=== PATIENT | male | born 1990 | race Caucasian/White ===

== ENCOUNTER 2022-05-20 16:45 | Emergency (ER) | payer MEDICAID, SELFPAY ==
[2022-05-20] VITALS (25 sets, daily range): BP systolic 130–166; BP diastolic 99–106; PULSE 104–129; RESP 13–27; TEMP 36.9; O2SAT 98
[2022-05-20] MEDS: Normal Saline 1,000 ML 1000 ML IV (17:20)
[2022-05-20] MEDS: Ondansetron 4 MG/2 ML VIAL IVP (18:01)
[2022-05-20] MEDS: LORazepam 2 MG/ML VIAL IVP (18:01)
[2022-05-20] MEDS: Lactated Ringers 1,000 ML 1000 ML IV ×2 (18:06→19:05)
[2022-05-20 18:07] LABS: Abs Immature Grans 0.03 10^3/uL (0.0-0.06); Absolute Basophil Count 0.01 10^3/uL (0.0-0.2); Absolute Lymphocyte Count 0.75 10^3/uL (1.2-3.4); Absolute Monocyte Count 0.51 10^3/uL (0.1-0.8); Absolute Neutrophil Count 7.13 10^3/uL (1.2-6.7); Basophils % 0.1; HCT 44.6 % (40.0-50.0); HGB 16.2 g/dL (13.5-17.5); Immature Grans % 0.4; Lymphocytes % 8.9; MCH 31.8 pg (27.0-33.0); MCHC 36.3 % (32.0-36.0); MCV 88 fL (80-95); MPV 9.8 fL (8.0-11.0); Neutrophils % 84.6; RDW 11.8 % (11.8-14.1); RDW-SD 38.1 fL; WBC 8.43 10^3/uL (4.4-10.8)
[2022-05-20 18:29] LABS: Magnesium 1.5 mg/dL (1.8-2.4)
[2022-05-20 18:30] LABS: Diff Comment PLT Morph Reviewed; Platelet Count 89 10^3/uL (130-400); RBC Morphology Normal
[2022-05-20 18:33] LABS: ALT 66 U/L (16-63); AST 56 U/L (15-37); Albumin 4.6 g/dL (3.4-5.0); Alkaline Phosphatase 69 U/L (46-116); Anion Gap 11.4 mmol/L (3-11); BUN 16 mg/dL (7-18); CO2 30.6 mmol/L (21.0-32.0); CREATININE 0.8 mg/dL (0.70-1.30); Calcium 10.2 mg/dL (8.5-10.1); Chloride 94 mmol/L (98-107); Glucose 131 mg/dL (74-106); Lipase 117 U/L (73-393); Potassium 3.3 mmol/L (3.5-5.1); Sodium 136 mmol/L (136-145); Total Protein 8.1 g/dL (6.4-8.2)
[2022-05-20 18:40] LABS: ETHANOL BLOOD < 3.0 mg/dL (<10)
[2022-05-20] MEDS: MAGNESIUM SULFATE 1 GM/100 ML BAG IVPB (19:00)
[2022-05-20] MEDS: Potassium Chloride 20 MEQ TABCR 40 MEQ PO (19:05)
[2022-05-20] MEDS: chlordiazePOXIDE 25 MG CAP 50 MG PO (19:05)
[2022-05-20] MEDS: LORazepam 2 MG/ML VIAL 1 MG IVP (19:15)
--- NOTE | 2022-05-20 19:23 | ED.GENADUL_ITS ---
Discharge Plan Disposition Patient Disposition: HOME Condition: Improving Discharge Details Clinical Impression: Alcohol withdrawal Primary Care Provider: Tara Humphreys ED Provider: Delroy Al Home Meds and New Rx's Prescriptions: New chlordiazepoxide HCl 25 mg capsule 25 mg PO Q6H PRNQty: 10 0RF ondansetron 4 mg tablet,disintegrating 4 mg PO Q8H PRN3 Days Qty: 9 0RF Continued irbesartan 75 mg tablet 75 mg PO DAILY Qty: 90 0RF Hold Instructions: Home Medication placed on hold at Doctor's office Rx Instructions: Blood pressure, goal <130/80 venlafaxine 37.5 mg tablet 37.5 mg PO DAILY trazodone 50 mg tablet See Rx Instructions PO QHS PRN (Reason: sleep) Qty: 60 0RF Rx Instructions: 50mg bedtime for sleep difficulty, may repeat 50mg x1 if first dose ine ffective for max nightly dose 100mg PO every day at bedtime PRN; lorazepam 0.5 mg tablet 0.5 mg PO QHS PRN Hold Instructions: Home Medication placed on hold at Doctor's office Rx Instructions: for sleep Discharge Instructions Instructions: Alcohol Withdrawal (ED) Additional Instructions: Zofran and Librium as directed. Plenty of fluids to avoid dehydration. Please follow the instructions given to you by the head strength and conditioning coach. Please watch for new or worsening symptoms and return to the ER for any concerns. Lastly, please contact your primary care provider tomorrow to discuss your ER visit, ongoing symptoms, and need for reevaluation. Discharge Data Discharge Date/Time-TO BE ENTERED AT DEPARTURE: 05/20/22 21:07 Medical Decision Making This is a 31-year-old gentleman with a past medical history of alcohol abuse, anxiety, depression, elevated blood pressure, smoker, presents to the ER having been sober for approximately 70 days, drinking heavily now for the past 6 or 7, experiencing alcohol withdrawal symptoms, last drink last night. Patient denies ever requiring formal detox as an inpatient or at a detox facility. Denies history of alcohol withdrawal seizures or delirium tremens. Clinically he appears anxious, dry, tachycardic, etc. Plan is to obtain IV access, give IV fluid, treat with IV Ativan, Zofran, obtain routine screening laboratory values and reassess. Patient received 2 mg IV Ativan and 4 mg IV Zofran. A total of 3 L of fluid, 2 LR, 1 NS Upon reevaluation patient subjectively reports feeling improvement, heart rate now down to 115. Laboratory values reveal no evidence of leukocytosis or anemia. Platelet count is 89, no evidence of petechiae like rash or evidence of bleeding. Sodium 136 potassium 3.3 anion gap 11.4 creatinine 0.8 with a GFR greater than 60. Glucose 131 calcium 10.2 magnesium 1.5 total bili 2.0 AST 56 ALT 66. Abdomen is soft, nontender, no right upper quadrant pain whatsoever. Plan is to provide IV magnesium as well as replenish his potassium. Patient reports symptoms are returning slightly. Patient received 1 mg IV Ativan, 50 p.o. Librium. Patient received IV magnesium and p.o. 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 Lipase 117. Urinalysis reveals trace ketones. Alcohol level less than 3. Upon reevaluation patient reports moderate improvement of his symptoms. Heart rate now 108. Reports nausea has resolved, no vomiting while under my care. No longer anxious. He has received a total of 3 L IV fluid. It does not appear as though he will meet inpatient criteria. I will provide a prescription for short-term Librium as well as Zofran. We discussed the importance of follow the instructions given to him by the head strength and conditioning coach. We will discussed the importance of outpatient follow-up through his PCP and returning immediately for new or evolving symptoms. Standard discharge and return precautions were provided. Patient understands, is agreeable to this plan, and has no additional questions or concerns upon discharge. This documentation was generated using [employer] system, please disregard any oddities of phrase or misspellings. Medical Records Medical records reviewed: Yes I reviewed the patient's medical records. Lab Data Lab results reviewed: Yes I reviewed the patient's lab results. Labs: Laboratory Tests Range/Units 05/20/22 05/20/22 05/20/22 17:46 17:46 17:46 WBC (4.4-10.8) 10^3/uL 8.43 RBC (4.36-5.78) 10^6/uL 5.10 Hgb (13.5-17.5) g/dL 16.2 Hct (40.0-50.0) % 44.6 MCV (80-95) fL 88 MCH (27.0-33.0) pg 31.8 MCHC (32.0-36.0) % 36.3 H RDW (11.8-14.1) % 11.8 Plt Count (130-400) 10^3/uL 89 L MPV (8.0-11.0) fL 9.8 Immature Gran % 0.4 Neutrophils % 84.6 Lymphocytes % 8.9 Monocytes % 6.0 Eosinophils % 0.0 Basophils % 0.1 Nucleated RBC % (0.0-0.3) % 0.0 Absolute Neutrophils (1.2-6.7) 10^3/uL 7.13 H Absolute Lymphocytes (1.2-3.4) 10^3/uL 0.75 L Absolute Monocytes (0.1-0.8) 10^3/uL 0.51 Absolute Eosinophils (0.0-0.7) 10^3/uL 0.00 Absolute Basophils (0.0-0.2) 10^3/uL 0.01 RBC Morphology Normal Sodium (136-145) mmol/L 136 Potassium (3.5-5.1) mmol/L 3.3 L Chloride (98-107) mmol/L 94 L Carbon Dioxide (21.0-32.0) mmol/L 30.6 Anion Gap (3-11) mmol/L 11.4 H BUN (7-18) mg/dL 16 Creatinine (0.70-1.30) mg/dL 0.8 Est GFR (CKD-EPI 2020) (mL/min/1.73m2) 122.10 Glucose (74-106) mg/dL 131 H Calcium (8.5-10.1) mg/dL 10.2 H Magnesium (1.8-2.4) mg/dL Total Bilirubin (0.2-1.0) mg/dL 2.0 H AST (15-37) U/L 56 H ALT (16-63) U/L 66 H Alkaline Phosphatase (46-116) U/L 69 Total Protein (6.4-8.2) g/dL 8.1 Albumin (3.4-5.0) g/dL 4.6 Lipase (73-393) U/L 117 Urine Color (Yellow) Urine Clarity (Clear) Urine pH (5-8) Ur Specific Mason (1.005-1.025) Urine Protein (Negative) mg/dL Urine Ketones (Negative) mg/dL Urine Blood (Negative) Urine Nitrite (Negative) Urine Bilirubin (Negative) Urine Urobilinogen (Up TO 0.2) EU/dL Ur Leukocyte Esterase (Negative) Urine Glucose (Negative) mg/dL Ethyl Alcohol (<10) mg/dL < 3.0 Range/Units 05/20/22 05/20/22 17:46 20:28 WBC (4.4-10.8) 10^3/uL RBC (4.36-5.78) 10^6/uL Hgb (13.5-17.5) g/dL Hct (40.0-50.0) % MCV (80-95) fL MCH (27.0-33.0) pg MCHC (32.0-36.0) % RDW (11.8-14.1) % Plt Count (130-400) 10^3/uL MPV (8.0-11.0) fL Immature Gran % Neutrophils % Lymphocytes % Monocytes % Eosinophils % Basophils % Nucleated RBC % (0.0-0.3) % Absolute Neutrophils (1.2-6.7) 10^3/uL Absolute Lymphocytes (1.2-3.4) 10^3/uL Absolute Monocytes (0.1-0.8) 10^3/uL Absolute Eosinophils (0.0-0.7) 10^3/uL Absolute Basophils (0.0-0.2) 10^3/uL RBC Morphology Sodium (136-145) mmol/L Potassium (3.5-5.1) mmol/L Chloride (98-107) mmol/L Carbon Dioxide (21.0-32.0) mmol/L Anion Gap (3-11) mmol/L BUN (7-18) mg/dL Creatinine (0.70-1.30) mg/dL Est GFR (CKD-EPI 2020) (mL/min/1.73m2) Glucose (74-106) mg/dL Calcium (8.5-10.1) mg/dL Magnesium (1.8-2.4) mg/dL 1.5 L Total Bilirubin (0.2-1.0) mg/dL AST (15-37) U/L ALT (16-63) U/L Alkaline Phosphatase (46-116) U/L Total Protein (6.4-8.2) g/dL Albumin (3.4-5.0) g/dL Lipase (73-393) U/L Urine Color (Yellow) Yellow Urine Clarity (Clear) Clear Urine pH (5-8) 8.5 H Ur Specific Mason (1.005-1.025) 1.015 Urine Protein (Negative) mg/dL Negative Urine Ketones (Negative) mg/dL Trace H Urine Blood (Negative) Negative Urine Nitrite (Negative) Negative Urine Bilirubin (Negative) Small H Urine Urobilinogen (Up TO 0.2) EU/dL >=8.0 Ur Leukocyte Esterase (Negative) Negative Urine Glucose (Negative) mg/dL Negative Ethyl Alcohol (<10) mg/dL HPI General Mode of arrival: ambulatory . Date/Time Provider Initiated Documentation: 05/20/22 16:49 . Limitations to Documentation: no limitations . Information obtained by: patient and family . HPI Narrative: This is a 31-year-old male with a past medical history of anxiety, depression, alcohol abuse, presenting stating that he has been sober for approximately 70 days up until the past 6 or 7 days when he began drinking again, last drink last night, now not feeling well going through withdrawal. Patient states that he has been drinking what ever is in the house which ranges from hard liquor, wine, beer, etc. Patient states today he feels jittery, anxious, has been tearful, reports occasional abdominal cramping, nausea and vomiting. Patient denies history of severe alcohol withdrawals, DTs, ever requiring an inpatient facility for withdrawals. Patient denies recent illness or trauma. Related Data Home Medications Medication Instructions Recorded Confirmed lorazepam 0.5 mg tablet 0.5 mg PO QHS PRN 04/03/21 07/17/21 irbesartan 75 mg tablet 75 mg PO DAILY #90 tabs 05/15/21 07/17/21 trazodone 50 mg tablet See Rx Instructions PO QHS PRN 07/17/21 07/17/21 sleep #60 tabs venlafaxine 37.5 mg tablet 37.5 mg PO DAILY 07/17/21 07/17/21 chlordiazepoxide HCl 25 mg capsule 25 mg PO Q6H PRN #10 caps 05/20/22 ondansetron 4 mg disintegrating 4 mg PO Q8H PRN 3 days #9 tabs 05/20/22 tablet Previous Rx's Medication Instructions Recorded irbesartan 75 mg tablet 75 mg PO DAILY #90 tabs 05/15/21 trazodone 50 mg tablet See Rx Instructions PO QHS PRN 07/17/21 sleep #60 tabs chlordiazepoxide HCl 25 mg capsule 25 mg PO Q6H PRN #10 caps 05/20/22 ondansetron 4 mg disintegrating 4 mg PO Q8H PRN 3 days #9 tabs 05/20/22 tablet Allergies Allergy/AdvReac Type Severity Reaction Status Date / Time clonidine AdvReac Unknown sedation Verified 07/17/21 15:56 General Stated Complaint: ETOHWithdr MOISES: 3 Review of Systems Constitutional Constitutional: Denies fever(s) and Denies weakness ENT Ears, Nose, Mouth, and Throat: Denies neck pain Cardiovascular Cardiovascular: Denies chest pain and Denies dyspnea Respiratory Respiratory: Denies cough and Denies dyspnea Gastrointestinal Gastrointestinal: Reports abdominal pain, Reports nausea and Reports vomiting Musculoskeletal Musculoskeletal: Denies neck pain, Denies numbness and Denies tingling Integumentary/Breasts Skin/Breast: Denies rash Neurologic Neurologic: Denies numbness, Denies tingling and Denies weakness Psychiatric Psychiatric: Reports anxiety PFSH All Active Problems (Updated 05/20/22 @ 20:53 by RODRIGO [place]) Alcohol withdrawal (Acute) Sleeping difficulty (Acute) RX Trazodone Stressful life event affecting family (Acute) Sister's illness/diagnosis Excessive drinking alcohol (Acute) Reviewed norms Nicotine use disorder (Chronic) 16yo started 0.5-1PPD Elevated BP without diagnosis of hypertension (Acute) Depression (Chronic) Venlafaxine; Dr Begum Anxiety (Chronic) did not respond to low dose sertraline 01/11/11, failed Mirtazepine; Dr. Begum Family History Mother Breast cancer Pre-menopausal; has occurred x2 Asthma Heart disease ID Father , COV, Winter 2019 Cancer lung Diabetes Sister Scleroderma Breast cancer Dx'ed mid 30s Paternal Uncle Scleroderma Social History Smoking/Tobacco Use Status: Current every day Tobacco Type: cigarettes Tobacco: How many years used: 8 Quit status: considering quitting Smoking risk assessment performed?: Yes Alcohol Intake: current Alcohol Intake frequency: 3 or more drinks per day Alcohol type: wine and hard liquor Drug use: Occasionally Substance use type: marijuana Adopted: No Caregiver/Support person: No Foster care: No Household members: family Housing: house Number of Children: 0 number of grandchildren: 0 Communication Needs: None Education Level: high school Do you need help understanding health information?: Rarely 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: [employer]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 Pets and animals: No Sexually active: Yes Do you think of yourself as: straight/heterosexual Current gender identity: male What is your relationship status?: refused to answer How often do you talk on the phone with friends or family?: three or more times per week How often do you get together with friends or relatives?: three or more times per week Do you belong to any clubs or organized social groups?: no Panel score (0-1 are the most socially isolated patients): 1 What type of physical activity do you participate in: walking Duration: > 90 minutes/day Frequency: 5-6 times per week Laina/Buddhism: None Special laina needs: No Seatbelt use: always Helmet use: Yes Helmet use: always Drive intox or ride w/intox 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 Do you feel safe at home: Yes Do you feel safe in your relationship?: Yes Exam Const General: cooperative, no acute distress and anxious (Tearful) Orientation: alert, awake and oriented x3 [facility] Head: normal to inspection, normocephalic and atraumatic Mouth: moist mucous membranes abnormal (Dry) Throat: posterior oropharynx normal Eyes General: appearance normal, both eyes and all related structures Conjunctivae: conjunctivae normal Neck Neck: normal visual inspection, full ROM, no meningeal signs, trachea midline and supple Resp Effort & Inspection: normal respiratory effort and able to speak in complete sentences Auscultation: clear to auscultation bilaterally Cardio Rate: tachycardic (130s) Rhythm: regular rhythm GI Inspection: normal to inspection Palpation: soft, not firm, no guarding, no pulsatile masses and nontender Auscultation: normal bowel sounds Back/Spine/Pelvis Back: No back tenderness Skin General skin exam: no rashes or lesions noted Neuro General: patient alert, patient awake, patient oriented x3, moves all extremities and no focal motor deficits Cognition: normal cognition Speech: speech normal Gait: normal gait Motor: muscle tone normal throughout Sensory Exam: no sensory deficits noted Extrem General: normal to inspection, full ROM and capillary refill normal Psych Appearance: grossly normal Mental Status: mental status grossly normal Course Vital Signs Vital signs: Vital Signs Temperature 36.9 C 05/20/22 16:59 Pulse 129 H 05/20/22 16:59 Respiratory Rate 22 05/20/22 16:59 Blood Pressure 130/99 H 05/20/22 16:59 Pulse Oximetry 98 05/20/22 16:59 Temperature 36.9 C 05/20/22 16:59 Temperature Source Oral 05/20/22 16:59 Pulse 129 H 05/20/22 16:59 Respiratory Rate 22 05/20/22 16:59 Respiratory Effort Short of Breath 05/20/22 17:31 Respiratory Pattern Normal 05/20/22 17:35 Blood Pressure 130/99 H 05/20/22 16:59 Blood Pressure Position Supine 05/20/22 16:59 Pulse Oximetry 98 05/20/22 16:59 Oxygen Delivery Method Room Air 05/20/22 16:59 Oxygen Flow Rate 0 05/20/22 16:59 Pain Level 6 05/20/22 16:59 Comment 05/20/22 16:59 Lab/Test Results Lab/Test Results: Laboratory Tests Range/Units 05/20/22 05/20/22 05/20/22 17:46 17:46 17:46 WBC (4.4-10.8) 10^3/uL 8.43 RBC (4.36-5.78) 10^6/uL 5.10 Hgb (13.5-17.5) g/dL 16.2 Hct (40.0-50.0) % 44.6 MCV (80-95) fL 88 MCH (27.0-33.0) pg 31.8 MCHC (32.0-36.0) % 36.3 H RDW (11.8-14.1) % 11.8 Plt Count (130-400) 10^3/uL 89 L MPV (8.0-11.0) fL 9.8 Immature Gran % 0.4 Neutrophils % 84.6 Lymphocytes % 8.9 Monocytes % 6.0 Eosinophils % 0.0 Basophils % 0.1 Nucleated RBC % (0.0-0.3) % 0.0 Absolute Neutrophils (1.2-6.7) 10^3/uL 7.13 H Absolute Lymphocytes (1.2-3.4) 10^3/uL 0.75 L Absolute Monocytes (0.1-0.8) 10^3/uL 0.51 Absolute Eosinophils (0.0-0.7) 10^3/uL 0.00 Absolute Basophils (0.0-0.2) 10^3/uL 0.01 RBC Morphology Normal Sodium (136-145) mmol/L 136 Potassium (3.5-5.1) mmol/L 3.3 L Chloride (98-107) mmol/L 94 L Carbon Dioxide (21.0-32.0) mmol/L 30.6 Anion Gap (3-11) mmol/L 11.4 H BUN (7-18) mg/dL 16 Creatinine (0.70-1.30) mg/dL 0.8 Est GFR (CKD-EPI 2020) (mL/min/1.73m2) 122.10 Glucose (74-106) mg/dL 131 H Calcium (8.5-10.1) mg/dL 10.2 H Magnesium (1.8-2.4) mg/dL Total Bilirubin (0.2-1.0) mg/dL 2.0 H AST (15-37) U/L 56 H ALT (16-63) U/L 66 H Alkaline Phosphatase (46-116) U/L 69 Total Protein (6.4-8.2) g/dL 8.1 Albumin (3.4-5.0) g/dL 4.6 Lipase (73-393) U/L 117 Ethyl Alcohol (<10) mg/dL < 3.0 Range/Units 05/20/22 17:46 WBC (4.4-10.8) 10^3/uL RBC (4.36-5.78) 10^6/uL Hgb (13.5-17.5) g/dL Hct (40.0-50.0) % MCV (80-95) fL MCH (27.0-33.0) pg MCHC (32.0-36.0) % RDW (11.8-14.1) % Plt Count (130-400) 10^3/uL MPV (8.0-11.0) fL Immature Gran % Neutrophils % Lymphocytes % Monocytes % Eosinophils % Basophils % Nucleated RBC % (0.0-0.3) % Absolute Neutrophils (1.2-6.7) 10^3/uL Absolute Lymphocytes (1.2-3.4) 10^3/uL Absolute Monocytes (0.1-0.8) 10^3/uL Absolute Eosinophils (0.0-0.7) 10^3/uL Absolute Basophils (0.0-0.2) 10^3/uL RBC Morphology Sodium (136-145) mmol/L Potassium (3.5-5.1) mmol/L Chloride (98-107) mmol/L Carbon Dioxide (21.0-32.0) mmol/L Anion Gap (3-11) mmol/L BUN (7-18) mg/dL Creatinine (0.70-1.30) mg/dL Est GFR (CKD-EPI 2020) (mL/min/1.73m2) Glucose (74-106) mg/dL Calcium (8.5-10.1) mg/dL Magnesium (1.8-2.4) mg/dL 1.5 L Total Bilirubin (0.2-1.0) mg/dL AST (15-37) U/L ALT (16-63) U/L Alkaline Phosphatase (46-116) U/L Total Protein (6.4-8.2) g/dL Albumin (3.4-5.0) g/dL Lipase (73-393) U/L Ethyl Alcohol (<10) mg/dL PAWSS Have you Been Recently Intoxicated or Drunk Within the Last 30 days?: Yes Have you Ever Experienced Previous Episodes of Alcohol Withdrawal?: Yes Have you ever Experienced Withdrawal Seizures?: No Have you ever Experienced Delirium Tremens(DT)s?: Yes Have you ever undergone Alcohol Rehabilitation Treatment (i.e, inpt ot outpatient treatment programs)?: No Have you ever Experienced Blackouts?: Yes Have you ever Combined Alcohol with other Downers within the last 90 days?: No Have you ever Combined Alcohol with any other Substance of Abuse during the last 90 days?: No Evidence of Increased Autonomic Activity (i.e. HR>120, tremor, sweating, agitation, nausea)?: Yes Result: 5
[2022-05-20 20:34] LABS: Bilirubin Small (Negative); Blood Negative (Negative); Clarity Clear (Clear); Glucose Negative (Negative); Ketones Trace mg/dL (Negative); Leukocyte Esterase Negative (Negative); Nitrite Negative (Negative); Specific Gravity 1.015 (1.005-1.025); Urobilinogen >=8.0 EU/dL (Up TO 0.2); pH 8.5 (5-8)
[2022-05-20] MEDS: Ondansetron O.D.T. 4 MG TABEF, 3 TABS/BTL 12 MG (21:00)
== END 2022-05-20 21:07 | disposition home or self-care (01) ==
PROVIDERS: Emergency Provider Physician Assistant; PCP Nurse Practitioner Adult Health
DX: F10.239 Alcohol dependence with withdrawal, unspecified (principal); F32.9 Major depressive disorder, single episode, unspecified; F41.9 Anxiety disorder, unspecified; F17.210 Nicotine dependence, cigarettes, uncomplicated; Y90.0 Blood alcohol level of less than 20 mg/100 ml
CPT/HCPCS: 36415; 80053; 83690; 96361; 96374; 96375; 96376; 99284; 80320; 81003; 83735; 85025; J2060; J2405; J3475

== ENCOUNTER 2023-12-31 17:08 | Emergency (ER) | payer MEDICAID, SELFPAY ==
[2023-12-31 17:10] VITALS: BP 184/129; PULSE 109; RESP 18; TEMP 37.4; O2SAT 98
--- NOTE | 2023-12-31 17:21 | ED.GENADUL_ITS ---
Discharge Plan Disposition Condition: Stable Discharge Details Chief Complaint: Anxiety Clinical Impression: Alcohol use disorder, Severe depression, Acute alcoholic hepatitis Primary Care Provider: Tara Humphreys ED Provider: Rob Valdez Home Meds and New Rx's Prescriptions: No Action No Known Home Meds HPI General Date/Time Provider Initiated Documentation: 12/31/23 17:18 . HPI Narrative: 33 year-old male presents to ED today by POV/ambulating with a chief complaint of depression, hopelessness, increasing his daily ETOH habit with onset over the past year. States he hates his job, dissatisfied with direction of his life, denies SI/HI- has been drinking increased amounts and frequency. Ongoing depression for 5 years. Last drink was at 0230 last night- had 2-3 large cans of hard selzter. Quality described as anxiety over hospital settings, called a hotline and they referred here, no radiation to nausea/vomiting, tremors, headache, fever, chest pain, shortness of breath. Severity is described as moderate. Palliating factors include nothing specific. Provoking factors include nothing specific. Patient not anticoagulated. Related Data Home Medications Medication Instructions Recorded Confirmed Unknown [No Known Home Meds] 12/31/23 12/31/23 Allergies Allergy/AdvReac Type Severity Reaction Status Date / Time clonidine AdvReac Unknown sedation Verified 12/31/23 17:19 General Stated Complaint: Anxiety MOISES: 3 Review of Systems All systems reviewed & are unremarkable except as noted in HPI and below Exam Narrative Exam Narrative: GENERAL APPEARANCE: Cachexic, non-toxic, awake and alert, atraumatic, no acute distress. SKIN: Warm, pink, dry, intact, without rashes/lesions/ulcerations. HEAD: Normocephalic, atraumatic, normal hair distribution for gender/age. EYES: Pupils PERRLA, EOMs intact without nystagmus, normal conjunctiva, no exudates on lids/lashes. ENT: Nares patent, no circumoral cyanosis, no facial swelling NECK: Supple, trachea midline, painless cervical ROM. LUNGS/CHEST: Lungs CTA bilaterally- no rhonchi/rales/wheezes diffusely, non- labored respirations, normal A/P diameter, symmetrical expansion, no chest wall deformity HEART (CV/PV): Regular rate and rhythm without murmur, no peripheral edema, no JVD. ABDOMEN: Soft, non-distended, no guarding, no tendernesse, +hepatomegaly. MSK: Normal ROM, no swelling/deformity to bilateral UEs or LEs, moving all extremities without weakness, no cyanosis, spine midline without tenderness, normal curvature. NEURO: Mental Status AAOx4 - alert to person, place, time, events No facial droop, no forehead involvement. Motor: No focal weakness - strength 5/5 in bilateral UEs and LEs, proximal and distal, symmetric, no asterixis. Sensory: sensation intact to light touch globally. Gait normal: patient ambulated without ataxia into ED room. PSYCH: euthymic, cooperative, pleasant, appropriate speech Course Vital Signs Vital signs: Vital Signs Temperature 37.4 C 12/31/23 17:10 Pulse 109 H 12/31/23 17:10 Respiratory Rate 18 12/31/23 17:10 Blood Pressure 184/129 H 12/31/23 17:10 Pulse Oximetry 98 12/31/23 17:10 Temperature 37.4 C 12/31/23 17:10 Temperature Source Temporal Artery Scan 12/31/23 17:10 Pulse 109 H 12/31/23 17:10 Respiratory Rate 18 12/31/23 17:10 Respiratory Effort Normal 12/31/23 17:17 Blood Pressure 184/129 H 12/31/23 17:10 Blood Pressure Position Sitting 12/31/23 17:10 Pulse Oximetry 98 12/31/23 17:10 Oxygen Delivery Method Room Air 12/31/23 17:10 Oxygen Flow Rate 0 12/31/23 17:10 Pain Level 0 12/31/23 17:10 Medical Decision Making This dictation utilizes [id number] dictation software and may contain unedited grammatical errors. 33 y/o M presents to ED today with a chief complaint of increasing his alcohol intake, dissatisfied with his work and life, denies SI/HI. Looking for help. Patient has been noncompliant with his trazodone and antidepressant for a year as he did not want to mix ETOH and his medications. Patients' medical history: binge drinking, alcohol withdrawal without seizure, family stress. Family and social history: Daily ETOH intake 2-3 cans of hard seltzer, denies illicit substance use. Pertinent exam findings / vital signs include cachexia, hepatomegaly, benign cardiopulmonary status, mild tachycardia in the setting of high anxiety over hospital setting. Differential / pathologies of concern include alcohol dependence, severe depression, not suicidal ideation, hepatitis, risk of alcohol withdrawal. Diagnostic studies of: -CBC, BMP, lipase, liver panel, magnesium, TSH, ammonia, alcohol level, urinalysis, creatine kinase, UDS. -CMP shows mild hyponatremia, elevated anion gap, low calcium 7.9 -magnesium 1.5 Low -LFT shows bilirubin 2.7, conjugated 1.5 > will order US RUQ for tomorrow am -AST 741 > ALT 448, likely acute alcoholic hepatitis -TSH elevated at 3.95, free t4 WNL -UA benign -UDS negative -ETOH level 132, will order CIWA q4hr -CBC sample has turbidity, unable to report HgB - will try re-draw tomorrow. Interventions of: -CIWA protocol q4hr, PO magesnium repletion, multi-vitamin, thiamine, calcium supplements, Ativan 1mg q2hr PRN for withdrawal symptoms ordered, ordered US RUQ for tomorrow. -trazodone & melatonin for sleep ordered. ED Course/Assessment/Plan: 33-year-old male presents with severe depression and alcohol use disorder, last drink at 30 this morning, states he drinks 2-3 large cans of alcoholic seltzer per day, has significant labs for acute alcoholic hepatitis that needs to be rechecked, I have ordered him significant repletion of various electrolytes and magnesium and thiamine, calcium. CIWA protocol ordered every 2 hours, Ativan 1mg QID PRN ordered, ordered ultrasound right upper quadrant for tomorrow. Patient states he has never had an alcoholic withdrawal seizure. He was seen by [facility] human services with reasonable inpatient qualification when she is voluntary for. They will follow-up tomorrow for placement. CIWA around 2099 was 13- moderate, did order 2mg NOW Ativan at that time. Low risk for seizure, as patient has never had ETOH related seizure, has had frequent drug holidays from ETOH with only feeling bad the first 24 hrs. -Ordered repeat CBC & Liver Panel for 729 tomorrow morning. US RUQ left ordered as stat for qAM study with stat read. Both Dr. Mota and I agreed he was stable in Zone B, tolerating PO- wanted his IV removed- approached Dr. Celis for admission for acute alcohol hepatitis, will admit qAM if LFTs are rising. Advise aggressive oral hydration. Patient signed out to Dr. Rao at shift-change, pending repeats and imaging in the morning. Findings not consistent with suicidal ideation, severe ETOH withdrawal. Disposition of Alcohol Use Disorder, Acute Alcoholic Hepatitis, Severe Depression. Patient verbalized understanding of the plan and return to ED criteria and engaged in shared decision making. Medical Records Medical records reviewed: Yes I reviewed the patient's medical records. Lab Data Lab results reviewed: Yes I reviewed the patient's lab results. Labs: Laboratory Tests Range/Units 12/31/23 12/31/23 18:30 19:39 WBC (4.4-10.8) 10^3/uL 6.10 RBC (4.36-5.78) 10^6/uL 4.54 Hgb (13.5-17.5) g/dL Hct (40.0-50.0) % 44.5 MCV (80-95) fL 98 H MCH (27.0-33.0) pg MCHC (32.0-36.0) % RDW (11.8-14.1) % 13.2 Plt Count (130-400) 10^3/uL 148 MPV (8.0-11.0) fL 9.8 Immature Gran % % 0.3 Neutrophils % % 56.5 Lymphocytes % % 37.5 Monocytes % % 5.2 Eosinophils % % 0.2 Basophils % % 0.3 Nucleated RBC % (0.0-0.3) % 0.0 Absolute Neutrophils (1.2-6.7) 10^3/uL 3.44 Absolute Lymphocytes (1.2-3.4) 10^3/uL 2.29 Absolute Monocytes (0.1-0.8) 10^3/uL 0.32 Absolute Eosinophils (0.0-0.7) 10^3/uL 0.01 Absolute Basophils (0.0-0.2) 10^3/uL 0.02 Sodium (136-145) mmol/L 132 L Potassium (3.5-5.1) mmol/L 3.9 Chloride (98-107) mmol/L 94 L Carbon Dioxide (21.0-32.0) mmol/L 16.4 L Anion Gap (3-11) mmol/L 21.6 H BUN (7-18) mg/dL 7 Creatinine (0.70-1.30) mg/dL 0.9 Est GFR (CKD-EPI 2020) (mL/min/1.73m2) 116.37 Glucose (74-106) mg/dL 141 H Calcium (8.5-10.1) mg/dL 7.9 L Magnesium (1.8-2.4) mg/dL 1.5 L Total Bilirubin (0.2-1.0) mg/dL 2.7 H Conjugated Bilirubin (0.0-0.2) mg/dL 1.4 H AST (15-37) U/L 741 H ALT (16-63) U/L 448 H Alkaline Phosphatase (46-116) U/L 207 H Ammonia (11-32) umol/L 29 Creatine Kinase (39-308) U/L 50 Total Protein (6.4-8.2) g/dL 6.0 L Albumin (3.4-5.0) g/dL 3.0 L Lipase (16-77) U/L 20 TSH (0.36-3.74) uIU/mL 3.95 H Free T4 (0.76-1.46) ng/dL 1.06 Urine Color (Yellow) Yellow Urine Clarity (Clear) Clear Urine pH (5-8) 7.5 Ur Specific [place] (1.005-1.025) 1.015 Urine Protein (Neg-Trace) mg/dL Negative Urine Ketones (Negative) mg/dL Negative Urine Blood (Negative) Negative Urine Nitrite (Negative) Negative Urine Bilirubin (Negative) Negative Urine Urobilinogen (Up to 0.2) mg/dL 1.0 H Ur Leukocyte Esterase (Negative) Negative Urine Glucose (Negative) mg/dL Negative Urine Opiates Screen (Negative) Negative Urine Methadone Screen (Negative) Negative Ur Barbiturates Screen (Negative) Negative Ur Tricyclics Screen (Negative) Negative Ur Amphetamines Screen (Negative) Negative U Benzodiazepines Scrn (Negative) Negative Urine Cocaine Screen (Negative) Negative Ur THC Screen (Negative) Negative Ethyl Alcohol (<10) mg/dL 132.1 H Quality:SDOH Health Related Social Needs: No Data to Display PFSH All Active Problems (Updated 12/31/23 @ 20:30 by RODRIGO Santiago) Acute alcoholic hepatitis (Acute) Severe depression (Acute) Alcohol use disorder (Acute) Ocular hypertension (Acute) Bilateral ocular hypertension (Acute) Sleeping difficulty (Acute) RX Trazodone Nicotine use disorder (Chronic) 16yo started 0.5-1PPD Elevated BP without diagnosis of hypertension (Acute) Depression (Chronic) Venlafaxine; Sanna Sanchez Anxiety (Chronic) did not respond to low dose sertraline 01/11/11, failed Mirtazepine Medical History Alcohol withdrawal Excessive drinking alcohol Reviewed norms Stressful life event affecting family Sister's illness/diagnosis Family History Mother Breast cancer Pre-menopausal; has occurred x2 Asthma Heart disease [place] Father , winter Cancer lung Diabetes Sister Scleroderma Breast cancer Dx'ed mid 30s Paternal Uncle Scleroderma Social History Smoking/Tobacco Use Status: Current every day Tobacco Type: cigarettes Tobacco: How many years used: 8 Quit status: considering quitting Smoking risk assessment performed?: Yes Alcohol Intake: current Alcohol Intake frequency: 3 or more drinks per day Alcohol type: wine and hard liquor Drug use: Never Substance use type: marijuana Adopted: No Caregiver/Support person: No Foster care: No Household members: family Housing: house Number of Children: 0 number of grandchildren: 0 Communication Needs: None Education Level: high school Do you need help understanding health information?: Rarely 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 Pets and animals: No Sexually active: Yes Do you think of yourself as: straight/heterosexual Current gender identity: male What is your relationship status?: refused to answer How often do you talk on the phone with friends or family?: three or more times per week How often do you get together with friends or relatives?: three or more times per week Do you belong to any clubs or organized social groups?: no Panel score (0-1 are the most socially isolated patients): 1 What type of physical activity do you participate in: walking Duration: > 90 minutes/day Frequency: 5-6 times per week Laina/Hinduism: None Special laina needs: No Seatbelt use: always Helmet use: Yes Helmet use: always Drive intox or ride w/intox m48/m60 tank driver: No Do you feel safe at home: Yes Do you feel safe in your relationship?: Yes Sign Out Sign Out Data: Sign Out Comment: 33/M - ETOH use disorder - severe depression - seeking in- patient care. [facility] agrees, will send referrals qAM. Last drink 0230- ETOH 132 at ~1700hrs - likely more severe intake than admitting. Scored 13 on CIWA @ 2100 - given 2mg Ativan PO Patient denies history of ETOH withdrawal seizure- states he usually takes 2-4 day breaks from drinking and only feels bad for the first 24 hours or so. Denies SI/HI. Has significant ETOH related hepatitis, CBC had turbidity, needs redraw qAM, US RUQ qAM ordered. Replacing Mg++, Thiamine, Calcium PO + multivitamin. Last updated by Rob Valdez PA at 12/31/23 21:37 PAWSS Have you Been Recently Intoxicated or Drunk Within the Last 30 days?: Yes Have you Ever Experienced Previous Episodes of Alcohol Withdrawal?: No Have you ever Experienced Withdrawal Seizures?: No Have you ever Experienced Delirium Tremens(DT)s?: No Have you ever undergone Alcohol Rehabilitation Treatment (i.e, inpt ot outpatient treatment programs)?: No Have you ever Experienced Blackouts?: No Have you ever Combined Alcohol with other Downers within the last 90 days?: No Have you ever Combined Alcohol with any other Substance of Abuse during the last 90 days?: No Result: 1
[2023-12-31 17:45] VITALS: RESP 18
[2023-12-31] MEDS: LORazepam 1 MG TAB PO (17:59)
[2023-12-31] MEDS: Lactated Ringers 1,000 ML 1000 ML IV (18:32)
[2023-12-31 18:40] LABS: Abs Immature Grans 0.02 10^3/uL (0.0-0.06); Absolute Basophil Count 0.02 10^3/uL (0.0-0.2); Absolute Eosinophil Count 0.01 10^3/uL (0.0-0.7); Absolute Lymphocyte Count 2.29 10^3/uL (1.2-3.4); Absolute Monocyte Count 0.32 10^3/uL (0.1-0.8); Absolute Neutrophil Count 3.44 10^3/uL (1.2-6.7); Basophils % 0.3 %; Eosinophils % 0.2 %; HCT 44.5 % (40.0-50.0); Immature Grans % 0.3 %; Lymphocytes % 37.5 %; MCV 98 fL (80-95); MPV 9.8 fL (8.0-11.0); Monocytes % 5.2 %; Neutrophils % 56.5 %; Platelet Count 148 10^3/uL (130-400); RBC 4.54 10^6/uL (4.36-5.78); RDW 13.2 % (11.8-14.1); RDW-SD 47.2 fL
[2023-12-31 18:52] LABS: Ammonia 29 umol/L (11-32)
--- NOTE | 2023-12-31 18:53 | PROC.BLANK_ITS ---
Date of service: 12/31/23 Time of Service: 18:53 Medical Decision Making Family requesting to speak with attending physician. I discussed the plan of care with the treating provider and then spoke with patient and family at bedside. [facility] subsequently at bedside to evaluate patient and plan made for voluntary inpatient treatment. I again spoke with patient and family and they are in full agreement with the plan, as am I. Medical Records Medical records reviewed: Yes I reviewed the patient's medical records. Quality:SDOH Health Related Social Needs: No Data to Display
[2023-12-31 19:04] LABS: Alkaline Phosphatase 207 U/L (46-116); Anion Gap 21.6 mmol/L (3-11); BUN 7 mg/dL (7-18); Bilirubin, Direct 1.4 mg/dL (0.0-0.2); Bilirubin, Total 2.7 mg/dL (0.2-1.0); CO2 16.4 mmol/L (21.0-32.0); CREATININE 0.9 mg/dL (0.70-1.30); Calcium 7.9 mg/dL (8.5-10.1); Chloride 94 mmol/L (98-107); Creatine Kinase 50 U/L (39-308); ETHANOL BLOOD 132.1 mg/dL (<10); Estimated GFR 116.37 (mL/min/1.73m2); Glucose 141 mg/dL (74-106); Lipase 20 U/L (16-77); Magnesium 1.5 mg/dL (1.8-2.4); Potassium 3.9 mmol/L (3.5-5.1); Sodium 132 mmol/L (136-145); TSH (W/Ref FT4) 3.95 uIU/mL (0.36-3.74)
[2023-12-31 19:27] LABS: FREE T4 1.06 ng/dL (0.76-1.46)
--- NOTE | 2023-12-31 19:38 | MHPN_ITS ---
Date of service: 12/31/23 Time of Service: 18:48 PHQ-9 Over the last 2 weeks, how often have you been bothered by any of the following problems? 1. Little interest or pleasure in doing things: nearly every day 2. Feeling down, depressed, or hopeless: nearly every day 3. Trouble falling or staying asleep, or sleeping too much: nearly every day 4. Feeling tired or having little energy: nearly every day 5. Poor appetite or overeating: nearly every day 6. Feeling bad about yourself - or that you are a failure or have let yourself and your family down: nearly every day 7. Trouble concentrating on things, such as reading the newspaper or watching television: more than half the days 8. Moving or speaking so slowly that other people could have noticed? - Or the opposite - being so fidgety or restless that you have been moving around a lot more than usual: nearly every day 9. Thoughts that you would be better off or of hurting yourself in some way: not at all Total score: 23 If you checked off any problems, how difficult have these problems made it for you to do your work, take care of things at home, or get along with other people?: extremely difficult Source: Developed by Drs. Neo Mckinnon, Delilah Don, Hernandez Hammer and colleagues, with an educational kathy from [employer]. Suicide Severity Rate CSSRS Have you wished you were or wished you could go to sleep and not wake up?: No Have you actually had any thoughts of killing yourself?: No CSSRS2 Have you been thinking about how you might do this?: No Have you had these thoughts and had some intention of acting on them?: No Have you started to work out or worked out the details of how to kill yourself? Do you intend to carry out this plan?: No CSSRS3 Have you ever done anything, started to do anything or prepared to do anything to end your life?: No CSSRS4 Was this within the past three months?: No Screening Score Total Score: 0 Screening: Negative Mental Health Emergency Note Release [facility] release signed:: Yes Reason for Visit In the last 2 weeks has the pt presented for ES prior to today?: No Non Suicidal Self Injury Current: No History: No Safety Risk/Harm to Self or Others Current Ideation to Harm Self or Others: No Risk: Does risk to harm exist?: No Duty to warn indicated: No Asssessment/Mental Status Appearance: Disheveled Attitude: Cooperative and Friendly Behavior: Unremarkable Speech: Normal and Soft Affect: Cogruent with mood Mood: Depressed and Anxious Thought process: Unremarkable Hallucinations: No evidence Delusions: No evidence Attention: Unremarkable Perception: Not impaired Orientation: Fully orientated Memory: Intact Insight: Good Judgement: Good Neurovegetative Symptoms Sleep: Decrease Appetitie: Decrease Energy: Decrease Libido: Decrease Substance Use: ETOH dependence Have you used substances in the last 7 days?: yes, Alcohol and cigarettes Impression Client presented to [facility] with severe depression and anxiety. 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 Client reported access to means to guns and medication but reported no current SI or HI. Client reported no history of SI or HI. Client reported no current or history of NSSI. Client has a history of therapist but has not found the right fit for him. Client was taking medications for his anxiety and depression, but stopped them when he started drinking. Client reported that he has been drinking but does not drink and drive, and only drinks in the morning if her will not be leaving the house. Client reported a max of 4 alcoholic seltzers in a sitting. Client reported no withdrawal symptoms. Client reported a decrease in his appetite, sleep, energy, and interests. Client was able to provide this singer songwriter with a long list of strengths. Client reported a support system of his mother, sister, step father, and his boss at work. Client is interested in a therapist and restarting medication. Client appeared to this singer songwriter as extremely depressed and rarely made eye contact during the assessment. Client appeared to be underweight and reported losing 30 pounds in the last year. 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 Client reported some additional schooling in the form of culinary school, but left when he got a job at [employer] and they provided training on sight.? Plan/Disposition Recommended Disposition: Hospitalization No. Plan: Client will be waiting voluntary at [facility] for inpatient placement for his severe depression and anxiety. Client will need daily assessments till placed.? Reports/communication Outcome discussed with: ED/Personnel
[2023-12-31 19:44] LABS: ALT 448 U/L (16-63); AST 741 U/L (15-37)
[2023-12-31 19:59] LABS: Bilirubin Negative (Negative); Blood Negative (Negative); Clarity Clear (Clear); Glucose Negative (Negative); Ketones Negative (Negative); Leukocyte Esterase Negative (Negative); Nitrite Negative (Negative); Specific Gravity 1.015 (1.005-1.025); pH 7.5 (5-8)
[2023-12-31 20:03] LABS: *AMPHETAMINES SCREEN URINE Negative (Negative); *BARBITURATES SCREEN URINE Negative (Negative); *BENZODIAZEPINES SCREEN URINE Negative (Negative); Cannabinoids THC Negative (Negative); Cocaine Screen,Urine Negative (Negative); METHADONE URINE SCREEN Negative (Negative); OPIATES URINE SCREEN Negative (Negative)
[2023-12-31 20:04] LABS: Tricyclic Antidepressants Negative (Negative)
[2023-12-31 20:46] VITALS: BP 156/122; PULSE 130; RESP 18; TEMP 37.2; O2SAT 99
[2023-12-31] MEDS: LORazepam 1 MG TAB 2 MG PO (21:18)
[2023-12-31] MEDS: Magnesium Oxide 400 MG TAB 800 MG PO (21:57)
[2023-12-31] MEDS: Thiamine 100 MG TAB PO (21:57)
[2023-12-31 22:56] VITALS: BP 155/136; PULSE 146; RESP 18; TEMP 37.2; O2SAT 98
[2023-12-31] MEDS: chlordiazePOXIDE 25 MG CAP 50 MG PO (23:22)
[2024-01-01 00:30] VITALS: BP 147/122; PULSE 133; RESP 22; TEMP 36.4; O2SAT 97
[2024-01-01] MEDS: LORazepam 1 MG TAB 2 MG PO (00:49)
[2024-01-01] MEDS: Ondansetron O.D.T. 4 MG TABEF PO (00:54)
[2024-01-01 01:39] LABS: INR 1.3 (0.9-1.1); PTT Activated 26.9 sec (23.6-32.8); Prothrombin Time 13.1 sec (9.1-11.1)
--- NOTE | 2024-01-01 05:19 | ED.PROG_ITS ---
Date of service: 01/01/24 Time of Service: 05:19 Medical Decision Making Patient was signed out to me by Rob Valdez. Please refer to his HPI, physical exam, assessment and plan. At time of signout patient was suffered from anxiety and depression. He was requesting transfer to a detox center. Unfortunately alcohol levels were slightly elevated and he was unable to be evaluated by mental health until sober and medically cleared. Patient's workup did reveal transaminitis, which was suspected to be secondary to alcohol intake. Patient denies history of DTs, but did feel quite anxious. He was given a few doses of benzodiazepines to help with his symptoms. Prior to signout the case was discussed with the hospitalist Dr. Celis for admission for trending of the transaminases, and to monitor for DTs. It was recommended to Karthik Valdez that the patient be kept in the ER for the time being for continued monitoring and lab recheck. I received the patient in signout. I went and evaluated the patient independently. He does appear a bit anxious, he does seem mildly depressed. CIWA score is only around 9 though. However internally he feels quite anxious and feels that he is beginning to undergo the symptoms of withdrawal. Additionally with the patient's transaminitis he denies any IV drug use, but he does admit to excessive seafood intake. He eats sushi all the time, crab legs, and frequently eats oysters. We will get a hepatitis panel to evaluate other potential infectious etiologies to cause his hepatitis. I did offer chlordiazepoxide, and the patient accepted. 50 of Librium will be administered, additionally 2 mg of oral Ativan will be given on top of this. Patient's IV had been removed. I did offer repeat IV for continued hydration versus oral hydration. Patient has elected for oral hydration. Patient will be signed out to my colleague for follow-up on repeat labs in the morning, psychiatric assessment, and potential admission if transaminases increase. Quality:[facility] Health Related Social Needs: No Data to Display Sign Out Sign Out Data: Sign Out Comment: 33/M - ETOH use disorder - severe depression - seeking in- patient care. [facility] agrees, will send referrals qAM. Last drink 0230- ETOH 132 at ~1700hrs - likely more severe intake than admitting. Scored 13 on CIWA @ 2100 - given 2mg Ativan PO Patient denies history of ETOH withdrawal seizure- states he usually takes 2-4 day breaks from drinking and only feels bad for the first 24 hours or so. Denies SI/HI. Has significant ETOH related hepatitis, CBC had turbidity, needs redraw qAM, US RUQ qAM ordered. Replacing Mg++, Thiamine, Calcium PO + multivitamin. Last updated by Rob Valdez PA at 12/31/23 21:37 Discharge Plan Disposition Condition: Stable Discharge Details Chief Complaint: Anxiety Clinical Impression: Alcohol use disorder, Severe depression, Acute alcoholic hepatitis Primary Care Provider: Tara Humphreys ED Provider: Rob Rao Home Meds and New Rx's Prescriptions: No Action No Known Home Meds
[2024-01-01 06:05] VITALS: BP 151/118; PULSE 143; RESP 18; O2SAT 100
[2024-01-01 06:10] VITALS: BP 154/108; PULSE 138; RESP 18; O2SAT 98
[2024-01-01 06:35] VITALS: BP 150/115
[2024-01-01 07:31] VITALS: BP 144/118; PULSE 110; TEMP 37.2; O2SAT 100
[2024-01-01] MEDS: diazePAM 5 MG TAB 10 MG PO (07:32)
--- NOTE | 2024-01-01 07:42 | NUR.NOTE ---
PT asks this nurse about getting another nicotine patch. This nurse explained that the patches are good for 24 hours and he is due for a new one around 7 pm this evening. Nursing Note:
[2024-01-01 08:54] LABS: Abs Immature Grans 0.02 10^3/uL (0.0-0.06); Absolute Basophil Count 0.02 10^3/uL (0.0-0.2); Absolute Eosinophil Count 0.06 10^3/uL (0.0-0.7); Absolute Lymphocyte Count 2.28 10^3/uL (1.2-3.4); Absolute Monocyte Count 0.24 10^3/uL (0.1-0.8); Absolute Neutrophil Count 2.92 10^3/uL (1.2-6.7); Basophils % 0.4 %; Eosinophils % 1.1 %; HCT 45.1 % (40.0-50.0); HGB 16.8 g/dL (13.5-17.5); Immature Grans % 0.4 %; Lymphocytes % 41.2 %; MCH 37.7 pg (27.0-33.0); MCHC 37.3 % (32.0-36.0); MCV 101 fL (80-95); MPV 9.8 fL (8.0-11.0); Monocytes % 4.3 %; Neutrophils % 52.6 %; Platelet Count 128 10^3/uL (130-400); RBC 4.46 10^6/uL (4.36-5.78); RDW 13.2 % (11.8-14.1); WBC 5.54 10^3/uL (4.4-10.8)
[2024-01-01] MEDS: chlordiazePOXIDE 25 MG CAP 50 MG PO ×3 (09:07→15:44)
[2024-01-01] MEDS: Calcium 600mg/Vit D 200U TAB 1 TAB PO (09:07)
[2024-01-01] MEDS: Magnesium Oxide 400 MG TAB PO (09:07)
--- NOTE | 2024-01-01 09:07 | ED.PROG_ITS ---
Date of service: 01/01/24 Time of Service: 09:07 Medical Decision Making Patient resting comfortably, endorses feeling subjectively much better. No evidence of tremors or tongue fasciculation. No nausea vomiting or abdominal pain. Evidence of hepatic steatosis hepatomegaly on ultrasound consistent with patient's alcohol abuse. Will continue to monitor for medical and psychiatric standpoint. 16: 34 patient remained hemodynamically stable all day interactive calm no fasciculations no tremors no active signs of withdrawal. Patient was accepted at [place]. Quality:[facility] Health Related Social Needs: No Data to Display Sign Out Sign Out Data: Sign Out Comment: 33/M - ETOH use disorder - severe depression - seeking in- patient care. [facility] agrees, will send referrals qAM. Last drink 0230- ETOH 132 at ~1700hrs - likely more severe intake than admitting. Scored 13 on CIWA @ 2100 - given 2mg Ativan PO Patient denies history of ETOH withdrawal seizure- states he usually takes 2-4 day breaks from drinking and only feels bad for the first 24 hours or so. Denies SI/HI. Has significant ETOH related hepatitis, CBC had turbidity, needs redraw qAM, US RUQ qAM ordered. Replacing Mg++, Thiamine, Calcium PO + multivitamin. Last updated by Rob Valdez PA at 12/31/23 21:37 Sign Out Comment: Patient stable and seeking detox center. Patient did have notable transaminitis, but also eats excessive seafood. Hepatitis panel sent. Patient given Librium at 11 PM, tolerated this well with 2 mg of oral Ativan. Rested well throughout the remainder of the night. Ultrasound in the a.m. ordered for right upper quadrant. Last updated by Rob Rao DO at 01/01/24 05:29 Discharge Plan Disposition Patient Disposition: Psychiatric Hospital/Unit Specific Psychiatric Facility: [facility] Condition: Stable Discharge Details Chief Complaint: Anxiety Clinical Impression: Alcohol use disorder, Severe depression, Acute alcoholic hepatitis Primary Care Provider: Tara Humphreys ED Provider: Dung Crowley Home Meds and New Rx's Prescriptions: No Action No Known Home Meds Discharge Data Discharge Date/Time-TO BE ENTERED AT DEPARTURE: 01/01/24 16:00
[2024-01-01] MEDS: Multivitamin TAB 1 TAB PO (09:08)
[2024-01-01 09:47] LABS: ALT 470 U/L (16-63); Albumin 3.3 g/dL (3.4-5.0); Alkaline Phosphatase 219 U/L (46-116); Bilirubin, Total 4.2 mg/dL (0.2-1.0); Total Protein 6.5 g/dL (6.4-8.2)
[2024-01-01 09:49] LABS: AST 922 U/L (15-37)
--- NOTE | 2024-01-01 09:55 | CMSP_ITS ---
Care Management Safety Plan Status Status: Voluntary Reason for Wait Reason for Wait: Inpatient Admission Safety Plan Safety Plan: VOLUNTARY FOR INPATIENT PSYCHIATRIC STABILIZATION.? Patient is appropriate in all interactions since arriving at [facility]; Pt has demonstrated appropriate coping and communication skills, has articulated his or her needs and concerns and is fully engaged during staff interactions. Safety plan has been established with patient, and care team, to adhere to patient goals, identify restrictions based on behavioral status, address nutrition, and determine allowed personal belongings, tools for hygiene and personal care. Determine level of activity including ambulation, level of supervision, visitors, and determine privileges based on behaviors and level of engagement by pt. VOLUNTARY SAFETY PLAN: 1. Will remain on suicide precautions, in paper clothes 2. Will remain in Zone B under direct supervision of one-on-one staff at all times provided by [employer]; BOB, DIRECTOR OF ENTERPRISE APPLICATIONS straightedge worker. 3. May have paper cups, plates, finger foods as well as a cardboard spoon with which to eat meals. 4. Follow [facility] Management of the Admitted Behavioral Health Patient policy. 5. Shower available in Zone B without restriction. 6. Personal belongings-soft items permitted at RN discretion. 7. Visitors-none at this time. 8. Activities: soft cart items approved per RN discretion. 9.? Bathroom available in Zone B without restriction. 10. Phone: limited to [facility] cordless phone at RN discretion. Due to VOLUNTARY status, if patient wishes to leave [facility], staff will contact [facility] Crisis Screener ([phone]) and Salesperson Fashion Accessories ([phone]) as soon as possible. In the event of elopement, notify [facility] Police ([phone]). Patient is currently voluntarily at [facility] and seeking inpatient admission when a bed becomes available. [facility] Frontline Boring Machine Feeder will continue seeking placement. Please contact the Salesperson [employer] ([phone]) and [facility] Boring Machine Feeder ([phone]) for any needed changes in the Safety Plan. Safety plan has been provided to interdepartmental care team.
--- NOTE | 2024-01-01 09:55 | PDOC.CMSAFE ---
Care Management Safety Plan Status Status: Voluntary Reason for Wait Reason for Wait: Inpatient Admission Safety Plan Safety Plan: VOLUNTARY FOR INPATIENT PSYCHIATRIC STABILIZATION.? Patient is appropriate in all interactions since arriving at [facility]; Pt has demonstrated appropriate coping and communication skills, has articulated his or her needs and concerns and is fully engaged during staff interactions. Safety plan has been established with patient, and care team, to adhere to patient goals, identify restrictions based on behavioral status, address nutrition, and determine allowed personal belongings, tools for hygiene and personal care. Determine level of activity including ambulation, level of supervision, visitors, and determine privileges based on behaviors and level of engagement by pt. VOLUNTARY SAFETY PLAN: 1. Will remain on suicide precautions, in paper clothes 2. Will remain in Zone B under direct supervision of one-on-one staff at all times provided by [employer]; BOB, SPINDLE SETTER impregnator operator. 3. May have paper cups, plates, finger foods as well as a cardboard spoon with which to eat meals. 4. Follow [facility] Management of the Admitted Behavioral Health Patient policy. 5. Shower available in Zone B without restriction. 6. Personal belongings-soft items permitted at RN discretion. 7. Visitors-none at this time. 8. Activities: soft cart items approved per RN discretion. 9.? Bathroom available in Zone B without restriction. 10. Phone: limited to [facility] cordless phone at RN discretion. Due to VOLUNTARY status, if patient wishes to leave [facility], staff will contact [facility] Crisis Screener ([phone]) and Addiction Specialist ([phone]) as soon as possible. In the event of elopement, notify [facility] Police ([phone]). Patient is currently voluntarily at [facility] and seeking inpatient admission when a bed becomes available. [facility] Frontline Pump And Blower Operator will continue seeking placement. Please contact the Addiction Specialist ([phone]) and [facility] Pump And Blower Operator ([phone]) for any needed changes in the Safety Plan. Safety plan has been provided to interdepartmental care team.
[2024-01-01 15:55] VITALS: BP 144/118; PULSE 110; TEMP 37.2; O2SAT 100
--- NOTE | 2024-01-01 20:24 | DI.US_ITS ---
Exam(s) US ABDOMEN LIMITED EXAM: US ABDOMEN LIMITED CLINICAL HISTORY: US RUQ, acute ETOH hepatitis TECHNIQUE: Ultrasound abdomen performed using standard protocol. COMPARISON: No exams were available for comparison FINDINGS: PANCREAS: Normal where visualized. LIVER: There is diffuse increased echogenicity of the liver suggesting fatty infiltration. Hepatopet al flow in the Portal Vein. The liver measures in 19.6 cm length. No evidence of a hepatic mass. GALLBLADDER: No evidence of cholelithiasis. No evidence of wall thickening. No pericholecystic fluid identified. BILIARY SYSTEM: Common bile duct measures < 7 mm. No intrahepatic biliary ductal dilation. PAGAN'S SIGN: Negative. RIGHT KIDNEY: Kidney is normal in size. No evidence of renal calculi. No evidence of hydronephrosis. No renal mass or cyst identified. ASCITES: None seen. IMPRESSION: 1. Hepatic steatosis and hepatomegaly. 2. No evidence of cholelithiasis or biliary ductal dilatation. DATA REPOSITORY:
[2024-01-02 11:46] LABS: Hepatitis A Antibody IgM Negative (Negative); Hepatitis B Core Antibody Negative (Negative); Hepatitis B surface Ag Negative (Negative); Hepatitis C Ab w Rflx HCV PCR Negative (Negative)
== END 2024-01-01 16:00 ==
PROVIDERS: Physician Assistant; Student in an Organized Health Care Education/Training Program; Emergency Provider Emergency Medicine; PCP Nurse Practitioner Adult Health
DX: K70.10 Alcoholic hepatitis without ascites (principal); F32.2 Major depressive disorder, single episode, severe without psychotic features; F10.90 Alcohol use, unspecified, uncomplicated
CPT/HCPCS: 00123; 36415; 80048; 80076; 80307; 82550; 83690; 86704; 86709; 86803; 87340; 96127; 99285; 76705; 80320; 81003; 82140; 83735; 84439; 84443; 85025; 85610; 85730

== ENCOUNTER 2024-03-02 03:54 | Outpatient (CLI) | payer MEDICAID, SELFPAY ==
--- OUTSIDE RECORDS SUMMARY | 2024-03-02 03:56 | XMS_ITS | Clinical Summary ---
Author Organization [facility] Address [address] [place] [address] Care Team Providers Care Trout Farmer Name Role Phone Unavailable Primary Care Provider Unavailabl e Encounters Date Type Department Care Team Description 01/01/20[address] [facility] Pathology & Laboratory Medicine - [facility] [address] [place] [address] Outr Resulting Lab, Provider from Last 3 Months Social History Tobacco Use Types Packs/Day Years Used Date Smoking Tobacco: Never Assessed Sex and Gender Information Value Date Recorded Sex Assigned at Not on file Gender Identity Not on file Sexual Orientation Not on file Plan of Treatment Health Maintenance Due Date Last Done Comments Hepatitis C Screen 1991 Hepatitis B Vaccine (1 of 3 - 19+ 3-dose series) 08/04 COVID-19 Vaccine ( season) 2023 Procedures Procedure Name Priority Date/Time Associated Diagnosis Comments ACUTE HEPATITIS PROFILE Routine 12/31/2023 18:50 EDT from Last 3 Months Results * ACUTE HEPATITIS PROFILE (12/31/2023 18:50 EDT) Hep B Surface Ag Negative Negative 01/02/2024 11:41 EDT [facility] Hep C Antibody Negative Negative 01/02/2024 11:41 EDT [facility] Hepatitis A Antibody, IgM Negative Negative 01/02/2024 11:41 EDT [facility] Comment:The results of this assay can be falsely lowered due to the consumption of Biotin. Hepatitis B Core Ab, Total Negative Negative 01/02/2024 11:41 EDT [facility] Blood VENOUS BLOOD / Unknown 12/31/2023 18:50 EDT 01/01/2024 17:45 EDT Provider Outr Resulting Lab CHEMISTRY & BLOOD GAS ORDERABLES [facility] [address] [place] [address] from Last 3 Months
--- OUTSIDE RECORDS SUMMARY | 2024-03-02 03:56 | XMS_ITS | Encounter Summary ---
Author Organization [facility] Address [address] [place] [address] Care Team Providers Care Scissors Sharpener Name Role Phone Unavailable Primary Care Provider Unavailabl e Encounter Details Date Type Department Care Team (Late st Contact Info) Description 01/01/2024 Lab Requisition [facility] Pathology & Laboratory Medicine - [facility] [address] [place] [address] Outr Resulting Lab, Provider Social History Tobacco Use Types Packs/Day Years Used Date Smoking Tobacco: Never Assessed Sex and Gender Information Value Date Recorded Sex Assigned at Not on file Gender Identity Not on file Sexual Orientation Not on file documented as of this encounter Plan of Treatment Not on file documented as of this encounter Procedures Procedure Name Priority Date/Time Associated Diagnosis Comments ACUTE HEPATITIS PROFILE Routine 12/31/2023 18:50 EDT documented in this encounter Results * ACUTE HEPATITIS PROFILE (12/31/2023 18:50 EDT) Hep B Surface Ag Negative Negative 01/02/2024 11:41 EDT [facility] Hep C Antibody Negative Negative 01/02/2024 11:41 EDT [facility] Hepatitis A Antibody, IgM Negative Negative 01/02/2024 11:41 EDT [facility] Comment:The results of this assay can be falsely lowered due to the consumption of Biotin. Hepatitis B Core Ab, Total Negative Negative 01/02/2024 11:41 EDT [facility] Blood VENOUS BLOOD / Unknown 12/31/2023 18:50 EDT 01/01/2024 17:45 EDT Provider Outr Resulting Lab CHEMISTRY & BLOOD GAS ORDERABLES [facility] [address] [place] [address] documented in this encounter Visit Diagnoses Not on filedocumented in this encounter
--- OUTSIDE RECORDS SUMMARY | 2024-03-02 03:56 | XMS_ITS | Encounter Summary ---
Author Organization [facility] Address [address] [place] [address] Care Team Providers Care Photolith Operator Name Role Phone Unavailable Primary Care Provider Unavailabl e Encounter Details Date Type Department Care Team (Late st Contact Info) Description 08/22/2022 Lab Requisition [facility] Pathology & Laboratory Medicine - [facility] [address] [place] [address] Outr Resulting Lab, Provider Social History Tobacco [...] Procedure Name Priority Date/Time Associated Diagnosis Comments MEASLES IGG AB Routine 08/22/2022 10:00 EST RUBELLA IGG ANTIBODY Routine 08/22/2022 10:00 EST HEPATITIS B SURFACE ANTIBODY Routine 08/22/2022 10:00 EST VARICELLA IGG ANTIBODY Routine 08/22/2022 10:00 EST MUMPS ANTIBODY IGG Routine 08/22/2022 10 :00 EST documented in this encounter Results * HEPATITIS B SURFACE ANTIBODY (08/22/2022 10:00 EST) Hep B Surface Ab, Quantitative 12.9 See Note mIU/mL 08/23/2022 11:[address] [facility] Comment: Reference Range for Hep B Surface Ab, Quant: Positive: >= 10.0 mIU/mL Negative: ??< 10.0 mIU/mL Patient is presumed to be immune to infection with Hepatitis B Virus. Hep B Surface Ab, Qualitative Positive See Note 08/23/2022 11:[address] [facility] Comment: Reference Range for Hep B Surface Ab, Qual: Unvaccinated: ??Negative Vaccinated: ??Positive Blood VENOUS BLOOD / Unknown 08/22/2022 10:00 EST 08/22/2022 16:26 EST Provider Outr Resulting Lab CHEMISTRY & BLOOD GAS ORDERABLES Performing Organization Address City/[facility]/ZIP Co de Phone Number [facility] [address] [place] [address] * MEASLES IGG AB (08/22/2022 10:00 EST) Measles IgG Ab Positive See Note 08/23/2022 11:[address] [facility] Comment:Presence of detectab le measles virus IgG antibodies. Blood VENOUS BLOOD / Unknown 08/22/2022 10:00 EST 08/22/2022 16:26 EST Provider Outr Resulting Lab IMMUNOLOGY A ND SEROLOGY ORDERABLES Performing Organization Address [facility] Co de Phone Number [facility] [address] [place] [address] * VARICELLA IGG ANTIBODY (08/22/2022 10:00 EST) Varicella IgG Ab Negative See Note 08/23/2022 11:[address] [facility] Comment:Absence of detectabl e Varicella Zoster virus IgG antibodies. A negative result generally indicates no detectable antibody, but does not rule out acute infection. If VZV exposure is suspected, a second sample should be collected and tested no less than one or two weeks later. Blood VENOUS BLOOD / Unknown 08/22/2022 10:00 EST 08/22/2022 16:26 EST Provider Outr Resulting Lab IMMUNOLOGY A ND SEROLOGY ORDERABLES Performing Organization Address [facility] Co de Phone Number [facility] [address] [place] [address] * MUMPS ANTIBODY IGG (08/22/2022 10:00 EST) Mumps Antibody IgG Negative See Note 08/23/2022 11:[address] [facility] Comment:Absence of detectabl e mumps virus IgG antibodies. A negative result generally indicates that the patient is susceptible to mumps. Blood VENOUS BLOOD / Unknown 08/22/2022 10:00 EST 08/22/2022 16:26 EST Provider Outr Resulting Lab IMMUNOLOGY A ND SEROLOGY ORDERABLES Performing Organization Address City/[facility]/ZIP Co de Phone Number [facility] [address] [place] [address] * RUBELLA IGG ANTIBODY (08/22/2022 10:00 EST) Rubella IgG Ab Positive See Note 08/23/2022 11:[address] [facility] Comment:Positive for IgG ant ibodies to Rubella virus. Blood VENOUS BLOOD / Unknown 08/22/2022 10:00 EST 08/22/2022 16:26 EST Provider Outr Resulting Lab CHEMISTRY & BLOOD GAS ORDERABLES Performing Organization Address City/[facility]/ZIP Co de Phone Number [facility] [address] [place] [address] documented in this encounter Visit Diagnoses Not on filedocumented in this encounter
--- OUTSIDE RECORDS SUMMARY | 2024-03-02 03:56 | XMS_ITS | Referral Summary ---
Author Organization [facility] Address [address] [place] [address] Care Team Providers Care Raker Buffing Wheel Name Role Phone Unavailable Primary Care Provider Unavailabl e Encounters Date Type Department Care Team Description 01/01/2024 Lab Requisition [facility] Pathology & Laboratory Medicine - [facility] [address] [place] [address] Outr Resulting Lab, Provider from Last 3 Months Social History Tobacco Use Types Packs/Day Years Used Date Smoking Tobacco: Never Assessed Sex and Gender Information Value Date Recorded Sex Assigned at Not on file Gender Identity Not on file Sexual Orientation Not on file Plan of Treatment Not on file Procedures Procedure Name Priority Date/Time Associated Diagnosis Comments ACUTE HEPATITIS PROFILE Routine 12/31/2023 18:50 EDT from Last 3 Months Results * ACUTE HEPATITIS PROFILE (12/31/2023 18:50 EDT) Hep B Surface Ag Negative Negative 01/02/2024 11:41 EDT [facility] Hep C Antibody Negative Negative 01/02/2024 11:41 EDT [facility] Hepatitis A Antibody, IgM Negative Negative 01/02/2024 11:41 EDT [facility] Comment:The results of this assay can be falsely lowered due to the consumption of Biotin. Hepatitis B Core Ab, Total Negative Negative 01/02/2024 11:41 EDT [facility] Blood VENOUS BLOOD / Unknown 12/31/2023 18:50 EDT 01/01/2024 17:45 EDT Provider Outr Resulting Lab CHEMISTRY & BLOOD GAS ORDERABLES [facility] [address] [place] [address] from Last 3 Months
--- OUTSIDE RECORDS SUMMARY | 2024-03-02 03:56 | XMS_ITS | Encounter Summary ---
Author Organization [facility] Address [address] [place] [address] Care Team Providers Care Pewter Finisher Name Role Phone Unavailable Primary Care Provider Unavailabl e Encounter Details Date Type Department Care Team (Late st Contact Info) Description 08/23/2022 Lab Requisition [facility] Pathology & Laboratory Medicine - [facility] [address] [place] [address] Outr Resulting Lab, Provider Social History Tobacco [...] Procedure Name Priority Date/Time Associated Diagnosis Comments QUANTIFERON MITOGEN (PERFORMABLE) Today 08/22/2022 10:00 EST QUANTIFERON TB2 (PERFORMABLE) Today 08/22/2022 10:00 EST QUANTIFERON TB1 (PERFORMABLE) Today 08/22/2022 10:00 EST QUANTIFERON NIL (PERFORMABLE) Today 08/22/2022 10:00 EST QUANTIFERON INTERPRETATION (PERFORMABLE) Today 08/22/2022 10:00 EST QUANTIFERON TB GOLD PLUS Routine 08/22/2022 10:00 EST documented in this encounter Results * QUANTIFERON INTERPRETATION (PERFORMABLE) (08/22/2022 10:00 EST) Quantiferon Interpretation Negative Negative 08/24/2022 10:18 EST [facility] Comment:No interferon-gamma response to M. tuberculosis antigens was detected. ??Infection with M. tuberculosis is unlikely. A single negative result does not exclude infection with M. tuberculosis. ??In patients at high risk for M. tuberculosis infection, a second test should be considered. TB1 Ag minus Nil 0.00 IU/ml 08/24/19 10:18 EST [facility] TB2 Ag minus Nil 0.01 IU/mL 08/24/19 10:18 EST [facility] Blood VENOUS BLOOD / Unknown 08/22/2022 10:00 EST 08/24/2022 9:52 EST Narrative [facility] - 08/24/2022 10:18 EST Results were obtained with the [employer] QuantiFERON-TB Gold Plus CLIA. New platform in use 04/26/2021 Provider Outr Resulting Lab IMMUNOLOGY A ND SEROLOGY ORDERABLES Performing Organization Address City/[facility] Co de Phone Number [facility] [address] [place] [address] * QUANTIFERON MITOGEN (PERFORMABLE) (08/22/2022 10:00 EST) Blood VENOUS BLOOD / Unknown 08/22/2022 10:00 EST 08/23/2022 18:07 EST Provider Outr Resulting Lab IMMUNOLOGY A ND SEROLOGY ORDERABLES Performing Organization Address City/[facility] Co de Phone Number [facility] [address] [place] [address] * QUANTIFERON TB2 (PERFORMABLE) (08/22/2022 10:00 EST) Blood VENOUS BLOOD / Unknown 08/22/2022 10:00 EST 08/23/2022 18:07 EST Provider Outr Resulting Lab IMMUNOLOGY A ND SEROLOGY ORDERABLES Performing Organization Address City/[facility]/ZIP Co de Phone Number [facility] [address] [place] [address] * QUANTIFERON TB1 (PERFORMABLE) (08/22/2022 10:00 EST) Blood VENOUS BLOOD / Unknown 08/22/2022 10:00 EST 08/23/2022 18:07 EST Provider Outr Resulting Lab IMMUNOLOGY A ND SEROLOGY ORDERABLES Performing Organization Address City/[facility]/ZIP Co de Phone Number [facility] [address] [place] [address] * QUANTIFERON NIL (PERFORMABLE) (08/22/2022 10:00 EST) Blood VENOUS BLOOD / Unknown 08/22/2022 10:00 EST 08/23/2022 18:07 EST Provider Outr Resulting Lab IMMUNOLOGY A ND SEROLOGY ORDERABLES [facility] [address] [place] [address] documented in this encounter Visit Diagnoses Not on filedocumented in this encounter
[2024-03-02 10:11] LABS: HCT 44.1 % (40.0-50.0); HGB 15.7 g/dL (13.5-17.5); MCHC 35.6 % (32.0-36.0); MCV 93 fL (80-95); Platelet Count 301 10^3/uL (130-400); RBC 4.76 10^6/uL (4.36-5.78); RDW 12.1 % (11.8-14.1); WBC 9.22 10^3/uL (4.4-10.8)
[2024-03-02 10:30] LABS: ALT 16 U/L (16-63); AST 12 U/L (15-37); Albumin 3.9 g/dL (3.4-5.0); Alkaline Phosphatase 60 U/L (46-116); Anion Gap 10.8 mmol/L (3-11); BUN 17 mg/dL (7-18); Bilirubin, Total 0.32 mg/dL (0.2-1.0); CO2 23.2 mmol/L (21.0-32.0); CREATININE 0.9 mg/dL (0.70-1.30); Calcium 9.2 mg/dL (8.5-10.1); Chloride 101 mmol/L (98-107); Estimated GFR 116.37 (mL/min/1.73m2); Glucose 127 mg/dL (74-106); Potassium 3.9 mmol/L (3.5-5.1); Sodium 135 mmol/L (136-145); Total Protein 7.3 g/dL (6.4-8.2)
== END 2024-03-02 03:55 | disposition home or self-care (01) ==
LOC: LBO 03:54
PROVIDERS: PCP Nurse Practitioner Adult Health; Referring Provider Nurse Practitioner Adult Health; Visit Provider Nurse Practitioner Adult Health
DX: F10.90 Alcohol use, unspecified, uncomplicated (principal)
CPT/HCPCS: 36415; 80053; 85027

== ENCOUNTER 2024-04-15 16:54 | Emergency (ER) | payer MEDICAID, SELFPAY ==
[2024-04-15] VITALS (26 sets, daily range): BP systolic 153–177; BP diastolic 108–131; PULSE 89–124; RESP 9–23; TEMP 36.9; O2SAT 96–98
--- OUTSIDE RECORDS SUMMARY | 2024-04-15 17:28 | XMS_ITS | Referral Summary ---
Author Organization [facility] Address [address] [place] [address] Care Team Providers Care Rod Piler Name Role Phone Unavailable Primary Care Provider Unavailabl e Social History Tobacco Use Types Packs/Day Years Used Date Smoking Tobacco: Never Assessed Sex and Gender Information Value Date Recorded Sex Assigned at Not on file Gender Identity Not on file Sexual Orientation Not on file Plan of Treatment Not on file
--- OUTSIDE RECORDS SUMMARY | 2024-04-15 17:28 | XMS_ITS | Clinical Summary ---
Author Organization [facility] Address [address] [place] [address] Care Team Providers Care Song And Dance Performer Name Role Phone Unavailable Primary Care Provider [...] - 19+ 3-dose series) 08/04 COVID-19 Vaccine (2022- season) 2023
--- OUTSIDE RECORDS SUMMARY | 2024-04-15 17:29 | XMS_ITS | Encounter Summary ---
Author Organization [facility] Address [address] [place] [address] Care Team Providers Care Nursing Tech Name Role Phone Unavailable Primary Care Provider Unavailabl e Encounter Details Date Type Department Care Team (Late st Contact Info) Description 08/23/2022 Lab Requisition [facility] Pathology & Laboratory Medicine - [facility] [address] [place] [address] Outr Resulting Lab, Provider Social History Tobacco [...] Quantiferon Interpretation Negative Negative 08/24/2022 10:18 EST [facility] Comment:No interferon-gamma response to M. tuberculosis antigens was detected. ??Infection with M. tuberculosis is unlikely. A single negative result does not exclude infection with M. tuberculosis. ??In patients at high risk for M. tuberculosis infection, a second test should be considered. TB1 Ag minus Nil 0.00 IU/ml 08/24/19 10:18 EST [facility] TB2 Ag minus Nil 0.01 IU/mL 08/24/19 10:18 EST [facility] Blood VENOUS BLOOD / Unknown 08/22/2022 10:00 EST 08/24/2022 9:52 EST Narrative [facility] - 08/24/2022 10:18 EST Results were obtained with the [employer] QuantiFERON-TB Gold Plus CLIA. New platform in use 04/26/2021 Provider Outr Resulting Lab IMMUNOLOGY A ND SEROLOGY ORDERABLES Performing Organization Address City/[facility] Co de Phone Number [facility] [address] [place] [address] * QUANTIFERON MITOGEN (PERFORMABLE) (08/22/2022 10:00 EST) Blood VENOUS BLOOD / Unknown 08/22/2022 10:00 EST 08/23/2022 18:07 EST Provider Outr Resulting Lab IMMUNOLOGY A ND SEROLOGY ORDERABLES Performing Organization Address City/[facility] Co de Phone Number [facility] [address] [place] [address] * QUANTIFERON TB2 (PERFORMABLE) (08/22/2022 10:00 EST) Blood VENOUS BLOOD / Unknown 08/22/2022 10:00 EST 08/23/2022 18:07 EST Provider Outr Resulting Lab IMMUNOLOGY A ND SEROLOGY ORDERABLES Performing Organization Address City/[facility]/ZIP Co de Phone Number [facility] [address] [place] [address] * QUANTIFERON TB1 (PERFORMABLE) (08/22/2022 10:00 EST) Blood VENOUS BLOOD / Unknown 08/22/2022 10:00 EST 08/23/2022 18:07 EST Provider Outr Resulting Lab IMMUNOLOGY A ND SEROLOGY ORDERABLES Performing Organization Address City/[facility]/ZIP Co de Phone Number [facility] [address] [place] [address] * QUANTIFERON NIL (PERFORMABLE) (08/22/2022 10:00 EST) Blood VENOUS BLOOD / Unknown 08/22/2022 10:00 EST 08/23/2022 18:07 EST Provider Outr Resulting Lab IMMUNOLOGY A ND SEROLOGY ORDERABLES [facility] [address] [place] [address] documented in this encounter Visit Diagnoses Not on filedocumented in this encounter
--- OUTSIDE RECORDS SUMMARY | 2024-04-15 17:29 | XMS_ITS | Encounter Summary ---
Author Organization [facility] Address [address] [place] [address] Care Team Providers Care Revenue Collector Name Role Phone Unavailable Primary Care Provider Unavailabl e Encounter Details Date Type Department Care Team (Late st Contact Info) Description 01/01/2024 Lab Requisition [facility] Pathology & Laboratory Medicine - [facility] [address] [place] [address] Outr Resulting Lab, Provider Social History Tobacco [...] Surface Ag Negative Negative 01/02/2024 11:41 EDT [facility] Hep C Antibody Negative Negative 01/02/2024 11:41 EDT [facility] Hepatitis A Antibody, IgM Negative Negative 01/02/2024 11:41 EDT [facility] Comment:The results of this assay can be falsely lowered due to the consumption of Biotin. Hepatitis B Core Ab, Total Negative Negative 01/02/2024 11:41 EDT [facility] Blood VENOUS BLOOD / Unknown 12/31/2023 18:50 EDT 01/01/2024 17:45 EDT Provider Outr Resulting Lab CHEMISTRY & BLOOD GAS ORDERABLES [facility] [address] [place] [address] documented in this encounter Visit Diagnoses Not on filedocumented in this encounter
--- OUTSIDE RECORDS SUMMARY | 2024-04-15 17:29 | XMS_ITS | Encounter Summary ---
Author Organization [facility] Address [address] [place] [address] Care Team Providers Care Brass Wind Instruments Tube Bender Name Role Phone Unavailable Primary Care Provider Unavailabl e Encounter Details Date Type Department Care Team (Late st Contact Info) Description 08/22/2022 Lab Requisition [facility] Pathology & Laboratory Medicine - [facility] [address] [place] [address] Outr Resulting Lab, Provider Social History Tobacco [...] 12.9 See Note mIU/mL 08/23/2022 11:16 EST [facility] Comment: Reference Range for Hep B Surface Ab, Quant: Positive: >= 10.0 mIU/mL Negative: ??< 10.0 mIU/mL Patient is presumed to be immune to infection with Hepatitis B Virus. Hep B Surface Ab, Qualitative Positive See Note 08/23/2022 11:16 EST [facility] Comment: Reference Range for Hep B Surface Ab, Qual: Unvaccinated: ??Negative Vaccinated: ??Positive Blood VENOUS BLOOD / Unknown 08/22/2022 10:00 EST 08/22/2022 16:26 EST Provider Outr Resulting Lab CHEMISTRY & BLOOD GAS ORDERABLES Performing Organization Address City/[facility]/ZIP Co de Phone Number [facility] [address] [place] [address] * MEASLES IGG AB (08/22/2022 10:00 EST) Measles IgG Ab Positive See Note 08/23/2022 11:07 EST [facility] Comment:Presence of detectab le measles virus IgG antibodies. Blood VENOUS BLOOD / Unknown 08/22/2022 10:00 EST 08/22/2022 16:26 EST Provider Outr Resulting Lab IMMUNOLOGY A ND SEROLOGY ORDERABLES Performing Organization Address [facility] Co de Phone Number [facility] [address] [place] [address] * VARICELLA IGG ANTIBODY (08/22/2022 10:00 EST) Varicella IgG Ab Negative See Note 08/23/2022 11:03 EST [facility] Comment:Absence of detectabl e Varicella [...] A ND SEROLOGY ORDERABLES Performing Organization Address [facility] Co de Phone Number [facility] [address] [place] [address] * MUMPS ANTIBODY IGG (08/22/2022 10:00 EST) Mumps Antibody IgG Negative See Note 08/23/2022 11:08 EST [facility] Comment:Absence of detectabl e mumps virus IgG antibodies. A negative result generally indicates that the patient is susceptible to mumps. Blood VENOUS BLOOD / Unknown 08/22/2022 10:00 EST 08/22/2022 16:26 EST Provider Outr Resulting Lab IMMUNOLOGY A ND SEROLOGY ORDERABLES Performing Organization Address City/[facility]/ZIP Co de Phone Number [facility] [address] [place] [address] * RUBELLA IGG ANTIBODY (08/22/2022 10:00 EST) Rubella IgG Ab Positive See Note 08/23/2022 11:09 EST [facility] Comment:Positive for IgG ant ibodies to Rubella virus. Blood VENOUS BLOOD / Unknown 08/22/2022 10:00 EST 08/22/2022 16:26 EST Provider Outr Resulting Lab CHEMISTRY & BLOOD GAS ORDERABLES Performing Organization Address City/[facility]/ZIP Co de Phone Number [facility] [address] [place] [address] documented in this encounter Visit Diagnoses Not on filedocumented in this encounter
--- NOTE | 2024-04-15 17:31 | ED.GENADUL_ITS ---
Discharge Plan Disposition Patient Disposition: Home Condition: Good Discharge Details Clinical Impression: Alcohol abuse with withdrawal, Dehydration Primary Care Provider: Tara Humphreys ED Provider: Rob Rao Home Meds and New Rx's Prescriptions: New chlordiazepoxide HCl 25 mg capsule 25 mg PO BID PRNQty: 22 0RF Rx Instructions: As needed for symptoms -> Day 1: Take 1-2 tabs every 4-6 hours. Day 2: Take 1-2 tabs every 6-8 hours. Day 3: Take 1-2 tabs every 8-12 hours. Day 4: Take 1 tab. Day 5: Take 1 tab if needed. No Action naltrexone 50 mg tablet 50 mg PO DAILY Qty: 90 3RF venlafaxine 75 mg capsule,extended release 24hr 75 mg PO QHS Qty: 90 3RF trazodone 50 mg tablet See Rx Instructions PO QHS PRN (Reason: sleep) Qty: 40 1RF Rx Instructions: 25-50mg bedtime for sleep difficulty, may repeat 50mg x1 if first dose ineffective for max nightly dose 100mg PO every day at bedtime PRN; clonazepam 0.5 mg tablet 0.5 mg PO BID PRN (Reason: acute anxiety) Qty: 20 0RF Rx Instructions: For acute anxiety, do not mix with alcohol Discharge Instructions Instructions: Alcohol withdrawal, Chlordiazepoxide Additional Instructions: Please take the chlordiazepoxide as prescribed. You have been given 1 more pill to use tonight as well as a single Ativan dose to use tonight if needed for anxiety. Please follow-up closely with your counselors and recovery coaches. If you notice any worsening of your symptoms, or any new symptoms such as vomiting, diarrhea, fever, chills, shortness of breath, chest pain, numbness, weakness, or fainting , please return immediately to the emergency department for reevaluation. Please follow up with your primary care provider as soon as possible for reassessment and reevaluation. As always, it was a pleasure participating in your medical care today. Referrals: Tara Humphreys AWS DEVELOPER [Primary Care Provider] - Discharge Data Discharge Date/Time-TO BE ENTERED AT DEPARTURE: 04/15/24 21:37 HPI General Date/Time Provider Initiated Documentation: 04/15/24 17:15 . HPI Narrative: 33-year-old male with a past medical history of depression, anxiety, alcohol use in the past with withdrawals but no history of seizure, presents today for evaluation for detox. Patient had been sober essentially for the last 60+ days, unfortunately about 6 days ago he states that he went on a significant gould. He states that he drinks 6 tall boys each day which are 8% alcohol. Last drink was 20 hours ago. He states that since then he has been quite nauseous and is felt notably anxious. He feels slightly tremulous. He denies any seizures, he admits to nausea but no vomiting. He denies any chest pain or shortness of breath. He denies any auditory or visual hallucinations. He has not been taking his regular medications while drinking alcohol. He presents today with his sister for help and support. Related Data Home Medications ?Medication ?Instructions ?Recorded ?Confirmed clonazepam 0.5 mg tablet 0.5 mg PO BID PRN acute anxiety 01/15/24 04/15/24 #20 tabs naltrexone 50 mg tablet 50 mg PO DAILY #90 tabs 03/02/24 03/02/24 trazodone 50 mg tablet See Rx Instructions PO QHS PRN 03/02/24 04/15/24 sleep #40 tabs venlafaxine 75 mg capsule,extended 75 mg PO QHS #90 caps 03/02/24 04/15/24 release 24 hr chlordiazepoxide HCl 25 mg capsule 25 mg PO BID PRN #22 caps 04/15/24 Previous Rx's ?Medication ?Instructions ?Recorded clonazepam 0.5 mg tablet 0.5 mg PO BID PRN acute anxiety 01/15/24 #20 tabs naltrexone 50 mg tablet 50 mg PO DAILY #90 tabs 03/02/24 trazodone 50 mg tablet See Rx Instructions PO QHS PRN 03/02/24 sleep #40 tabs venlafaxine 75 mg capsule,extended 75 mg PO QHS #90 caps 03/02/24 release 24 hr chlordiazepoxide HCl 25 mg capsule 25 mg PO BID PRN #22 caps 04/15/24 Allergies Allergy/AdvReac Type Severity Reaction Status Date / Time clonidine AdvReac Unknown sedation Verified 03/02/24 14:22 General Stated Complaint: ETOHWithdr MOISES: 2 Review of Systems All systems reviewed & are unremarkable except as noted in HPI and below Exam Narrative Exam Narrative: 1.Const: Well-nourished, Well-developed, appearing stated age 2.Eyes: PERRL, no conjunctival injection, and symmetrical lids. 3.ENT: Atraumatic external nose and ears. Moist MM. Neck: Symmetric, trachea midline, No thyromegaly. 4.CVS: +S1/S2, No murmurs or gallops. Peripheral pulses 2+ and equal in all extremities. Brisk capillary refill in all extremities. 5.RESP: Unlabored respiratory effort. Clear to auscultation bilaterally. No wheezes rales or rhonchi 6.GI: Soft, Nontender/Nondistended, No hepatosplenomegaly. No guarding or rebound. 7.MSK: Normocephalic/Atraumatic, Extremities w/o deformity or ttp No cyanosis or clubbing, Normal movement of all extremities. No asterixis. No tremulousness or hand shaking. 8.Skin: Warm, Dry. No rashes or lesions. 9.Neuro: drilling engineering manager II-XII grossly intact. Sensation grossly intact, no focal neurologic deficits. 10.Psych: (AAO) x3. Appropriate mood and affect, subjectively slightly anxious. Course Vital Signs Vital signs: Vital Signs Temperature 36.9 C 04/15/24 16:55 Pulse 110 H 04/15/24 16:55 Respiratory Rate 16 04/15/24 16:55 Blood Pressure 177/110 H 04/15/24 16:55 Pulse Oximetry 98 04/15/24 16:55 Temperature 36.9 C 04/15/24 16:55 Temperature Source Temporal Artery Scan 04/15/24 16:55 Pulse 110 H 04/15/24 16:55 Respiratory Rate 16 04/15/24 16:55 Respiratory Effort Normal 04/15/24 17:02 Blood Pressure 177/110 H 04/15/24 16:55 Blood Pressure Position Sitting 04/15/24 16:55 Pulse Oximetry 98 04/15/24 16:55 Oxygen Delivery Method Room Air 04/15/24 16:55 Oxygen Flow Rate 0 04/15/24 16:55 Pain Level 0 04/15/24 16:55 Medical Decision Making 33-year-old male with a past medical history of depression, anxiety, alcohol use in the past with withdrawals but no history of seizure, presents today for evaluation for detox. Patient had been sober essentially for the last 60+ days, unfortunately about 6 days ago he states that he went on a significant gould. He states that he drinks 6 tall boys each day which are 8% alcohol. Last drink was 20 hours ago. He states that since then he has been quite nauseous and is felt notably anxious. He feels slightly tremulous. He denies any seizures, he admits to nausea but no vomiting. He denies any chest pain or shortness of breath. He denies any auditory or visual hallucinations. He has not been taking his regular medications while drinking alcohol. He presents today with his sister for help and support. Exam demonstrates a well-appearing but slightly anxious male, mildly hypertensive with mild tachycardia. No asterixis, no hepatomegaly, no severe jaundice. Concern for mild withdrawal, and symptoms appear inconsistent with fulminant delirium tremens or seizure. He does have notably dry mucous membranes. I do feel he would benefit from rehydration, electrolyte assessment, and cognitive support from the recovery coaches. We will give 50 mg of chlordiazepoxide, rehydrate with a liter of LR and a banana bag, monitor closely and reassess. 10:30 PM Laboratory workup has returned, no white count bandemia or left shift. Hemoglobin is elevated suggesting dehydration. Renal function stable. Alcohol level initially 249. Patient was observed here for quite some time. He was rehydrated with 2 L of lactated ringer, heart rate resolved/improved. Blood pressure remains slightly hypertensive. Anecdotally the patient felt much better after he was given his medication. He had 50 of chlordiazepoxide initi ally, and had mild symptom improvement. An hour or so later he was given an additional 50 mg of chlordiazepoxide and a single dose of 1 mg Ativan. He felt very well after this. He was calm cool and collected. He showed no shaking or tremulousness. No visual or auditory hallucinations or feelings of itchiness or restlessness. He was seen and assessed by the manager of disaster recovery, was given he and his family resources to help establish continued outpatient support and potential placement at a recovery home. Patient and family feel very comfortable with this plan, patient is requesting discharge, family who is at bedside agrees with the plan, and will help the patient with the continued help and assistance at home. I do feel that the patient would benefit from a tapering dose of chlordiazepoxide at home out of concern for potential withdrawal. We we will give a prescription for continued use over the next 4 to 5 days with a tapering component. Will give him a single dose of 25 mg chlor diazepoxide to use tonight and a single dose of 1 mg Ativan to use tonight only as needed for breakthrough withdrawal symptoms. No indication for admission at this time based on current clinical assessment. Patient stable for discharge. Discussed red flags for which to return. I have extensively reviewed the treatment plan and discharge instructions with the patient and their family. I have addressed all patient concerns at this time. The patient and family was made aware of what symptoms to monitor for that would warrant a return to the emergency department. Discussed the plan with the patient and family, they demonstrate verbal understanding and agreement with our assessment and plan at this time. The documentation in this chart was dictated using [employer] dictation software. Please excuse any dictation errors. Quality:SDOH Health Related Social Needs: No Data to Display PFSH All Active Problems (Updated 04/16/24 @ 12:35 by Rob Rao DO) Dehydration (Acute) Alcohol abuse with withdrawal (Acute) Ocular hypertension (Acute) Bilateral ocular hypertension (Acute) Sleeping difficulty (Acute) RX Trazodone Nicotine use disorder (Chronic) 16yo started 0.5-1PPD Elevated BP without diagnosis of hypertension (Acute) Depression (Chronic) Venlafaxine; Sanna Sanchez Anxiety (Chronic) did not respond to low dose sertraline 01/11/11, failed Mirtazepine Medical History Alcohol withdrawal Stressful life event affecting family Sister's illness/diagnosis Excessive drinking alcohol Reviewed norms Family History Mother Breast cancer Pre-menopausal; has occurred x2 Asthma Heart disease PA Father , , Winter 2019 Cancer lung Diabetes Sister Scleroderma Breast cancer Dx'ed mid 30s Paternal Uncle Scleroderma Social History Smoking/Tobacco Use Status: Current every day Tobacco Type: cigarettes Tobacco: How many years used: 8 Quit status: considering quitting Smoking risk assessment performed?: Yes Alcohol Intake: current Alcohol Intake frequency: 3 or more drinks per day Alcohol type: wine and hard liquor Drug use: Never Substance use type: marijuana Adopted: No Caregiver/Support person: No Foster care: No Household members: family Housing: house Number of Children: 0 number of grandchildren: 0 Communication Needs: None Education Level: high school Do you need help understanding health information?: Rarely 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 Pets and animals: No Sexually active: Yes Do you think of yourself as: straight/heterosexual Current gender identity: male What is your relationship status?: refused to answer How often do you talk on the phone with friends or family?: three or more times per week How often do you get together with friends or relatives?: three or more times per week Do you belong to any clubs or organized social groups?: no Panel score (0-1 are the most socially isolated patients): 1 What type of physical activity do you participate in: walking Duration: > 90 minutes/day Frequency: 5-6 times per week Laina/Yazidi: None Special laina needs: No Seatbelt use: always Helmet use: Yes Helmet use: always Drive intox or ride w/intox electric screw driver operator: No Do you feel safe at home: Yes Do you feel safe in your relationship?: Yes PAWSS Have you Been Recently Intoxicated or Drunk Within the Last 30 days?: Yes Have you Ever Experienced Previous Episodes of Alcohol Withdrawal?: Yes Have you ever Experienced Withdrawal Seizures?: No Have you ever Experienced Delirium Tremens(DT)s?: No Have you ever undergone Alcohol Rehabilitation Treatment (i.e, inpt ot outpatient treatment programs)?: Yes Have you ever Experienced Blackouts?: Yes Have you ever Combined Alcohol with other Downers within the last 90 days?: No Have you ever Combined Alcohol with any other Substance of Abuse during the last 90 days?: No Positive Blood Alcohol level on Presentation? [PCS.BAL]: No Evidence of Increased Autonomic Activity (i.e. HR>120, tremor, sweating, agitation, nausea)?: Yes Result: 5
[2024-04-15] MEDS: chlordiazePOXIDE 25 MG CAP 50 MG PO ×2 (17:44→20:33)
[2024-04-15 17:48] LABS: Abs Immature Grans 0.02 10^3/uL (0.0-0.06); Absolute Basophil Count 0.04 10^3/uL (0.0-0.2); Absolute Eosinophil Count 0.14 10^3/uL (0.0-0.7); Absolute Lymphocyte Count 2.88 10^3/uL (1.2-3.4); Absolute Monocyte Count 0.36 10^3/uL (0.1-0.8); Absolute Neutrophil Count 4.32 10^3/uL (1.2-6.7); Basophils % 0.5 %; Eosinophils % 1.8 %; HCT 49.3 % (40.0-50.0); HGB 17.6 g/dL (13.5-17.5); Immature Grans % 0.3 %; Lymphocytes % 37.1 %; MCH 30.7 pg (27.0-33.0); MCHC 35.7 % (32.0-36.0); MCV 86 fL (80-95); MPV 8.4 fL (8.0-11.0); Monocytes % 4.6 %; Neutrophils % 55.7 %; Platelet Count 266 10^3/uL (130-400); RBC 5.73 10^6/uL (4.36-5.78); RDW 12.1 % (11.8-14.1); RDW-SD 37.8 fL; WBC 7.76 10^3/uL (4.4-10.8)
[2024-04-15 18:00] LABS: ALT 20 U/L (16-63); AST 21 U/L (15-37); Albumin 3.7 g/dL (3.4-5.0); Alkaline Phosphatase 63 U/L (46-116); Anion Gap 9.7 mmol/L (3-11); BUN 9 mg/dL (7-18); Bilirubin, Total 0.57 mg/dL (0.2-1.0); CO2 28.3 mmol/L (21.0-32.0); CREATININE 0.9 mg/dL (0.70-1.30); Calcium 8.8 mg/dL (8.5-10.1); Chloride 105 mmol/L (98-107); ETHANOL BLOOD 249.1 mg/dL (<10); Estimated GFR 116.37 (mL/min/1.73m2); Glucose 100 mg/dL (74-106); Lipase 29 U/L (16-77); Magnesium 1.9 mg/dL (1.8-2.4); Potassium 3.8 mmol/L (3.5-5.1); Sodium 143 mmol/L (136-145); Total Protein 7.3 g/dL (6.4-8.2)
[2024-04-15] MEDS: Lactated Ringers 1,000 ML 1000 ML IV ×2 (18:11→20:17)
[2024-04-15] MEDS: MAGNESIUM SULFATE 8.12 MEQ, MULTIVITAMIN 10 ML, THIAMINE 100 MG, FOLIC ACID 1 MG in Nor... 168.867 MG IV (18:12)
--- NOTE | 2024-04-15 19:09 | NUR.NOTE ---
Nursing Note: Assumed care of pt. assistant track and field coach with pt. Will assess when they are done
--- NOTE | 2024-04-15 20:01 | NUR.NOTE ---
Nursing Note: pt asking for some nicotine gum and something more for his anxiety. Reported to
[2024-04-15] MEDS: LORazepam 2 MG/ML VIAL 1 MG IVP (20:33)
[2024-04-15] MEDS: Nicotine 4 MG GUM CH (20:33)
[2024-04-15] MEDS: chlordiazePOXIDE 25 MG CAP PO (21:37)
[2024-04-15] MEDS: LORazepam 1 MG TAB PO (21:37)
== END 2024-04-15 21:37 | disposition home or self-care (01) ==
PROVIDERS: Emergency Provider Student in an Organized Health Care Education/Training Program; PCP Nurse Practitioner Adult Health
DX: F10.139 Alcohol abuse with withdrawal, unspecified (principal); E86.0 Dehydration
CPT/HCPCS: 80053; 83690; 96361; 96374; 99284; 80320; 83735; 85025; 99283; J2060; J3411; J3475

== ENCOUNTER 2024-05-09 20:46 | Emergency (ER) | payer MEDICAID, SELFPAY ==
[2024-05-09] VITALS (26 sets, daily range): BP systolic 157–184; BP diastolic 107–131; PULSE 90–138; RESP 13–19; TEMP 36.8; O2SAT 94–99
--- OUTSIDE RECORDS SUMMARY | 2024-05-09 20:54 | XMS_ITS | Encounter Summary ---
Author Organization [facility] Address [address] [place] [address] Care Team Providers Care Child Welfare Social Worker Name Role Phone Unavailable Primary Care Provider Unavailabl e Encounter Details Date Type Department Care Team (Late st Contact Info) Description 08/23/2022 Lab Requisition [facility] Pathology & Laboratory Medicine - [facility] [address] [place] [address] Outr Resulting Lab, Provider Social History Tobacco [...] Quantiferon Interpretation Negative Negative 08/24/2022 10:18 EST [facility] Comment:No interferon-gamma response to M. tuberculosis antigens was detected. ??Infection with M. tuberculosis is unlikely. A single negative result does not exclude infection with M. tuberculosis. ??In patients at high risk for M. tuberculosis infection, a second test should be considered. TB1 Ag minus Nil 0.00 IU/ml 08/24/19 10:18 EST [facility] TB2 Ag minus Nil 0.01 IU/mL 08/24/19 10:18 EST [facility] Blood VENOUS BLOOD / Unknown 08/22/2022 10:00 EST 08/24/2022 9:52 EST Narrative [facility] - 08/24/2022 10:18 EST Results were obtained with the Qiagen QuantiFERON-TB Gold Plus CLIA. New platform in use 04/26/2021 Provider Outr Resulting Lab IMMUNOLOGY A ND SEROLOGY ORDERABLES Performing Organization Address City/[facility] Co de Phone Number [facility] [address] [place] [address] * QUANTIFERON MITOGEN (PERFORMABLE) (08/22/2022 10:00 EST) Blood VENOUS BLOOD / Unknown 08/22/2022 10:00 EST 08/23/2022 18:07 EST Provider Outr Resulting Lab IMMUNOLOGY A ND SEROLOGY ORDERABLES Performing Organization Address City/[facility] Co de Phone Number [facility] [address] [place] [address] * QUANTIFERON TB2 (PERFORMABLE) (08/22/2022 10:00 EST) Blood VENOUS BLOOD / Unknown 08/22/2022 10:00 EST 08/23/2022 18:07 EST Provider Outr Resulting Lab IMMUNOLOGY A ND SEROLOGY ORDERABLES Performing Organization Address City/[facility]/ZIP Co de Phone Number [facility] [address] [place] [address] * QUANTIFERON TB1 (PERFORMABLE) (08/22/2022 10:00 EST) Blood VENOUS BLOOD / Unknown 08/22/2022 10:00 EST 08/23/2022 18:07 EST Provider Outr Resulting Lab IMMUNOLOGY A ND SEROLOGY ORDERABLES Performing Organization Address City/[facility]/ZIP Co de Phone Number [facility] [address] [place] [address] * QUANTIFERON NIL (PERFORMABLE) (08/22/2022 10:00 EST) Blood VENOUS BLOOD / Unknown 08/22/2022 10:00 EST 08/23/2022 18:07 EST Provider Outr Resulting Lab IMMUNOLOGY A ND SEROLOGY ORDERABLES [facility] [address] [place] [address] documented in this encounter Visit Diagnoses Not on filedocumented in this encounter
--- OUTSIDE RECORDS SUMMARY | 2024-05-09 20:54 | XMS_ITS | Encounter Summary ---
Author Organization [facility] Address [address] [place] [address] Care Team Providers Care Production Technician Name Role Phone Unavailable Primary Care Provider Unavailabl e Encounter Details Date Type Department Care Team (Late st Contact Info) Description 01/01/2024 Lab Requisition [facility] Pathology & Laboratory Medicine - [facility] [address] [place] [address] Outr Resulting Lab, Provider Social History Tobacco [...] Surface Ag Negative Negative 01/02/2024 11:41 EDT [facility] Hep C Antibody Negative Negative 01/02/2024 11:41 EDT [facility] Hepatitis A Antibody, IgM Negative Negative 01/02/2024 11:41 EDT [facility] Comment:The results of this assay can be falsely lowered due to the consumption of Biotin. Hepatitis B Core Ab, Total Negative Negative 01/02/2024 11:41 EDT [facility] Blood VENOUS BLOOD / Unknown 12/31/2023 18:50 EDT 01/01/2024 17:45 EDT Provider Outr Resulting Lab CHEMISTRY & BLOOD GAS ORDERABLES [facility] [address] [place] [address] documented in this encounter Visit Diagnoses Not on filedocumented in this encounter
--- OUTSIDE RECORDS SUMMARY | 2024-05-09 20:54 | XMS_ITS | Continuity of Care Document ---
Author Organization Psych Address Unknown Care Team Providers Care Technology Applications Consultant Name Role Phone No Local PCP, No Local PCP Primary Care Physicia n Unavailable Encounter Date(s): 01/01/24 - 01/02/24 [address], [place] [address] - Encounter Diagnosis Alcohol use disorder(Discharge Diagnosis) - 01/02/24 Depression(Discharge Diagnosis) - 01/02/24 Nicotine use disorder(Discharge Diagnosis) - 01/02/24 Hypertension(Discharge Diagnosis) - 01/02/24 Discharge Disposition: Home or Self Care Attending Physician: Brian Jimenez DO Admitting Physician: Brian Jimenez DO Assessment and Plan Extracted from: Title:History & Physical - Psychiatric Author:Kojo Childress MD Date:01/02/24 Reason for Admission severe anxiety and depression and increase in alcohol intake Substance Abuse History 4 cans of alcoholic seltzer??has been increased over the last year.?? This??according to patient is in response to feeling depressed??but difficult??to??collect information related to his depression Mental Status Exam General Appearance: Personal clothes,?? fairly groomed, good eye contact, polite, collaborative Muscle Strength and Tone: No abnormal movements, no tremors Gait: Normal Mood and Affect: Mood dysphoric, affect somewhat constricted Speech: Average rate,soft ??volume and prosody Thought Process: Linear, concrete, paucity focused on leaving Associations: fair Thought Content: Denied SI/HI, no apparent delusion, paranoia, no AVH Orientation: x4 Attention Span and Concentration: Fair Recent and Remote Memory: Fair Language: Normal Fund of Knowledge: Average Judgment and Insight: Fair to poor ? Assessment/Plan The patient was admitted on a voluntary basis and placed on 15 minute checks for safety and stabilization. He will be evaluated by nursing, social work and occupational therapy. He will be enrolled in individual, group and milieu therapies. We will contact collaterals and outpatient providers for continuity of care and will work with patient on discharge planning. Patient is thinking of leaving and feeling that this admission is not a good match. Diagnosis Alcohol use disorder Depression Hypertension Nicotine use disorder Orders: hydrOXYzine, 50 mg = 1 cap(s), Cap, Oral, TID PRN anxiety, Start date 01/02/24 10:24:00 EDT, Routine Functional Status 01/02/24 ADLs Independent Mental Status 01/02/24 Level of Consciousness Alert Orientation Assessment Oriented x 4 Results Laboratory List Name Date Glucose Level 01/02/24 Lipid Panel (Fasting Lipid Profile) 01/01 Ammonia Level 01/01/24 CBC Auto Diff reflex Manual Diff 01/01/24 Comprehensive Metabolic Panel 01/01/24 Magnesium Level 01/01/24 Phosphorus Level 01/01/24 Thyroid Stimulating Hormone 01/01/24 .Estimated Glomerular Filtration Rate Auto Differential 01/01/24 Most recent to oldest [Reference Range]: 1 2 AGAP 12 *NA* (01/01/24 7:58 PM) LDL 124 mg/dL 1 *NA* (01/02/24 6:28 AM) Ldl/Hdl 6.5 mg/dL *NA* (01/02/24 6:28 AM) Chol/Trig 0.70 mg/dL *NA* (01/02/24 6:28 AM) VLDL 63 mg/dL *NA* (01/02/24 6:28 AM) A/G Ratio 0.9 *NA* (01/01/24 7:58 PM) BUN/Creat Ratio 5 *NA* (01/01/24 7:58 PM) RBC [4.50-5.90 x10(6)/mcL] 4.25 x10(6)/m cL *LOW* (01/01/24 7:58 PM) RDW [11.5-14.5 %] 13.8 % (01/01/24 7:58 PM) Sodium Level [136-145 mmol/L] 134 mmol/L *LOW* (01/01/24 7:58 PM) Total Protein [6.4-8.2 gm/dL] 6.2 gm/dL *LOW* (01/01/24 7:58 PM) Trig 315 mg/dL 2 *NA* (01/02/24 6:28 AM) TSH [0.360-3.740 mcIU/mL] 4.290 mcIU/mL *HI* (01/01/24 7:58 PM) Ammonia [11-32 mcmol/L] 52 mcmol/L 3 *HI* (01/01/24 7:58 PM) AST [15-37 IU/L] 746 IU/L 4 *HI* (01/01/24 7:58 PM) Bili Total [0.20-1.00 mg/dL] 3.07 mg/dL *HI* (01/01/24 7:58 PM) Chol 206 mg/dL *NA* (01/02/24 6:28 AM) CO2 [21-32 mmol/L] 28 mmol/L (01/01/24 7:58 PM) Albumin Level [3.4-5.0 gm/dL] 2.9 gm/dL *LOW* (01/01/24 7:58 PM) Alk Phos [45-117 unit/L] 224 unit/L *HI* (01/01/24 7:58 PM) ALT [13-61 IU/L] 409 IU/L 5 *HI* (01/01/24 7:58 PM) Hct [41.0-53.0 %] 44.5 % (01/01/24 7:58 PM) HDL 19 mg/dL 6 *NA* (01/02/24 6:28 AM) Hgb [13.9-16.3 gm/dL] 16.2 gm/dL (01/01/24 7:58 PM) Magnesium [1.6-2.3 mg/dL] 2.3 mg/dL (01/01/24 7:58 PM) MCH [26.0-34.0 pg] 38.1 pg *HI* (01/01/24 7:58 PM) MCHC [31.0-37.0 gm/dL] 36.4 gm/dL (01/01/24 7:58 PM) MCV [80-100 fL] 105 fL *HI* (01/01/24 7:58 PM) MPV [9.2-12.7 fL] 10.3 fL (01/01/24 7:58 PM) Glucose Level [74-106 mg/dL] 102 mg/dL 7 (01/02/24 6:28 AM) 170 mg/dL 8 *HI* (01/01/24 7:58 PM) Phosphorus [2.5-4.9 mg/dL] 2.8 mg/dL (01/01/24 7:58 PM) Platelet [150-350 x10(3)/mcL] 109 x10(3) /mcL *LOW* (01/01/24 7:58 PM) Potassium Level [3.5-5.1 mmol/L] 3.4 mmo l/L *LOW* (01/01/24 7:58 PM) WBC [4.5-11.0 x10(3)/mcL] 4.7 x10(3)/mcL (01/01/24 7:58 PM) BUN [7-18 mg/dL] 8 mg/dL (01/01/24 7:58 PM) Calcium Level [8.5-10.1 mg/dL] 9.6 mg/dL (01/01/24 7:58 PM) Chloride [98-107 mmol/L] 97 mmol/L *LOW* (01/01/24 7:58 PM) eGFR AA >60 mL/min/1.73 m2 9 *NA* (01/01/24 7:58 PM) eGFR NATALIE 54 mL/min/1.73 m2 10 *NA* (01/01/24 7:58 PM) Neutrophil Absolute [1.50-7.80 x10(3)/mc L] 2.60 x10(3)/mcL (01/01/24 7:58 PM) Lymphocyte Absolute [1.10-4.80 x10(3)/mc L] 1.81 x10(3)/mcL (01/01/24 7:58 PM) Monocyte Absolute [0.00-0.80 x10(3)/mcL] 0.20 x10(3)/mcL (01/01/24 7:58 PM) Eosinophil Absolute [0.00-0.30 x10(3)/mc L] 0.06 x10(3)/mcL (01/01/24 7:58 PM) Basophil Absolute [0.00-0.10 x10(3)/mcL] 0.03 x10(3)/mcL (01/01/24 7:58 PM) Imm Gran Absolute 0.01 /mcL *NA* (01/01/24 7:58 PM) NRBC % [0.0-0.2 %] 0.0 % (01/01/24 7:58 PM) Osmol Calculated 271 mOsm/kg *NA* (01/01/24 7:58 PM) Eosinophil Auto [1.0-4.0 %] 1.3 % (01/01/24 7:58 PM) Immature Granulocyte Auto 0 % *NA* (01/01/24 7:58 PM) Lymphocyte Auto [24.0-44.0 %] 38.4 % (01/01/24 7:58 PM) Monocyte Auto [2.0-11.0 %] 4.2 % (01/01/24 7:58 PM) Neutrophil Auto [31.0-76.0 %] 55.3 % (01/01/24 7:58 PM) Basophil Auto [0.0-2.0 %] 0.6 % (01/01/24 7:58 PM) Creatinine [0.6-1.3 mg/dL] 1.5 mg/dL *HI* (01/01/24 7:58 PM) 1Interpretive Data: The National Cholesterol Education Program Adult Treatment Panel III (NCEP-ATP III) provides the following classifications of LDL-D concentrations: Optimal <100 mg/dL Near Optimal 100 - 129 mg/dL Borderline High 130 - 159 mg/dL High 160 - 189 mg/dL Very High >/= 190 mg/dL 2Interpretive Data: The National Cholesterol Education Program Adult Treatment Panel III (NCEP-ATPIII) provides the following classifications of triglycerides concentrations: Normal <150 mg/dL Borderline High 150 - 199 mg/dL High 200 - 499 mg/dL Very High >/= 500 mg/dL If Triglycerides > 400, Calculated LDL cholesterol and LDL/HDL Ratio results are invalid. A measured LDL will be performed; results to follow. 3Interpretive Data: Falsely increased results of up to 66% may be seen in patients taking sulfasalazine and falsely decreased results of up to 19% may be seen in patients taking sulfapyridine. 4Interpretive Data: Falsely decreased results of up to 19% may be seen in patients taking sulfasalazine or sulfapyridine. 5Interpretive Data: Falsely decreased results of up to 72% may be seen in patients taking sulfasalazine and falsely decreased results of up to 19% may be seen in patients taking sulfapyridine. 6Interpretive Data: The National Cholesterol Education Program Adult Treat Panel III (NCEP-ATP III) provides the following classifications on HDL-C concentrations: HDL Cholesterol < 40 mg/dL Low HDL Cholesterol HDL Cholesterol >/= 60 mg/dL High HDL Cholesterol 7Interpretive Data: Falsely decreased results of up to 21% may be seen in patients taking sulfasalazine. 8Interpretive Data: Falsely decreased results of up to 21% may be seen in patients taking sulfasalazine. 9Interpretive Data: Estimated GFR values are reported for both (AA) and Non AfricanAmerican (NATALIE) populations. The eGFR has been validated only in healthy adults 18 - 70 years of age. The calculation has not been validated for women, patients of extreme body mass, or for patients with unusual dietary intake. 10Interpretive Data: Estimated GFR values are reported for both (AA) and Non AfricanAmerican (NATALIE) populations. The eGFR has been validated only in healthy adults 18 - 70 years of age. The calculation has not been validated for women, patients of extreme body mass, or for patients with unusual dietary intake. Vital Signs Most recent to oldest [Reference Range]: 1 2 3 Temperature Tympanic [36.6-38.1 DegC] 36.2 DegC *LOW* (01/02/24 7:05 AM) 36.3 DegC *LOW* (01/02/24 4:27 AM) 36.2 DegC *LOW* (01/02/24 2:30 AM) Temperature Temporal Artery [36.3-37.8 DegC] 36.4 DegC (01/02/24 9:01 AM) 36.5 DegC (01/02/24 7:28 AM) Peripheral Pulse Rate [60-100 bpm] 103 bpm *HI* (01/02/24 9:01 AM) 101 bpm *HI* (01/02/24 7:28 AM) 108 bpm *HI* (01/02/24 7:05 AM) Respiratory Rate [14-20 br/min] 18 br/min (01/02/24 9:01 AM) 16 br/min (01/02/24 7:05 AM) 16 br/min (01/02/24 2:30 AM) Blood Pressure [90-140/60-90 mmHg] 128/99mmHg (01/02/24 9:01 AM) 139/101mmHg (01/02/24 7:28 AM) 131/97mmHg (01/02/24 7:05 AM) Social History Social History Type Response Sex Male History and physical note * Denice Childress MD: MODIFY, MODIFY, PERFORM, MODIFY Event Display: History and Physical Authored Date: [id number] History & Physical Chief Complaint Anxiety and depression Reason for Admission severe anxiety and depression and increase in alcohol intake History of Present Illness Information gathered from patient as well as documents??from [facility].?? 33-year-old male presented to[facility]ED??with chief complaint of depression, hopelessness,??increasing his daily??alcohol habit with an onset over the past year.?? He stated that he hated his job, dissatisfied with the direction of his life??denied SI HI??and has beendrinking increasing amounts and frequency.?? Going depression for 5 years??and his last drink was??December.?? His??ongoing depression has been happening for the past 5 years.?? Says that he does not like??beer or hard liquor??and has been drinking 2-3 large cans of hard seltzer.?? He had??no nausea or vomiting tremors headache fever chest pain shortness of breath.?? There were no provoking factors elicited.ALLERGY CLONIDINE reaction??sedation. On interview with the patient he states that he is not sure why he??came here,??said it feels like prison.?? He slept 1.25 hours and had been??placed on??a??chlordiazepoxide??CIWA??withdrawal??protocol??scored 13, 1??overnight 3, 7, 2??with slight increase in heart rate??and blood pressure.?? He states that he is never felt suicidal.?? He states that he has guns at home??but are not loaded and usesthem for hunting.?? He is alert and oriented.?? There is no evidence of paranoia.?? Denies??seizureactivity.?? States this is the first time he has been in the hospital.?? However it appears that hewas??detoxed at [facility]??prior to this admission he asks whether he is on??involuntary??status and is informed that he is a voluntary patient.?? He speaks softly.?? He states that he has??lost about 15 pounds and currently weighs 115??and states that he normally is about 130 pounds.?? He states that he is lost this weight over the last??year and a half.?? He is guarded and sharing information.?? States that he has been prescribed meds in the past but does not take it.?? Complains of decreased appetite,??fatigue,??loss of interest in things. Past Psychiatric History ?? Psychiatrist: [_] Therapist: [_] manager fitness: [_] PCP: [_]??Dr. Tara Humphreys??states that he has had high blood pressure but has not taken??medication although offered. Substance Abuse History 4 cans of alcoholic seltzer??has been increased over the last year.?? This??according to patient mary response to feeling depressed??but difficult??to??collect information related to his depression Social History Lives with his mother the past year and a half.?? 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 Review of Systems see HPI Physical Exam Vitals & Measurements T:??36.4?C??(Temporal Artery)?? TMIN:??36?C??(Tympanic)?? TMAX:??37.0?C??(Tympanic)?? HR:??103??(Peripheral)?? RR:??18?? BP:??128/99?? SpO2:??99%?? HT:??177??cm?? WT:??53.6??kg?? WT:??53.6??kg??(Dosing)?? BMI:??17.11?? Go exam??at [facility]??was described as??findings including cachexia,??hepatomegaly,??but benign cardiopulmonary status, mild tachycardia in the setting of high anxiety over hospital setting.?? EtOH level reported as 132 and a CIWA every 4 hours was??ordered??there. Mental Status Exam General Appearance: Personal clothes,?? fairly groomed, good eye contact, polite, collaborative Muscle Strength and Tone: No abnormal movements, no tremors Gait: Normal Mood and Affect: Mood dysphoric, affect somewhat constricted Speech: Average rate,soft ??volume and prosody Thought Process: Linear, concrete, paucity focused on leaving Associations: fair Thought Content: Denied SI/HI, no apparent delusion, paranoia, no AVH Orientation: x4 Attention Span and Concentration: Fair Recent and Remote Memory: Fair Language: Normal Fund of Knowledge: Average Judgment and Insight: Fair to poor Assessment/Plan The patient was admitted on a voluntary basis and placed on 15 minute checks for safety and stabilization. He will be evaluated by nursing, social work and occupational therapy. He will be enrolled in individual, group and milieu therapies. We will contact collaterals and outpatient providers for continuity of care and will work with patient on discharge planning. Patient is thinking of leaving and feeling that this admission is not a good match. Diagnosis Alcohol use disorder Depression Hypertension Nicotine use disorder Orders: hydrOXYzine, 50 mg = 1 cap(s), Cap, Oral, TID PRN anxiety, Start date 01/02/24 10:24:00 EDT, Routine Time Spent with Patient 20 minutes Coordination of Care 15 minutes Problem List/Past Medical History Ongoing At risk of pressure sore Historical No qualifying data Medications Inpatient chlordiazePOXIDE, 25 mg= 1 cap(s), Oral, q2hr, PRN chlordiazePOXIDE, 50 mg= 2 cap(s), Oral, q2hr, PRN chlordiazePOXIDE, 75 mg= 3 cap(s), Oral, q2hr, PRN chlordiazePOXIDE, 100 mg= 4 cap(s), Oral, q2hr, PRN chlordiazePOXIDE, 200 mg= 8 cap(s), Oral, q2hr, PRN chlordiazePOXIDE, 25 mg= 1 cap(s), Oral, q4hr, PRN chlordiazePOXIDE, 50 mg= 2 cap(s), Oral, q4hr, PRN chlordiazePOXIDE, 75 mg= 3 cap(s), Oral, q4hr, PRN chlordiazePOXIDE, 100 mg= 4 cap(s), Oral, q4hr, PRN chlordiazePOXIDE, 200 mg= 8 cap(s), Oral, q4hr, PRN Commit lozenge, 2 mg= 1 lozenge(s), Buccal, q1hr, PRN folic acid, 1 mg= 1 tab(s), Oral, Daily hydrOXYzine, 50 mg= 1 cap(s), Oral, TID, PRN ibuprofen, 400 mg= 1 tab(s), Oral, q6hr, PRN Milk of Magnesia, 30 mL, Oral, Daily, PRN multivitamin, 1 tab(s), Oral, Daily Mylanta, 30 mL, Oral, QID, PRN nicotine 21 mg/24 hr transdermal film, 1 patch(es), Transdermal, Daily thiamine, 100 mg= 1 tab(s), Oral, Daily Home No active home medications Allergies No active allergies Lab Results Lipid Panel Chol: 206 mg/dL (01/02/24 06:28:00) HDL: 19 mg/dL (01/02/24 06:28:00) LDL: 124 mg/dL (01/02/24 06:28:00) Tri mg/dL (01/02/24 06:28:00) Chemistry BUN: 8 mg/dL (01/01/24 19:58:30) Calcium Level: 9.6 mg/dL (01/01/24 19:58:30) Chloride:??97 mmol/L??Low (01/01/24 19:58:30) Creatinine:??1.5 mg/dL??High (01/01/24 19:58:30) Glucose Level: 102 mg/dL (01/02/24 06:28:00) Magnesium: 2.3 mg/dL (01/01/24 19:58:30) Phosphorus: 2.8 mg/dL (01/01/24 19:58:30) Potassium Level:??3.4 mmol/L??Low (01/01/24 19:58:30) Sodium Level:??134 mmol/L??Low (01/01/24 19:58:30) TSH:??4.29 mcIU/mL??High (01/01/24 19:58:30) LFT Albumin Level:??2.9 gm/dL??Low (01/01/24 19:58:30) Alk Phos:??224 unit/L??High (01/01/24 19:58:30) ALT:??409 IU/L??High (01/01/24 19:58:30) AST:??746 IU/L??High (01/01/24 19:58:30) Bili Total:??3.07 mg/dL??High (01/01/24 19:58:30) Total Protein:??6.2 gm/dL??Low (01/01/24 19:58:30) Hematology Hct: 44.5 % (01/01/24 19:58:30) Hgb: 16.2 gm/dL (01/01/24 19:58:30) Platelet:??109 x10(3)/mcL??Low (01/01/24 19:58:30) RBC:??4.25 x10(6)/mcL??Low (01/01/24 19:58:30) WBC: 4.7 x10(3)/mcL (01/01/24 19:58:30) Electronically Signed By: Denice Childress MD Date and Time Signed: 01/02/24 10:32 EDT Discharge summary * Denice Childress MD: PERFORM, MODIFY, MODIFY, MODIFY, MODIFY, MODIFY, MODIFY, MODIFY, MODIFY, MODIFY Event Display: Discharge Summary Authored Date: Discharge Summary Reason for Hospitalization ?? severe anxiety and depression and increase in alcohol intake History of Present Illness Information gathered from patient as well as documents??from [facility].?? 33-year-old male presented to[facility]ED??with chief complaint of depression, hopelessness,??increasing his daily??alcohol habit with an onset over the past year.?? He stated that he hated his job, dissatisfied with the direction of his life??denied SI HI??and has beendrinking increasing amounts and frequency.?? Going depression for 5 years??and his last drink was??December.?? His??ongoing depression has been happening for the past 5 years.?? Says that he does not like??beer or hard liquor??and has been drinking 2-3 large cans of hard seltzer.?? He had??no nausea or vomiting tremors headache fever chest pain shortness of breath.?? There were no provoking factors elicited.ALLERGY CLONIDINE reaction??sedation. On interview with the patient he states that he is not sure why he??came here,??said it feels like prison.?? He slept 1.25 hours and had been??placed on??a??chlordiazepoxide??CIWA??withdrawal??protocol??scored 13, 1??overnight 3, 7, 2??with slight increase in heart rate??and blood pressure.?? He states that he is never felt suicidal.?? He states that he has guns at home??but are not loaded and usesthem for hunting.?? He is alert and oriented.?? There is no evidence of paranoia.?? Denies??seizureactivity.?? States this is the first time he has been in the hospital.?? However it appears that hewas??detoxed at [facility]??prior to this admission he asks whether he is on??involuntary??status and is informed that he is a voluntary patient.?? He speaks softly.?? He states that he has??lost about 15 pounds and currently weighs 115??and states that he normally is about 130 pounds.?? He states that he is lost this weight over the last??year and a half.?? He is guarded and sharing information.?? States that he has been prescribed meds in the past but does not take it.?? Complains of decreased appetite,??fatigue,??loss of interest in things. Discharge Diagnoses F10.9 0 alcohol use disorder 32.AA??depression F17.2 Nicotine use disorder Discharge Medication List No qualifying data available Condition at Discharge Somewhat improved Prognosis Guarded Physician Discharge Instructions Discharge Patient Diet: Regular Depart Patient Activity Level Restrict: As Tolerated Follow Up [facility] [phone]??to see hospital PCP 01.08.24 at??[address] [facility] human services [facility]??[phone] as needed [facility] [place] [phone] private pay Discharge Disposition Home with his parents Hospital Course Patient arrives last evening and was placed on a chlordiazepoxide??CIWA??protocol. ??He??has not taking any other medication.?? He complains that the Librium??medication made him groggy however he??is noted to have slept 1.5 hours last night.?? He feels that this is not??the place for treatment forhim.?? His mother states that she thought he was going to [facility].?? The patient was not willing to engage in groups??or take medication??and basically said that he wanted to leave.?? Hismother concurs.?? Labs??seem to indicate an acute alcoholic hepatitis.?? He is interested and follow-[facility] at [facility]??and also??another referal??that he could do??for 2 or 3 hours after work.?See follow-up above.?The first follow-up is to see PCP to follow his??hepatitis??due to alcohol.? He denies??suicidal or homicidal ideation.?? He takes initiative??in asking questions focused on leaving.?? He is alert??and there is no evidence of a psychotic process??at interview.?? No pain identified.?? He states he has guns at home??that he uses for hunting they are not loaded.?? Will go home??with his mother??no medications were prescribed. Time Spent with Patient 20 minutes Electronically Signed By: Denice Childress MD Date and Time Signed: 01/02/24 11:37 EDT Patient Care team information Care Team Personnel Name: No Local PCP No Local PCP, Member Role: Primary Care Physician Care Team Related Persons Name: JOEY OVIEDO Address: Home [address] [place], [place] [id number]
--- OUTSIDE RECORDS SUMMARY | 2024-05-09 20:54 | XMS_ITS | Clinical Summary ---
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
--- OUTSIDE RECORDS SUMMARY | 2024-05-09 20:54 | XMS_ITS | Referral Summary ---
Author Organization [facility] Address [address] [place] [address] Care Team Providers Care Pawn Broker Name Role Phone Unavailable Primary Care Provider Unavailabl e Social History Tobacco Use Types Packs/Day Years Used Date Smoking Tobacco: Never Assessed Sex and Gender Information Value Date Recorded Sex Assigned at Not on file Gender Identity Not on file Sexual Orientation Not on file Plan of Treatment Not on file
--- OUTSIDE RECORDS SUMMARY | 2024-05-09 20:54 | XMS_ITS | Encounter Summary ---
Author Organization [facility] Address [address] [place] [address] Care Team Providers Care Section [employer] W[employer] Name Role Phone Unavailable Primary Care Provider Unavailabl e Encounter Details Date Type Department Care Team (Late st Contact Info) Description 08/22/2022 Lab Requisition [facility] Pathology & Laboratory Medicine - [facility] [address] [place] [address] Outr Resulting Lab, Provider Social History Tobacco [...] 12.9 See Note mIU/mL 08/23/2022 11:16 EST [facility] Comment: Reference Range for Hep B Surface Ab, Quant: Positive: >= 10.0 mIU/mL Negative: ??< 10.0 mIU/mL Patient is presumed to be immune to infection with Hepatitis B Virus. Hep B Surface Ab, Qualitative Positive See Note 08/23/2022 11:16 EST [facility] Comment: Reference Range for Hep B Surface Ab, Qual: Unvaccinated: ??Negative Vaccinated: ??Positive Blood VENOUS BLOOD / Unknown 08/22/2022 10:00 EST 08/22/2022 16:26 EST Provider Outr Resulting Lab CHEMISTRY & BLOOD GAS ORDERABLES Performing Organization Address City/[facility]/ZIP Co de Phone Number [facility] [address] [place] [address] * MEASLES IGG AB (08/22/2022 10:00 EST) Measles IgG Ab Positive See Note 08/23/2022 11:07 EST [facility] Comment:Presence of detectab le measles virus IgG antibodies. Blood VENOUS BLOOD / Unknown 08/22/2022 10:00 EST 08/22/2022 16:26 EST Provider Outr Resulting Lab IMMUNOLOGY A ND SEROLOGY ORDERABLES Performing Organization Address [facility] Co de Phone Number [facility] [address] [place] [address] * VARICELLA IGG ANTIBODY (08/22/2022 10:00 EST) Varicella IgG Ab Negative See Note 08/23/2022 11:03 EST [facility] Comment:Absence of detectabl e [...] A ND SEROLOGY ORDERABLES Performing Organization Address [facility] Co de Phone Number [facility] [address] [place] [address] * MUMPS ANTIBODY IGG (08/22/2022 10:00 EST) Mumps Antibody IgG Negative See Note 08/23/2022 11:08 EST [facility] Comment:Absence of detectabl e mumps virus IgG antibodies. A negative result generally indicates that the patient is susceptible to mumps. Blood VENOUS BLOOD / Unknown 08/22/2022 10:00 EST 08/22/2022 16:26 EST Provider Outr Resulting Lab IMMUNOLOGY A ND SEROLOGY ORDERABLES Performing Organization Address City/[facility]/ZIP Co de Phone Number [facility] [address] [place] [address] * RUBELLA IGG ANTIBODY (08/22/2022 10:00 EST) Rubella IgG Ab Positive See Note 08/23/2022 11:09 EST [facility] Comment:Positive for IgG ant ibodies to Rubella virus. Blood VENOUS BLOOD / Unknown 08/22/2022 10:00 EST 08/22/2022 16:26 EST Provider Outr Resulting Lab CHEMISTRY & BLOOD GAS ORDERABLES Performing Organization Address City/[facility]/ZIP Co de Phone Number [facility] [address] [place] [address] documented in this encounter Visit Diagnoses Not on filedocumented in this encounter
--- NOTE | 2024-05-09 21:30 | ED.GENADUL_ITS ---
Discharge Plan Discharge Details Chief Complaint: ETOHWithdr Primary Care Provider: Tara Humphreys ED Provider: Tracy Arango Home Meds and New Rx's Prescriptions: No Action naltrexone 50 mg tablet 50 mg PO DAILY Qty: 90 3RF venlafaxine 75 mg capsule,extended release 24hr 75 mg PO QHS Qty: 90 3RF trazodone 50 mg tablet See Rx Instructions PO QHS PRN (Reason: sleep) Qty: 40 1RF Rx Instructions: 25-50mg bedtime for sleep difficulty, may repeat 50mg x1 if first dose ineffective for max nightly dose 100mg PO every day at bedtime PRN; chlordiazepoxide HCl 25 mg capsule 25 mg PO BID PRNQty: 22 0RF Rx Instructions: As needed for symptoms -> Day 1: Take 1-2 tabs every 4-6 hours. Day 2: Take 1-2 tabs every 6-8 hours. Day 3: Take 1-2 tabs every 8-12 hours. Day 4: Take 1 tab. Day 5: Take 1 tab if needed. HPI General Date/Time Provider Initiated Documentation: 05/09/24 20:56 . HPI Narrative: Sanjiv is a 33-year-old male with history of EtOH abuse who presents to the emergency department today for evaluation of alcohol withdrawal. He reports that he was discharged from [facility] on Friday 05/04 and felt anxious when he got home. He started drinking that evening, has been drinking consistently 2-3 tall boy mikes daily, starting in the morning. He last had an alcoholic drink at 11 AM. He reports he is feeling anxious, has had abdominal pain for the last 2 to 3 days in the epigastrium, accompanied by vomiting multiple times daily, has vomited 3 times today already. He has been unable to eat for the last few days due to his nausea and vomiting. He reports he has had diarrhea to many times to count. Denies fever/chills, congestion, sore throat, cough, chest pain, episodes of passing out, head injury, blood in stool or emesis. No history of DTs. Denies hallucinations, SI, HI, or other self-harm behaviors. Last month he was seen in the emergency department and treated with Librium, which she says was helpful with his withdrawal symptoms. Physical exam remarkable for significantly anxious patient, fidgeting during exam. Tacky mucous membranes. Easy work of breathing, lung sounds clear bilaterally. Normal heart sounds, tachycardia noted. Abdomen is soft, nondistended, nontender to palpation. DDx includes was not limited to: Alcohol withdrawal, dehydration, electrolyte imbalance, pancreatitis, gastritis I independently interpreted the following tests: CBC, CMP, lipase, and mag all reassuring. While in the emergency department Sanjiv received IV fluids, Zofran for nausea/vomiting, thiamine and folate, and Librium 25 mg x 2. A dose of Valium 5 mg IV also given. Patient did report that he felt less anxious after seeing his medications. Handoff report given to Dr. Rao, overnight attending. Related Data Home Medications ?Medication ?Instructions ?Recorded ?Confirmed naltrexone 50 mg tablet 50 mg PO DAILY #90 tabs 03/02/24 05/09/24 trazodone 50 mg tablet See Rx Instructions PO QHS PRN 03/02/24 05/09/24 sleep #40 tabs venlafaxine 75 mg capsule,extended 75 mg PO QHS #90 caps 03/02/24 05/09/24 release 24 hr chlordiazepoxide HCl 25 mg capsule 25 mg PO BID PRN #22 caps 04/15/24 05/09/24 Previous Rx's ?Medication ?Instructions ?Recorded naltrexone 50 mg tablet 50 mg PO DAILY #90 tabs 03/02/24 trazodone 50 mg tablet See Rx Instructions PO QHS PRN 03/02/24 sleep #40 tabs venlafaxine 75 mg capsule,extended 75 mg PO QHS #90 caps 03/02/24 release 24 hr chlordiazepoxide HCl 25 mg capsule 25 mg PO BID PRN #22 caps 04/15/24 Allergies Allergy/AdvReac Type Severity Reaction Status Date / Time clonidine AdvReac Unknown sedation Verified 05/09/24 20:54 General Stated Complaint: ETOHWithdr MOISES: 3 Review of Systems Narrative: see HPI Exam Const General: cooperative, healthy appearing and anxious Nutritional Appearance: average body habitus HENMT Head: normal to inspection Face and sinus: dry mucous membranes Mouth: lip normal, tongue normal and no muffled voice Resp Effort & Inspection: normal respiratory effort and able to speak in complete sentences Auscultation: clear to auscultation bilaterally Cardio Rate: tachycardic Rhythm: regular rhythm GI Inspection: normal to inspection and non-distended Palpation: soft, not firm and nontender Psych Appearance: grossly normal Mood: anxious mood Affect: normal affect Attitude: cooperative Thought Process: normal Thought Content: normal Insight: insight good Course Vital Signs Vital signs: Vital Signs Temperature 36.8 C 05/09/24 20:51 Pulse 106 H 05/09/24 20:51 Respiratory Rate 18 05/09/24 20:51 Blood Pressure 157/126 H 05/09/24 20:51 Pulse Oximetry 99 05/09/24 20:51 Temperature 36.8 C 05/09/24 20:51 Pulse 106 H 05/09/24 20:51 Respiratory Rate 18 05/09/24 20:51 Respiratory Pattern Normal 05/09/24 20:55 Blood Pressure 157/126 H 05/09/24 20:51 Pulse Oximetry 99 05/09/24 20:51 Oxygen Delivery Method Room Air 05/09/24 20:51 Oxygen Flow Rate 0 05/09/24 20:51 Pain Level 0 05/09/24 20:51 Medical Decision Making Quality:SDOH Health Related Social Needs: No Data to Display PFSH All Active Problems (Updated 04/16/24 @ 12:35 by Rob Rao DO) Dehydration (Acute) Alcohol abuse with withdrawal (Acute) Ocular hypertension (Acute) Bilateral ocular hypertension (Acute) Sleeping difficulty (Acute) RX Trazodone Nicotine use disorder (Chronic) 16yo started 0.5-1PPD Elevated BP without diagnosis of hypertension (Acute) Depression (Chronic) Venlafaxine; Sanna Rebollarball Anxiety (Chronic) did not respond to low dose sertraline 01/11/11, failed Mirtazepine Medical History Alcohol withdrawal Stressful life event affecting family Sister's illness/diagnosis Excessive drinking alcohol Reviewed norms Family History Mother Breast cancer Pre-menopausal; has occurred x2 Asthma Heart disease [place] Father , winter Cancer lung Diabetes Sister Scleroderma Breast cancer Dx'ed mid 30s Paternal Uncle Scleroderma Social History Smoking/Tobacco Use Status: Current every day Tobacco Type: cigarettes Tobacco: How many years used: 8 Quit status: considering quitting Smoking risk assessment performed?: Yes Alcohol Intake: current Alcohol Intake frequency: 3 or more drinks per day Alcohol type: wine and hard liquor Drug use: Occasionally Substance use type: marijuana Adopted: No Caregiver/Support person: No Foster care: No Household members: family Housing: house Number of Children: 0 number of grandchildren: 0 Communication Needs: None Education Level: high school Do you need help understanding health information?: Rarely 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 Pets and animals: No Sexually active: Yes Do you think of yourself as: straight/heterosexual Current gender identity: male What is your relationship status?: refused to answer How often do you talk on the phone with friends or family?: three or more times per week How often do you get together with friends or relatives?: three or more times per week Do you belong to any clubs or organized social groups?: no Panel score (0-1 are the most socially isolated patients): 1 What type of physical activity do you participate in: walking Duration: > 90 minutes/day Frequency: 5-6 times per week Laina/Caodaism: None Special laina needs: No Seatbelt use: always Helmet use: Yes Helmet use: always Drive intox or ride w/intox retail delivery driver: No Do you feel safe at home: Yes Do you feel safe in your relationship?: Yes
[2024-05-09 21:39] LABS: HGB 17.7 g/dL (13.5-17.5); MCH 29.6 pg (27.0-33.0); MCHC 36.1 % (32.0-36.0); MCV 82 fL (80-95); MPV 8.7 fL (8.0-11.0); Platelet Count 328 10^3/uL (130-400); RBC 5.97 10^6/uL (4.36-5.78); RDW 12.6 % (11.8-14.1); RDW-SD 37.2 fL; WBC 7.81 10^3/uL (4.4-10.8)
[2024-05-09] MEDS: Famotidine 20 MG/2 ML VIAL IVP (21:47)
[2024-05-09] MEDS: Ondansetron 4 MG/2 ML VIAL IVP (21:47)
[2024-05-09] MEDS: Lactated Ringers 1,000 ML 1000 ML IV (21:47)
[2024-05-09] MEDS: Folic Acid 1 MG TAB PO (21:47)
[2024-05-09] MEDS: chlordiazePOXIDE 25 MG CAP PO ×2 (21:47→22:53)
[2024-05-09 21:50] LABS: Lipase 26 U/L (16-77)
[2024-05-09 22:03] LABS: ALT 27 U/L (16-63); AST 26 U/L (15-37); Albumin 3.8 g/dL (3.4-5.0); Alkaline Phosphatase 65 U/L (46-116); Anion Gap 11.5 mmol/L (3-11); BUN 11 mg/dL (7-18); Bilirubin, Total 1.55 mg/dL (0.2-1.0); CO2 28.5 mmol/L (21.0-32.0); Calcium 9.3 mg/dL (8.5-10.1); Chloride 99 mmol/L (98-107); ETHANOL BLOOD 151.8 mg/dL (<10); Estimated GFR 102.55 (mL/min/1.73m2); Glucose 153 mg/dL (74-106); Magnesium 1.8 mg/dL (1.8-2.4); Potassium 3.6 mmol/L (3.5-5.1); Sodium 139 mmol/L (136-145)
[2024-05-09] MEDS: Thiamine 100 MG TAB PO ×2 (22:44→22:45)
[2024-05-09] MEDS: diazePAM 10 MG/2 ML SYR IVP (23:15)
[2024-05-10] VITALS (83 sets, daily range): BP systolic 156–207; BP diastolic 101–139; PULSE 72–119; TEMP 36.6; O2SAT 93–99
--- NOTE | 2024-05-10 02:20 | W.EDPROG ---
Date of service: 05/10/24 Time of Service: 02:24 Medical Decision Making Patient was signed out to me pending evaluation by recovery coaches. On reassessment patient is feeling improved. He still does have some nausea and had an episode of vomiting but was able to tolerate p.o. Patient prefers to go home. He does have multiple support at home. We will give a prescription for chlordiazepoxide to help with anxiety and withdrawal symptoms. I do suspect he has a component of alcoholic gastritis, and we will give Carafate famotidine and Protonix for home use. Patient will follow-up with recovery coaches. I have extensively reviewed the treatment plan and discharge instructions with the patient. I have addressed all patient concerns at this time. The patient was made aware of what symptoms to monitor for that would warrant a return to the emergency department. Discussed the plan with the patient, they demonstrate verbal understanding and agreement with our assessment and plan at this time. The documentation in this chart was dictated using [employer] dictation software. Please excuse any dictation errors. Quality:SDOH Health Related Social Needs: No Data to Display Sign Out Sign Out Data: Sign Out Comment: 33-year-old male with history of EtOH abuse disorder presents to emergency department today for an acute alcohol withdrawal. He did have epigastric pain, nausea/vomiting, diarrhea, and significant anxiety. Labs reassuring. Treated with Librium 25 mg x 2 and diazepam 5 mg IV. Sister at bedside. Last updated by Tracy Arango at 05/10/24 00:17 Discharge Plan Disposition Patient Disposition: Home Condition: Good Discharge Details Clinical Impression: Alcohol abuse with withdrawal Primary Care Provider: Tara Humphreys ED Provider: Rob Rao Home Meds and New Rx's Prescriptions: New chlordiazepoxide HCl 25 mg capsule 25 mg PO TID PRNQty: 20 0RF Rx Instructions: As needed for symptoms -> Day 1: Take 1-2 tabs every 4-6 hours. Day 2: Take 1-2 tabs every 6-8 hours. Day 3: Take 1-2 tabs every 8-12 hours. Day 4: Take 1 tab. Day 5: Take 1 tab if needed. ondansetron 4 mg tablet,disintegrating 4 mg PO Q8H Qty: 20 0RF famotidine 20 mg tablet 20 mg PO DAILY Qty: 10 0RF pantoprazole [Protonix] 40 mg tablet,delayed release (DR/EC) 40 mg PO DAILY Qty: 20 0RF sucralfate [Carafate] 1 gram tablet 1 g PO BID Qty: 60 0RF Discontinued chlordiazepoxide HCl 25 mg capsule 25 mg PO BID PRNQty: 22 0RF Rx Instructions: As needed for symptoms -> Day 1: Take 1-2 tabs every 4-6 hours. Day 2: Take 1-2 tabs every 6-8 hours. Day 3: Take 1-2 tabs every 8-12 hours. Day 4: Take 1 tab. Day 5: Take 1 tab if needed. No Action naltrexone 50 mg tablet 50 mg PO DAILY Qty: 90 3RF venlafaxine 75 mg capsule,extended release 24hr 75 mg PO QHS Qty: 90 3RF trazodone 50 mg tablet See Rx Instructions PO QHS PRN (Reason: sleep) Qty: 40 1RF Rx Instructions: 25-50mg bedtime for sleep difficulty, may repeat 50mg x1 if first dose ineffective for max nightly dose 100mg PO every day at bedtime PRN; Discharge Instructions Instructions: Alcohol Use Disorder ED Additional Instructions: Please continue to work closely with your recovery coaches. I am concerned that the alcohol has caused alcoholic gastritis which is irritation in your stomach. This is likely precipitating the vomiting and diarrhea and is further complicated by the anxiety of the situation. For the withdrawal symptoms and anxiety please take the chlordiazepoxide only as needed and prescribed. For the nausea and vomiting, please take the Zofran as prescribed. It has been sent to your pharmacy on file. For the stomach irritation and nausea please take the Protonix, famotidine and Carafate. These are antiacid medications which will help settle your stomach and help it heal from suspected alcoholic gastritis. If you notice any worsening of your symptoms, or any new symptoms such as vomiting, diarrhea, fever, chills, shortness of breath, chest pain, numbness, weakness, or fainting , please return immediately to the emergency department for reevaluation. Please follow up with your primary care provider as soon as possible for reassessment and reevaluation. As always, it was a pleasure participating in your medical care today. Referrals: Tara Humphreys NP [Primary Care Provider] -
== END 2024-05-10 09:25 | disposition home or self-care (01) ==
PROVIDERS: Nurse Practitioner Family; Emergency Provider Student in an Organized Health Care Education/Training Program; PCP Nurse Practitioner Adult Health
DX: F10.139 Alcohol abuse with withdrawal, unspecified (principal)
CPT/HCPCS: 00123; 80053; 83690; 85027; 96361; 96374; 96375; 99284; 80320; 83735; J2405; J3360

== ENCOUNTER 2024-07-02 22:18 | Emergency (ER) | payer MEDICAID, SELFPAY ==
[2024-07-02 22:23] VITALS: BP 176/120; PULSE 117; RESP 18; O2SAT 98
[2024-07-02 23:40] LABS: Abs Immature Grans 0.02 10^3/uL (0.0-0.06); Absolute Basophil Count 0.05 10^3/uL (0.0-0.2); Absolute Lymphocyte Count 3.65 10^3/uL (1.2-3.4); Absolute Monocyte Count 0.49 10^3/uL (0.1-0.8); Absolute Neutrophil Count 4.33 10^3/uL (1.2-6.7); Basophils % 0.6 %; Eosinophils % 1.2 %; HCT 50.4 % (40.0-50.0); HGB 17.9 g/dL (13.5-17.5); Immature Grans % 0.2 %; Lymphocytes % 42.2 %; MCH 31.2 pg (27.0-33.0); MCHC 35.5 % (32.0-36.0); MCV 88 fL (80-95); MPV 8.2 fL (8.0-11.0); Monocytes % 5.7 %; Neutrophils % 50.1 %; Platelet Count 232 10^3/uL (130-400); RBC 5.74 10^6/uL (4.36-5.78); RDW 13.5 % (11.8-14.1); RDW-SD 43.5 fL; WBC 8.64 10^3/uL (4.4-10.8)
[2024-07-02 23:54] VITALS: PULSE 110; RESP 16; O2SAT 98
[2024-07-02] MEDS: LORazepam 2 MG/ML VIAL IVP (23:54)
[2024-07-02] MEDS: Ondansetron 4 MG/2 ML VIAL IVP (23:54)
[2024-07-02] MEDS: DEXTROSE 5%-0.9% SALINE 1,000 ML 125 ML IV (23:54)
[2024-07-02] MEDS: Normal Saline 1,000 ML 1000 ML IV (23:54)
[2024-07-02 23:55] VITALS: BP 150/103; PULSE 110; PULSE 114; RESP 14; O2SAT 98
[2024-07-02 23:56] VITALS: PULSE 113; RESP 11; O2SAT 96
--- NOTE | 2024-07-02 23:56 | ED.GENADUL_ITS ---
Discharge Plan Disposition Patient Disposition: Home Condition: Improving Discharge Details Clinical Impression: Anxiety, Alcohol use disorder, moderate, dependence, Tachycardia, Dehydration, mild Primary Care Provider: Tara Humphreys ED Provider: Michael Leggett Home Meds and New Rx's Prescriptions: New chlordiazepoxide HCl 25 mg capsule See Rx Instructions .ROUTE .COMPLEX MDD 150 mg Qty: 38 0RF Rx Instructions: 50 mg TID x 3 day, then 25mg TID x 3 days, then 25mg BID x 3 days, then 25 mg Nightly x 5 days propranolol 60 mg capsule,extended release 24 hr 60 mg PO DAILY Qty: 20 0RF No Action naltrexone 50 mg tablet 50 mg PO DAILY Qty: 90 3RF venlafaxine 75 mg capsule,extended release 24hr 75 mg PO QHS Qty: 90 3RF trazodone 50 mg tablet See Rx Instructions PO QHS PRN (Reason: sleep) Qty: 40 1RF Rx Instructions: 25-50mg bedtime for sleep difficulty, may repeat 50mg x1 if first dose ineffective for max nightly dose 100mg PO every day at bedtime PRN; disulfiram 500 mg tablet 500 mg PO DAILY Qty: 90 0RF Discharge Instructions Instructions: Alcohol Use Disorder ED, Anxiety, Adult ED Additional Instructions: Take the Librium taper as directed by the prescription. This is a decreasing number of pills over multiple days. This medication is designed to help you with alcohol withdrawal symptoms should you choose to quit drinking. Take 1 propranolol tablet daily. This medication will help control your heart rate better and may improve your anxiety symptoms. Is often used for treatment of social anxiety as a first-line agent. Continue your other medications as previously directed. Content of thought with a regular primary care doctor and consider referral to psychiatry for medication review and follow-up to see if a more aggressive medication plan will be more successful in helping to treat your anxiety. You can always return to the ER for any new concerns or sudden changes in your health which you feel require emergency medical attention. Discharge Data Discharge Physician: Michael Leggett [facility] General Date/Time Provider Initiated Documentation: 07/02/24 22:20 . HPI Narrative: The patient is a 33-year-old male, with a past medical history significant for severe anxiety and alcohol misuse disorder, who presents the emergency department this evening stating that he feels like he is going to begin having alcohol withdrawal. The patient was recently admitted to a detox program for approximately 2 weeks and was discharged approximately 2 weeks ago. He began drinking again almost immediately. The patient had recently been prescribed Antabuse, naloxone, and venlafaxine by his primary care physician to help improve the patient's symptoms. His mother tells me that he is often not honest with her about how much she is drinking and she thinks that he likely does not have enough money to continue drinking as heavily as he had been in the past, which is why he has been experiencing some withdrawal symptoms. The patient tells me that his last alcoholic drink was approximately 2 and half hours prior to arrival in the emergency room. He tells me that he drinks 3-4 hard seltzers a day. Both the patient and his mother report that he has been self-medicating with alcohol since the age of 14 to help treat his crippling anxiety. The patient is currently seeing a therapist but has not seen a psychiatrist for medication review and evaluation. Related Data Home Medications ?Medication ?Instructions ?Recorded ?Confirmed naltrexone 50 mg tablet 50 mg PO DAILY #90 tabs 03/02/24 07/02/24 trazodone 50 mg tablet See Rx Instructions PO QHS PRN 03/02/24 07/02/24 sleep #40 tabs venlafaxine 75 mg capsule,extended 75 mg PO QHS #90 caps 03/02/24 07/02/24 release 24 hr disulfiram 500 mg tablet 500 mg PO DAILY #90 tabs 05/28/24 07/02/24 chlordiazepoxide HCl 25 mg capsule See Rx Instructions .Route 07/03/24 .COMPLEX Alcohol Withdrawa #38 caps propranolol 60 mg capsule,24 60 mg PO DAILY #20 caps 07/03/24 hr,extended release Previous Rx's ?Medication ?Instructions ?Recorded naltrexone 50 mg tablet 50 mg PO DAILY #90 tabs 03/02/24 trazodone 50 mg tablet See Rx Instructions PO QHS PRN 03/02/24 sleep #40 tabs venlafaxine 75 mg capsule,extended 75 mg PO QHS #90 caps 03/02/24 release 24 hr disulfiram 500 mg tablet 500 mg PO DAILY #90 tabs 05/28/24 chlordiazepoxide HCl 25 mg capsule See Rx Instructions .Route 07/03/24 .COMPLEX Alcohol Withdrawa #38 caps propranolol 60 mg capsule,24 60 mg PO DAILY #20 caps 07/03/24 hr,extended release Allergies Allergy/AdvReac Type Severity Reaction Status Date / Time No Known Allergies Allergy Verified 07/02/24 22:27 General Stated Complaint: ETOHWithdr MOISES: 3 Exam Const General: cooperative, no acute distress, disheveled and does not appear intoxicated Neck Neck: normal visual inspection, full ROM and no JVD Resp Effort & Inspection: normal respiratory effort and able to speak in complete sen tences Auscultation: clear to auscultation bilaterally Cardio Rate: tachycardic Rhythm: regular rhythm GI Inspection: normal to inspection Palpation: soft and nontender Skin General skin exam: no rashes or lesions noted, turgor normal and dry skin Neuro General: patient alert, patient awake, patient oriented x3 and CN's II-XI intact bilaterally Cranial Nerves: CN's II-XI intact bilaterally Cognition: normal cognition Speech: speech normal Gait: normal gait Motor: muscle tone normal throughout and strength 5/5 throughout Sensory Exam: no sensory deficits noted Psych Mental Status: mental status grossly normal Speech and Movement: speech and movement normal Mood: anxious mood Affect: anxious affect Course Vital Signs Vital signs: Vital Signs Pulse 117 H 07/02/24 22:23 Respiratory Rate 18 07/02/24 22:23 Blood Pressure 176/120 H 07/02/24 22:23 Pulse Oximetry 98 07/02/24 22:23 Pulse 110 H 07/02/24 23:55 Pulse 114 H 07/02/24 23:55 Respiratory Rate 14 07/02/24 23:55 Respiratory Effort Normal 07/02/24 22:26 Respiratory Pattern Normal 07/02/24 22:28 Blood Pressure 150/103 H 07/02/24 23:55 Blood Pressure Mean 119 07/02/24 23:55 Blood Pressure Position Sitting 07/02/24 22:23 Pulse Oximetry 98 07/02/24 23:55 Oxygen Delivery Method Room Air 07/02/24 22:23 Oxygen Flow Rate 0 07/02/24 22:23 Lab/Test Results Lab/Test Results: Laboratory Tests Range/Units 07/02/24 23:36 WBC (4.4-10.8) 10^3/uL 8.64 RBC (4.36-5.78) 10^6/uL 5.74 Hgb (13.5-17.5) g/dL 17.9 H Hct (40.0-50.0) % 50.4 H MCV (80-95) fL 88 MCH (27.0-33.0) pg 31.2 MCHC (32.0-36.0) % 35.5 RDW (11.8-14.1) % 13.5 Plt Count (130-400) 10^3/uL 232 MPV (8.0-11.0) fL 8.2 Immature Gran % % 0.2 Neutrophils % % 50.1 Lymphocytes % % 42.2 Monocytes % % 5.7 Eosinophils % % 1.2 Basophils % % 0.6 Nucleated RBC % (0.0-0.3) % 0.0 Absolute Neutrophils (1.2-6.7) 10^3/uL 4.33 Absolute Lymphocytes (1.2-3.4) 10^3/uL 3.65 H Absolute Monocytes (0.1-0.8) 10^3/uL 0.49 Absolute Eosinophils (0.0-0.7) 10^3/uL 0.10 Absolute Basophils (0.0-0.2) 10^3/uL 0.05 Medical Decision Making The patient was seen and examined. I initially question whether or not this was alcohol withdrawal based on the history that the patient provided of having a drink less than 2 hours ago. The patient and his mother seem to dispute this but it would seem unlikely that the patient would be in acute alcohol withdrawal if they were actively using alcohol within this timeframe. In fact, the patient's alcohol level came back at greater than 300. For like the patient's tachycardia is most likely digital sales representative of his anxiety, in combination with some modest dehydration. The patient does appear to be hemoconcentrated with elevated H&H and sodium levels. The patient was given 1.5 L of fluid here in the emergency room between normal saline and dextrose containing saline. The patient's laboratory workup was otherwise relatively normal. There does not appear to be any alcoholic ketoacidosis. I offered the patient multiple options for treatment including admission for intoxication and tachycardia, referral to an acute behavioral health crisis provider, detox placement, medical management for his symptoms, etc. Ultimately, the patient does not want to be admitted to the hospital and refuses to go back to a detox program at this time. He tells me that he recently completed a program and did not feel like it helped him. He states that being in a program with his many is 90 other adult males is anxiety provoking for him and tends to make his symptoms somewhat worse. The patient was given Ativan, phenobarbital, and so metoprolol here in the emergency room to help control his symptoms. The patient will ultimately be discharged on a combination of an oral Librium taper and some oral propranolol to help improve his symptoms. I have suggested to the patient and his mother that they follow back up with the primary care doctor and consider referral to psychiatry for medication reevaluation and potential adjustment. Quality:SDOH Health Related Social Needs: No Data to Display PFSH All Active Problems (Updated 07/03/24 @ 05:30 by Michael Leggett MD) Dehydration, mild (Acute) Tachycardia (Acute) Alcohol use disorder, moderate, dependence (Acute) Alcohol use disorder, moderate, in early remission (Acute) Hepatic steatosis (Acute ~12/2023) [place] Ocular hypertension (Acute) Bilateral ocular hypertension (Acute) Sleeping difficulty (Acute) RX Trazodone Nicotine use disorder (Chronic) 16yo started 0.5-1PPD Elevated BP without diagnosis of hypertension (Acute) Depression (Chronic) Venlafaxine; Sanna Sanchez Anxiety (Chronic) did not respond to low dose sertraline 01/11/11, failed Mirtazepine Medical History Alcohol withdrawal Stressful life event affecting family Sister's illness/diagnosis Excessive drinking alcohol Reviewed norms Family History Mother Breast cancer Pre-menopausal; has occurred x2 Asthma Heart disease [place] Father , COV, Winter 2019 Cancer lung Diabetes Sister Scleroderma Breast cancer Dx'ed mid 30s Paternal Uncle Scleroderma Social History Smoking/Tobacco Use Status: Current every day Tobacco Type: cigarettes Tobacco: How many years used: 8 Quit status: considering quitting Smoking risk assessment performed?: Yes Alcohol Intake: current Alcohol Intake frequency: 3 or more drinks per day Alcohol type: wine and hard liquor Drug use: Never Substance use type: does not use and marijuana Adopted: No Caregiver/Support person: No Foster care: No Household members: family Housing: house Number of Children: 0 number of grandchildren: 0 Communication Needs: None Education Level: high school Do you need help understanding health information?: Rarely 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[employer] Pets and animals: No Sexually active: Yes Do you think of yourself as: straight/heterosexual Current gender identity: male What is your relationship status?: refused to answer How often do you talk on the phone with friends or family?: three or more times per week How often do you get together with friends or relatives?: three or more times per week Do you belong to any clubs or organized social groups?: no Panel score (0-1 are the most socially isolated patients): 1 What type of physical activity do you participate in: walking Duration: > 90 minutes/day Frequency: 5-6 times per week Laina/Hinduism: None Special laina needs: No Seatbelt use: always Helmet use: Yes Helmet use: always Drive intox or ride w/intox tanker driver: No Do you feel safe at home: Yes Do you feel safe in your relationship?: Yes PAWSS Have you Been Recently Intoxicated or Drunk Within the Last 30 days?: Yes Have you Ever Experienced Previous Episodes of Alcohol Withdrawal?: Yes Have you ever Experienced Withdrawal Seizures?: No Have you ever Experienced Delirium Tremens(DT)s?: Yes Have you ever undergone Alcohol Rehabilitation Treatment (i.e, inpt ot outpatient treatment programs)?: Yes Have you ever Experienced Blackouts?: Yes Have you ever Combined Alcohol with other Downers within the last 90 days?: No Have you ever Combined Alcohol with any other Substance of Abuse during the last 90 days?: No Positive Blood Alcohol level on Presentation? [PCS.BAL]: Yes Evidence of Increased Autonomic Activity (i.e. HR>120, tremor, sweating, agitation, nausea)?: Yes Result: 7
[2024-07-03] VITALS (146 sets, daily range): BP systolic 131–169; BP diastolic 71–137; PULSE 107–150; RESP 10–32; O2SAT 91–98
[2024-07-03 00:19] LABS: ALT 20 U/L (16-63); AST 23 U/L (15-37); Alkaline Phosphatase 73 U/L (46-116); Anion Gap 14.1 mmol/L (3-11); BUN 9 mg/dL (7-18); Bilirubin, Total 0.56 mg/dL (0.2-1.0); CO2 27.9 mmol/L (21.0-32.0); CREATININE 0.9 mg/dL (0.70-1.30); Calcium 9.2 mg/dL (8.5-10.1); Chloride 104 mmol/L (98-107); Estimated GFR 116.37 (mL/min/1.73m2); Glucose 98 mg/dL (74-106); Lipase 47 U/L (16-77); Magnesium 1.9 mg/dL (1.8-2.4); Potassium 3.8 mmol/L (3.5-5.1); Sodium 146 mmol/L (136-145); Total Protein 7.9 g/dL (6.4-8.2)
[2024-07-03 00:21] LABS: ETHANOL BLOOD 357.4 mg/dL (<10)
[2024-07-03] MEDS: Nicotine 21 MG/24 HR PATCH TD (01:40)
[2024-07-03] MEDS: Metoprolol 5 MG/5 ML VIAL IVP (02:57)
== END 2024-07-03 06:49 | disposition home or self-care (01) ==
PROVIDERS: Emergency Provider Emergency Medicine Emergency Medical Services; PCP Nurse Practitioner Adult Health
DX: F41.9 Anxiety disorder, unspecified (principal); F10.220 Alcohol dependence with intoxication, uncomplicated; F17.210 Nicotine dependence, cigarettes, uncomplicated; Y90.8 Blood alcohol level of 240 mg/100 ml or more
CPT/HCPCS: 80053; 83690; 96361; 96365; 96375; 99284; 80320; 83735; 85025; J2060; J2405; J7042

== ENCOUNTER 2024-07-05 20:16 | Emergency (ER) | payer MEDICAID, SELFPAY ==
[2024-07-05 20:21] VITALS: BP 164/108; PULSE 134; RESP 20; TEMP 36.4; O2SAT 99
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
[2024-07-05] MEDS: chlordiazePOXIDE 25 MG CAP 50 MG PO (21:06)
[2024-07-05] MEDS: LORazepam 2 MG/ML VIAL IVP (21:06)
[2024-07-05 21:08] LABS: Abs Immature Grans 0.02 10^3/uL (0.0-0.06); Absolute Basophil Count 0.04 10^3/uL (0.0-0.2); Absolute Eosinophil Count 0.24 10^3/uL (0.0-0.7); Absolute Monocyte Count 0.46 10^3/uL (0.1-0.8); Absolute Neutrophil Count 2.38 10^3/uL (1.2-6.7); Basophils % 0.7 %; Eosinophils % 4.1 %; HCT 44.6 % (40.0-50.0); Immature Grans % 0.3 %; Lymphocytes % 46.2 %; MCH 31.3 pg (27.0-33.0); MCHC 35.2 % (32.0-36.0); MCV 89 fL (80-95); MPV 8.6 fL (8.0-11.0); Monocytes % 7.9 %; Neutrophils % 40.8 %; Platelet Count 197 10^3/uL (130-400); RBC 5.01 10^6/uL (4.36-5.78); RDW 13.6 % (11.8-14.1); RDW-SD 44.7 fL; WBC 5.84 10^3/uL (4.4-10.8)
[2024-07-05 21:12] LABS: HGB 15.7 g/dL (13.5-17.5)
[2024-07-05 21:29] LABS: Salicylate 4.7 mg/dL (<2.8)
[2024-07-05 21:32] LABS: Acetaminophen < 2 ug/mL (10-30)
[2024-07-05 21:50] LABS: ALT 20 U/L (16-63); AST 23 U/L (15-37); Albumin 3.5 g/dL (3.4-5.0); Alkaline Phosphatase 61 U/L (46-116); Anion Gap 10.6 mmol/L (3-11); BUN 17 mg/dL (7-18); Bilirubin, Total 0.62 mg/dL (0.2-1.0); CO2 27.4 mmol/L (21.0-32.0); CREATININE 0.9 mg/dL (0.70-1.30); Calcium 8.4 mg/dL (8.5-10.1); Chloride 108 mmol/L (98-107); ETHANOL BLOOD 183.3 mg/dL (<10); Estimated GFR 116.37 (mL/min/1.73m2); Glucose 87 mg/dL (74-106); Potassium 3.8 mmol/L (3.5-5.1); Sodium 146 mmol/L (136-145); TSH (W/Ref FT4) 0.97 uIU/mL (0.36-3.74); Total Protein 6.8 g/dL (6.4-8.2)
[2024-07-05 21:59] LABS: *AMPHETAMINES SCREEN URINE Negative (Negative); *BARBITURATES SCREEN URINE Positive (Negative); *BENZODIAZEPINES SCREEN URINE Positive (Negative); Cannabinoids THC Negative (Negative); Cocaine Screen,Urine Negative (Negative); METHADONE URINE SCREEN Negative (Negative); OPIATES URINE SCREEN Negative (Negative)
[2024-07-05 22:01] LABS: Tricyclic Antidepressants Negative (Negative)
[2024-07-05] MEDS: diphenhydrAMINE 50 MG/ML VIAL 25 MG IVP (22:30)
[2024-07-05] MEDS: diazePAM 10 MG/2 ML SYR 5 MG IVP (22:31)
[2024-07-05 22:48] VITALS: BP 133/108; PULSE 106; RESP 16; O2SAT 99
[2024-07-06 02:58] VITALS: BP 160/90; PULSE 104; RESP 16; O2SAT 97
--- NOTE | 2024-07-06 06:14 | ED.PROG_ITS ---
Date of service: 07/05/24 Time of Service: 22:15 Medical Decision Making This patient was signed out to me. Please see previous notes for H&P and initial eval. In brief, 33yo M with hx depression, anxiety and ETOH use disorder presenting with anxiety and passive SI. Received librium and ativan. Signed out pending sobriety for medical clearance, NK in the morning. Placed on CIWA, scoring low. Overnight no acute events. Will be signed out to oncoming physician, plan remains as above. Quality:[facility] Health Related Social Needs: No Data to Display Sign Out Sign Out Data: Sign Out Comment: Chronic alcoholism, notably depressed, seeking help. Has PTSD for zone B, as well as [place]. Once he attained sobriety recommend evaluation by mental health with inpatient psychiatric care at a dual treatment facility. Last updated by Rob Rao DO at 07/05/24 22:03 Discharge Plan Discharge Details Chief Complaint: PsychEval Clinical Impression: Anxiety, Alcohol use disorder, moderate, dependence Primary Care Provider: Tara Humphreys ED Provider: Lakeisha Mota Home Meds and New Rx's Prescriptions: No Action naltrexone 50 mg tablet 50 mg PO DAILY Qty: 90 3RF venlafaxine 75 mg capsule,extended release 24hr 75 mg PO QHS Qty: 90 3RF trazodone 50 mg tablet See Rx Instructions PO QHS PRN (Reason: sleep) Qty: 40 1RF Rx Instructions: 25-50mg bedtime for sleep difficulty, may repeat 50mg x1 if first dose ineffective for max nightly dose 100mg PO every day at bedtime PRN; disulfiram 500 mg tablet 500 mg PO DAILY Qty: 90 0RF propranolol 60 mg capsule,extended release 24 hr 60 mg PO DAILY Qty: 20 0RF chlordiazepoxide HCl 25 mg capsule See Rx Instructions .ROUTE .COMPLEX Qty: 38 0RF Rx Instructions: Take 50 mg (2 capsules) of Librium every 8 hours, for the next three days, then take 25 mg (1 capsule) of Librium every 8 hours for the next three days, then take 25 mg (1 capsule) of Librium every 12 for the next three days, then take 25 mg (1 capsule) of Librium nightly for 5 nights, then stop.
--- NOTE | 2024-07-06 07:41 | ED.PROG_ITS ---
Date of service: 07/06/24 Time of Service: 07:41 Medical Decision Making I received signout on this 33-year-old patient in the emergency department the setting of passive suicidal ideation. Patient has a history of withdrawal from alcohol but no history of seizures. Patient is pending evaluation with [facility]. 12:17 PM I spoke with [place] [facility] [facility] reported that the patient would be voluntary for inpatient placement. 4:20 PM I spoke with Violetta Guardado from care management. She requested patient be given a NicoDerm patch. He has not been scoring on his CIWA protocol. [facility] [place] [facility] Patient did have a detec table salicylate level so we will order repeat salicylate level now. Quality:[facility] Health Related Social Needs: No Data to Display Sign Out Sign Out Data: Sign Out Comment: Chronic alcoholism, notably depressed, seeking help. Has PTSD for zone B, as well as [place]. Once he attained sobriety recommend evaluation by mental health with inpatient psychiatric care at a dual treatment facility. Last updated by Rob Rao DO at 07/05/24 22:03 Sign Out Comment: 33M, ETOH abuse & depression. Bad experiences in [place] and [place], hoping to avoid these. Has had librium and diazapam here. Needs NKHS when sober (likely when wakes this morning). Last updated by Lakeisha Mota MD at 07/06/24 07:16 Discharge Plan Discharge Details Chief Complaint: PsychEval Clinical Impression: Anxiety, Alcohol use disorder, moderate, dependence Primary Care Provider: Tara Humphreys ED Provider: Samir Duff Home Meds and New Rx's Prescriptions: No Action naltrexone 50 mg tablet 50 mg PO DAILY Qty: 90 3RF venlafaxine 75 mg capsule,extended release 24hr 75 mg PO QHS Qty: 90 3RF trazodone 50 mg tablet See Rx Instructions PO QHS PRN (Reason: sleep) Qty: 40 1RF Rx Instructions: 25-50mg bedtime for sleep difficulty, may repeat 50mg x1 if first dose ineffective for max nightly dose 100mg PO every day at bedtime PRN; disulfiram 500 mg tablet 500 mg PO DAILY Qty: 90 0RF propranolol 60 mg capsule,extended release 24 hr 60 mg PO DAILY Qty: 20 0RF chlordiazepoxide HCl 25 mg capsule See Rx Instructions .ROUTE .COMPLEX Qty: 38 0RF Rx Instructions: Take 50 mg (2 capsules) of Librium every 8 hours, for the next three days, then take 25 mg (1 capsule) of Librium every 8 hours for the next three days, then take 25 mg (1 capsule) of Librium every 12 for the next three days, then take 25 mg (1 capsule) of Librium nightly for 5 nights, then stop.
[2024-07-06 09:11] VITALS: BP 146/105; PULSE 116; RESP 16; TEMP 36.7; O2SAT 97
[2024-07-06] MEDS: Nicotine 21 MG/24 HR PATCH TD (17:08)
[2024-07-06 17:12] VITALS: BP 160/119; PULSE 89; RESP 18; O2SAT 99
--- NOTE | 2024-07-06 17:23 | PDOC.CMSAFE ---
Date of service: 07/06/24 Time of Service: 17:24 Care Management Safety Plan Status Status: Voluntary Reason for Wait Reason for Wait: Inpatient Admission Safety Plan Safety Plan: VOLUNTARY FOR INPATIENT PSYCHIATRIC STABILIZATION.? Patient is appropriate in all interactions since arriving at [facility]; Pt has demonstrated appropriate coping and communication skills, has articulated his or her needs and concerns and is fully engaged during staff interactions. Safety plan has been established with patient, and care team, to adhere to patient goals, identify restrictions based on behavioral status, address nutrition, and determine allowed personal belongings, tools for hygiene and personal care. Determine level of activity including ambulation, level of supervision, visitors, and determine privileges based on behaviors and level of engagement by pt. SAFETY PLAN: 1. Will remain on suicide precautions, in paper clothes 2. Will remain in room under direct supervision of one-on-one staff at all times provided by [employer]; BOB, DRAMATIC TEACHER director of business applications. 3. May have paper cups, plates, finger foods as well as a cardboard spoon with which to eat meals. 4. Follow [facility] Management of the Admitted Behavioral Health Patient policy. 5. Comfort bath system, shower permitted with escort at RN discretion. 6. Personal belongings-soft items permitted at RN discretion. 7. Visitors- Mother and step father, at RN discretion. 8. Activities: soft cart items approved per RN discretion. 9.? Bathroom privileges with escort in the ED. 10. Phone: limited to cordless phone at RN discretion. Due to VOLUNTARY status, if patient wishes to leave [facility], staff will contact [facility] Crisis Screener ([phone]) and On-Call Tobacco Packer ([phone]) as soon as possible. In the event of elopement, notify [facility] Police ([phone]). Patient is currently voluntarily at [facility] and seeking inpatient admission when a bed becomes available. [facility] Frontline Instant Potato Processing Supervisor will continue seeking placement. Please contact the Liquid Yeast Supervisor Tobacco Packer ([phone]) and [facility] Instant Potato Processing Supervisor ([phone]) for any needed changes in the Safety Plan. Safety plan has been provided to interdepartmental care team.
--- NOTE | 2024-07-06 17:25 | CMPROGNOTE_ITS ---
Date of service: 07/06/24 Time of Service: 17:25 Care Management Progress Note Progress Note Text Progress Note Text: Andrey was sitting up in bed when CM met with him. He appeared anxious and tearful, and stated that he does not want to remain at the hospital, but that his mother (whom he lives with) informed him that if he returns home he will not be able to continue to live with her, until he gets help. Andrey discussed his previous experiences at psychiatric hospitals, such as [facility], which was traumatic; per [facility] a referral was not sent to for this reason. Andrey stated that he feels that he will do better if he does not drink alcohol, and that he has had long periods of sobriety in the past. CM informed him of his rights as a mental health patient, and stated that he is not being held against his will. CM provided him with information regarding support in the community, in case he decides not to go to treatment. CM supported him with either decision, allowing for autonomy and self-determination. Andrey stated that he is ok with staying ove rnight, and will consider his options tomorrow. He reported that he may benefit from nicotine replacement (gum); CM asked the provider if this could be ordered. CM will continue to follow. SDOH(Care Management) Screening Will the Patient Participate in the Screening?: Unable to obtain Do you worry about having a steady place to live?: choose not to answer
[2024-07-06 17:41] LABS: Salicylate 3.7 mg/dL (<2.8)
[2024-07-06] MEDS: QUEtiapine 100 MG TAB PO (19:53)
--- NOTE | 2024-07-06 22:06 | W.EDPROG ---
Date of service: 07/06/24 Time of Service: 22:06 Medical Decision Making Care accepted from outgoing provider. Patient is a 33-year-old gentleman with chronic alcohol abuse history. No signs or symptoms concerning for alcohol withdrawal at this time. Is pending voluntary inpatient psychiatric. No issues during my shift. Quality:[facility] Health Related Social Needs: No Data to Display Sign Out Sign Out Data: Sign Out Comment: Chronic alcoholism, notably depressed, seeking help. Has PTSD for zone B, as well as [place]. Once he attained sobriety recommend evaluation by mental health with inpatient psychiatric care at a dual treatment facility. Last updated by Rob Rao DO at 07/05/24 22:03 Sign Out Comment: 33M, ETOH abuse & depression. Bad experiences in [place] and [place], hoping to avoid these. Has had librium and diazapam here. Needs NKHS when sober (likely when wakes this morning). Last updated by Lakeisha Mota MD at 07/06/24 07:16 Sign Out Comment: 33-year-old male history of alcohol abuse depression hoping to avoid [place] and [place]. No active behavioral issues. Patient has not been scoring on a CIWA protocol. Last updated by Samir Duff MD at 07/06/24 16:50 Discharge Plan Discharge Details Chief Complaint: PsychEval Clinical Impression: Anxiety, Alcohol use disorder, moderate, dependence Primary Care Provider: Tara Humphreys ED Provider: Willie Damian Home Meds and New Rx's Prescriptions: No Action naltrexone 50 mg tablet 50 mg PO DAILY Qty: 90 3RF venlafaxine 75 mg capsule,extended release 24hr 75 mg PO QHS Qty: 90 3RF trazodone 50 mg tablet See Rx Instructions PO QHS PRN (Reason: sleep) Qty: 40 1RF Rx Instructions: 25-50mg bedtime for sleep difficulty, may repeat 50mg x1 if first dose ineffective for max nightly dose 100mg PO every day at bedtime PRN; disulfiram 500 mg tablet 500 mg PO DAILY Qty: 90 0RF propranolol 60 mg capsule,extended release 24 hr 60 mg PO DAILY Qty: 20 0RF chlordiazepoxide HCl 25 mg capsule See Rx Instructions .ROUTE .COMPLEX Qty: 38 0RF Rx Instructions: Take 50 mg (2 capsules) of Librium every 8 hours, for the next three days, then take 25 mg (1 capsule) of Librium every 8 hours for the next three days, then take 25 mg (1 capsule) of Librium every 12 for the next three days, then take 25 mg (1 capsule) of Librium nightly for 5 nights, then stop.
--- NOTE | 2024-07-07 05:40 | NUR.NOTE ---
[facility] said [facility] don't have any beds available.
--- NOTE | 2024-07-07 06:30 | W.EDPROG ---
Date of service: 07/06/24 Time of Service: 23:00 Medical Decision Making This patient was signed out to me. Please see previous notes for H&P and initial eval. In brief, 33yo M with hx depression, anxiety and ETOH use disorder presenting with anxiety and passive SI. Medically cleared, pending voluntary inpatient placement. Overnight no acute events. Will be signed out to oncoming physician, plan remains as above. Quality:[facility] Health Related Social Needs: No Data to Display Sign Out Sign Out Data: Sign Out Comment: Chronic alcoholism, notably depressed, seeking help. Has PTSD for zone B, as well as [place]. Once he attained sobriety recommend evaluation by mental health with inpatient psychiatric care at a dual treatment facility. Last updated by Rob Rao DO at 07/05/24 22:03 Sign Out Comment: 33M, ETOH abuse & depression. Bad experiences in [place] and [place], hoping to avoid these. Has had librium and diazapam here. Needs NKHS when sober (likely when wakes this morning). Last updated by Lakeisha Mota MD at 07/06/24 07:16 Sign Out Comment: 33-year-old male history of alcohol abuse depression hoping to avoid [place] and [place]. No active behavioral issues. Patient has not been scoring on a CIWA protocol. Last updated by Samir Duff MD at 07/06/24 16:50 Sign Out Comment: Pending vol inpatient placement history of alcohol abuse depression hoping to avoid [place] and [place] due to PTSD No active behavioral issues. no s/s of withdrawal Last updated by Willie Damian MD at 07/06/24 22:08 Discharge Plan Discharge Details Chief Complaint: PsychEval Clinical Impression: Anxiety, Alcohol use disorder, moderate, dependence Primary Care Provider: Tara Humphreys ED Provider: Lakeisha Mota Home Meds and New Rx's Prescriptions: No Action naltrexone 50 mg tablet 50 mg PO DAILY Qty: 90 3RF venlafaxine 75 mg capsule,extended release 24hr 75 mg PO QHS Qty: 90 3RF trazodone 50 mg tablet See Rx Instructions PO QHS PRN (Reason: sleep) Qty: 40 1RF Rx Instructions: 25-50mg bedtime for sleep difficulty, may repeat 50mg x1 if first dose ineffective for max nightly dose 100mg PO every day at bedtime PRN; disulfiram 500 mg tablet 500 mg PO DAILY Qty: 90 0RF propranolol 60 mg capsule,extended release 24 hr 60 mg PO DAILY Qty: 20 0RF chlordiazepoxide HCl 25 mg capsule See Rx Instructions .ROUTE .COMPLEX Qty: 38 0RF Rx Instructions: Take 50 mg (2 capsules) of Librium every 8 hours, for the next three days, then take 25 mg (1 capsule) of Librium every 8 hours for the next three days, then take 25 mg (1 capsule) of Librium every 12 for the next three days, then take 25 mg (1 capsule) of Librium nightly for 5 nights, then stop.
--- NOTE | 2024-07-07 07:37 | W.EDPROG ---
Date of service: 07/07/24 Time of Service: 07:37 Medical Decision Making I received signout on this 33-year-old patient in the emergency department voluntarily in setting of increased anxiety. No active behavioral issues last shift. Patient has not been scoring on his CIWA. Will update documentation as clinically warranted and [facility] [place] [facility] 9:24 AM I met with this patient after he had had a family meeting. He requested to be discharged. He was not feeling suicidal or homicidal. He reported that he was not feeling tremulous nor as if he was going through withdrawal. He had low CIWA scores. His vital signs were significant for elevated blood pressure but he was not tremulous and had no tongue fasciculations. He had had some hydroxyzine in the past. He also has a prescription at home for disulfiram which he plans on taking when he returns home. He denies any auditory or visual hallucinations. He seemed forward thinking as he was going to try to find a new job as the had ended. I advised him that if this plan did not feel safe to him that he should return to the emergency department. He understood his return indications and was discharged with an empiric trial of expectant outpatient management. Quality:[facility] Health Related Social Needs: No Data to Display Sign Out Sign Out Data: Sign Out Comment: Chronic alcoholism, notably depressed, seeking help. Has PTSD for zone B, as well as [place]. Once he attained sobriety recommend evaluation by mental health with inpatient psychiatric care at a dual treatment facility. Last updated by Rob Rao DO at 07/05/24 22:03 Sign Out Comment: 33M, ETOH abuse & depression. Bad experiences in [place] and [place], hoping to avoid these. Has had librium and diazapam here. Needs NKHS when sober (likely when wakes this morning). Last updated by Lakeisha Mota MD at 07/06/24 07:16 Sign Out Comment: 33-year-old male history of alcohol abuse depression hoping to avoid [place] and [place]. No active behavioral issues. Patient has not been scoring on a CIWA protocol. Last updated by Samir Duff MD at 07/06/24 16:50 Sign Out Comment: Pending vol inpatient placement history of alcohol abuse depression hoping to avoid [place] and [place] due to PTSD No active behavioral issues. no s/s of withdrawal Last updated by Willie Damian MD at 07/06/24 22:08 Sign Out Comment: 33M, ETOH abuse & depression. Bad experiences in and [place], hoping to avoid these. Pending voluntary placement. Last updated by Lakeisha Mota MD at 07/07/24 07:28 Discharge Plan Disposition Patient Disposition: Home Discharge Details Clinical Impression: Anxiety, Alcohol use disorder, moderate, dependence Primary Care Provider: Tara Humphreys ED Provider: Samir Duff [place] Meds and New Rx's Prescriptions: New hydroxyzine HCl 25 mg tablet 25 mg PO BID PRNQty: 20 0RF Continued naltrexone 50 mg tablet 50 mg PO DAILY Qty: 90 3RF venlafaxine 75 mg capsule,extended release 24hr 75 mg PO QHS Qty: 90 3RF trazodone 50 mg tablet See Rx Instructions PO QHS PRN (Reason: sleep) Qty: 40 1RF Rx Instructions: 25-50mg bedtime for sleep difficulty, may repeat 50mg x1 if first dose ineffective for max nightly dose 100mg PO every day at bedtime PRN; disulfiram 500 mg tablet 500 mg PO DAILY Qty: 90 0RF propranolol 60 mg capsule,extended release 24 hr 60 mg PO DAILY Qty: 20 0RF chlordiazepoxide HCl 25 mg capsule See Rx Instructions .ROUTE .COMPLEX Qty: 38 0RF Rx Instructions: Take 50 mg (2 capsules) of Librium every 8 hours, for the next three days, then take 25 mg (1 capsule) of Librium every 8 hours for the next three days, then take 25 mg (1 capsule) of Librium every 12 for the next three days, then take 25 mg (1 capsule) of Librium nightly for 5 nights, then stop. Discharge Instructions Additional Instructions: You are seen in the emergency department for your anxiety. Please take this prescription for hydroxyzine but do not drink alcohol or drive after taking hydroxyzine. Please return to the emergency department if you do not feel safe at home. Please follow-up with your primary care provider as needed.
[2024-07-07 08:12] VITALS: BP 167/122; PULSE 98; RESP 18; TEMP 36.4; O2SAT 100
[2024-07-07] MEDS: hydrOXYzine HCL 25 MG TAB PO (09:30)
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
== END 2024-07-07 10:32 | disposition home or self-care (01) ==
PROVIDERS: Student in an Organized Health Care Education/Training Program; Emergency Provider Emergency Medicine; PCP Nurse Practitioner Adult Health
DX: F10.220 Alcohol dependence with intoxication, uncomplicated (principal); F41.9 Anxiety disorder, unspecified; F32.A Depression, unspecified; Y90.6 Blood alcohol level of 120-199 mg/100 ml
CPT/HCPCS: 00123; 36415; 80053; 80307; 96127; 96374; 96375; 99285; 80320; 80329; 84443; 85025; J1200; J2060; J3360

== ENCOUNTER 2024-07-08 02:00 | Outpatient (CLI) | payer MEDICAID, SELFPAY ==
--- NOTE | 2024-07-08 06:15 | DI.US_ITS ---
Exam(s) US ABDOMEN LIMITED EXAM: US ABDOMEN LIMITED CLINICAL HISTORY: reassess liver,steatosis of liver, fatty liver,K76.0 TECHNIQUE: Ultrasound abdomen performed using standard protocol. COMPARISON: US US ABDOMEN LIMITED from 01/01/2024 FINDINGS: There is no ascites evident. LIVER: On today's study the liver exhibits normal echogenicity with less evidence of steatosis than o n the previous study of December 2023. In addition, the size of the liver has slightly decreased, present ly measuring 16.3 cm. There are no discrete focal hepatic lesions nor cysts. GALLBLADDER/BILIARY: There are no gallstones. No gallbladder wall edema nor pericholecystic fluid. The common hepatic duct isnot dilated, measuring 3-4mm at the level of mika hepatis. PANCREAS: There is no evidence of pancreatic mass nor dilatation of the pancreatic duct. RIGHT KIDNEY:No evidence of solid mass, calculus, nor hydronephrosis. No cortical cysts evident. IMPRESSION: 1. No evidence of cholelithiasis nor dilatation of the biliary tree. 2. No evidence of a paddle megaly nor hepatic steatosis on today's images. 3. There is no ascites. DATA REPOSITORY:
== END 2024-07-08 02:20 ==
LOC: DI 02:00
PROVIDERS: PCP Nurse Practitioner Adult Health; Visit Provider Nurse Practitioner Adult Health
DX: K76.0 Fatty (change of) liver, not elsewhere classified (principal)
CPT/HCPCS: 76705

== ENCOUNTER 2024-09-28 21:03 | Emergency (ER) | payer MEDICAID, SELFPAY ==
[2024-09-28] VITALS (11 sets, daily range): BP systolic 174–204; BP diastolic 130–142; PULSE 115–138; RESP 15–29; TEMP 36.9; O2SAT 97–99
--- NOTE | 2024-09-28 21:45 | RT.EKG_ITS ---
APPROVED REPORT Exam: Resting ECG Reason for Exam: tachycardia Patient Location: E HR:126 bpm ECG Measurements Heart Rate 126 AXIS [place] 144 P 53 QRSd 72 QRS 55 QT 298 T 39 QTc 432 Conclusion Sinus tachycardia...rate> [address] segment or T wave abnormalities to suggest occlusive [place]
[2024-09-28] MEDS: LORazepam 2 MG/ML VIAL 3 MG IVP (22:04)
[2024-09-28 22:07] LABS: Abs Immature Grans 0.02 10^3/uL (0.0-0.06); Absolute Basophil Count 0.05 10^3/uL (0.0-0.2); Absolute Eosinophil Count 0.07 10^3/uL (0.0-0.7); Absolute Lymphocyte Count 2.43 10^3/uL (1.2-3.4); Absolute Monocyte Count 0.54 10^3/uL (0.1-0.8); Absolute Neutrophil Count 3.76 10^3/uL (1.2-6.7); Basophils % 0.7 %; HCT 47.3 % (40.0-50.0); HGB 17.1 g/dL (13.5-17.5); Immature Grans % 0.3 %; Lymphocytes % 35.4 %; MCH 32.4 pg (27.0-33.0); MCHC 36.2 % (32.0-36.0); MCV 90 fL (80-95); MPV 8.3 fL (8.0-11.0); Monocytes % 7.9 %; Neutrophils % 54.7 %; Platelet Count 174 10^3/uL (130-400); RBC 5.28 10^6/uL (4.36-5.78); RDW 14.2 % (11.8-14.1); RDW-SD 46.5 fL; WBC 6.87 10^3/uL (4.4-10.8)
[2024-09-28 22:31] LABS: ALT 53 U/L (16-63); AST 40 U/L (15-37); Albumin 3.9 g/dL (3.4-5.0); Alkaline Phosphatase 79 U/L (46-116); Anion Gap 9.2 mmol/L (3-11); BUN 9 mg/dL (7-18); Bilirubin, Total 0.46 mg/dL (0.2-1.0); CO2 27.8 mmol/L (21.0-32.0); CREATININE 0.9 mg/dL (0.70-1.30); Chloride 102 mmol/L (98-107); ETHANOL BLOOD 172.2 mg/dL (<10); Estimated GFR 115.65 (mL/min/1.73m2); Glucose 86 mg/dL (74-106); Magnesium 1.7 mg/dL (1.8-2.4); Potassium 3.5 mmol/L (3.5-5.1); Sodium 139 mmol/L (136-145); Total Protein 7.3 g/dL (6.4-8.2)
--- NOTE | 2024-09-28 22:51 | W.ED.GENAD ---
Discharge Plan Disposition Patient Disposition: Against Medical Advice Condition: Fair Discharge Details Clinical Impression: Anxiety, Hypertension, Tachycardia, Alcohol abuse Primary Care Provider: Tara Humphreys ED Provider: Lakeisha Mota Home Meds and New Rx's Prescriptions: Continued trazodone 50 mg tablet See Rx Instructions PO QHS PRN (Reason: sleep) Qty: 40 0RF Rx Instructions: 25-50mg bedtime for sleep difficulty, may repeat 50mg x1 if first dose ineffective for max nightly dose 100mg PO every day at bedtime PRN; venlafaxine 150 mg capsule,extended release 24hr 150 mg PO DAILY Qty: 90 0RF Rx Instructions: In place of tablets. Discharge Instructions Instructions: Alcohol withdrawal, Alcohol Use Disorder ED Additional Instructions: You are leaving against medical advice. Please return to the emergency department if you change your mind. Call your primary care doctor in the morning to schedule an appointment within the next 24-48 hours to followup on your visit today. Make sure someone stays with you tonight and tomorrow. You can take ativan up to every 6 hours if needed for anxiety; a small amount has been sent home with you. Return to the emergency department immediately if your symptoms worsen. Referrals: Tara Humphreys, ELECTRIC SHOVEL OPERATOR [Primary Care Provider] - [facility] General Mode of arrival: ambulatory. Date/Time Provider Initiated Documentation: 09/28/24 21:11. Limitations to Documentation: no limitations. Information obtained by: patient. HPI Narrative: 34yo M with hx of alcohol dependence, prior ETOH withdrawal with no hx seizures, presenting with anxiety. Reports minimal alcohol consumption for the past several months, 1-2 beers once or twice a week with friends. This weekend went on a 'binge' and was intoxicated from Saturday until early this morning. Today anxious, feels like he is having a panic attack. Took temazepam (given to him by his mother) without much improvement. Otherwise in his usual state of health with no fevers, chills, rash, vomiting, abdominal pain, headache, or other concerns. Related Data Home Medications ?Medication ?Instructions ?Recorded ?Confirmed trazodone 50 mg tablet See Rx Instructions PO QHS PRN 09/10/24 09/28/24 sleep #40 tabs venlafaxine 150 mg 150 mg PO DAILY #90 caps 09/11/24 09/28/24 capsule,extended release 24 hr Previous Rx's ?Medication ?Instructions ?Recorded trazodone 50 mg tablet See Rx Instructions PO QHS PRN 09/10/24 sleep #40 tabs venlafaxine 150 mg 150 mg PO DAILY #90 caps 09/11/24 capsule,extended release 24 hr Allergies Allergy/AdvReac Type Severity Reaction Status Date / Time No Known Allergies Allergy Verified 09/28/24 22:07 General Stated Complaint: ETOHWithdr MOISES: 2 Review of Systems Narrative: see HPI Exam Narrative Exam Narrative: General: Alert, anxious Head: Normocephalic, atraumatic Neck: Trachea midline, ?Neck supple. ENT: ?MMM.? Cardiac: ?Tachycardiac, regular, no murmurs appreciated Resp: No respiratory distress. CTAB. Abd: ?Soft, non-distended, nontender Extremities: ?No deformities.? No peripheral edema. Psych: Anxious, cooperative.? Well groomed.? Mood anxious, affect congruent.? Speech with normal volume, rate, rythym and tone. Linear and goal directed.? Denies SI/HI/AH/VH. ? Does not appear to be responding to internal stimuli. Neuro: ? GCS 15.? PERRL.? EOMI.? Fluent speech, no dysarthria. Motor- 5/5 strength symmetric bilateral upper and lower extremities i Sensation- ?Intact to light touch and symmetric multiple dermatomes including upper and lower extremities Coordination- No dysmetria on finger to nose Gait/station: ?Normal stance.? No truncal ataxia. Steady gait with equal normal steps CRANIAL NERVES: II: Pupils equal and reactive, III, IV, : EOM intact, no gaze preference or deviation, no nystagmus. V: normal sensation in V1, V2, and V3 segments bilaterally VII: no asymmetry, no nasolabial fold flattening VIII: normal hearing to speech IX, X: normal palatal elevation, no uvular deviation XI: 5/5 head turn and 5/5 shoulder shrug bilaterally XII: midline tongue protrusion Course Vital Signs Vital signs: Vital Signs Temperature 36.9 C 09/28/24 21:04 Pulse 138 H 09/28/24 21:04 Respiratory Rate 21 09/28/24 21:04 Blood Pressure 174/142 H 09/28/24 21:04 Pulse Oximetry 98 09/28/24 21:04 Temperature 36.9 C 09/28/24 21:04 Temperature Source Oral 09/28/24 21:04 Pulse 123 H 09/28/24 22:02 Pulse 121 H 09/28/24 22:00 Respiratory Rate 22 09/28/24 22:02 Respiratory Pattern Normal 09/28/24 21:58 Blood Pressure 174/131 H 09/28/24 22:02 Blood Pressure Mean 151 09/28/24 21:45 Blood Pressure Position Sitting 09/28/24 21:04 Pulse Oximetry 98 09/28/24 22:02 Oxygen Delivery Method Room Air 09/28/24 21:04 Oxygen Flow Rate 0 09/28/24 21:04 Lab/Test Results Lab/Test Results: Laboratory Tests Range/Units 09/28/24 21:12 WBC (4.4-10.8) 10^3/uL 6.87 RBC (4.36-5.78) 10^6/uL 5.28 Hgb (13.5-17.5) g/dL 17.1 Hct (40.0-50.0) % 47.3 MCV (80-95) fL 90 MCH (27.0-33.0) pg 32.4 MCHC (32.0-36.0) % 36.2 H RDW (11.8-14.1) % 14.2 H Plt Count (130-400) 10^3/uL 174 MPV (8.0-11.0) fL 8.3 Immature Gran % % 0.3 Neutrophils % % 54.7 Lymphocytes % % 35.4 Monocytes % % 7.9 Eosinophils % % 1.0 Basophils % % 0.7 Nucleated RBC % (0.0-0.3) % 0.0 Absolute Neutrophils (1.2-6.7) 10^3/uL 3.76 Absolute Lymphocytes (1.2-3.4) 10^3/uL 2.43 Absolute Monocytes (0.1-0.8) 10^3/uL 0.54 Absolute Eosinophils (0.0-0.7) 10^3/uL 0.07 Absolute Basophils (0.0-0.2) 10^3/uL 0.05 Sodium (136-145) mmol/L 139 Potassium (3.5-5.1) mmol/L 3.5 Chloride (98-107) mmol/L 102 Carbon Dioxide (21.0-32.0) mmol/L 27.8 Anion Gap (3-11) mmol/L 9.2 BUN (7-18) mg/dL 9 Creatinine (0.70-1.30) mg/dL 0.9 Est GFR (CKD-EPI 2020) (mL/min/1.73m2) 115.65 Glucose (74-106) mg/dL 86 Calcium (8.5-10.1) mg/dL 9.0 Magnesium (1.8-2.4) mg/dL 1.7 L Total Bilirubin (0.2-1.0) mg/dL 0.46 AST (15-37) U/L 40 H ALT (16-63) U/L 53 Alkaline Phosphatase (46-116) U/L 79 Total Protein (6.4-8.2) g/dL 7.3 Albumin (3.4-5.0) g/dL 3.9 Ethyl Alcohol (<10) mg/dL 172.2 H Medical Decision Making 34yo M with hx of alcohol dependence, prior ETOH withdrawal with no hx seizures, presenting with anxiety. Reports minimal alcohol consumption for the past several months, 1-2 beers once or twice a week with friends. This weekend went on a 'binge' and was intoxicated from Saturday until early this morning. Today anxious, feels like he is having a panic attack. Took temazepam (given to him by his mother) without much improvement. Hypertensive and tachycardiac on arrival, very anxious on exam. CIWA on arrival 20; given 3mg IV ativan. -EKG ST, no ST segment or T wave abnormalities to suggest occlusive [place]. -Labs reviewed as below, CBC reassuring with no leukocytosis or anemia, CMP with no actionable abnormalities, Mg slightly low at 1.7 (oral replacement ordered), etoh 172. Repeat CIWA 0. On reassessment patient remains persistently tachycardiac and hypertensive; he attributes this to anxiety and shame. He would like to go home; reports that he has good support, family able to stay with him tonight, sister is RN, and he plans to reach out to the [facility]. If ETOH use history is correct, significant withdrawal is unlikely and patient is quite firm that aside from this weekend he has not recently had daily alcohol consumption, however his pertinent vital sign abnormalities are very concerning and suggestive of potential severe withdrawal (though encouragingly repeat CIWA is 0). I reviewed with Mr. Lipscomb that I was concerned about his vital signs and that these can be a sign of severe alcohol withdrawal which can cause seizures and . He verbalized understanding of my concerns and reiterates that he wants to leave and needs to go to work. Is not willing to stay overnight. He has decision making capacity and I have no indication to hold him against his will. I discussed prescription withdrawal medication such as librium which he declined, is willing to take ativan. Will discharge with 4 doses of ativan, instructed patient to followup closely with PCP, and encouraged to return if he changes his mind or if his symptoms worsen. Left AMA; discharge instructions and return precautions were reveiwed with patient who verbalized understanding. All questions were answered. Lab Data Lab results reviewed: Yes I reviewed the patient's lab results. Labs: Laboratory Tests Range/Units 09/28/24 21:12 WBC (4.4-10.8) 10^3/uL 6.87 RBC (4.36-5.78) 10^6/uL 5.28 Hgb (13.5-17.5) g/dL 17.1 Hct (40.0-50.0) % 47.3 MCV (80-95) fL 90 MCH (27.0-33.0) pg 32.4 MCHC (32.0-36.0) % 36.2 H RDW (11.8-14.1) % 14.2 H Plt Count (130-400) 10^3/uL 174 MPV (8.0-11.0) fL 8.3 Immature Gran % % 0.3 Neutrophils % % 54.7 Lymphocytes % % 35.4 Monocytes % % 7.9 Eosinophils % % 1.0 Basophils % % 0.7 Nucleated RBC % (0.0-0.3) % 0.0 Absolute Neutrophils (1.2-6.7) 10^3/uL 3.76 Absolute Lymphocytes (1.2-3.4) 10^3/uL 2.43 Absolute Monocytes (0.1-0.8) 10^3/uL 0.54 Absolute Eosinophils (0.0-0.7) 10^3/uL 0.07 Absolute Basophils (0.0-0.2) 10^3/uL 0.05 Sodium (136-145) mmol/L 139 Potassium (3.5-5.1) mmol/L 3.5 Chloride (98-107) mmol/L 102 Carbon Dioxide (21.0-32.0) mmol/L 27.8 Anion Gap (3-11) mmol/L 9.2 BUN (7-18) mg/dL 9 Creatinine (0.70-1.30) mg/dL 0.9 Est GFR (CKD-EPI 2020) (mL/min/1.73m2) 115.65 Glucose (74-106) mg/dL 86 Calcium (8.5-10.1) mg/dL 9.0 Magnesium (1.8-2.4) mg/dL 1.7 L Total Bilirubin (0.2-1.0) mg/dL 0.46 AST (15-37) U/L 40 H ALT (16-63) U/L 53 Alkaline Phosphatase (46-116) U/L 79 Total Protein (6.4-8.2) g/dL 7.3 Albumin (3.4-5.0) g/dL 3.9 Ethyl Alcohol (<10) mg/dL 172.2 H Quality:SDOH Health Related Social Needs: No Data to Display PFSH All Active Problems (Updated 09/28/24 @ 23:25 by Lakeisha Mota MD) Alcohol abuse (Chronic) Tachycardia (Acute) Hypertension (Chronic) Anxiety (Chronic) Alcohol use disorder (Chronic) Hepatic steatosis (Acute ~12/2023) US Bilateral ocular hypertension (Chronic) Sleeping difficulty (Acute) RX Trazodone Nicotine use disorder (Chronic) 16yo started 0.5-1PPD Elevated BP without diagnosis of hypertension (Acute) Depression (Chronic) Venlafaxine; counselor Anxiety (Chronic) did not respond to low dose sertraline 01/11/11, failed Mirtazepine Medical History Alcohol use disorder, moderate, in early remission Alcohol withdrawal Stressful life event affecting family Sister's illness/diagnosis Excessive drinking alcohol Reviewed norms Family History Mother Breast cancer Pre-menopausal; has occurred x2 Asthma Heart disease [place] Father , COV, Winter 2019 Cancer lung Diabetes Sister Scleroderma Breast cancer Dx'ed mid 30s Paternal Uncle Scleroderma Social History (Reviewed 09/28/24 @ 16:31 by JOHN Erickson Smoking/Tobacco Use Status: Current every day Tobacco Type: cigarettes Tobacco: How many years used: 8 Quit status: considering quitting Smoking risk assessment performed?: Yes Alcohol Intake: current Alcohol Intake frequency: 3 or more drinks per day Alcohol type: wine and hard liquor Drug use: Never Substance use type: marijuana Adopted: No Caregiver/Support person: No Foster care: No Household members: family Housing: house Number of Children: 0 number of grandchildren: 0 Communication Needs: None Education Level: high school Do you need help understanding health information?: Rarely 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 Pets and animals: No Sexually active: Yes Do you think of yourself as: straight/heterosexual Current gender identity: male What is your relationship status?: refused to answer How often do you talk on the phone with friends or family?: three or more times per week How often do you get together with friends or relatives?: three or more times per week Do you belong to any clubs or organized social groups?: no Panel score (0-1 are the most socially isolated patients): 1 What type of physical activity do you participate in: walking Duration: > 90 minutes/day Frequency: 5-6 times per week Laina/Shinto: None Special laina needs: No Seatbelt use: always Helmet use: Yes Helmet use: always Drive intox or ride w/intox pharmacy delivery driver: No Do you feel safe at home: Yes Do you feel safe in your relationship?: Yes PAWSS Have you Been Recently Intoxicated or Drunk Within the Last 30 days?: Yes Have you Ever Experienced Previous Episodes of Alcohol Withdrawal?: Yes Have you ever Experienced Withdrawal Seizures?: No Have you ever Experienced Delirium Tremens(DT)s?: No Have you ever undergone Alcohol Rehabilitation Treatment (i.e, inpt ot outpatient treatment programs)?: Yes Have you ever Experienced Blackouts?: Yes Have you ever Combined Alcohol with other Downers within the last 90 days?: No Have you ever Combined Alcohol with any other Substance of Abuse during the last 90 days?: Yes Positive Blood Alcohol level on Presentation? [PCS.BAL]: Yes Evidence of Increased Autonomic Activity (i.e. HR>120, tremor, sweating, agitation, nausea)?: Yes Result: 8
[2024-09-28] MEDS: Magnesium Gluconate 500 MG TAB 1000 MG PO (23:34)
[2024-09-28] MEDS: LORazepam 1 MG TAB 8 MG PO (23:37)
== END 2024-09-28 23:25 | disposition left against medical advice (07) ==
PROVIDERS: Emergency Provider Student in an Organized Health Care Education/Training Program; PCP Nurse Practitioner Adult Health
DX: F41.9 Anxiety disorder, unspecified (principal); I10 Essential (primary) hypertension; R00.0 Tachycardia, unspecified; F10.10 Alcohol abuse, uncomplicated
CPT/HCPCS: 80053; 93005; 96374; 99284; 80320; 83735; 85025; 93010; J2060

== ENCOUNTER 2024-10-13 18:59 | Inpatient (IN) | payer MEDICAID, SELFPAY ==
[2024-10-13] VITALS (84 sets, daily range): BP systolic 161–179; BP diastolic 111–135; PULSE 103–142; RESP 13–23; TEMP 36.6; O2SAT 92–99
--- NOTE | 2024-10-13 19:17 | ED.GENADUL_ITS ---
Discharge Plan Disposition Patient Disposition: Admit to [facility] Condition: Fair Discharge Details Clinical Impression: Alcohol withdrawal, Depression, Hypertension, Alcohol use disorder, Anxiety Admit Date/Time: 10/13/24 22:26 Admit Provider: Valentín Melton Attending Provider: Valentín Melton Primary Care Provider: Tara Humphreys ED Provider: Kirit Dent Discharge Data Discharge Date/Time-TO BE ENTERED AT DEPARTURE: 10/14/24 00:20 HPI General Date/Time Provider Initiated Documentation: 10/13/24 19:07 . HPI Narrative: Patient presents emergency department stating that he drinks alcohol lately for the last 2 months every day he drinks hard seltzers and he stopped 3 hours ago and feels like is going to withdrawal tremulous anxious. Denies history of se izures but states that he has had withdrawal before Related Data Home Medications ?Medication ?Instructions ?Recorded ?Confirmed trazodone 50 mg tablet See Rx Instructions PO QHS PRN 09/10/24 10/13/24 sleep #40 tabs venlafaxine 150 mg 150 mg PO DAILY #90 caps 09/11/24 10/13/24 capsule,extended release 24 hr Previous Rx's ?Medication ?Instructions ?Recorded trazodone 50 mg tablet See Rx Instructions PO QHS PRN 09/10/24 sleep #40 tabs venlafaxine 150 mg 150 mg PO DAILY #90 caps 09/11/24 capsule,extended release 24 hr Allergies Allergy/AdvReac Type Severity Reaction Status Date / Time No Known Allergies Allergy Verified 09/28/24 22:07 General Stated Complaint: ETOHWithdr MOISES: 3 Review of Systems Narrative: Review of Systems: Constitutional: No fevers, chills, sweats Eye: No recent visual problems ENT: No ear pain, nasal congestion, sore throat Respiratory: No shortness of breath, cough Cardiovascular: No Chest pain, palpitations, syncope Gastrointestinal: No nausea, vomiting, diarrhea Genitourinary: No hematuria Shaq/Lymph: Negative for bruising tendency, swollen lymph glands Endocrine: Negative for excessive thirst, excessive hunger Musculoskeletal: No back pain, neck pain, joint pain, muscle pain, decreased range of motion Integumentary: No rash, pruritus, abrasions Neurologic: Alert & oriented X 4 Exam Narrative Exam Narrative: Exam; vitals signs as reported above normal Constitutional; In moderate distress tremulous anxious General: cooperative, healthy appearing, comfortable and no acute distress HEENT: Head: normal to inspection, no palpable skull fracture and normocephalic atraumatic Eyes: : appearance normal, both eyes and all related structures EOM intact bilaterally Pupils: PERRL : conjunctiva normal Direct ophthalmoscopy: normal light reflex, normal conjunctiva, normal visual acuity Ears: Normal TM, normal external canal Nose: normal no rhinorreha Neck no JVD, supple non tender Neck: normal visual inspection, full ROM and no lymphadenopathy Chest: normal inspection of the chest Respiratory : normal respiratory effort and able to speak in complete sentences no wheezing no rales Cardio Rate: regular rate, rhythm: regular rhythm normal heart sounds S1 and S2 no murmurs, gallops, or rubs GI : normal to inspection, normal bowel sounds, soft, non tender, non distended, no organomegaly Back/Spine/ no CVA tenderness Thoracic/Lumbar Spine: no tenderness or deformities Skin no rashes or lesions Neuro: patient alert oriented x 4 and no meningeal signs, Cranial Nerves: CN's II-XI intact bilaterally, Cognition: normal cognition, Speech: speech normal, Gait: normal gait, Depp tendon reflexes normal 2+ muscle strength 5/5 bilaterally Extremities, no edema, full range of motion, normal strength : normal Rectal: Course Vital Signs Vital signs: Vital Signs Temperature 36.6 C 10/13/24 19:13 Pulse 126 H 10/13/24 19:13 Respiratory Rate 18 10/13/24 19:13 Blood Pressure 179/128 H 10/13/24 19:13 Pulse Oximetry 98 10/13/24 19:13 Temperature 36.6 C 10/13/24 19:13 Temperature Source Oral 10/13/24 19:13 Pulse 126 H 10/13/24 19:13 Respiratory Rate 18 10/13/24 19:13 Blood Pressure 179/128 H 10/13/24 19:13 Blood Pressure Position Sitting 10/13/24 19:13 Pulse Oximetry 98 10/13/24 19:13 Oxygen Delivery Method Room Air 10/13/24 19:13 Oxygen Flow Rate 0 10/13/24 19:13 Medical Decision Making MDM: Summary: Patient presents to the emergency department stating that he is in withdrawal he drinks heavily every day and he was tremorous with an elevated blood pressure and tachycardic at but alcohol level of 375. We started CIWA protocol and is for score was 8 he was additionally given Ativan and then I was switched to phenobarbital due to the fact the patient is high risk for he has an alcohol level as well as signs of withdrawal. Patient will be admitted to the hospital to the ICU Data Review Analysis All the data on this patient was reviewed by me including laboratory and imaging studies as well as bedside studies performed by me Independent review of Studies Imaging Lab: Labs show a high alcohol level at the level where he is already withdrawing Risk Stratification: High risk patient with alcohol withdrawal will need ICU admission Differential Diagnosis: 1. Alcohol withdrawal syndrome 2. Delirium tremens 3. Alcohol intoxication 4. 5. Consultants: Spoke with the hospitalist who will admit the patient Shared disposition: Patient is since and he agrees that he is admission Impression: Medical Records Medical records reviewed: Yes I reviewed the patient's medical records. Lab Data Lab results reviewed: Yes I reviewed the patient's lab results. Quality:SDOH Health Related Social Needs: No Data to Display Critical Care Time Critical Care Time Critical Care Time: Yes (35 minutes excluding procedure time pending deterioration of the cardiovasc) Total Critical Care Time: 35 Attestation: 35 minutes of critical care time spent at the patient's bedside [facility] All Active Problems (Updated 10/13/24 @ 23:16 by Valentín Melton) Alcohol withdrawal (Acute) Alcohol abuse (Chronic) Tachycardia (Acute) Hypertension (Chronic) Anxiety (Chronic) Alcohol use disorder (Chronic) Hepatic steatosis (Acute ~12/2023) [place] Bilateral ocular hypertension (Chronic) Sleeping difficulty (Acute) RX Trazodone Nicotine use disorder (Chronic) 16yo started 0.5-1PPD Elevated BP without diagnosis of hypertension (Acute) Depression (Chronic) Venlafaxine; counselor Anxiety (Chronic) did not respond to low dose sertraline 01/11/11, failed Mirtazepine Medical History Alcohol use disorder, moderate, in early remission Alcohol withdrawal Stressful life event affecting family Sister's illness/diagnosis Excessive drinking alcohol Reviewed norms Family History Mother Breast cancer Pre-menopausal; has occurred x2 Asthma Heart disease [place] Father , COV, Winter 2019 Cancer lung Diabetes Sister Scleroderma Breast cancer Dx'ed mid 30s Paternal Uncle Scleroderma Social History Smoking/Tobacco Use Status: Current every day Tobacco Type: cigarettes Tobacco: How many years used: 8 Quit status: considering quitting Smoking risk assessment performed?: Yes Alcohol Intake: current Alcohol Intake frequency: 3 or more drinks per day Alcohol type: wine and hard liquor Drug use: Occasionally Substance use type: marijuana Adopted: No Caregiver/Support person: No Foster care: No Household members: family Housing: house Number of Children: 0 number of grandchildren: 0 Communication Needs: None Education Level: high school Do you need help understanding health information?: Rarely 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: [employer] Pets and animals: No Sexually active: Yes Do you think of yourself as: straight/heterosexual Current gender identity: male What is your relationship status?: refused to answer How often do you talk on the phone with friends or family?: three or more times per week How often do you get together with friends or relatives?: three or more times per week Do you belong to any clubs or organized social groups?: no Panel score (0-1 are the most socially isolated patients): 1 What type of physical activity do you participate in: walking Duration: > 90 minutes/day Frequency: 5-6 times per week Laina/Religious: None Special laina needs: No Seatbelt use: always Helmet use: Yes Helmet use: always Drive intox or ride w/intox dumpcart driver: No Do you feel safe at home: Yes Do you feel safe in your relationship?: Yes
[2024-10-13 19:44] LABS: Abs Immature Grans 0.04 10^3/uL (0.0-0.06); Absolute Basophil Count 0.07 10^3/uL (0.0-0.2); Absolute Eosinophil Count 0.08 10^3/uL (0.0-0.7); Absolute Lymphocyte Count 2.44 10^3/uL (1.2-3.4); Absolute Monocyte Count 0.66 10^3/uL (0.1-0.8); Basophils % 0.7 %; Eosinophils % 0.8 %; HGB 17.9 g/dL (13.5-17.5); Immature Grans % 0.4 %; Lymphocytes % 24.7 %; MCH 32.5 pg (27.0-33.0); MCHC 35.8 % (32.0-36.0); MCV 91 fL (80-95); MPV 7.8 fL (8.0-11.0); Monocytes % 6.7 %; Neutrophils % 66.7 %; Platelet Count 248 10^3/uL (130-400); RDW 14.7 % (11.8-14.1); RDW-SD 49.6 fL; WBC 9.89 10^3/uL (4.4-10.8)
[2024-10-13] MEDS: Normal Saline 1,000 ML 1000 ML IV (19:49)
[2024-10-13] MEDS: LORazepam 2 MG/ML VIAL 1 MG IVP ×2 (19:49→22:04)
[2024-10-13 20:01] LABS: ALT 47 U/L (16-63); AST 35 U/L (15-37); Alkaline Phosphatase 76 U/L (46-116); Anion Gap 10.2 mmol/L (3-11); BUN 7 mg/dL (7-18); Bilirubin, Total 0.31 mg/dL (0.2-1.0); CO2 27.8 mmol/L (21.0-32.0); CREATININE 0.9 mg/dL (0.70-1.30); Calcium 9.4 mg/dL (8.5-10.1); Chloride 105 mmol/L (98-107); Estimated GFR 115.65 (mL/min/1.73m2); Glucose 111 mg/dL (74-106); Lipase 42 U/L (<78); Sodium 143 mmol/L (136-145); Total Protein 7.7 g/dL (6.4-8.2)
[2024-10-13 20:07] LABS: ETHANOL BLOOD 336.4 mg/dL (<10)
[2024-10-13] MEDS: MULTIVITAMIN 10 ML, THIAMINE 100 MG, FOLIC ACID 1 MG in DEXTROSE 5%-0.45% SALINE 1,000 ML 42 ML IV (21:18)
[2024-10-13] MEDS: PHENobarbital 180 MG in Normal Saline 50 ML 100 MG IVPB (22:39)
--- NOTE | 2024-10-13 23:10 | W.PM.HP.N ---
Date of service: 10/13/24 Time of Service: 23:11 Assessment and Plan Assessment and plan (1) Alcohol withdrawal: Start date: 10/13/24 Status: Acute Assessment and plan: This is a 34-year-old gentleman who presents with early alcohol withdrawal not been able to drink for 3 to 4 hours because of nausea. Denies any significant abdominal pain. He has never had delirium with his alcohol withdrawal and no seizures with his alcohol withdrawal but has been hospitalized several times for treatment of alcohol withdrawal. He was initiated on phenobarbital protocol and will continue this treatment in the ED until ICU bed is available. Long-term he should do more intensive outpatient treatment of his alcoholism. He denies any other drug use but drug screen will be performed. He does occasionally smoke marijuana and also smokes tobacco. VPMS was checked and the patient was prescribed either Ativan or Librium at 4 separate occasions from December to April 2024. He denies illicit use of drugs. He is a full code. (2) Alcohol use disorder: Status: Chronic Assessment and plan: Patient should seek more intensive outpatient therapy for this problem. He appears to be embarrassed which may answer some of his treatment options. Also he may be being enabled by his mother and stepfather. This needs to be evaluated by the patient. He tends to drink alone and to help him sleep or feel less anxious. He is at risk for self treatment. (3) Anxiety: Status: Chronic Assessment and plan: Treated with trazodone and Effexor with continued treatment as an inpatient. He should be evaluated by psychiatry for more effective treatment of his anxiety to help him with alcohol cessation. (4) Depression: Status: Chronic Assessment and plan: Continue outpatient medical therapy. History of Present Illness History of Present Illness Chief Complaint: Increased alcohol use with alcohol withdrawal secondary to nausea Narrative: This is a 34-year-old male patient who has had recurrent hospitalization for alcohol withdrawal, multiple AA meetings which were not helpful with a friend who is not a formal sponsor but is helpful when he needs to talk to someone about stopping drinking. He is going to counseling which is helping as well. He has chronic depression and poor coping skills tending to overdo his work as well as physical activity but recently has been depressed and drinking more. He presents with racing heart and nausea and tremors with increased anxiety having stopped drinking only 3 hours prior to presentation. He states that he never has had hallucinations or become delusional but does have tremors and feels very uncomfortable with alcohol withdrawal. 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 He is functional but continues to drink. He had drunk more over the last 2 months. He states that he drinks hard seltzers but may be drinking other hard liquor. He tends to minimize his drinking. He feels embarrassed about his drinking and he lives locally in [place] but is hesitant to go to [facility] this is the area that he works. He lives with his mother and step father. They are the ones to encourage him to seek help. In the ED he began to have tremors and hypertension with phenobarbital protocol initiated. He also was tachycardic. He was not having any visual disturbances. He denies any headache but was slightly nauseated. Patient will be admitted for continued alcohol withdrawal treatment with phenobarbital protocol. He is motivated to quit but has not had success with this provider encouraging him to focus more on his depression and anxiety with better coping skills which may help him to succeed stopping alcohol. He also may want to maximize use of his identified sponsor. We need to evaluate whether his mother and step father are enabling them. He is a full code. Review of Systems Narrative: 13 point review of systems otherwise unrevealing or stable. PFSH All Active Problems (Updated 10/13/24 @ 23:16 by Valentín Melton) Alcohol withdrawal (Acute) Alcohol abuse (Chronic) Tachycardia (Acute) Hypertension (Chronic) Anxiety (Chronic) Alcohol use disorder (Chronic) Hepatic steatosis (Acute ~12/2023) [place] Bilateral ocular hypertension (Chronic) Sleeping difficulty (Acute) RX Trazodone Nicotine use disorder (Chronic) 16yo started 0.5-1PPD Elevated BP without diagnosis of hypertension (Acute) Depression (Chronic) Venlafaxine; counselor Anxiety (Chronic) did not respond to low dose sertraline 01/11/11, failed Mirtazepine Medical History Alcohol use disorder, moderate, in early remission Alcohol withdrawal Stressful life event affecting family Sister's illness/diagnosis Excessive drinking alcohol Reviewed norms Family History Mother Breast cancer Pre-menopausal; has occurred x2 Asthma Heart disease [place] Father , COVID, Winter 2019 Cancer lung Diabetes Sister Scleroderma Breast cancer Dx'ed mid 30s Paternal Uncle Scleroderma Social History Smoking/Tobacco Use Status: Current every day Tobacco Type: cigarettes Tobacco: How many years used: 8 Quit status: considering quitting Smoking risk assessment performed?: Yes Alcohol Intake: current Alcohol Intake frequency: 3 or more drinks per day Alcohol type: wine and hard liquor Drug use: Occasionally Substance use type: marijuana Adopted: No Caregiver/Support person: No Foster care: No Household members: family Housing: house Number of Children: 0 number of grandchildren: 0 Communication Needs: None Education Level: high school Do you need help understanding health information?: Rarely 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: [employer]or Pets and animals: No Sexually active: Yes Do you think of yourself as: straight/heterosexual Current gender identity: male What is your relationship status?: refused to answer How often do you talk on the phone with friends or family?: three or more times per week How often do you get together with friends or relatives?: three or more times per week Do you belong to any clubs or organized social groups?: no Panel score (0-1 are the most socially isolated patients): 1 What type of physical activity do you participate in: walking Duration: > 90 minutes/day Frequency: 5-6 times per week Laina/Scientologist: None Special laina needs: No Seatbelt use: always Helmet use: Yes Helmet use: always Drive intox or ride w/intox special needs bus driver: No Do you feel safe at home: Yes Do you feel safe in your relationship?: Yes Meds Allergies and Home Medications Allergies Allergy/AdvReac Type Severity Reaction Status Date / Time No Known Allergies Allergy Verified 09/28/24 22:07 Home Medications ?Medication ?Instructions ?Recorded ?Confirmed ?Type trazodone 50 mg tablet See Rx Instructions PO QHS PRN 09/10/24 10/13/24 Rx sleep #40 tabs venlafaxine 150 mg 150 mg PO DAILY #90 caps 09/11/24 10/13/24 Rx capsule,extended release 24 hr Exam Narrative Exam Narrative: General: Patient is thinly built, has a flattened affect with poor eye contact and minimal speech. He appears uncomfortable and embarrassed. He is in moderate distress from his withdrawal symptoms. He is alert and oriented x 3. HEENT: Normocephalic, eyes with pupils equal and reactive to light symmetrically, extraocular movement intact and sclera anicteric. Oropharynx with dry mucosa and fair dentition. Neck: Supple without JVD. Back: Normal posture without CVA tenderness. Lungs: Clear to station percussion with no focalizing rales or rhonchi. Fair aeration. Heart: Tachycardic rate with normal rhythm. No murmurs or gallops appreciated. No rubs. Abdomen: Scaphoid contour, soft and nontender to palpation with no focalizing guarding or rebound. No palpable hepatosplenomegaly. Bowel sounds positive all quadrants. Genitalia/rectal: Exam deferred. Extremities: Without clubbing, cyanosis or pitting edema. Peripheral pulses intact. Skin: Normal color, moist and warm. Neuro: Cranial nerves II through XII gross intact, no focalizing motor deficits. Patient is tremulous but no focalizing tremors. Normal tone. DTRs are physiologic and symmetrical. Psych: Flattened affect with depressed mood and poor eye contact. slow monotonous tone to voice. No abnormal thought processes. Remote and recent memory intact. Results Labs 10/13/24 19:38 10/13/24 19:38 Labs: Laboratory Results - last 24 hr 10/13/24 19:38 WBC 9.89 RBC 5.50 Hgb 17.9 H Hct 50.0 MCV 91 MCH 32.5 MCHC 35.8 RDW 14.7 H Plt Count 248 MPV 7.8 L Immature Gran % 0.4 Neutrophils % 66.7 Lymphocytes % 24.7 Monocytes % 6.7 Eosinophils % 0.8 Basophils % 0.7 Nucleated RBC % 0.0 Absolute Neutrophils 6.60 Absolute Lymphocytes 2.44 Absolute Monocytes 0.66 Absolute Eosinophils 0.08 Absolute Basophils 0.07 Sodium 143 Potassium 4.0 Chloride 105 Carbon Dioxide 27.8 Anion Gap 10.2 BUN 7 Creatinine 0.9 Est GFR (CKD-EPI 2020) 115.65 Glucose 111 H Calcium 9.4 Magnesium 2.0 Total Bilirubin 0.31 AST 35 ALT 47 Alkaline Phosphatase 76 Total Protein 7.7 Albumin 4.0 Lipase 42 Ethyl Alcohol 336.4 H Last Vital Signs Temp 36.6 C 10/13/24 19:13 Pulse 107 H 10/13/24 21:55 Resp 16 10/13/24 21:55 BP 170/135 H 10/13/24 19:53 Pulse Ox 97 10/13/24 21:55 PAWSS Have you Been Recently Intoxicated or Drunk Within the Last 30 days?: Yes Have you Ever Experienced Previous Episodes of Alcohol Withdrawal?: Yes Have you ever Experienced Withdrawal Seizures?: Yes Have you ever Experienced Delirium Tremens(DT)s?: Yes Have you ever undergone Alcohol Rehabilitation Treatment (i.e, inpt ot outpatient treatment programs)?: Yes Have you ever Experienced Blackouts?: Yes Have you ever Combined Alcohol with other Downers within the last 90 days?: No Have you ever Combined Alcohol with any other Substance of Abuse during the last 90 days?: No Positive Blood Alcohol level on Presentation? [PCS.BAL]: Yes Evidence of Increased Autonomic Activity (i.e. HR>120, tremor, sweating, agitation, nausea)?: Yes Result: 8 Time Spent Time spent with Patient: >75 minutes Time was spent: preparing to see the patient(eg.review tests), obtaining and/or reviewing separately otained hiistory, ordering medications,tests, procedures, indepentently interpreting results, counseling the patient and care coordination
[2024-10-13 23:42] LABS: Prothrombin Time 10.4 sec (9.1-11.1)
[2024-10-14] VITALS (262 sets, daily range): BP systolic 154–199; BP diastolic 92–143; PULSE 89–137; RESP 10–31; O2SAT 94–99
[2024-10-14 01:01] LABS: Source Nasal/Nares
[2024-10-14 01:31] LABS: COVID-19 PCR Negative (Negative)
[2024-10-14] MEDS: PHENobarbital 130 MG in Normal Saline 50 ML 100 MG IVPB ×2 (01:59→05:17)
[2024-10-14 02:09] LABS: Bilirubin Negative (Negative); Blood Negative (Negative); Clarity Clear (Clear); Glucose Negative (Negative); Ketones Negative (Negative); Leukocyte Esterase Negative (Negative); Nitrite Negative (Negative)
[2024-10-14 02:15] LABS: Bacteria Negative HPF (Negative); C & S Indicated? No; Casts Negative LPF (Negative); Crystals Negative HPF (Negative); Epithelial Cells Negative HPF (Negative); Mucus Moderate (Negative); RBC Negative HPF (0-2); WBC 0-2 HPF (0-5)
[2024-10-14 02:20] LABS: *AMPHETAMINES SCREEN URINE Negative (Negative); *BARBITURATES SCREEN URINE Positive (Negative); *BENZODIAZEPINES SCREEN URINE Negative (Negative); Cannabinoids THC Negative (Negative); Cocaine Screen,Urine Negative (Negative); METHADONE URINE SCREEN Negative (Negative); OPIATES URINE SCREEN Negative (Negative)
[2024-10-14 02:30] LABS: Tricyclic Antidepressants Negative (Negative)
[2024-10-14] MEDS: LORazepam 1 MG TAB PO/SL ×3 (04:43→12:52)
[2024-10-14 05:58] LABS: HCT 42.5 % (40.0-50.0); HGB 15.4 g/dL (13.5-17.5); MCH 32.8 pg (27.0-33.0); MCHC 36.2 % (32.0-36.0); MCV 91 fL (80-95); MPV 8.2 fL (8.0-11.0); Platelet Count 201 10^3/uL (130-400); RBC 4.69 10^6/uL (4.36-5.78); RDW 14.7 % (11.8-14.1); WBC 4.98 10^3/uL (4.4-10.8)
[2024-10-14 06:17] LABS: ALT 44 U/L (16-63); AST 37 U/L (15-37); Albumin 3.4 g/dL (3.4-5.0); Alkaline Phosphatase 63 U/L (46-116); BUN 6 mg/dL (7-18); Bilirubin, Total 0.31 mg/dL (0.2-1.0); CREATININE 0.7 mg/dL (0.70-1.30); Calcium 8.4 mg/dL (8.5-10.1); Chloride 105 mmol/L (98-107); Estimated GFR 124.77 (mL/min/1.73m2); Glucose 101 mg/dL (74-106); Magnesium 1.6 mg/dL (1.8-2.4); Potassium 3.8 mmol/L (3.5-5.1); Sodium 142 mmol/L (136-145); Total Protein 6.6 g/dL (6.4-8.2)
--- NOTE | 2024-10-14 12:12 | PGE_ITS ---
Date of Service Date of service: 10/14/24 Time of Service: 12:13 Assessment and Plan Assessment and plan (1) Alcohol withdrawal: Start date: 10/13/24 Status: Acute Assessment and plan: - plan for transfer to ICU once bed available - received phenobarb load in ER - continue CIWA protocol with Ativan dosing - continue B12/folic acid repletion IV for now - will order single IV dose of hydralazine for very elevated BP (2) Alcohol use disorder: Status: Chronic Assessment and plan: - d/w CM during care coordination rounds, plans to have wellness counseler visit patient to discuss treatment options after discharge Subjective Subjective Interval history since last seen: Patient seen while boarding in the ER. Tremulous and somewhat anxious but denied any overt symptoms. BP very elevated, I see it was last documented at 199/143 with pulse 116. Exam Const General: cooperative, not in acute distress and not combative Nutritional Appearance: average body habitus Orientation: alert, awake and oriented x3 Chest Chest: normal inspection of the chest Resp Effort & Inspection: normal respiratory effort Auscultation: clear to auscultation bilaterally Cardio Rate: tachycardic Rhythm: regular rhythm Heart Sounds: S1 normal and S2 normal GI Inspection: normal to inspection Palpation: soft, nontender and No ascites Auscultation: normal bowel sounds Neuro General: patient alert and patient awake Cranial Nerves: CN's II-XI intact bilaterally Speech: speech normal Extrem General: normal to inspection Objective Last Vital Signs Temp 36.6 C 10/13/24 19:13 Pulse 116 H 10/14/24 12:01 Resp 12 10/14/24 12:01 BP 199/143 H 10/14/24 12:01 Pulse Ox 98 10/14/24 12:01 Laboratory Results - last 24 hr 10/13/24 10/13/24 10/13/24 00:56 19:38 23:26 WBC 9.89 RBC 5.50 Hgb 17.9 H Hct 50.0 MCV 91 MCH 32.5 MCHC 35.8 RDW 14.7 H Plt Count 248 MPV 7.8 L Immature Gran % 0.4 Neutrophils % 66.7 Lymphocytes % 24.7 Monocytes % 6.7 Eosinophils % 0.8 Basophils % 0.7 Nucleated RBC % 0.0 Absolute Neutrophils 6.60 Absolute Lymphocytes 2.44 Absolute Monocytes 0.66 Absolute Eosinophils 0.08 Absolute Basophils 0.07 PT 10.4 INR 1.0 Sodium 143 Potassium 4.0 Chloride 105 Carbon Dioxide 27.8 Anion Gap 10.2 BUN 7 Creatinine 0.9 Est GFR (CKD-EPI 2020) 115.65 Glucose 111 H Calcium 9.4 Magnesium 2.0 Total Bilirubin 0.31 AST 35 ALT 47 Alkaline Phosphatase 76 Total Protein 7.7 Albumin 4.0 Lipase 42 Urine Color Urine Clarity Urine pH Ur Specific [place] Urine Protein Urine Ketones Urine Blood Urine Nitrite Urine Bilirubin Urine Urobilinogen Ur Leukocyte Esterase Urine RBC Urine WBC Ur Epithelial Cells Urine Crystals Urine Bacteria Urine Casts Urine Mucus Ur Culture Indicated? Urine Glucose Urine Opiates Screen Urine Methadone Screen Ur Barbiturates Screen Ur Tricyclics Screen Ur Amphetamines Screen U Benzodiazepines Scrn Urine Cocaine Screen Ur THC Screen Ethyl Alcohol 336.4 H COVID-19 Source Nasal/Nares SARS-CoV-2 (PCR) Negative 10/14/24 10/14/24 02:02 05:41 WBC 4.98 RBC 4.69 Hgb 15.4 D Hct 42.5 MCV 91 MCH 32.8 MCHC 36.2 H RDW 14.7 H Plt Count 201 MPV 8.2 Immature Gran % Neutrophils % Lymphocytes % Monocytes % Eosinophils % Basophils % Nucleated RBC % Absolute Neutrophils Absolute Lymphocytes Absolute Monocytes Absolute Eosinophils Absolute Basophils PT INR Sodium 142 Potassium 3.8 Chloride 105 Carbon Dioxide 26.0 Anion Gap 11.0 BUN 6 L Creatinine 0.7 Est GFR (CKD-EPI 2020) 124.77 Glucose 101 Calcium 8.4 L Magnesium 1.6 L Total Bilirubin 0.31 AST 37 ALT 44 Alkaline Phosphatase 63 Total Protein 6.6 Albumin 3.4 Lipase Urine Color Yellow Urine Clarity Clear Urine pH 7.0 Ur Specific [place] 1.020 Urine Protein 30 H Urine Ketones Negative Urine Blood Negative Urine Nitrite Negative Urine Bilirubin Negative Urine Urobilinogen 2.0 H Ur Leukocyte Esterase Negative Urine RBC Negative Urine WBC 0-2 Ur Epithelial Cells Negative Urine Crystals Negative Urine Bacteria Negative Urine Casts Negative Urine Mucus Moderate Ur Culture Indicated? No Urine Glucose Negative Urine Opiates Screen Negative Urine Methadone Screen Negative Ur Barbiturates Screen Positive A Ur Tricyclics Screen Negative Ur Amphetamines Screen Negative U Benzodiazepines Scrn Negative Urine Cocaine Screen Negative Ur THC Screen Negative Ethyl Alcohol COVID-19 Source SARS-CoV-2 (PCR) PAWSS Have you Been Recently Intoxicated or Drunk Within the Last 30 days?: Yes Have you Ever Experienced Previous Episodes of Alcohol Withdrawal?: Yes Have you ever Experienced Withdrawal Seizures?: Yes Have you ever Experienced Delirium Tremens(DT)s?: Yes Have you ever undergone Alcohol Rehabilitation Treatment (i.e, inpt ot ou tpatient treatment programs)?: Yes Have you ever Experienced Blackouts?: Yes Have you ever Combined Alcohol with other Downers within the last 90 days?: No Have you ever Combined Alcohol with any other Substance of Abuse during the last 90 days?: No Positive Blood Alcohol level on Presentation? [PCS.BAL]: Yes Evidence of Increased Autonomic Activity (i.e. HR>120, tremor, sweating, agitation, nausea)?: Yes Result: 8 Time Spent with Patient Time Spent with Patient: <25 minutes Time was spent: preparing to see the patient(eg.review tests), ordering medications,tests, procedures, indepentently interpreting results, counseling the patient and care coordination
[2024-10-14] MEDS: hydrALAZINE 20 MG/ML VIAL IVP (12:42)
--- NOTE | 2024-10-14 14:38 | PDOC.CMIN ---
Date of service: 10/14/24 Time of Service: 14:39 Care Management Initial Assmt Initial Assessment Reason for Hospitalization: alcohol withdrawal Functional Status/Living Situation Town of Residence: [facility] Resides with: Parent Employment Status: Employed Instrumental Activities of Daily Living (ADLs): Independent Medications Medication Management: No Issues/Barriers identified Advance Directives Advance Directives: Do you have an Advance Directive: N 05/20/22 16:50 AD On File at [facility]: N 10/27/12 21:17 Date Asked 10/13/24 10/13/24 19:08 AD Date Reviewed COLST On File at [facility] No 09/28/24 21:15 COLST Date Scanned Code Status Resuscitation Status Full Code Insurance Coverage/Financial Issues Insurance: medicaid Care Team Visit Care Team Role Provider Type Eddi Louis DO MD [facility] STAFF PHYSICIAN Tara Humphreys, PETROS Primary Care Provider NURSE PRACTITIONER Kirit Dent MD Emergency Provider [facility] STAFF PHYSICIAN Valentín Melton Admit Provider NON-[facility] STAFF PHYSICIAN Attending Provider Discharge Potential Discharge Needs: PCP F/U Appt Anticipated Barriers to Discharge: Medical Status Patient/Family Education Needs: Review discharge instructions, discuss Ask Me Three Transportation: Private vehicle Plan: Anticipate Sanjiv will be discharged home with no new services when medically cleared. He will follow up with his PCP and plan of care and transport with family. Andrey would likely benefit from FERNANDEZ treatment when discharged, if agreeable. CM will follow and continue to support discharge planning., Social Determinants of Health Screening Social Determinants of Health last assessed: 10/14/24 Will the Patient Participate in the Screening?: Yes Do you worry about having a steady place to live?: no Problems where you live: no known problems In the past 12 months, have you had to go without electric, gas, oil or water in your home?: no Have you or anyone in your house had to go without enough food to eat?: no Has lack of transportation kept you from medical appointments or from doing things needed for daily living?: no Has anyone in your life made you feel unsafe or unsupported?: no How hard is it for you to pay for the very basics like food, housing, medical care, and heating? Would you say it is:: Not hard at all Do you want help finding or keeping work or a job?: I do not need or want help If for any reason you need help with day-to-day activities such as bathing, preparing meals, shopping, managing finances, etc., do you get the help you need?: I don?t need any help How often do you feel lonely or isolated from those around you?: Never Do you speak a language other than [place]ib[place]ian at home?: No Does the patient want assistance with any of the above?: No PFSH All Active Problems (Updated 10/13/24 @ 23:16 by Valentín Melton) Alcohol withdrawal (Acute) Alcohol abuse (Chronic) Tachycardia (Acute) Hypertension (Chronic) Anxiety (Chronic) Alcohol use disorder (Chronic) Hepatic steatosis (Acute ~12/2023) [place] Bilateral ocular hypertension (Chronic) Sleeping difficulty (Acute) RX Trazodone Nicotine use disorder (Chronic) 16yo started 0.5-1PPD Elevated BP without diagnosis of hypertension (Acute) Depression (Chronic) Venlafaxine; counselor Anxiety (Chronic) did not respond to low dose sertraline 01/11/11, failed Mirtazepine Medical History Alcohol use disorder, moderate, in early remission Alcohol withdrawal Stressful life event affecting family Sister's illness/diagnosis Excessive drinking alcohol Reviewed norms Family History Mother Breast cancer Pre-menopausal; has occurred x2 Asthma Heart disease [place] Father , winter Cancer lung Diabetes Sister Scleroderma Breast cancer Dx'ed mid 30s Paternal Uncle Scleroderma Social History Smoking/Tobacco Use Status: Current every day Tobacco Type: cigarettes Tobacco: How many years used: 8 Quit status: considering quitting Smoking risk assessment performed?: Yes Alcohol Intake: current Alcohol Intake frequency: 3 or more drinks per day Alcohol type: wine and hard liquor Drug use: Occasionally Substance use type: marijuana Adopted: No Caregiver/Support person: No Foster care: No Household members: family Housing: house Number of Children: 0 number of grandchildren: 0 Communication Needs: None Education Level: high school Do you need help understanding health information?: Rarely 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 Pets and animals: No Sexually active: Yes Do you think of yourself as: straight/heterosexual Current gender identity: male What is your relationship status?: refused to answer How often do you talk on the phone with friends or family?: three or more times per week How often do you get together with friends or relatives?: three or more times per week Do you belong to any clubs or organized social groups?: no Panel score (0-1 are the most socially isolated patients): 1 What type of physical activity do you participate in: walking Duration: > 90 minutes/day Frequency: 5-6 times per week Laina/Pentecostal: None Special laina needs: No Seatbelt use: always Helmet use: Yes Helmet use: always Drive intox or ride w/intox inventory associate and driver: No Do you feel safe at home: Yes Do you feel safe in your relationship?: Yes
--- NOTE | 2024-10-14 17:40 | DSE_ITS ---
Date of service: 10/14/24 Time of Service: 17:41 DS: Diagnosis Discharge Diagnosis (1) Alcohol withdrawal: Status: Acute (2) Alcohol use disorder: Status: Chronic Discharge Plan Disposition Patient Disposition: Home Condition: Stable Discharge Details Reason For Visit: Alcohol Withdrawal with MAUDE Admit Date/Time: 10/13/24 22:26 Admit Provider: Valentín Melton Attending Provider: Valentín Melton Primary Care Provider: Tara Humphreys Hospital Course Hospital Course: Per H+P: This is a 34-year-old male patient who has had recurrent hospitalization for alcohol withdrawal, multiple AA meetings which were not helpful with a friend who is not a formal sponsor but is helpful when he needs to talk to someone about stopping drinking. He is going to counseling which is helping as well. He has chronic depression and poor coping skills tending to overdo his work as well as physical activity but recently has been depressed and drinking more. He presents with racing heart and nausea and tremors with increased anxiety having stopped drinking only 3 hours prior to presentation. He states that he never has had hallucinations or become delusional but does have tremors and feels very uncomfortable with alcohol withdrawal. 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 He is functional but continues to drink. He had drunk more over the last 2 months. He states that he drinks hard seltzers but may be drinking other hard liquor. He tends to minimize his drinking. He feels embarrassed about his drinking and he lives locally in [place] but is hesitant to go to [facility] this is the area that he works. He lives with his mother and step father. They are the ones to encourage him to seek help. In the ED he began to have tremors and hypertension with phenobarbital protocol initiated. He also was tachycardic. He was not having any visual disturbances. He denies any headache but was slightly nauseated. Patient will be admitted for continued alcohol withdrawal treatment with phenobarbital protocol. He is motivated to quit but has not had success with this provider encouraging him to focus more on his depression and anxiety with better coping skills which may help him to succeed stopping alcoh ol. He also may want to maximize use of his identified sponsor. We need to evaluate whether his mother and step father are enabling them. He is a full code. Patient remained as a hold in the ER during his stay. After loading dose of phenobarb, he was started on CIWA protocol with Ativan. Received 1mg at 12:52. Family arrived in the afternoon, including step-father who is hospitalist with our service. All three are in agreement that the patient would do better at home rather than remaining in the hospital. They have o concerns about the patient's BP at this time as he tells me it is always elevated. Also the patient notes that he has never had a seizure when he had withdrawal in the past and has done well with Librium tapers. Asd the family is willing to take responsibility for the patient and monitor him at home, we will discharge him as per their wishes. I will order a 5 day Librium taper. Should his condition worsen at any point, he shuld return to the ER. Also, the patient has a mental health counselor and is already in contact with them. Home Meds and New Rx's Prescriptions: New chlordiazepoxide HCl 25 mg capsule See Rx Instructions .ROUTE .COMPLEX Qty: 20 0RF Taper: Prednisone 10mg taper 50 mg Q6H for 1 Day and 0 Hour 50 mg Q8H for 1 Day and 0 Hour 50 mg Q12H for 1 Day and 0 Hour 50 mg every day at bedtime for 1 Day and 0 Hour Rx Instructions: See Taper orally ; thiamine mononitrate (vit B1) 100 mg tablet 100 mg PO DAILY Qty: 30 0RF folic acid 1 mg tablet 1 mg PO DAILY Qty: 30 0RF Continued trazodone 50 mg tablet See Rx Instructions PO QHS PRN (Reason: sleep) Qty: 40 0RF Rx Instructions: 25-50mg bedtime for sleep difficulty, may repeat 50mg x1 if first dose ineffective for max nightly dose 100mg PO every day at bedtime PRN; venlafaxine 150 mg capsule,extended release 24hr 150 mg PO DAILY Qty: 90 0RF Rx Instructions: In place of tablets. Discharge Instructions Referrals: Tara Humphreys NATUROPATHIC ONCOLOGY PROVIDER [Primary Care Provider] - Activity:: Activity as Tolerated Equipment/Supplies:: No Equipment Needed Diet:: As Tolerated Discharge Orders Discharge Orders: Discharge Order (Routine); Ordered 10/14/24 Ordered By: Eddi Louis DS: Summary Time Spent with Patient providing and/or coordinating discharge services: Greater than 30 minutes Status at Discharge Functional status at discharge: independent ambulation Overall status at discharge: patient is not back to baseline Mental Status: mental status grossly normal Speech and Movement: speech and movement normal Mood: congruent mood Affect: normal affect Quality:SDOH Health Related Social Needs: No Data to Display Exam Psych Mental Status: mental status grossly normal Speech and Movement: speech and movement normal Mood: congruent mood Affect: normal affect DS: Data Vitals/I&O Vitals and I&O: Vital Signs Temperature 36.6 C 10/13/24 19:13 Temperature Source Oral 10/13/24 19:13 Pulse 118 H 10/14/24 16:20 Pulse 119 H 10/14/24 16:20 Respiratory Rate 16 10/14/24 16:20 Respiratory Pattern Normal 10/14/24 05:00 Blood Pressure 190/122 H 10/14/24 15:05 Blood Pressure Mean 144 10/14/24 15:05 Blood Pressure Position Left Lateral 10/14/24 07:20 Pulse Oximetry 98 10/14/24 16:20 Oxygen Delivery Method Room Air 10/14/24 13:38 Oxygen Flow Rate 0 10/14/24 13:38 Pain Level 0 10/14/24 12:16 Intake & Output 10/13/24 10/14/24 10/14/24 23:59 11:59 23:59 Intake Total 1051.3846 / 1051.3846 102 / 102 Balance 1051.3846 / 1051.3846 102 / 102 Weight 64.41 kg Intake: IV 1051.3846 / 1051.3846 102 / 102 Data Completed and Pending Labs on day of discharge: Labs from last 24 hours 10/14/24 10/14/24 10/13/24 05:41 02:02 23:26 WBC 4.98 RBC 4.69 Hgb 15.4 D Hct 42.5 MCV 91 MCH 32.8 MCHC 36.2 H RDW 14.7 H Plt Count 201 MPV 8.2 Immature Gran % Neutrophils % Lymphocytes % Monocytes % Eosinophils % Basophils % Nucleated RBC % Absolute Neutrophils Absolute Lymphocytes Absolute Monocytes Absolute Eosinophils Absolute Basophils PT 10.4 INR 1.0 Sodium 142 Potassium 3.8 Chloride 105 Carbon Dioxide 26.0 Anion Gap 11.0 BUN 6 L Creatinine 0.7 Est GFR (CKD-EPI 2020) 124.77 Glucose 101 Calcium 8.4 L Magnesium 1.6 L Total Bilirubin 0.31 AST 37 ALT 44 Alkaline Phosphatase 63 Total Protein 6.6 Albumin 3.4 Lipase Urine Color Yellow Urine Clarity Clear Urine pH 7.0 Ur Specific [place] 1.020 Urine Protein 30 H Urine Ketones Negative Urine Blood Negative Urine Nitrite Negative Urine Bilirubin Negative Urine Urobilinogen 2.0 H Ur Leukocyte Esterase Negative Urine RBC Negative Urine WBC 0-2 Ur Epithelial Cells Negative Urine Crystals Negative Urine Bacteria Negative Urine Casts Negative Urine Mucus Moderate Ur Culture Indicated? No Urine Glucose Negative Urine Opiates Screen Negative Urine Methadone Screen Negative Ur Barbiturates Screen Positive A Ur Tricyclics Screen Negative Ur Amphetamines Screen Negative U Benzodiazepines Scrn Negative Urine Cocaine Screen Negative Ur THC Screen Negative Ethyl Alcohol COVID-19 Source SARS-CoV-2 (PCR) 10/13/24 10/13/24 19:38 00:56 WBC 9.89 RBC 5.50 Hgb 17.9 H Hct 50.0 MCV 91 MCH 32.5 MCHC 35.8 RDW 14.7 H Plt Count 248 MPV 7.8 L Immature Gran % 0.4 Neutrophils % 66.7 Lymphocytes % 24.7 Monocytes % 6.7 Eosinophils % 0.8 Basophils % 0.7 Nucleated RBC % 0.0 Absolute Neutrophils 6.60 Absolute Lymphocytes 2.44 Absolute Monocytes 0.66 Absolute Eosinophils 0.08 Absolute Basophils 0.07 PT INR Sodium 143 Potassium 4.0 Chloride 105 Carbon Dioxide 27.8 Anion Gap 10.2 BUN 7 Creatinine 0.9 Est GFR (CKD-EPI 2020) 115.65 Glucose 111 H Calcium 9.4 Magnesium 2.0 Total Bilirubin 0.31 AST 35 ALT 47 Alkaline Phosphatase 76 Total Protein 7.7 Albumin 4.0 Lipase 42 Urine Color Urine Clarity Urine pH Ur Specific [place] Urine Protein Urine Ketones Urine Blood Urine Nitrite Urine Bilirubin Urine Urobilinogen Ur Leukocyte Esterase Urine RBC Urine WBC Ur Epithelial Cells Urine Crystals Urine Bacteria Urine Casts Urine Mucus Ur Culture Indicated? Urine Glucose Urine Opiates Screen Urine Methadone Screen Ur Barbiturates Screen Ur Tricyclics Screen Ur Amphetamines Screen U Benzodiazepines Scrn Urine Cocaine Screen Ur THC Screen Ethyl Alcohol 336.4 H COVID-19 Source Nasal/Nares SARS-CoV-2 (PCR) Negative PFSH All Active Problems (Updated 10/13/24 @ 23:16 by Valentín Melton) Alcohol withdrawal (Acute) Alcohol abuse (Chronic) Tachycardia (Acute) Hypertension (Chronic) Anxiety (Chronic) Alcohol use disorder (Chronic) Hepatic steatosis (Acute ~12/2023) [place] Bilateral ocular hypertension (Chronic) Sleeping difficulty (Acute) RX Trazodone Nicotine use disorder (Chronic) 16yo started 0.5-1PPD Elevated BP without diagnosis of hypertension (Acute) Depression (Chronic) Venlafaxine; counselor Anxiety (Chronic) did not respond to low dose sertraline 01/11/11, failed Mirtazepine Medical History Alcohol use disorder, moderate, in early remission Alcohol withdrawal Stressful life event affecting family Sister's illness/diagnosis Excessive drinking alcohol Reviewed norms Family History Mother Breast cancer Pre-menopausal; has occurred x2 Asthma Heart disease [place] Father , , Winter 2019 Cancer lung Diabetes Sister Scleroderma Breast cancer Dx'ed mid 30s Paternal Uncle Scleroderma Social History Smoking/Tobacco Use Status: Current every day Tobacco Type: cigarettes Tobacco: How many years used: 8 Quit status: considering quitting Smoking risk assessment performed?: Yes Alcohol Intake: current Alcohol Intake frequency: 3 or more drinks per day Alcohol type: wine and hard liquor Drug use: Occasionally Substance use type: marijuana Adopted: No Caregiver/Support person: No Foster care: No Household members: family Housing: house Number of Children: 0 number of grandchildren: 0 Communication Needs: None Education Level: high school Do you need help understanding health information?: Rarely 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 Social Responsibility Pets and animals: No Sexually active: Yes Do you think of yourself as: straight/heterosexual Current gender identity: male What is your relationship status?: refused to answer How often do you talk on the phone with friends or family?: three or more times per week How often do you get together with friends or relatives?: three or more times per week Do you belong to any clubs or organized social groups?: no Panel score (0-1 are the most socially isolated patients): 1 What type of physical activity do you participate in: walking Duration: > 90 minutes/day Frequency: 5-6 times per week Laina/Mandaeism: None Special laina needs: No Seatbelt use: always Helmet use: Yes Helmet use: always Drive 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
--- NOTE | 2024-10-14 18:25 | PDOC.CMPRO ---
Date of service: 10/14/24 Time of Service: 18:25 Care Management Progress Note Progress Note Text Progress Note Text: Sanjiv was admitted with alcohol withdrawal. He was started on the phenobarbital protocol in the ED but was transitioned to the CIWA protocol with Ativan this morning. Sanjiv remained in the ED last night and all day today due to a bed shortage. This afternoon he informed the provider that he would like to be discharged home. His step-father is a hospitalist at [facility] and was willing to take responsibility for monitoring him at home. Sanjiv was discharged with a 5 day Librium taper in the company of his family. Social Determinants of Health Screening Social Determinants of Health last assessed: 10/14/24 Will the Patient Participate in the Screening?: Yes Do you worry about having a steady place to live?: no Problems where you live: no known problems In the past 12 months, have you had to go without electric, gas, oil or water in your home?: no Have you or anyone in your house had to go without enough food to eat?: no Has lack of transportation kept you from medical appointments or from doing things needed for daily living?: no Has anyone in your life made you feel unsafe or unsupported?: no How hard is it for you to pay for the very basics like food, housing, medical care, and heating? Would you say it is:: Not hard at all Do you want help finding or keeping work or a job?: I do not need or want help If for any reason you need help with day-to-day activities such as bathing, preparing meals, shopping, managing finances, etc., do you get the help you need?: I don?t need any help How often do you feel lonely or isolated from those around you?: Never Do you speak a language other than [place]ese at home?: No Does the patient want assistance with any of the above?: No
--- NOTE | 2024-10-15 07:22 | NUR.NOTE ---
Accessed Pt chart to figure out why the patient was still in EDHOLD status. I spoke with Access to try to help fix the issue. We were able to take the account off of the admission list however it still states that it is in an EDHOLD status. Access will have the manager sound look at the account to see if there is something else that needs to be done.
== END 2024-10-14 00:21 | disposition home or self-care (01) | DRG 897 ==
LOC: ER 23:13 → EDHOLD 10-14 00:18
PROVIDERS: Admitting Provider Family Medicine; Emergency Provider Emergency Medicine Emergency Medical Services; PCP Nurse Practitioner Adult Health; Responsible Provider Hospitalist; Visit Provider Family Medicine
DX: F10.139 Alcohol abuse with withdrawal, unspecified (principal); F41.9 Anxiety disorder, unspecified; F32.A Depression, unspecified; I10 Essential (primary) hypertension; F10.129 Alcohol abuse with intoxication, unspecified; R00.0 Tachycardia, unspecified; K76.0 Fatty (change of) liver, not elsewhere classified; H40.053 Ocular hypertension, bilateral; G47.9 Sleep disorder, unspecified; F17.210 Nicotine dependence, cigarettes, uncomplicated; Z63.79 Other stressful life events affecting family and household; Y90.8 Blood alcohol level of 240 mg/100 ml or more
CPT/HCPCS: 00123; 80048; 80053; 80307; 83690; 85027; 87635; 96361; 96365; 96375; 96376; 99291; 80320; 81003; 81015; 83735; 85025; 85610; 99223; 99239; J0360; J2060; J2560; J3411; J3475

== ENCOUNTER 2024-10-24 07:18 | Inpatient (IN) | payer MEDICAID, SELFPAY ==
[2024-10-24] VITALS (104 sets, daily range): BP systolic 145–209; BP diastolic 98–141; PULSE 91–128; RESP 9–32; TEMP 36.7–37.3; O2SAT 88–100
--- NOTE | 2024-10-24 07:45 | RT.EKG_ITS ---
APPROVED REPORT Exam: Resting ECG Reason for Exam: Tachycardia Patient Location: E HR:103 bpm ECG Measurements Heart Rate 103 AXIS DC 119 P 65 QRSd 78 QRS 74 QT 334 T 48 QTc 437 Conclusion Sinus tachycardia, rate 103 No STEMI No interval abnormalities No significant changes from priors
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
[2024-10-24] MEDS: LORazepam 2 MG/ML VIAL 1 MG IVP (07:57)
[2024-10-24 08:10] LABS: Abs Immature Grans 0.04 10^3/uL (0.0-0.06); Absolute Basophil Count 0.05 10^3/uL (0.0-0.2); Absolute Eosinophil Count 0.07 10^3/uL (0.0-0.7); Absolute Lymphocyte Count 1.39 10^3/uL (1.2-3.4); Absolute Monocyte Count 0.66 10^3/uL (0.1-0.8); Absolute Neutrophil Count 10.81 10^3/uL (1.2-6.7); Basophils % 0.4 %; Eosinophils % 0.5 %; HCT 46.3 % (40.0-50.0); HGB 16.7 g/dL (13.5-17.5); Immature Grans % 0.3 %; Lymphocytes % 10.7 %; MCH 33.1 pg (27.0-33.0); MCHC 36.1 % (32.0-36.0); MCV 92 fL (80-95); MPV 8.4 fL (8.0-11.0); Monocytes % 5.1 %; Platelet Count 231 10^3/uL (130-400); RBC 5.05 10^6/uL (4.36-5.78); RDW 14.3 % (11.8-14.1); RDW-SD 48.4 fL; WBC 13.03 10^3/uL (4.4-10.8)
[2024-10-24] MEDS: LORazepam 2 MG/ML VIAL IVP (08:27)
[2024-10-24 08:28] LABS: ALT 45 U/L (16-63); AST 28 U/L (15-37); Albumin 3.8 g/dL (3.4-5.0); Alkaline Phosphatase 74 U/L (46-116); Anion Gap 9.2 mmol/L (3-11); BUN 14 mg/dL (7-18); Bilirubin, Total 0.4 mg/dL (0.2-1.0); CO2 29.8 mmol/L (21.0-32.0); CREATININE 0.9 mg/dL (0.70-1.30); Calcium 9.3 mg/dL (8.5-10.1); Chloride 104 mmol/L (98-107); Estimated GFR 115.65 (mL/min/1.73m2); Glucose 94 mg/dL (74-106); Lipase 30 U/L (<78); Magnesium 1.8 mg/dL; Potassium 3.8 mmol/L (3.5-5.1); Sodium 143 mmol/L (136-145); Total Protein 7.3 g/dL (6.4-8.2); Troponin I 9 ng/L (<or=76)
[2024-10-24 08:29] LABS: ETHANOL BLOOD < 3.0 mg/dL (<10)
[2024-10-24 08:30] LABS: Bilirubin Negative (Negative); Blood Negative (Negative); Clarity Clear (Clear); Glucose Negative (Negative); Ketones Negative (Negative); Leukocyte Esterase Negative (Negative); Nitrite Negative (Negative); Urobilinogen 0.2 mg/dL (Up to 0.2); pH 8.5 (5-8)
[2024-10-24 08:34] LABS: *AMPHETAMINES SCREEN URINE Negative (Negative); *BARBITURATES SCREEN URINE Positive (Negative); *BENZODIAZEPINES SCREEN URINE Positive (Negative); Cannabinoids THC Negative (Negative); Cocaine Screen,Urine Negative (Negative); METHADONE URINE SCREEN Negative (Negative); OPIATES URINE SCREEN Negative (Negative)
[2024-10-24 08:37] LABS: Tricyclic Antidepressants Negative (Negative)
[2024-10-24 08:44] LABS: Bacteria Moderate HPF (Negative); C & S Indicated? No; Casts Negative LPF (Negative); Crystals Few Amorphous HPF (Negative); Epithelial Cells Rare HPF (Negative); Mucus Trace (Negative); RBC 0-2 HPF (0-2); WBC 0-2 HPF (0-5)
[2024-10-24] MEDS: Ondansetron 4 MG/2 ML VIAL IVP (10:12)
[2024-10-24] MEDS: LORazepam 1 MG TAB PO (10:12)
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
[2024-10-24] MEDS: cloNIDine 0.1 MG TAB PO ×2 (16:06→19:33)
--- NOTE | 2024-10-24 17:40 | W.PC.ACHO ---
Registration Status: Primary Language: Preferred Language: ED Information & Data Chief Complaint ETOHWithdr 10/24/24 07:55 Triage Note Patient here w/etoh 10/24/24 07:22 withdrawal, last drink was about 2300 yesterday. Denies suicidality. Very anxious and shaky. Medical / Surgical History Alcohol use disorder, moderate, in early remission Alcohol withdrawal Stressful life event affecting family Excessive drinking alcohol Most Recent Vital Signs Temperature 37.3 C 10/24/24 07:22 Pulse 97 H 10/24/24 17:21 Pulse 96 H 10/24/24 17:21 Respiratory Rate 14 10/24/24 17:21 Respiratory Pattern Normal 10/24/24 14:05 Blood Pressure 186/128 H 10/24/24 17:15 Blood Pressure Mean 148 10/24/24 17:15 Blood Pressure Position Sitting 10/24/24 07:22 Pulse Oximetry 94 10/24/24 17:21 Oxygen Delivery Method Room Air 10/24/24 07:22 Oxygen Flow Rate 0 10/24/24 07:22 Pain Level 0 10/24/24 07:22 Allergies No Known Allergies Allergy (Verified 10/24/24 07:33) Precautions Isolation Standard precaution 10/24/24 07:25 Active Medications Generic Name Dose Route Start Last Admin Trade Name Freq PRN Reason Stop Dose Admin Enoxaparin Sodium 40 mg 10/24/24 16:00 10/24/24 17:28 Enoxaparin 40 Mg/0.4 Ml Syr SC Not Given Q24H MELODY IV IV Catheter Type [Right Saline Lock Antecubital] IV Catheter Gauge [Right 18 Antecubital] Diagnostics 10/24/24 10/24/24 10/24/24 Range/Units 10:43 08:43 08:17 WBC (4.4-10.8) 10^3/uL RBC (4.36-5.78) 10^6/uL Hgb (13.5-17.5) g/dL Hct (40.0-50.0) % MCV (80-95) fL MCH (27.0-33.0) pg MCHC (32.0-36.0) % RDW (11.8-14.1) % Plt Count (130-400) 10^3/uL MPV (8.0-11.0) fL Immature Gran % % Neutrophils % % Lymphocytes % % Monocytes % % Eosinophils % % Basophils % % Nucleated RBC % (0.0-0.3) % Absolute Neutrophils (1.2-6.7) 10^3/uL Absolute Lymphocytes (1.2-3.4) 10^3/uL Absolute Monocytes (0.1-0.8) 10^3/uL Absolute Eosinophils (0.0-0.7) 10^3/uL Absolute Basophils (0.0-0.2) 10^3/uL Sodium (136-145) mmol/L Potassium (3.5-5.1) mmol/L Chloride (98-107) mmol/L Carbon Dioxide (21.0-32.0) mmol/L Anion Gap (3-11) mmol/L BUN (7-18) mg/dL Creatinine (0.70-1.30) mg/dL Est GFR (CKD-EPI 2020) (mL/min/1.73m2) Glucose (74-106) mg/dL Calcium (8.5-10.1) mg/dL Magnesium mg/dL Total Bilirubin (0.2-1.0) mg/dL AST (15-37) U/L ALT (16-63) U/L Alkaline Phosphatase (46-116) U/L Troponin I Cancelled Cancelled (<or=76) ng/L Total Protein (6.4-8.2) g/dL Albumin (3.4-5.0) g/dL Lipase (<78) U/L Urine Color Yellow (Yellow) Urine Clarity Clear (Clear) Urine pH 8.5 H (5-8) Ur Specific [place] 1.020 (1.005-1.025) Urine Protein 30 H (Neg-Trace) mg/dL Urine Ketones Negative (Negative) mg/dL Urine Blood Negative (Negative) Urine Nitrite Negative (Negative) Urine Bilirubin Negative (Negative) Urine Urobilinogen 0.2 (Up to 0.2) mg/dL Ur Leukocyte Esterase Negative (Negative) Urine RBC 0-2 (0-2) HPF Urine WBC 0-2 (0-5) HPF Ur Epithelial Cells Rare (Negative) HPF Urine Crystals Few Amorphous (Negative) HPF Urine Bacteria Moderate (Negative) HPF Urine Casts Negative (Negative) LPF Urine Mucus Trace (Negative) Ur Culture Indicated? No Urine Glucose Negative (Negative) mg/dL Urine Opiates Screen Negative (Negative) Urine Methadone Screen Negative (Negative) Ur Barbiturates Screen Positive A (Negative) Ur Tricyclics Screen Negative (Negative) Ur Amphetamines Screen Negative (Negative) U Benzodiazepines Scrn Positive A (Negative) Urine Cocaine Screen Negative (Negative) Ur THC Screen Negative (Negative) Ethyl Alcohol (<10) mg/dL HIV 1&2 Ag/Ab, 4th Gen 10/24/24 Range/Units 07:55 WBC 13.03 H (4.4-10.8) 10^3/uL RBC 5.05 (4.36-5.78) 10^6/uL Hgb 16.7 (13.5-17.5) g/dL Hct 46.3 (40.0-50.0) % MCV 92 (80-95) fL MCH 33.1 H (27.0-33.0) pg MCHC 36.1 H (32.0-36.0) % RDW 14.3 H (11.8-14.1) % Plt Count 231 (130-400) 10^3/uL MPV 8.4 (8.0-11.0) fL Immature Gran % 0.3 % Neutrophils % 83.0 % Lymphocytes % 10.7 % Monocytes % 5.1 % Eosinophils % 0.5 % Basophils % 0.4 % Nucleated RBC % 0.0 (0.0-0.3) % Absolute Neutrophils 10.81 H (1.2-6.7) 10^3/uL Absolute Lymphocytes 1.39 (1.2-3.4) 10^3/uL Absolute Monocytes 0.66 (0.1-0.8) 10^3/uL Absolute Eosinophils 0.07 (0.0-0.7) 10^3/uL Absolute Basophils 0.05 (0.0-0.2) 10^3/uL Sodium 143 (136-145) mmol/L Potassium 3.8 (3.5-5.1) mmol/L Chloride 104 (98-107) mmol/L Carbon Dioxide 29.8 (21.0-32.0) mmol/L Anion Gap 9.2 (3-11) mmol/L BUN 14 (7-18) mg/dL Creatinine 0.9 (0.70-1.30) mg/dL Est GFR (CKD-EPI 2020) 115.65 (mL/min/1.73m2) Glucose 94 (74-106) mg/dL Calcium 9.3 (8.5-10.1) mg/dL Magnesium 1.8 mg/dL Total Bilirubin 0.4 (0.2-1.0) mg/dL AST 28 (15-37) U/L ALT 45 (16-63) U/L Alkaline Phosphatase 74 (46-116) U/L Troponin I 9 (<or=76) ng/L Total Protein 7.3 (6.4-8.2) g/dL Albumin 3.8 (3.4-5.0) g/dL Lipase 30 (<78) U/L Urine Color (Yellow) Urine Clarity (Clear) Urine pH (5-8) Ur Specific [place] (1.005-1.025) Urine Protein (Neg-Trace) mg/dL Urine Ketones (Negative) mg/dL Urine Blood (Negative) Urine Nitrite (Negative) Urine Bilirubin (Negative) Urine Urobilinogen (Up to 0.2) mg/dL Ur Leukocyte Esterase (Negative) Urine RBC (0-2) HPF Urine WBC (0-5) HPF Ur Epithelial Cells (Negative) HPF Urine Crystals (Negative) HPF Urine Bacteria (Negative) HPF Urine Casts (Negative) LPF Urine Mucus (Negative) Ur Culture Indicated? Urine Glucose (Negative) mg/dL Urine Opiates Screen (Negative) Urine Methadone Screen (Negative) Ur Barbiturates Screen (Negative) Ur Tricyclics Screen (Negative) Ur Amphetamines Screen (Negative) U Benzodiazepines Scrn (Negative) Urine Cocaine Screen (Negative) Ur THC Screen (Negative) Ethyl Alcohol < 3.0 (<10) mg/dL HIV 1&2 Ag/Ab, 4th Gen Pending Intake and Output - 24 Hour Total 10/24/24 07:18 thru 10/24/24 15:38 Intake Total 71.2308 Balance 71.2308 Weight 65.771 kg Intake: IV 71.2308 Falls Risk Assessment History of Falls No History 10/24/24 07:25 Contributing Factors No Factors 10/24/24 07:25 Ambulatory Aids Independent 10/24/24 07:25 Tubes/Lines None 10/24/24 07:25 Gait Evaluation No gait disturbance 10/24/24 07:25 Cognition No cognitive impairment 10/24/24 07:25 Fall Total Score 0 03/08/25 07:25 Level of Risk Standard/Low Risk 10/24/24 07:25 Problems (Last Reviewed 10/13/24 @ 23:11 by Valentín Melton) On deep vein thrombosis (DVT) prophylaxis (Acute) Nausea & vomiting (Acute) Hypertension (Chronic) Anxiety (Chronic) Nicotine use disorder (Chronic) v v v v v v v v v Sending and/or Receiving Nurses: Please use comment section below to note any information pertinent to the patient hand-off not included above. Information / Comments: Report received from: Lakshmi In ER at 1738, A&Ox4 angry unable to not drink, reiecing 2nd dose of phenobarbital now, HTN, 186/128, no longer tachycardia, independent, some N/V this morning, 18G RAC, fear of needles refused lovenox, wants nicotine patch changed to PRN as he wants it available should he ask for it but does not want it right now. CIWAs down to 4-6, on ER arrival CIWA 22.
[2024-10-24] MEDS: Normal Saline Flush 10 ML SYR IVP (20:28)
[2024-10-24] MEDS: MAGNESIUM SULFATE 8.12 MEQ, MULTIVITAMIN 10 ML, THIAMINE 100 MG, FOLIC ACID 1 MG in Nor... 168.867 MG IV (23:02)
[2024-10-25] VITALS (9 sets, daily range): BP systolic 147–188; BP diastolic 90–127; PULSE 88–106; RESP 16–18; TEMP 36.2–37.1; O2SAT 98–100
[2024-10-25] MEDS: cloNIDine 0.1 MG TAB PO ×4 (01:10→22:52)
[2024-10-25 07:00] LABS: Abs Immature Grans 0.02 10^3/uL (0.0-0.06); Absolute Basophil Count 0.04 10^3/uL (0.0-0.2); Absolute Eosinophil Count 0.16 10^3/uL (0.0-0.7); Absolute Lymphocyte Count 1.94 10^3/uL (1.2-3.4); Absolute Neutrophil Count 2.72 10^3/uL (1.2-6.7); Basophils % 0.7 %; Eosinophils % 2.9 %; HCT 41.5 % (40.0-50.0); HGB 14.8 g/dL (13.5-17.5); Immature Grans % 0.4 %; Lymphocytes % 35.4 %; MCH 32.6 pg (27.0-33.0); MCHC 35.7 % (32.0-36.0); MCV 91 fL (80-95); MPV 8.6 fL (8.0-11.0); Monocytes % 10.9 %; Neutrophils % 49.7 %; Platelet Count 176 10^3/uL (130-400); RBC 4.54 10^6/uL (4.36-5.78); RDW 13.4 % (11.8-14.1); RDW-SD 45.4 fL; WBC 5.48 10^3/uL (4.4-10.8)
[2024-10-25 07:31] LABS: ALT 34 U/L (16-63); AST 26 U/L (15-37); Alkaline Phosphatase 61 U/L (46-116); Anion Gap 8.5 mmol/L (3-11); BUN 10 mg/dL (7-18); Bilirubin, Total 0.6 mg/dL (0.2-1.0); CO2 26.5 mmol/L (21.0-32.0); CREATININE 0.8 mg/dL (0.70-1.30); Calcium 8.3 mg/dL (8.5-10.1); Chloride 105 mmol/L (98-107); Estimated GFR 119.84 (mL/min/1.73m2); Glucose 102 mg/dL (74-106); Potassium 3.7 mmol/L (3.5-5.1); Sodium 140 mmol/L (136-145); Total Protein 5.8 g/dL (6.4-8.2)
[2024-10-25] MEDS: Nicotine 21 MG/24 HR PATCH TD (07:44)
[2024-10-25] MEDS: Venlafaxine 150 MG CAPCR PO (07:44)
[2024-10-25] MEDS: Normal Saline Flush 10 ML SYR IVP ×4 (07:44→21:37)
[2024-10-25] MEDS: Folic Acid 1 MG TAB PO (07:47)
[2024-10-25] MEDS: Thiamine 100 MG TAB PO (07:47)
--- NOTE | 2024-10-25 09:03 | INITIAL_ITS ---
Date of service: 10/25/24 Time of Service: 09:03 Care Management Initial Assmt Initial Assessment Reason for Hospitalization: ETOH Withdrawal Functional Status/Living Situation Patient Presentation: Sanjiv is awake and sitting up in bed, visiting with his mother Genny Washburn and sister Lotus when CM met with him. He has a long hx of ETOH abuse, and is just getting worse. At this time, Sanjiv is anxious and tells me he is worried about managing withdrawal symptoms after discharge. He's been employed at [employer] X 2 months, and is interested in a 12 week outpt program they offer. Unfortunately he hasn't been able to connect with anyone from the program. CM suggested that he reach out to his [employer] Employee Assistance Program, such programs often help with access to support and free resources. Sanjiv met with a recovery advocate prior to discharge and is planning to follow up after discharge. His plan is to discharge home and follow up in the community. Town of Residence: [facility] Resides with: Parent (Parents: Mirella and Dr. Baron) Significant Other/Family: Local Natural Supports: Very supportive family Employment Status: Employed ([employer] ([employer] Instrumental Activities of Daily Living (ADLs): Independent Medications Medication Management: No Issues/Barriers identified Advance Directives Advance Directives: Do you have an Advance Directive: N 05/20/22 16:50 AD On File at [facility]: N 10/27/12 21:17 Date Asked 10/24/24 10/24/24 13:13 AD Date Reviewed COLST On File at [facility] No 09/28/24 21:15 COLST Date Scanned Code Status Resuscitation Status Full Code Portal Pt does not currently have a portal and education provided: Yes Insurance Coverage/Financial Issues Insurance: Medicaid Care Team Visit Care Team Role Provider Type Quin Rubin NP NURSE PRACTITIONER Tara Humphreys NP Primary Care Provider NURSE PRACTITIONER Julita Olivares MD Emergency Provider [facility] STAFF PHYSICIAN Neo Joe MD Admit Provider [facility] STAFF PHYSICIAN Attending Provider Discharge Potential Discharge Needs: PCP F/U Appt and Other ([facility]) Anticipated Barriers to Discharge: None Identified Patient/Family Education Needs: Review discharge instructions, discuss Ask Me Three Transportation: Private vehicle Plan: Anticipate, Sanjiv will discharge home via private vehicle with family when medically cleared for discharge. Follow up with [facility] and discharge plan of care as directed. No new services will be ordered prior to discharge. CM did recommend that he reach out to his employee assistance program for free support and resources. Social Determinants of Health Screening Social Determinants of Health last assessed: 10/25/24 Will the Patient Participate in the Screening?: Declined to provide Do you worry about having a steady place to live?: no Problems where you live: no known problems In the past 12 months, have you had to go without electric, gas, oil or water in your home?: choose not to answer Have you or anyone in your house had to go without enough food to eat?: choose not to answer Has lack of transportation kept you from medical appointments or from doing things needed for daily living?: choose not to answer Has anyone in your life made you feel unsafe or unsupported?: choose not to answer How hard is it for you to pay for the very basics like food, housing, medical care, and heating? Would you say it is:: Somewhat hard Do you want help finding or keeping work or a job?: I do not need or want help If for any reason you need help with day-to-day activities such as bathing, preparing meals, shopping, managing finances, etc., do you get the help you need?: I don?t need any help How often do you feel lonely or isolated from those around you?: Sometimes Do you speak a language other than Tajik at home?: Yes Does the patient want assistance with any of the above?: Yes Health Related Social Needs Health related social needs: material hardship(utilities) (Z59.12), problems related to housing/economic circumstances (Z59.89), feeling lonely/isolated (Z60.8) and education (Z55.6) [facility] All Active Problems (Updated 10/24/24 @ 14:00 by Maddison Han APRN) On deep vein thrombosis (DVT) prophylaxis (Acute) Nausea & vomiting (Acute) Alcohol withdrawal (Acute) Alcohol abuse (Chronic) Tachycardia (Acute) Hypertension (Chronic) Anxiety (Chronic) Alcohol use disorder (Chronic) Hepatic steatosis (Acute ~12/2023) [place] Bilateral ocular hypertension (Chronic) Sleeping difficulty (Acute) RX Trazodone Nicotine use disorder (Chronic) 16yo started 0.5-1PPD Elevated BP without diagnosis of hypertension (Acute) Depression (Chronic) Venlafaxine; counselor Anxiety (Chronic) did not respond to low dose sertraline 01/11/11, failed Mirtazepine Medical History Alcohol use disorder, moderate, in early remission Alcohol withdrawal Stressful life event affecting family Sister's illness/diagnosis Excessive drinking alcohol Reviewed norms Family History Mother Breast cancer Pre-menopausal; has occurred x2 Asthma Heart disease CA Father , winter Cancer lung Diabetes Sister Scleroderma Breast cancer Dx'ed mid 30s Paternal Uncle Scleroderma Social History Smoking/Tobacco Use Status: Current every day Tobacco Type: cigarettes Tobacco: How many years used: 8 Quit status: considering quitting Smoking risk assessment performed?: Yes Alcohol Intake: current Alcohol Intake frequency: 3 or more drinks per day Alcohol type: wine and hard liquor Drug use: Never Substance use type: marijuana Adopted: No Caregiver/Support person: No Foster care: No Household members: family Housing: house Number of Children: 0 number of grandchildren: 0 Communication Needs: None Education Level: high school Do you need help understanding health information?: Rarely 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 Pets and animals: No Sexually active: Yes Do you think of yourself as: straight/heterosexual Current gender identity: male What is your relationship status?: refused to answer How often do you talk on the phone with friends or family?: three or more times per week How often do you get together with friends or relatives?: three or more times per week Do you belong to any clubs or organized social groups?: no Panel score (0-1 are the most socially isolated patients): 1 What type of physical activity do you participate in: walking Duration: > 90 minutes/day Frequency: 5-6 times per week Laina/Religious: None Special laina needs: No Seatbelt use: always Helmet use: Yes Helmet use: always Drive intox or ride w/intox furniture delivery driver: No Do you feel safe at home: Yes Do you feel safe in your relationship?: Yes
--- NOTE | 2024-10-25 10:04 | PGE_ITS ---
Date of Service Date of service: 10/25/24 Time of Service: 10:04 Assessment and Plan Assessment and plan (1) Alcohol withdrawal: Assessment and plan: continue ciwa, last drink 10/23 No seizures continue Phenobarbital 6 Mg per kilogram as per protocol: Do not give if patient has a negative RASS score PRN phenobarbital as per protocol continue thiamine and folate daily (2) Anxiety: Status: Chronic Assessment and plan: chronic and In the setting of EtOH withdrawal and as above (3) Hypertension: Status: Chronic Assessment and plan: Continue home med monitor and adjust as needed (4) Nicotine use disorder: Status: Chronic Assessment and plan: nicotine replacement offered while hospitalized (5) Nausea & vomiting: Status: Acute Assessment and plan: resolved As needed Zofran and Compazine (6) On deep vein thrombosis (DVT) prophylaxis: Status: Acute Assessment and plan: Lovenox refused, encourage ambulation and OOB anticipate discharge to home tomorrow if stable case management following for rehab resources, resource recovery engineer Discussed with Dr. Joe Subjective Subjective Patient reports: no new complaints Interval history since last seen: reports feeling much better, only scoring for anxiety which is baseline. eating and drinking well, bowels and bladder functioning well. Exam Const General: cooperative, healthy appearing, comfortable and no acute distress Nutritional Appearance: average body habitus Orientation: alert, awake and oriented x3 HENMT Head: normal to inspection, normocephalic and atraumatic Eyes General: appearance normal, both eyes and all related structures Neck Neck: normal visual inspection and full ROM Chest Chest: normal inspection of the chest Resp Effort & Inspection: normal respiratory effort Auscultation: clear to auscultation bilaterally Cardio Rate: regular rate Rhythm: regular rhythm GI Inspection: normal to inspection Palpation: nontender Skin General skin exam: no rashes or lesions noted Neuro General: patient alert, patient awake and patient oriented x3 Extrem General: normal to inspection, full ROM and no edema Psych Appearance: grossly normal Mental Status: mental status grossly normal Speech and Movement: speech and movement normal Mood: congruent mood Affect: normal affect Attitude: cooperative Thought Process: normal Thought Content: normal Insight: insight good Objective Last Vital Signs Temp 36.5 C 10/25/24 08:17 Pulse 93 H 10/25/24 08:17 Resp 18 10/25/24 08:17 BP 150/115 H 10/25/24 08:17 Pulse Ox 99 10/25/24 08:17 Laboratory Results - last 24 hr 10/25/24 06:35 WBC 5.48 RBC 4.54 Hgb 14.8 Hct 41.5 MCV 91 MCH 32.6 MCHC 35.7 RDW 13.4 Plt Count 176 MPV 8.6 Immature Gran % 0.4 Neutrophils % 49.7 Lymphocytes % 35.4 Monocytes % 10.9 Eosinophils % 2.9 Basophils % 0.7 Nucleated RBC % 0.0 Absolute Neutrophils 2.72 Absolute Lymphocytes 1.94 Absolute Monocytes 0.60 Absolute Eosinophils 0.16 Absolute Basophils 0.04 Sodium 140 Potassium 3.7 Chloride 105 Carbon Dioxide 26.5 Anion Gap 8.5 BUN 10 Creatinine 0.8 Est GFR (CKD-EPI 2020) 119.84 Glucose 102 Calcium 8.3 L Magnesium 2.0 Total Bilirubin 0.6 AST 26 ALT 34 Alkaline Phosphatase 61 Total Protein 5.8 L Albumin 3.0 L PAWSS Have you Been Recently Intoxicated or Drunk Within the Last 30 days?: Yes Have you Ever Experienced Previous Episodes of Alcohol Withdrawal?: Yes Have you ever Experienced Withdrawal Seizures?: Yes Have you ever Experienced Delirium Tremens(DT)s?: Yes Have you ever undergone Alcohol Rehabilitation Treatment (i.e, inpt ot outpatient treatment programs)?: Yes Have you ever Experienced Blackouts?: Yes Have you ever Combined Alcohol with other Downers within the last 90 days?: Yes Have you ever Combined Alcohol with any other Substance of Abuse during the last 90 days?: Yes Positive Blood Alcohol level on Presentation? [PCS.BAL]: Yes Evidence of Increased Autonomic Activity (i.e. HR>120, tremor, sweating, agitation, nausea)?: Yes Result: 10 Time Spent with Patient Time Spent with Patient: 35-49 minutes Time was spent: preparing to see the patient(eg.review tests), obtaining and/or reviewing separately otained hiistory, ordering medications,tests, procedures, indepentently interpreting results and counseling the patient
[2024-10-25] MEDS: PHENobarbital 130 MG/ML VIAL IVP ×3 (19:23→21:37)
[2024-10-25] MEDS: traZODone 50 MG TAB PO (23:32)
[2024-10-26 00:20] VITALS: BP 154/110
[2024-10-26 06:18] VITALS: BP 140/106; PULSE 102; RESP 16; TEMP 36.7; O2SAT 97
[2024-10-26 06:44] VITALS: BP 139/96; PULSE 76; RESP 16; TEMP 36.8; O2SAT 99
[2024-10-26] MEDS: Venlafaxine 150 MG CAPCR PO (09:49)
[2024-10-26] MEDS: Folic Acid 1 MG TAB PO (09:49)
[2024-10-26] MEDS: cloNIDine 0.1 MG TAB PO (09:49)
[2024-10-26] MEDS: Thiamine 100 MG TAB PO (09:49)
[2024-10-26] MEDS: Normal Saline Flush 10 ML SYR IVP (09:50)
--- NOTE | 2024-10-26 12:02 | CMDISCH_ITS ---
Date of service: 10/26/24 Time of Service: 12:02 LACE Index Scoring Tool Questions: Length of Stay (in days): 2 Was the patient admitted via the E.D.?: Yes E.D. Visits: 7 Answers: Total Score: 9 Risk of Readmission: Low Risk Care Management Discharge Plan Reason for Hospitalization: ETOH Withdrawal Discharge Plan: Discharge home via private vehicle with family. Follow up with PCP and discharge plan of care as directed. Return to work letter sent to patient and his employer (at his request). Patient/Family Education Needs: Review discharge instructions and plan to follow up with community providers and Community partners. Discuss ask me three:. SDOH Health Related Social Needs: Health related social needs material hardship(utilitie s) (Z59.12), problems related to housing/economic circumstances (Z59.89), feeling lonely/isolated (Z60.8), education (Z55.6)
--- NOTE | 2024-10-26 12:14 | DSE_ITS ---
Date of service: 10/26/24 Time of Service: 12:15 DS: Diagnosis Discharge Diagnosis (1) Alcohol withdrawal: (2) Anxiety: Status: Chronic Discharge Plan Disposition Patient Disposition: Home Condition: Improving Discharge Details Reason For Visit: ETOH Withdrawal Admit Date/Time: 10/24/24 13:38 Admit Provider: Neo Joe Attending Provider: Neo Joe Primary Care Provider: Tara Humphreys Hospital Course Hospital Course: Sanjiv is a 34-year-old male with a history of alcohol use disorder, anxiety, and hypertension who was admitted for evaluation and management of alcohol withdrawal symptoms. He presented with anxiety, shakiness, nausea, and nonbloody emesis after his last drink on October 23, 2024. The patient was anxious about managing withdrawal symptoms after discharge and expressed concern over his ability to maintain sobriety. Relevant History: * Alcohol Use Disorder: Longstanding history, with a recent episode of drinking approximately 4 large cans of 10% alcohol seltzers daily. He had previously undergone an outpatient Librium taper after a hospitalization in September 2024, but resumed drinking shortly after the taper. * Anxiety: Chronic anxiety, which is exacerbated by alcohol withdrawal. * Nicotine Use Disorder: Active nicotine use, with no illicit substance use reported. * Hypertension: Chronic hypertension, not on antihypertensives * HIV Exposure Concerns: He expressed concern about potential exposure to HIV from a friend, though he denied any blood exposure or sexual contact. Physical Exam on Admission: * General: Alert, anxious, and cooperative. * Vital Signs: * Tachycardia, stable blood pressure, and normal oxygen saturation. * Neurological: Alert and oriented x3. No signs of confusion or delirium tremens at the time of admission. * Other: No significant findings during the physical exam. Workup and Findings: * CIWA Score: Initial CIWA score 21, improved to 5 after intravenous Ativan, then increased to 8 due to anxiety. * Laboratory Studies: * CBC: No significant leukocytosis, anemia, or thrombocytopenia. * CMP: Unremarkable, no evidence of electrolyte or kidney abnormalities. * Troponin and Lipase: No evidence of acute pancreatitis or myocardial injury. * Urinalysis: Noninfectious. * Ethanol Level: Less than 3. * EKG: Sinus tachycardia, no evidence of acute ischemia. Hospital Course: Sanjiv was admitted for alcohol withdrawal management, given his history of alcohol use disorder, anxiety, and recent resumption of alcohol consumption. His alcohol withdrawal symptoms were managed with intravenous Ativan and phenobarbital, as appropriate. He had some initial improvement in symptoms but was concerned about his ability to continue outpatient treatment due to previous difficulties with sobriety maintenance. The decision was made to admit him for further monitoring due to his history of hallucinations and concern for potential delirium tremen, * He met with a success coach to discuss long-term treatment and rehabilitation resources. * The patient was stabilized with appropriate medications and was transferred to the hospitalist service for continued care. Full Code Status: Confirmed Symptoms Reported: * No new complaints. * Anxiety, shakiness, and nausea, which improved during hospitalization. * The patient is eating, drinking, and has normal bowel and bladder functioning. Assessment and Plan: * Alcohol Withdrawal: * Continue thiamine and folate supplementation. * Outpatient follow-up with addiction services and success coach. * Anxiety: * Chronic, exacerbated by alcohol withdrawal. * Continue outpatient anxiety management. * Hypertension: * Monitor blood pressure regularly * Start amlodipine 5 mg daily * Nicotine Use Disorder: * Nicotine replacement therapy offered during hospitalization. * Follow-up with outpatient smoking cessation resources. * Nausea & Vomiting: * Resolved during hospitalization. Discharge Plan: Sanjiv is being discharged home in stable condition. His follow-up plan includes outpatient recovery resources, continued management of his alcohol use disorder, and ongoing anxiety treatment. Case management will assist in coordinating long- term rehabilitation and recovery services. I spoke with the patient's primary care provider, Tara Mishra APRN, regarding Sanjiv?s request to restart disulfiram. Tara Mishra agreed to proceed and recommended starting him on 500 mg daily. A prescription for 30 days has been sent to the pharmacy. Sanjiv expressed concerns about venlafaxine not adequately addressing his anxiety. He was encouraged to follow up with [facility], as previously recommended by PCP. Sanjiv mentioned that he has started filling out the necessary paperwork to schedule an appointment with them. Discharge Instructions: * Medications: Continue prescribed medications for alcohol withdrawal, anxiety, and start amlodipine 5 mg daily. Take your blood pressure twice daily and log. Take log to PCP appointment. * Follow-up Appointments: Follow up with addiction services, success coach, and primary care for hypertension management. * Alcohol Use: Avoid alcohol, and engage in support for sobriety maintenance. * Symptoms: Contact healthcare provider if symptoms worsen or new issues arise, particularly concerning withdrawal or psychiatric symptoms. * Follow up with [facility] * Follow up with PCP Discharge Diagnosis: * Alcohol Use Disorder, Chronic * Alcohol Withdrawal Syndrome * Anxiety, Chronic * Nicotine Use Disorder * Hypertension Home Meds and New Rx's Prescriptions: New disulfiram 500 mg tablet 500 mg PO DAILY Qty: 30 0RF amlodipine 5 mg tablet 5 mg PO DAILY Qty: 30 0RF Continued trazodone 50 mg tablet See Rx Instructions PO QHS PRN (Reason: sleep) Qty: 40 0RF Rx Instructions: 25-50mg bedtime for sleep difficulty, may repeat 50mg x1 if first dose ineffective for max nightly dose 100mg PO every day at bedtime PRN; venlafaxine 150 mg capsule,extended release 24hr 150 mg PO DAILY Qty: 90 0RF Rx Instructions: In place of tablets. thiamine mononitrate (vit B1) 100 mg tablet 100 mg PO DAILY Qty: 30 0RF folic acid 1 mg tablet 1 mg PO DAILY Qty: 30 0RF Discharge Instructions Instructions: Alcohol Use Disorder (DC), Amlodipine, Disulfiram Additional Instructions: Follow up as planned with your chosen recovery plan. Restart Disulfiram 500 mg daily (discussed with PCP and agrees) Start amlodipine 5 mg daily for your blood pressure. Take your blood pressure twice daily and log. Take log to PCP appointment. Follow up with PCP Call [facility] - [phone] Stand Alone Forms: Nursing Discharge Form Referrals: [facility] [Other] - 11/02/24 (Referred by PCP Tara Mishra APRN) Tara Humphreys [employer] [Primary Care Provider] - 10/29/24 3:00 pm (In patient follow up for alcohol abuse this week patient requested disulfiram on discharge; discussed with Tara - resumed on prior dose @ DC) Activity:: Activity as Tolerated Equipment/Supplies:: No Equipment Needed Diet:: As Tolerated Discharge Orders Discharge Orders: Discharge Order (Routine); Ordered 10/26/24 Ordered By: Colleen Antonio Discharge Data Discharge Date/Time-TO BE ENTERED AT DEPARTURE: 10/26/24 13:39 DS: Summary Time Spent with Patient providing and/or coordinating discharge services: Greater than 30 minutes Status at Discharge Functional status at discharge: independent ambulation Overall status at discharge: patient is back to baseline Mental Status: mental status grossly normal Speech and Movement: speech and movement normal Mood: congruent mood Affect: normal affect Quality:SDOH Health Related Social Needs: Health related social needs material hardship(utilitie s) (Z59.12), problems related to housing/economic circumstances (Z59.89), feeling lonely/isolated (Z60.8), education (Z55.6) Exam Const General: cooperative, healthy appearing, comfortable and no acute distress Nutritional Appearance: average body habitus Orientation: alert, awake and oriented x3 HENMT Head: normal to inspection, normocephalic and atraumatic Eyes General: appearance normal, both eyes and all related structures Neck Neck: normal visual inspection and full ROM Chest Chest: normal inspection of the chest Resp Effort & Inspection: normal respiratory effort Auscultation: clear to auscultation bilaterally Cardio Rate: regular rate Rhythm: regular rhythm GI Inspection: normal to inspection Palpation: nontender Skin General skin exam: no rashes or lesions noted Neuro General: patient alert, patient awake and patient oriented x3 Extrem General: normal to inspection, full ROM and no edema Psych Appearance: grossly normal Mental Status: mental status grossly normal Speech and Movement: speech and movement normal Mood: congruent mood Affect: normal affect Attitude: cooperative Thought Process: normal Thought Content: normal Insight: insight good DS: Data Vitals/I&O Vitals and I&O: Vital Signs Temperature 36.8 C 10/26/24 06:44 Temperature Source Temporal Artery Scan 10/26/24 06:44 Pulse 76 10/26/24 06:44 Pulse Rhythm Regular 10/24/24 18:05 Pulse 96 H 10/24/24 17:21 Respiratory Rate 16 10/26/24 06:44 Respiratory Effort Normal 10/24/24 18:05 Respiratory Pattern Normal 10/24/24 14:05 Blood Pressure 139/96 H 10/26/24 06:44 Blood Pressure Mean 148 10/24/24 17:15 Blood Pressure Position Sitting 10/24/24 07:22 Pulse Oximetry 99 10/26/24 06:44 Oxygen Delivery Method Room Air 10/26/24 06:44 Oxygen Flow Rate 0 10/26/24 06:44 Pain Level 5 10/25/24 00:06 Comment RN Notified 10/26/24 06:18 Intake & Output 10/25/24 10/26/2425 23:59 11:59 23:59 Intake Total 180 / 1193.2 Balance 180 / 1193.2 Intake: Oral 180 / 180 Other: Urine Color Yellow Comment voided independently voids independently PFSH All Active Problems (Updated 10/24/24 @ 14:00 by Maddison Han APRN) On deep vein thrombosis (DVT) prophylaxis (Acute) Nausea & vomiting (Acute) Alcohol withdrawal (Acute) Alcohol abuse (Chronic) Tachycardia (Acute) Hypertension (Chronic) Anxiety (Chronic) Alcohol use disorder (Chronic) Hepatic steatosis (Acute ~12/2023) [place] Bilateral ocular hypertension (Chronic) Sleeping difficulty (Acute) RX Trazodone Nicotine use disorder (Chronic) 16yo started 0.5-1PPD Elevated BP without diagnosis of hypertension (Acute) Depression (Chronic) Venlafaxine; counselor Anxiety (Chronic) did not respond to low dose sertraline 01/11/11, failed Mirtazepine Medical History Alcohol use disorder, moderate, in early remission Alcohol withdrawal Stressful life event affecting family Sister's illness/diagnosis Excessive drinking alcohol Reviewed norms Family History Mother Breast cancer Pre-menopausal; has occurred x2 Asthma Heart disease [place] Father , winter Cancer lung Diabetes Sister Scleroderma Breast cancer Dx'ed mid 30s Paternal Uncle Scleroderma Social History Smoking/Tobacco Use Status: Current every day Tobacco Type: cigarettes Tobacco: How many years used: 8 Quit status: considering quitting Smoking risk assessment performed?: Yes Alcohol Intake: current Alcohol Intake frequency: 3 or more drinks per day Alcohol type: wine and hard liquor Drug use: Never Substance use type: marijuana Adopted: No Caregiver/Support person: No Foster care: No Household members: family Housing: house Number of Children: 0 number of grandchildren: 0 Communication Needs: None Education Level: high school Do you need help understanding health information?: Rarely 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: [employer] Pets and animals: No Sexually active: Yes Do you think of yourself as: straight/heterosexual Current gender identity: male What is your relationship status?: refused to answer How often do you talk on the phone with friends or family?: three or more times per week How often do you get together with friends or relatives?: three or more times per week Do you belong to any clubs or organized social groups?: no Panel score (0-1 are the most socially isolated patients): 1 What type of physical activity do you participate in: walking Duration: > 90 minutes/day Frequency: 5-6 times per week Laina/Tenriism: None Special laina needs: No Seatbelt use: always Helmet use: Yes Helmet use: always Drive intox or ride w/intox dinkey driver: No Do you feel safe at home: Yes Do you feel safe in your relationship?: Yes Time Spent with Patient Time Spent with Patient: 70-84 minutes4 Time was spent: preparing to see the patient(eg.review tests), ordering medications,tests, procedures, referring, communicating with other health behavioral health care coordinator, indepentently interpreting results, counseling the patient and care coordination
[2024-10-26 12:37] VITALS: BP 132/101; PULSE 94; RESP 19; TEMP 36.5; O2SAT 99
[2024-10-26 14:08] LABS: HIV-1/2 Ag & Ab Screen Negative (Negative)
[2024-10-27 12:13] LABS: Fentanyl Scr w/Rfx Confirm Negative ng/mL (<1)
== END 2024-10-26 13:39 | disposition home or self-care (01) | DRG 897 ==
LOC: ER 15:29 → MS 17:58
PROVIDERS: Nurse Practitioner Acute Care; Admitting Provider Hospitalist; Emergency Provider Emergency Medicine; PCP Nurse Practitioner Adult Health; Responsible Provider Nurse Practitioner Family; Visit Provider Hospitalist
DX: F10.130 Alcohol abuse with withdrawal, uncomplicated (principal); I10 Essential (primary) hypertension; F41.9 Anxiety disorder, unspecified; R11.2 Nausea with vomiting, unspecified; K76.0 Fatty (change of) liver, not elsewhere classified; F32.A Depression, unspecified; F12.90 Cannabis use, unspecified, uncomplicated; F17.210 Nicotine dependence, cigarettes, uncomplicated; Z79.899 Other long term (current) drug therapy; Z20.6 Contact with and (suspected) exposure to human immunodeficiency virus [HIV]
CPT/HCPCS: 00123; 36415; 80053; 80307; 83690; 87389; 93005; 96365; 96366; 96375; 96376; 99285; 80320; 81003; 81015; 83735; 84484; 85025; 93010; 99223; 99233; 99239; J2060; J2405; J2560; J3411; J3475

== ENCOUNTER 2024-12-09 14:50 | Inpatient (IN) | payer MEDICAID, SELFPAY ==
[2024-12-09] VITALS (36 sets, daily range): BP systolic 128–173; BP diastolic 65–124; PULSE 115–153; RESP 10–29; TEMP 37.2–37.5; O2SAT 93–98
--- NOTE | 2024-12-09 15:48 | ED.GENADUL_ITS ---
Discharge Plan Disposition Patient Disposition: Admit to [facility] Condition: Stable Discharge Details Chief Complaint: ETOHWithdr Clinical Impression: Alcohol use disorder, Anxiety, Tachycardia, Alcohol withdrawal Primary Care Provider: Tara Humphreys ED Provider: Julita Olivares Home Meds and New Rx's Prescriptions: No Action trazodone 50 mg tablet See Rx Instructions PO QHS PRN (Reason: sleep) Qty: 40 0RF Rx Instructions: 25-50mg bedtime for sleep difficulty, may repeat 50mg x1 if first dose ineffective for max nightly dose 100mg PO every day at bedtime PRN; sertraline 50 mg tablet 50 mg PO DAILY Qty: 30 0RF Rx Instructions: Start with 25mg daily x6d, then increase to 50mg daily for mood. venlafaxine 75 mg tablet 75 mg PO DAILY Patient Comments: Dr. Gibbons-Psychotherapist amlodipine 10 mg tablet 10 mg PO DAILY Qty: 90 3RF Rx Instructions: For BP with goal <140/90 disulfiram 500 mg tablet 500 mg PO DAILY Qty: 30 0RF folic acid 1 mg tablet 1 mg PO DAILY Patient Comments: TAKE ONE TABLET BY MOUTH EVERY DAY HPI General Mode of arrival: ambulatory . Date/Time Provider Initiated Documentation: 12/09/24 15:08 . Limitations to Documentation: no limitations . Information obtained by: patient and old records reviewed . HPI Narrative: HPI: This is a 34-year-old male patient with a past medical history significant for alcohol use disorder, hepatic steatosis, and anxiety who is presenting for evaluation of anxiety, tremulousness/alcohol withdrawal symptoms in the setting of a recent alcohol use relapse. The patient was discharged from this hospital after an admission for alcohol use and withdrawal approximately 5 weeks ago, states that he was able to maintain his sobriety until last Saturday. He reports that he has been drinking 8 to 10% alcoholic seltzers, does not know how many he has been drinking per day but states it is the worst its ever been. His last drink was several hours ago at 11 AM. He reports that he has developed shakiness, feels tremulous, and feels quite anxious. He states that he is a fraid that he is going to lose everything, states that he feels like he messed up, had to call his parents to drive him because of his alcohol use. The patient states that he has not had any other substance use this weekend, states that he uses nicotine/smokes. Related Data Home Medications ?Medication ?Instructions ?Recorded ?Confirmed trazodone 50 mg tablet See Rx Instructions PO QHS PRN 09/10/24 12/09/24 sleep #40 tabs disulfiram 500 mg tablet 500 mg PO DAILY #30 tabs 10/26/24 12/09/24 sertraline 50 mg tablet 50 mg PO DAILY #30 tabs 10/29/24 12/09/24 amlodipine 10 mg tablet 10 mg PO DAILY #90 tabs 12/03/24 12/09/24 venlafaxine 75 mg tablet 75 mg PO DAILY 12/03/24 12/09/24 folic acid 1 mg tablet 1 mg PO DAILY 12/09/24 12/09/24 Previous Rx's ?Medication ?Instructions ?Recorded trazodone 50 mg tablet See Rx Instructions PO QHS PRN 09/10/24 sleep #40 tabs disulfiram 500 mg tablet 500 mg PO DAILY #30 tabs 10/26/24 sertraline 50 mg tablet 50 mg PO DAILY #30 tabs 10/29/24 amlodipine 10 mg tablet 10 mg PO DAILY #90 tabs 12/03/24 Allergies Allergy/AdvReac Type Severity Reaction Status Date / Time No Known Allergies Allergy Verified 12/09/24 15:05 General Stated Complaint: ETOHWithdr MOISES: 3 Exam Narrative Exam Narrative: Gen: Awake and alert, appears extremely anxious and jittery HEENT: Non-icteric sclera Neck: Supple Lungs: No apparent respiratory distress, normal respiratory effort. CV: Appears well perfused, heart with tachycardic rate to the 140s, strong distal pulses Abdomen: Non-distended, soft MSK: Moves 4 extremities without apparent limitation in ROM Skin: Visualized skin without rashes, cyanosis. Neuro: Tremulous/legs shaking, speaking in full sentences with no obvious focal motor deficits. Psych: Anxious, tearful. Course Vital Signs Vital signs: Vital Signs Temperature 37.2 C 12/09/24 14:59 Pulse 145 H 12/09/24 14:59 Respiratory Rate 20 12/09/24 14:59 Blood Pressure 141/65 H 12/09/24 14:59 Pulse Oximetry 98 12/09/24 14:59 Temperature 37.2 C 12/09/24 14:59 Pulse 145 H 12/09/24 14:59 Respiratory Rate 20 12/09/24 14:59 Blood Pressure 141/65 H 12/09/24 14:59 Blood Pressure Position Sitting 12/09/24 14:59 Pulse Oximetry 98 12/09/24 14:59 Oxygen Delivery Method Room Air 12/09/24 14:59 Oxygen Flow Rate 0 12/09/24 14:59 Medical Decision Making This is a 34-year-old male patient presenting for evaluation of alcohol use disorder with relapse and early withdrawal/anxiety. Differential includes but is not limited to substance use disorder, alcohol withdrawal, considered anxiety and primary psychiatric disturbance. Considered metabolic electrolyte derangement, dehydration, kidney injury. The patient reports that he has a history of hallucinations (auditory) during withdrawal, has never had visual hallucinations nor an alcohol withdrawal seizure. He had a brief duration of active drinking during this episode, which reassures me against severe metabolic and vitamin deficiencies. Given the patient's significant psychomotor agitation, tachycardia, and history of severe withdrawal, I feel it is reasonable to provide the patient with an intravenous dose of Ativan for symptomatic management. We will obtain laboratory studies to include CBC, CMP, magnesium, ethanol, UDS, and urinalysis. I will also provide the patient with a nicotine patch. - I independently interpreted the laboratory studies, which show no significant leukocytosis, anemia, or thrombocytopenia. The chemistry panel is without evidence of electrolyte abnormality, kidney dysfunction, or liver injury. The ethanol level is elevated to 209. The patient had improvement in his anxiety after the Ativan, as well as his tremulousness, but remains tachycardic to the 130s/140s. I do feel that this patient is at high risk for ongoing/worsening withdrawal as his ethanol level is still elevated and he has a history of hallucinations. For this reason I initiated him on phenobarbital, 6 mg/kg intermittently dose over the next 6 hours per protocol. I did reach out to our hospitalist service who is graciously accepted this patient for admission for ongoing management of his alcohol withdrawal. The patient did have the opportunity to talk to the assistant wrestling coach and has a plan to connect with outpatient resources when he is well. Transferred to the ICU in improved condition. Julita Olivares MD Medical Records Medical records reviewed: Yes I reviewed the patient's medical records. Lab Data Lab results reviewed: Yes I reviewed the patient's lab results. Quality:SDOH Health Related Social Needs: Health related social needs material hardship(utilitie s) (Z59.12), problems related to housing/economic circumstances (Z59.89), feeling lonely/isolated (Z60.8), education (Z55.6) Critical Care Time Critical Care Time Critical Care Time: Yes Total Critical Care Time: 35 Attestation: Upon my evaluation, this patient had a high probability of imminent or life- threatening deterioration due to severe alcohol withdrawal requiring phenobarbital initiation, which required my direct attention, intervention, and personal management. I have personally provided 35 minutes of critical care time exclusive of time spent on separately billable procedures. Time includes review of laboratory data, radiology results, discussion with consultants, and monitoring for potential decompensation. Interventions were performed as documented above. Julita Olivares MD [facility] All Active Problems (Updated 12/09/24 @ 17:01 by Julita Olivares MD) Alcohol withdrawal (Acute) Tachycardia (Acute) Alcohol use disorder (Chronic) Hepatic steatosis (Acute ~12/2023) [place] Bilateral ocular hypertension (Chronic) Sleeping difficulty (Acute) RX Trazodone Elevated BP without diagnosis of hypertension (Acute) alcohol-related Depression (Chronic) Venlafaxine; counselor Anxiety (Chronic) did not respond to low dose sertraline 01/11/11, failed Mirtazepine Medical History Alcohol withdrawal Hypertension Nicotine use disorder 16yo started 0.5-1PPD Alcohol use disorder, moderate, in early remission Alcohol withdrawal Stressful life event affecting family Sister's illness/diagnosis Excessive drinking alcohol Reviewed norms Family History Mother Breast cancer Pre-menopausal; has occurred x2 Asthma Heart disease [place] Father , COV, Winter 2019 Cancer lung Diabetes Sister Scleroderma Breast cancer Dx'ed mid 30s Paternal Uncle Scleroderma Social History Smoking/Tobacco Use Status: Current every day Tobacco Type: cigarettes Tobacco: How many years used: 8 Quit status: considering quitting Smoking risk assessment performed?: Yes Alcohol Intake: current Alcohol Intake frequency: 3 or more drinks per day Alcohol type: wine and hard liquor Drug use: Never Substance use type: marijuana Adopted: No Caregiver/Support person: No Foster care: No Household members: family Housing: house Number of Children: 0 number of grandchildren: 0 Communication Needs: None Education Level: high school Do you need help understanding health information?: Rarely 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 Pets and animals: No Sexually active: Yes Do you think of yourself as: straight/heterosexual Current gender identity: male What is your relationship status?: refused to answer How often do you talk on the phone with friends or family?: three or more times per week How often do you get together with friends or relatives?: three or more times per week Do you belong to any clubs or organized social groups?: no Panel score (0-1 are the most socially isolated patients): 1 What type of physical activity do you participate in: walking Duration: > 90 minutes/day Frequency: 5-6 times per week Laina/Religious: None Special laina needs: No Seatbelt use: always Helmet use: Yes Helmet use: always Drive intox or ride w/intox feedmobile driver: No Do you feel safe at home: Yes Do you feel safe in your relationship?: Yes PAWSS Have you Been Recently Intoxicated or Drunk Within the Last 30 days?: Yes Have you Ever Experienced Previous Episodes of Alcohol Withdrawal?: Yes Have you ever Experienced Withdrawal Seizures?: No Have you ever Experienced Delirium Tremens(DT)s?: Yes Have you ever undergone Alcohol Rehabilitation Treatment (i.e, inpt ot outpatient treatment programs)?: Yes Have you ever Experienced Blackouts?: Yes Have you ever Combined Alcohol with other Downers within the last 90 days?: No Have you ever Combined Alcohol with any other Substance of Abuse during the last 90 days?: No Evidence of Increased Autonomic Activity (i.e. HR>120, tremor, sweating, agitation, nausea)?: Yes Result: 6
[2024-12-09] MEDS: LORazepam 2 MG/ML VIAL IVP (15:49)
[2024-12-09 16:02] LABS: Abs Immature Grans 0.03 10^3/uL (0.0-0.06); Absolute Basophil Count 0.05 10^3/uL (0.0-0.2); Absolute Eosinophil Count 0.11 10^3/uL (0.0-0.7); Absolute Lymphocyte Count 3.93 10^3/uL (1.2-3.4); Absolute Monocyte Count 0.76 10^3/uL (0.1-0.8); Absolute Neutrophil Count 5.12 10^3/uL (1.2-6.7); Basophils % 0.5 %; Eosinophils % 1.1 %; HCT 45.6 % (40.0-50.0); HGB 16.5 g/dL (13.5-17.5); Immature Grans % 0.3 %; Lymphocytes % 39.3 %; MCH 32.5 pg (27.0-33.0); MCHC 36.2 % (32.0-36.0); MCV 90 fL (80-95); MPV 8.7 fL (8.0-11.0); Monocytes % 7.6 %; Neutrophils % 51.2 %; Platelet Count 220 10^3/uL (130-400); RBC 5.07 10^6/uL (4.36-5.78); RDW 11.9 % (11.8-14.1); RDW-SD 39.3 fL
[2024-12-09 16:33] LABS: ALT 27 U/L (16-63); AST 31 U/L (15-37); Alkaline Phosphatase 77 U/L (46-116); Anion Gap 18.2 mmol/L (3-11); BUN 11 mg/dL (7-18); Bilirubin, Total 0.5 mg/dL (0.2-1.0); CO2 21.8 mmol/L (21.0-32.0); CREATININE 0.9 mg/dL (0.70-1.30); Calcium 9.2 mg/dL (8.5-10.1); Chloride 104 mmol/L (98-107); ETHANOL BLOOD 209.7 mg/dL (<10); Estimated GFR 115.65 (mL/min/1.73m2); Glucose 93 mg/dL (74-106); Magnesium 1.9 mg/dL (1.8-2.4); Potassium 3.5 mmol/L (3.5-5.1); Sodium 144 mmol/L (136-145); Total Protein 7.5 g/dL (6.4-8.2)
--- NOTE | 2024-12-09 16:53 | W.PM.HP.N ---
Date of service: 12/09/24 Time of Service: 16:54 Assessment and Plan Assessment and plan (1) Alcohol withdrawal: Assessment and plan: Multiple admissions, treated succesfully with phenobarbital in the past. Some reported h/o DTs but no seizures. Started on phenobarbital protocol in ED after intitial 2mg of lorazepam. I think current dosing is reasable for now. ICU admission for close monitoring If remains anxious after phenobarbital can use precedex. Will order vitamins orally, but treat with IV to decrease risk of stacking. Has anion gap but no apparent acidosis. Clinically not c/w alcohololic ketoacidosis, as he has been eating, but will give a liter of fluids and follow this, evaluate further if this persists. 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 He did have a month without using alcohol after last admission, which is encouraging Was given disulfuram, hold this, reconsider at discharge vs alternative agents. (3) Depression: Status: Chronic Assessment and plan: Continue outpatient therapy (on cross taper onto sertraline, off venlafaxine now) (4) Nicotine use disorder: Assessment and plan: NRT prn, encourage cessation. (5) Hypertension: Assessment and plan: Recent increase amlodipine dose to 10mg on 12/03. Hard to titrate when off/on alcohol. Continue the 10mg for now, cut if any low BPs. (6) DVT prophylaxis: Status: Acute Assessment and plan: Low risk with age, mobility. Early ambulation, reconsider if not moving. History of Present Illness History of Present Illness Chief Complaint: alcohol withdrawal Narrative: 34 yo M with alcohol use disorder, HTN, recent admissions 10/25-10/26/24 and 10/13- at [facility] for alcohol withdrawal, treated with phenobarbital protocol, who recently relapses to heavy alcohol use and presented today requesting assistance with withdrawal. He resumed drinking 4 days ago, has been drinking dozens of high ABV seltzers per day, he isn't sure how many, but states more than he has ever drunken in the past. Last alcohol was 11am today. He was quite anxious when he first arrived in the ED, did improve with 2mg lorazepam therapy. Started on phenobarbital protocol. He feels better than when he first came in, but still uncomfortable all over, anxious, light bothers him. Nausea got better with lorazepam. He had been engaging with PCP and therapy, taking disulfuram for a while, stopped 3 weeks ago. He was sober for 5 weeks after last admission. He was adjusting his medication for anxiety/depression. Mood had beed okay, no SI. He has a good life, new job at [employer] and GF in [place] going well. He doesn't understand why he drinks. Has a history of hallucinations with withdrawal in the past, not now. Never had seizures. Not using other substances other than some cannibis. Review of Systems All systems reviewed & are unremarkable except as noted in HPI and below PFSH All Active Problems DVT prophylaxis (Acute) Alcohol withdrawal (Acute) Tachycardia (Acute) Hepatic steatosis (Acute ~12/2023) Alcohol use disorder (Chronic) Bilateral ocular hypertension (Chronic) Sleeping difficulty (Acute) RX Trazodone Elevated BP without diagnosis of hypertension (Acute) alcohol-related Depression (Chronic) Venlafaxine; counselor Anxiety (Chronic) did not respond to low dose sertraline 01/11/11, failed Mirtazepine Medical History Alcohol withdrawal Hypertension Alcohol use disorder, moderate, in early remission Alcohol withdrawal Stressful life event affecting family Sister's illness/diagnosis Excessive drinking alcohol Reviewed norms Nicotine use disorder 16yo started 0.5-1PPD Family History Mother Breast cancer Pre-menopausal; has occurred x2 Asthma Heart disease [place] Father , COVID, Winter 2019 Cancer lung Diabetes Sister Scleroderma Breast cancer Dx'ed mid 30s Paternal Uncle Scleroderma Social History (Updated 12/09/24 @ 17:33 by Samir Mcclelland) Smoking/Tobacco Use Status: Current every day Tobacco Type: cigarettes Tobacco: How many years used: 8 Quit status: considering quitting Smoking risk assessment performed?: Yes Alcohol Intake: current Alcohol Intake frequency: 3 or more drinks per day Alcohol type: wine and hard liquor Drug use: Never Substance use type: marijuana Adopted: No Caregiver/Support person: No Foster care: No Household members: family Housing: house Number of Children: 0 number of grandchildren: 0 Communication Needs: None Education Level: high school Do you need help understanding health information?: Rarely 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: Working for [employer] on [employer] Pets and animals: No Sexually active: Yes Do you think of yourself as: straight/heterosexual Current gender identity: male What is your relationship status?: refused to answer How often do you talk on the phone with friends or family?: three or more times per week How often do you get together with friends or relatives?: three or more times per week Do you belong to any clubs or organized social groups?: no Panel score (0-1 are the most socially isolated patients): 1 What type of physical activity do you participate in: walking Duration: > 90 minutes/day Frequency: 5-6 times per week Laina/Taoism: None Special laina needs: No Seatbelt use: always Helmet use: Yes Helmet use: always Drive intox or ride w/intox hook up driver: No Do you feel safe at home: Yes Do you feel safe in your relationship?: Yes Meds Allergies and Home Medications Allergies Allergy/AdvReac Type Severity Reaction Status Date / Time No Known Allergies Allergy Verified 12/09/24 15:05 Home Medications ?Medication ?Instructions ?Recorded ?Confirmed ?Type trazodone 50 mg tablet See Rx Instructions PO QHS PRN 09/10/24 12/09/24 Rx sleep #40 tabs disulfiram 500 mg tablet 500 mg PO DAILY #30 tabs 10/26/24 12/09/24 Rx sertraline 50 mg tablet 50 mg PO DAILY #30 tabs 10/29/24 12/09/24 Rx amlodipine 10 mg tablet 10 mg PO DAILY #90 tabs 12/03/24 12/09/24 Rx folic acid 1 mg tablet 1 mg PO DAILY 12/09/24 12/09/24 History venlafaxine 75 mg capsule,extended 75 mg PO QPM 12/09/24 12/09/24 History release 24 hr Exam Narrative Exam Narrative: GEN: Alert and oriented x 4, anxious and uncomfortable, slightly diaphoretic, but still quite pleasant and cooperative, gives linear history. HEENT: Head atraumatic. Conjunctiva clear, no icterus. PEERL, EOMI. no rhinorrhea. MMM, OP benign. Neck is supple with no masses or lymphadenopathy, nl ROM, trachea midline LUNGS: CTAB with normal effort CV: tachycardic, regular with no murmurs, gallops, or rubs. ABD: active bowel sounds, soft, nontender and nondistended. No masses. no HSM EXT: no cyanosis, clubbing, or edema MSK: No joint redness or swelling NEURO: CN 2-12 grossly intact. Normal movement of 4 extremities. Normal speech and coordination. slight tremor. DTRs 2-3+ and symmetric orquidea. SKIN: No rashes or open wounds. warm. PSYCH: normal mood and affect, normal thought process, no AH/VH Results Labs 12/09/24 15:50 12/09/24 15:50 Labs: Laboratory Results - last 24 hr 12/09/24 15:50 WBC 10.00 RBC 5.07 Hgb 16.5 Hct 45.6 MCV 90 MCH 32.5 MCHC 36.2 H RDW 11.9 Plt Count 220 MPV 8.7 Immature Gran % 0.3 Neutrophils % 51.2 Lymphocytes % 39.3 Monocytes % 7.6 Eosinophils % 1.1 Basophils % 0.5 Nucleated RBC % 0.0 Absolute Neutrophils 5.12 Absolute Lymphocytes 3.93 H Absolute Monocytes 0.76 Absolute Eosinophils 0.11 Absolute Basophils 0.05 Sodium 144 Potassium 3.5 Chloride 104 Carbon Dioxide 21.8 Anion Gap 18.2 H BUN 11 Creatinine 0.9 Est GFR (CKD-EPI 2020) 115.65 Glucose 93 Calcium 9.2 Magnesium 1.9 Total Bilirubin 0.5 AST 31 ALT 27 Alkaline Phosphatase 77 Total Protein 7.5 Albumin 4.0 Ethyl Alcohol 209.7 H Last Vital Signs Temp 37.2 C 12/09/24 14:59 Pulse 133 H 12/09/24 16:31 Resp 18 12/09/24 16:31 BP 141/86 H 12/09/24 16:31 Pulse Ox 94 12/09/24 16:31 PAWSS Have you Been Recently Intoxicated or Drunk Within the Last 30 days?: Yes Have you Ever Experienced Previous Episodes of Alcohol Withdrawal?: Yes Have you ever Experienced Withdrawal Seizures?: No Have you ever Experienced Delirium Tremens(DT)s?: Yes Have you ever undergone Alcohol Rehabilitation Treatment (i.e, inpt ot outpatient treatment programs)?: Yes Have you ever Experienced Blackouts?: Yes Have you ever Combined Alcohol with other Downers within the last 90 days?: No Have you ever Combined Alcohol with any other Substance of Abuse during the last 90 days?: No Evidence of Increased Autonomic Activity (i.e. HR>120, tremor, sweating, agitation, nausea)?: Yes Result: 6 Time Spent Time spent with Patient: 55-74 minutes Time was spent: preparing to see the patient(eg.review tests), obtaining and/or reviewing separately otained hiistory, ordering medications,tests, procedures, referring, communicating with other health care management specialist, indepentently interpreting results, counseling the patient and care coordination
[2024-12-09] MEDS: Nicotine 14 MG/24 HR PATCH TD (17:18)
[2024-12-09 17:36] LABS: Bilirubin Negative (Negative); Blood Negative (Negative); Clarity Clear (Clear); Glucose 100 mg/dL (Negative); Ketones Trace mg/dL (Negative); Leukocyte Esterase Negative (Negative); Nitrite Negative (Negative); Specific Gravity 1.015 (1.005-1.025); Urobilinogen 0.2 mg/dL (Up to 0.2); pH 6.5 (5-8)
[2024-12-09 17:45] LABS: Bacteria Negative HPF (Negative); C & S Indicated? No; Crystals Negative HPF (Negative); Epithelial Cells Rare HPF (Negative); Mucus Trace (Negative); RBC Negative HPF (0-2); WBC Negative HPF (0-5)
--- NOTE | 2024-12-09 17:48 | W.PC.ACHO ---
Registration Status: Primary Language: Preferred Language: ED Information & Data Chief Complaint ETOHWithdr 12/09/24 15:53 Triage Note Santiago starting 12/05 after 12/09/24 14:59 not drinking for 5 weeks. Last drink 11am today (8-10% abv). PT reports nausea, tremors, anxiety. PT concerned about Hx of substantial ETOH withdrawals . Medical / Surgical History Alcohol withdrawal Hypertension Nicotine use disorder Alcohol use disorder, moderate, in early remission Alcohol withdrawal Stressful life event affecting family Excessive drinking alcohol Most Recent Vital Signs Temperature 37.2 C 12/09/24 14:59 Pulse 128 H 12/09/24 17:40 Pulse 126 H 12/09/24 17:40 Respiratory Rate 14 12/09/24 17:40 Respiratory Pattern Normal 12/09/24 15:59 Blood Pressure 146/111 H 12/09/24 17:30 Blood Pressure Mean 123 12/09/24 17:30 Blood Pressure Position Sitting 12/09/24 14:59 Pulse Oximetry 97 12/09/24 17:40 Oxygen Delivery Method Room Air 12/09/24 14:59 Oxygen Flow Rate 0 12/09/24 14:59 Allergies No Known Allergies Allergy (Verified 12/09/24 15:05) IV IV Catheter Type [Right Peripheral IV Antecubital] IV Catheter Gauge [Right 18 Antecubital] Diet Orders Category Date Time Status Regular/Normal [DIET] Nutrition 12/09/24 Dinner Active Diagnostics 12/09/24 12/09/24 12/09/24 Range/Units 17:20 17:17 16:51 WBC (4.4-10.8) 10^3/uL RBC (4.36-5.78) 10^6/uL Hgb (13.5-17.5) g/dL Hct (40.0-50.0) % MCV (80-95) fL MCH (27.0-33.0) pg MCHC (32.0-36.0) % RDW (11.8-14.1) % Plt Count (130-400) 10^3/uL MPV (8.0-11.0) fL Immature Gran % % Neutrophils % % Lymphocytes % % Monocytes % % Eosinophils % % Basophils % % Nucleated RBC % (0.0-0.3) % Absolute Neutrophils (1.2-6.7) 10^3/uL Absolute Lymphocytes (1.2-3.4) 10^3/uL Absolute Monocytes (0.1-0.8) 10^3/uL Absolute Eosinophils (0.0-0.7) 10^3/uL Absolute Basophils (0.0-0.2) 10^3/uL PT Pending INR Pending Sodium (136-145) mmol/L Potassium (3.5-5.1) mmol/L Chloride (98-107) mmol/L Carbon Dioxide (21.0-32.0) mmol/L Anion Gap (3-11) mmol/L BUN (7-18) mg/dL Creatinine (0.70-1.30) mg/dL Est GFR (CKD-EPI 2020) (mL/min/1.73m2) Glucose (74-106) mg/dL Calcium (8.5-10.1) mg/dL Magnesium (1.8-2.4) mg/dL Total Bilirubin (0.2-1.0) mg/dL AST (15-37) U/L ALT (16-63) U/L Alkaline Phosphatase (46-116) U/L Total Protein (6.4-8.2) g/dL Albumin (3.4-5.0) g/dL Urine Color Yellow (Yellow) Urine Clarity Clear (Clear) Urine pH 6.5 (5-8) Ur Specific [place] 1.015 (1.005-1.025) Urine Protein 30 H (Neg-Trace) mg/dL Urine Ketones Trace H (Negative) mg/dL Urine Blood Negative (Negative) Urine Nitrite Negative (Negative) Urine Bilirubin Negative (Negative) Urine Urobilinogen 0.2 (Up to 0.2) mg/dL Ur Leukocyte Esterase Negative (Negative) Urine RBC Negative (0-2) HPF Urine WBC Negative (0-5) HPF Ur Epithelial Cells Rare (Negative) HPF Urine Crystals Negative (Negative) HPF Urine Bacteria Negative (Negative) HPF Urine Mucus Trace (Negative) Ur Culture Indicated? No Urine Glucose 100 H (Negative) mg/dL Urine Opiates Screen Pending Ur Barbiturates Screen Pending Ur Tricyclics Screen Pending Ur Amphetamines Screen Pending U Benzodiazepines Scrn Pending Urine Cocaine Screen Pending Ur THC Screen Pending Ethyl Alcohol (<10) mg/dL 12/09/24 Range/Units 15:50 WBC 10.00 (4.4-10.8) 10^3/uL RBC 5.07 (4.36-5.78) 10^6/uL Hgb 16.5 (13.5-17.5) g/dL Hct 45.6 (40.0-50.0) % MCV 90 (80-95) fL MCH 32.5 (27.0-33.0) pg MCHC 36.2 H (32.0-36.0) % RDW 11.9 (11.8-14.1) % Plt Count 220 (130-400) 10^3/uL MPV 8.7 (8.0-11.0) fL Immature Gran % 0.3 % Neutrophils % 51.2 % Lymphocytes % 39.3 % Monocytes % 7.6 % Eosinophils % 1.1 % Basophils % 0.5 % Nucleated RBC % 0.0 (0.0-0.3) % Absolute Neutrophils 5.12 (1.2-6.7) 10^3/uL Absolute Lymphocytes 3.93 H (1.2-3.4) 10^3/uL Absolute Monocytes 0.76 (0.1-0.8) 10^3/uL Absolute Eosinophils 0.11 (0.0-0.7) 10^3/uL Absolute Basophils 0.05 (0.0-0.2) 10^3/uL PT INR Sodium 144 (136-145) mmol/L Potassium 3.5 (3.5-5.1) mmol/L Chloride 104 (98-107) mmol/L Carbon Dioxide 21.8 (21.0-32.0) mmol/L Anion Gap 18.2 H (3-11) mmol/L BUN 11 (7-18) mg/dL Creatinine 0.9 (0.70-1.30) mg/dL Est GFR (CKD-EPI 2020) 115.65 (mL/min/1.73m2) Glucose 93 (74-106) mg/dL Calcium 9.2 (8.5-10.1) mg/dL Magnesium 1.9 (1.8-2.4) mg/dL Total Bilirubin 0.5 (0.2-1.0) mg/dL AST 31 (15-37) U/L ALT 27 (16-63) U/L Alkaline Phosphatase 77 (46-116) U/L Total Protein 7.5 (6.4-8.2) g/dL Albumin 4.0 (3.4-5.0) g/dL Urine Color (Yellow) Urine Clarity (Clear) Urine pH (5-8) Ur Specific [place] (1.005-1.025) Urine Protein (Neg-Trace) mg/dL Urine Ketones (Negative) mg/dL Urine Blood (Negative) Urine Nitrite (Negative) Urine Bilirubin (Negative) Urine Urobilinogen (Up to 0.2) mg/dL Ur Leukocyte Esterase (Negative) Urine RBC (0-2) HPF Urine WBC (0-5) HPF Ur Epithelial Cells (Negative) HPF Urine Crystals (Negative) HPF Urine Bacteria (Negative) HPF Urine Mucus (Negative) Ur Culture Indicated? Urine Glucose (Negative) mg/dL Urine Opiates Screen Ur Barbiturates Screen Ur Tricyclics Screen Ur Amphetamines Screen U Benzodiazepines Scrn Urine Cocaine Screen Ur THC Screen Ethyl Alcohol 209.7 H (<10) mg/dL Intake and Output - 24 Hour Total 12/09/24 14:50 thru 12/09/24 14:59 Weight 65.771 kg Falls Risk Assessment History of Falls No History 12/09/24 15:03 Contributing Factors No Factors 12/09/24 15:03 Ambulatory Aids Independent 12/09/24 15:03 Tubes/Lines None 12/09/24 15:03 Gait Evaluation No gait disturbance 12/09/24 15:03 Cognition No cognitive impairment 12/09/24 15:03 Fall Total Score 0 12/09/24 15:03 Level of Risk Standard/Low Risk 12/09/24 15:03 Problems (Last Reviewed 12/09/24 @ 17:13 by Samir Mcclelland) DVT prophylaxis (Acute) Alcohol use disorder (Chronic) Depression (Chronic) v v v v v v v v v Sending and/or Receiving Nurses: Please use comment section below to note any information pertinent to the patient hand-off not included above. Information / Com Head to toe physical assessment benign other than some anxiety, headache, and light sensitivity. Phenobarital loading dose #1 just finishing up. All questions answered. Report received from: Catherine Wood RN
[2024-12-09 17:51] LABS: *AMPHETAMINES SCREEN URINE Negative (Negative); *BARBITURATES SCREEN URINE Negative (Negative); *BENZODIAZEPINES SCREEN URINE Negative (Negative); Cannabinoids THC Negative (Negative); Cocaine Screen,Urine Negative (Negative); METHADONE URINE SCREEN Negative (Negative); OPIATES URINE SCREEN Negative (Negative)
[2024-12-09 17:53] LABS: Tricyclic Antidepressants Negative (Negative)
[2024-12-09] MEDS: MAGNESIUM SULFATE 8.12 MEQ, MULTIVITAMIN 10 ML, THIAMINE 100 MG, FOLIC ACID 1 MG in Nor... 168.867 MG IV (19:19)
[2024-12-09] MEDS: Normal Saline Flush 10 ML SYR IVP (20:14)
[2024-12-09] MEDS: Venlafaxine 75 MG CAPCR PO (20:23)
[2024-12-09 21:15] LABS: Prothrombin Time 9.9 sec (9.1-11.1)
[2024-12-10] VITALS (37 sets, daily range): BP systolic 129–183; BP diastolic 73–132; PULSE 84–127; RESP 13–25; TEMP 36.6–37.7; O2SAT 62–99
[2024-12-10 07:07] LABS: Abs Immature Grans 0.02 10^3/uL (0.0-0.06); Absolute Basophil Count 0.03 10^3/uL (0.0-0.2); Absolute Eosinophil Count 0.07 10^3/uL (0.0-0.7); Absolute Lymphocyte Count 1.21 10^3/uL (1.2-3.4); Absolute Monocyte Count 0.76 10^3/uL (0.1-0.8); Absolute Neutrophil Count 6.06 10^3/uL (1.2-6.7); Basophils % 0.4 %; Eosinophils % 0.9 %; HCT 42.3 % (40.0-50.0); HGB 15.3 g/dL (13.5-17.5); Immature Grans % 0.2 %; Lymphocytes % 14.8 %; MCH 32.4 pg (27.0-33.0); MCHC 36.2 % (32.0-36.0); MCV 90 fL (80-95); MPV 9.1 fL (8.0-11.0); Monocytes % 9.3 %; Neutrophils % 74.4 %; Platelet Count 184 10^3/uL (130-400); RBC 4.72 10^6/uL (4.36-5.78); RDW 11.9 % (11.8-14.1); RDW-SD 38.8 fL; WBC 8.15 10^3/uL (4.4-10.8)
[2024-12-10 07:32] LABS: ALT 24 U/L (16-63); AST 24 U/L (15-37); Albumin 3.6 g/dL (3.4-5.0); Alkaline Phosphatase 70 U/L (46-116); Anion Gap 9.7 mmol/L (3-11); BUN 8 mg/dL (7-18); Bilirubin, Direct 0.3 mg/dL (0.0-0.2); Bilirubin, Total 1.8 mg/dL (0.2-1.0); CO2 26.3 mmol/L (21.0-32.0); CREATININE 0.7 mg/dL (0.70-1.30); Calcium 8.9 mg/dL (8.5-10.1); Chloride 103 mmol/L (98-107); Estimated GFR 124.77 (mL/min/1.73m2); Glucose 98 mg/dL (74-106); Magnesium 1.9 mg/dL (1.8-2.4); Potassium 3.6 mmol/L (3.5-5.1); Sodium 139 mmol/L (136-145); Total Protein 6.8 g/dL (6.4-8.2)
[2024-12-10] MEDS: Sertraline 50 MG TAB 100 MG PO (09:01)
[2024-12-10] MEDS: amLODIPine 10 MG TAB PO (09:02)
[2024-12-10] MEDS: Folic Acid 1 MG TAB PO (09:02)
[2024-12-10] MEDS: Multivitamin TAB 1 TAB PO (09:02)
[2024-12-10] MEDS: Thiamine 100 MG TAB PO (09:02)
[2024-12-10] MEDS: Normal Saline Flush 10 ML SYR IVP ×4 (09:04→19:31)
[2024-12-10] MEDS: PHENobarbital 130 MG/ML VIAL IVP ×5 (09:14→20:58)
--- NOTE | 2024-12-10 10:14 | PDOC.CMIN ---
Care Management Initial Assmt Initial Assessment Reason for Hospitalization: ETOH Withdrawal Functional Status/Living Situation Patient Presentation: Sanjiv was awake and lying in bed when CM met with him. He reports that things have been going well since he discharged on 10/26. He is still working at [employer] and meeting with a therapist. He has an appointment at [facility] at [employer] next week. He had been taking Antabuse with good results, until Saturday morning when he decided to drink. He is still living at home with his parents, but actively looking for an apartment of his own. Sanjiv met with the [facility] in the ER, and they came back again today. He is planning on meeting with them again when he feels a little better. Town of Residence: [facility] Resides with: Parent (Mirella and Dr. Baron) Significant Other/Family: [facility] Employment Status: Employed Instrumental Activities of Daily Living (ADLs): Independent Medications Medication Management: No Issues/Barriers identified Physical Functioning/Mobility Assistive Device: None Advance Directives Advance Directives: Do you have an Advance Directive: N 05/20/22 16:50 AD On File at [facility]: N 10/27/12 21:17 Date Asked 12/09/24 12/09/24 15:43 AD Date Reviewed COLST On File at [facility] No 09/28/24 21:15 COLST Date Scanned Code Status Resuscitation Status Full Code Insurance Coverage/Financial Issues Insurance: Medicaid Care Team Visit Care Team Role Provider Type Tara Humphreys NP Primary Care Provider NURSE PRACTITIONER Julita Olivares MD Emergency Provider [facility] STAFF PHYSICIAN Samir Mcclelland Admit Provider [facility] STAFF PHYSICIAN Attending Provider Discharge Potential Discharge Needs: PCP F/U Appt Anticipated Barriers to Discharge: None Identified Patient/Family Education Needs: Review discharge instructions, discuss Ask Me Three Transportation: Private vehicle Plan: Anticipate, Sanjiv will discharge home via private vehicle with family when medically cleared for discharge. Discharge recommendations are likely to include: Follow up with PCP, [facility] and discharge plan of care as directed. No new services will be ordered prior to discharge. CM did recommend that he reach out to his employee assistance program for free support and resources. Social Determinants of Health Screening Will the Patient Participate in the Screening?: Declined to provide PFSH All Active Problems (Updated 12/10/24 @ 11:15 by Samir Mcclelland) Elevated bilirubin (Acute) DVT prophylaxis (Acute) Alcohol withdrawal (Acute) Tachycardia (Acute) Alcohol use disorder (Chronic) Hepatic steatosis (Acute ~12/2023) [place] Bilateral ocular hypertension (Chronic) Sleeping difficulty (Acute) RX Trazodone Elevated BP without diagnosis of hypertension (Acute) alcohol-related Depression (Chronic) Venlafaxine; counselor Anxiety (Chronic) did not respond to low dose sertraline 01/11/11, failed Mirtazepine Medical History Alcohol withdrawal Hypertension Alcohol use disorder, moderate, in early remission Alcohol withdrawal Stressful life event affecting family Sister's illness/diagnosis Excessive drinking alcohol Reviewed norms Nicotine use disorder 16yo started 0.5-1PPD Family History Mother Breast cancer Pre-menopausal; has occurred x2 Asthma Heart disease [place] Father , , Winter 2019 Cancer lung Diabetes Sister Scleroderma Breast cancer Dx'ed mid 30s Paternal Uncle Scleroderma Social History (Updated 12/09/24 @ 17:33 by Samir Mcclelland) Smoking/Tobacco Use Status: Current every day Tobacco Type: cigarettes Tobacco: How many years used: 8 Quit status: considering quitting Smoking risk assessment performed?: Yes Alcohol Intake: current Alcohol Intake frequency: 3 or more drinks per day Alcohol type: wine and hard liquor Drug use: Never Substance use type: marijuana Adopted: No Caregiver/Support person: No Foster care: No Household members: family Housing: house Number of Children: 0 number of grandchildren: 0 Communication Needs: None Education Level: high school Do you need help understanding health information?: Rarely 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: Working for [employer] on [employer] Pets and animals: No Sexually active: Yes Do you think of yourself as: straight/heterosexual Current gender identity: male What is your relationship status?: refused to answer How often do you talk on the phone with friends or family?: three or more times per week How often do you get together with friends or relatives?: three or more times per week Do you belong to any clubs or organized social groups?: no Panel score (0-1 are the most socially isolated patients): 1 What type of physical activity do you participate in: walking Duration: > 90 minutes/day Frequency: 5-6 times per week Laina/Rastafari: None Special laina needs: No Seatbelt use: always Helmet use: Yes Helmet use: always Drive intox or ride w/intox driver license examiner: No Do you feel safe at home: Yes Do you feel safe in your relationship?: Yes
--- NOTE | 2024-12-10 11:10 | W.PM.PROGNOT ---
Date of Service Date of service: 12/23/24 Time of Service: 11:10 Assessment and Plan Assessment and plan (1) Alcohol withdrawal: Assessment and plan: Multiple admissions, treated succesfully with phenobarbital in the past. Some reported h/o DTs but no seizures. Started on phenobarbital protocol in ED after intitial 2mg of lorazepam. Still has room for PRN doses ICU admission for close monitoring, given he hasn't been scoring high we can downgrade to MS status. If remains anxious after phenobarbital can use prn clonidine. AG closed, no signs alcohol ketosis (2) Alcohol use disorder: Status: Chronic Assessment and plan: He has engaged with medical and behavioral health resources, including IOP, therapist, etiquette coach, continue to encourage engagement. He did have a month without using alcohol after last admission, which is encouraging Was given disulfuram, hold this, reconsider at discharge vs alternative agents. (3) Depression: Status: Chronic Assessment and plan: Continue outpatient therapy (on cross taper onto sertraline, off venlafaxine now), follow as outpatient (4) Nicotine use disorder: Assessment and plan: NRT prn, encourage cessation. (5) Hypertension: Assessment and plan: Recent increase amlodipine dose to 10mg on 12/03. Hard to titrate when off/on alcohol. Continue the 10mg for now, BPs have been high. (6) DVT prophylaxis: Status: Acute Assessment and plan: Low risk with age, mobility. Early ambulation, reconsider if not moving. (7) Elevated bilirubin: Status: Acute Assessment and plan: increase from admission, mild, other LFTs okay. follow. Subjective Subjective Patient reports: no new complaints, voiding w/o difficulty and nausea; denies diarrhea, vomiting or shortness of breath Interval history since last seen: Events: On CIWA scoring 6-7 overnight He still doesn't feel great, but better than when he came in. Feeling hot/cold. not much appetite. He is drinking. Exam Narrative Exam Narrative: GEN: Alert and oriented x 4, anxious, but NAD LUNGS: CTAB with normal effort CV: tachycardic, regular with no murmurs, gallops, or rubs. ABD: active bowel sounds, soft, nontender and nondistended. No masses. no HSM EXT: no cyanosis, clubbing, or edema NEURO: no tremor PSYCH: mildly anxious mood and affect, normal thought process, no AH/VH Objective Last Vital Signs Temp 36.7 C 12/10/24 08:59 Pulse 105 H 12/10/24 09:00 Resp 14 12/10/24 09:00 BP 183/115 H 12/10/24 09:00 Pulse Ox 99 12/10/24 08:56 Laboratory Results - last 24 hr 12/09/24 12/09/24 12/09/24 15:50 17:17 17:20 WBC 10.00 RBC 5.07 Hgb 16.5 Hct 45.6 MCV 90 MCH 32.5 MCHC 36.2 H RDW 11.9 Plt Count 220 MPV 8.7 Immature Gran % 0.3 Neutrophils % 51.2 Lymphocytes % 39.3 Monocytes % 7.6 Eosinophils % 1.1 Basophils % 0.5 Nucleated RBC % 0.0 Absolute Neutrophils 5.12 Absolute Lymphocytes 3.93 H Absolute Monocytes 0.76 Absolute Eosinophils 0.11 Absolute Basophils 0.05 PT INR Sodium 144 Potassium 3.5 Chloride 104 Carbon Dioxide 21.8 Anion Gap 18.2 H BUN 11 Creatinine 0.9 Est GFR (CKD-EPI 2020) 115.65 Glucose 93 Calcium 9.2 Magnesium 1.9 Total Bilirubin 0.5 Conjugated Bilirubin AST 31 ALT 27 Alkaline Phosphatase 77 Total Protein 7.5 Albumin 4.0 Urine Color Yellow Urine Clarity Clear Urine pH 6.5 Ur Specific [place] 1.015 Urine Protein 30 H Urine Ketones Trace H Urine Blood Negative Urine Nitrite Negative Urine Bilirubin Negative Urine Urobilinogen 0.2 Ur Leukocyte Esterase Negative Urine RBC Negative Urine WBC Negative Ur Epithelial Cells Rare Urine Crystals Negative Urine Bacteria Negative Urine Mucus Trace Ur Culture Indicated? No Urine Glucose 100 H Urine Opiates Screen Negative Urine Methadone Screen Negative Ur Barbiturates Screen Negative Ur Tricyclics Screen Negative Ur Amphetamines Screen Negative U Benzodiazepines Scrn Negative Urine Cocaine Screen Negative Ur THC Screen Negative Ethyl Alcohol 209.7 H 12/09/24 12/10/24 20:45 05:50 WBC 8.15 RBC 4.72 Hgb 15.3 Hct 42.3 MCV 90 MCH 32.4 MCHC 36.2 H RDW 11.9 Plt Count 184 MPV 9.1 Immature Gran % 0.2 Neutrophils % 74.4 Lymphocytes % 14.8 Monocytes % 9.3 Eosinophils % 0.9 Basophils % 0.4 Nucleated RBC % 0.0 Absolute Neutrophils 6.06 Absolute Lymphocytes 1.21 Absolute Monocytes 0.76 Absolute Eosinophils 0.07 Absolute Basophils 0.03 PT 9.9 INR 1.0 Sodium 139 Potassium 3.6 Chloride 103 Carbon Dioxide 26.3 Anion Gap 9.7 BUN 8 Creatinine 0.7 Est GFR (CKD-EPI 2020) 124.77 Glucose 98 Calcium 8.9 Magnesium 1.9 Total Bilirubin 1.8 H Conjugated Bilirubin 0.3 H AST 24 ALT 24 Alkaline Phosphatase 70 Total Protein 6.8 Albumin 3.6 Urine Color Urine Clarity Urine pH Ur Specific [place] Urine Protein Urine Ketones Urine Blood Urine Nitrite Urine Bilirubin Urine Urobilinogen Ur Leukocyte Esterase Urine RBC Urine WBC Ur Epithelial Cells Urine Crystals Urine Bacteria Urine Mucus Ur Culture Indicated? Urine Glucose Urine Opiates Screen Urine Methadone Screen Ur Barbiturates Screen Ur Tricyclics Screen Ur Amphetamines Screen U Benzodiazepines Scrn Urine Cocaine Screen Ur THC Screen Ethyl Alcohol PAWSS Have you Been Recently Intoxicated or Drunk Within the Last 30 days?: Yes Have you Ever Experienced Previous Episodes of Alcohol Withdrawal?: Yes Have you ever Experienced Withdrawal Seizures?: No Have you ever Experienced Delirium Tremens(DT)s?: Yes Have you ever undergone Alcohol Rehabilitation Treatment (i.e, inpt ot outpatient treatment programs)?: Yes Have you ever Experienced Blackouts?: Yes Have you ever Combined Alcohol with other Downers within the last 90 days?: No Have you ever Combined Alcohol with any other Substance of Abuse during the last 90 days?: No Evidence of Increased Autonomic Activity (i.e. HR>120, tremor, sweating, agitation, nausea)?: Yes Result: 6 Time Spent with Patient Time Spent with Patient: 35-49 minutes Time was spent: preparing to see the patient(eg.review tests), obtaining and/or reviewing separately otained hiistory, ordering medications,tests, procedures, referring, communicating with other health cna caregiver, indepentently interpreting results, counseling the patient and care coordination
--- NOTE | 2024-12-10 12:30 | W.PC.ACHO ---
Registration Status: Primary Language: Preferred Language: ED Information & Data Chief Complaint ETOHWithdr 12/09/24 15:53 Triage Note Santiago starting 12/05 after 12/09/24 14:59 not drinking for 5 weeks. Last drink 11am today (8-10% abv). PT reports nausea, tremors, anxiety. PT concerned about Hx of substantial ETOH withdrawals . Medical / Surgical History Alcohol withdrawal Hypertension Nicotine use disorder Alcohol use disorder, moderate, in early remission Alcohol withdrawal Stressful life event affecting family Excessive drinking alcohol Most Recent Vital Signs Temperature 36.7 C 12/10/24 08:59 Temperature Source Temporal Artery Scan 12/10/24 08:59 Pulse 120 H 12/10/24 12:00 Pulse 117 H 12/10/24 12:00 Respiratory Rate 18 12/10/24 12:00 Respiratory Pattern Normal 12/09/24 15:59 Blood Pressure 173/132 H 12/10/24 12:00 Blood Pressure Mean 144 12/10/24 12:00 Blood Pressure Position Sitting 12/09/24 14:59 Pulse Oximetry 97 12/10/24 12:00 Oxygen Delivery Method Room Air 12/10/24 08:59 Oxygen Flow Rate 0 12/10/24 08:59 Pain Level 0 12/10/24 12:07 Allergies No Known Allergies Allergy (Verified 12/09/24 15:05) Active Medications Generic Name Dose Route Start Last Admin Trade Name Freq PRN Reason Stop Dose Admin Amlodipine Besylate 10 mg 12/10/24 08:30 12/10/24 09:02 Amlodipine 10 Mg Tab PO 10 mg DAILY MELODY Administration Folic Acid 1 mg 12/10/24 08:30 12/10/24 09:02 Folic Acid 1 Mg Tab PO 12/16/24 08:31 1 mg QAM MELODY Administration Multivitamins 1 tab 12/10/24 08:30 12/10/24 09:02 Multivitamin Tab PO 12/16/24 08:31 1 tab QAM MELODY Administration Phenobarbital Sodium 130 mg 12/10/24 08:23 12/10/24 11:39 Phenobarbital 130 Mg/Ml Vial IVP 130 mg DIRECTED PRN Administration for mild anxiety/agitation Sertraline HCl 100 mg 12/10/24 08:30 12/10/24 09:01 Sertraline 50 Mg Tab PO 100 mg DAILY MELODY Administration Sodium Chloride 0 ml 12/09/24 15:25 12/10/24 11:39 Normal Saline Flush 10 Ml Syr IVP 20 ml PRN PRN Administration Sodium Chloride 0 ml 12/09/24 20:00 12/10/24 09:04 Normal Saline Flush 10 Ml Syr IVP 20 ml BID MELODY Administration Thiamine HCl 100 mg 12/10/24 08:30 12/10/24 09:02 Thiamine 100 Mg Tab PO 12/16/24 08:31 100 mg QAM MELODY Administration Venlafaxine HCl 75 mg 12/09/24 20:00 12/09/24 20:23 Venlafaxine 75 Mg Capcr PO 75 mg HS MELODY Administration IV IV Catheter Type [Left Forearm Saline Lock ] IV Catheter Type [Right Saline Lock Antecubital] IV Catheter Gauge [Left 20 Forearm] IV Catheter Gauge [Right 18 Antecubital] Diagnostics 12/10/24 12/09/24 12/09/24 Range/Units 05:50 20:45 17:20 WBC 8.15 (4.4-10.8) 10^3/uL RBC 4.72 (4.36-5.78) 10^6/uL Hgb 15.3 (13.5-17.5) g/dL Hct 42.3 (40.0-50.0) % MCV 90 (80-95) fL MCH 32.4 (27.0-33.0) pg MCHC 36.2 H (32.0-36.0) % RDW 11.9 (11.8-14.1) % Plt Count 184 (130-400) 10^3/uL MPV 9.1 (8.0-11.0) fL Immature Gran % 0.2 % Neutrophils % 74.4 % Lymphocytes % 14.8 % Monocytes % 9.3 % Eosinophils % 0.9 % Basophils % 0.4 % Nucleated RBC % 0.0 (0.0-0.3) % Absolute Neutrophils 6.06 (1.2-6.7) 10^3/uL Absolute Lymphocytes 1.21 (1.2-3.4) 10^3/uL Absolute Monocytes 0.76 (0.1-0.8) 10^3/uL Absolute Eosinophils 0.07 (0.0-0.7) 10^3/uL Absolute Basophils 0.03 (0.0-0.2) 10^3/uL PT 9.9 (9.1-11.1) sec INR 1.0 (0.9-1.1) Sodium 139 (136-145) mmol/L Potassium 3.6 (3.5-5.1) mmol/L Chloride 103 (98-107) mmol/L Carbon Dioxide 26.3 (21.0-32.0) mmol/L Anion Gap 9.7 (3-11) mmol/L BUN 8 (7-18) mg/dL Creatinine 0.7 (0.70-1.30) mg/dL Est GFR (CKD-EPI 2020) 124.77 (mL/min/1.73m2) Glucose 98 (74-106) mg/dL Calcium 8.9 (8.5-10.1) mg/dL Magnesium 1.9 (1.8-2.4) mg/dL Total Bilirubin 1.8 H (0.2-1.0) mg/dL Conjugated Bilirubin 0.3 H (0.0-0.2) mg/dL AST 24 (15-37) U/L ALT 24 (16-63) U/L Alkaline Phosphatase 70 (46-116) U/L Total Protein 6.8 (6.4-8.2) g/dL Albumin 3.6 (3.4-5.0) g/dL Urine Color (Yellow) Urine Clarity (Clear) Urine pH (5-8) Ur Specific [place] (1.005-1.025) Urine Protein (Neg-Trace) mg/dL Urine Ketones (Negative) mg/dL Urine Blood (Negative) Urine Nitrite (Negative) Urine Bilirubin (Negative) Urine Urobilinogen (Up to 0.2) mg/dL Ur Leukocyte Esterase (Negative) Urine RBC (0-2) HPF Urine WBC (0-5) HPF Ur Epithelial Cells (Negative) HPF Urine Crystals (Negative) HPF Urine Bacteria (Negative) HPF Urine Mucus (Negative) Ur Culture Indicated? Urine Glucose (Negative) mg/dL Urine Opiates Screen Negative (Negative) Urine Methadone Screen Negative (Negative) Ur Barbiturates Screen Negative (Negative) Ur Tricyclics Screen Negative (Negative) Ur Amphetamines Screen Negative (Negative) U Benzodiazepines Scrn Negative (Negative) Urine Cocaine Screen Negative (Negative) Ur THC Screen Negative (Negative) Ethyl Alcohol (<10) mg/dL 12/09/24 12/09/24 Range/Units 17:17 15:50 WBC 10.00 (4.4-10.8) 10^3/uL RBC 5.07 (4.36-5.78) 10^6/uL Hgb 16.5 (13.5-17.5) g/dL Hct 45.6 (40.0-50.0) % MCV 90 (80-95) fL MCH 32.5 (27.0-33.0) pg MCHC 36.2 H (32.0-36.0) % RDW 11.9 (11.8-14.1) % Plt Count 220 (130-400) 10^3/uL MPV 8.7 (8.0-11.0) fL Immature Gran % 0.3 % Neutrophils % 51.2 % Lymphocytes % 39.3 % Monocytes % 7.6 % Eosinophils % 1.1 % Basophils % 0.5 % Nucleated RBC % 0.0 (0.0-0.3) % Absolute Neutrophils 5.12 (1.2-6.7) 10^3/uL Absolute Lymphocytes 3.93 H (1.2-3.4) 10^3/uL Absolute Monocytes 0.76 (0.1-0.8) 10^3/uL Absolute Eosinophils 0.11 (0.0-0.7) 10^3/uL Absolute Basophils 0.05 (0.0-0.2) 10^3/uL PT (9.1-11.1) sec INR (0.9-1.1) Sodium 144 (136-145) mmol/L Potassium 3.5 (3.5-5.1) mmol/L Chloride 104 (98-107) mmol/L Carbon Dioxide 21.8 (21.0-32.0) mmol/L Anion Gap 18.2 H (3-11) mmol/L BUN 11 (7-18) mg/dL Creatinine 0.9 (0.70-1.30) mg/dL Est GFR (CKD-EPI 2020) 115.65 (mL/min/1.73m2) Glucose 93 (74-106) mg/dL Calcium 9.2 (8.5-10.1) mg/dL Magnesium 1.9 (1.8-2.4) mg/dL Total Bilirubin 0.5 (0.2-1.0) mg/dL Conjugated Bilirubin (0.0-0.2) mg/dL AST 31 (15-37) U/L ALT 27 (16-63) U/L Alkaline Phosphatase 77 (46-116) U/L Total Protein 7.5 (6.4-8.2) g/dL Albumin 4.0 (3.4-5.0) g/dL Urine Color Yellow (Yellow) Urine Clarity Clear (Clear) Urine pH 6.5 (5-8) Ur Specific [place] 1.015 (1.005-1.025) Urine Protein 30 H (Neg-Trace) mg/dL Urine Ketones Trace H (Negative) mg/dL Urine Blood Negative (Negative) Urine Nitrite Negative (Negative) Urine Bilirubin Negative (Negative) Urine Urobilinogen 0.2 (Up to 0.2) mg/dL Ur Leukocyte Esterase Negative (Negative) Urine RBC Negative (0-2) HPF Urine WBC Negative (0-5) HPF Ur Epithelial Cells Rare (Negative) HPF Urine Crystals Negative (Negative) HPF Urine Bacteria Negative (Negative) HPF Urine Mucus Trace (Negative) Ur Culture Indicated? No Urine Glucose 100 H (Negative) mg/dL Urine Opiates Screen (Negative) Urine Methadone Screen (Negative) Ur Barbiturates Screen (Negative) Ur Tricyclics Screen (Negative) Ur Amphetamines Screen (Negative) U Benzodiazepines Scrn (Negative) Urine Cocaine Screen (Negative) Ur THC Screen (Negative) Ethyl Alcohol 209.7 H (<10) mg/dL Intake and Output - 24 Hour Total 12/09/24 14:50 thru 12/10/24 08:07 Intake Total 1894.4308 Output Total 700 Balance 1194.4308 Weight 69.2 kg Intake: IV 1064.4308 Oral 830 Output: Urine 700 Falls Risk Assessment History of Falls No History 12/09/24 15:03 Contributing Factors No Factors 12/09/24 15:03 Ambulatory Aids Independent 12/09/24 15:03 Tubes/Lines None 12/09/24 15:03 Gait Evaluation No gait disturbance 12/09/24 15:03 Cognition No cognitive impairment 12/09/24 15:03 Fall Total Score 0 12/09/24 15:03 Level of Risk Standard/Low Risk 12/09/24 15:03 Problems (Last Reviewed 12/09/24 @ 17:13 by Samir Mcclelland) Elevated bilirubin (Acute) DVT prophylaxis (Acute) Alcohol use disorder (Chronic) Depression (Chronic) v v v v v v v v v Sending and/or Receiving Nurses: Please use comment section below to note any information pertinent to the patient hand-off not included above. Information / Comments: Report received from:Pritesh SANON
[2024-12-10] MEDS: Venlafaxine 75 MG CAPCR PO (19:30)
[2024-12-10] MEDS: cloNIDine 0.1 MG TAB PO (19:30)
[2024-12-10] MEDS: traZODone 50 MG TAB PO (20:55)
[2024-12-11] VITALS (7 sets, daily range): BP systolic 129–168; BP diastolic 96–111; PULSE 112–150; RESP 14–20; TEMP 36.9–37.1; O2SAT 96–98
--- NOTE | 2024-12-11 06:15 | RT.EKG_ITS ---
APPROVED REPORT Exam: Resting ECG Reason for Exam: ST changes per telemetry Patient Location: I HR:106 bpm ECG Measurements Heart Rate 106 AXIS NV 127 P 66 QRSd 69 QRS 63 QT 323 T 53 QTc 429 Conclusion Sinus tachycardia...rate> 99 ST elev, probable normal early repol pattern...ST elevation, age<55
[2024-12-11 06:22] LABS: ALT 26 U/L (16-63); AST 22 U/L (15-37); Albumin 3.6 g/dL (3.4-5.0); Alkaline Phosphatase 80 U/L (46-116); Anion Gap 10.7 mmol/L (3-11); BUN 10 mg/dL (7-18); Bilirubin, Total 1.3 mg/dL (0.2-1.0); CO2 25.3 mmol/L (21.0-32.0); CREATININE 0.8 mg/dL (0.70-1.30); Calcium 9.5 mg/dL (8.5-10.1); Chloride 102 mmol/L (98-107); Estimated GFR 119.84 (mL/min/1.73m2); Glucose 104 mg/dL (74-106); Potassium 3.4 mmol/L (3.5-5.1); Sodium 138 mmol/L (136-145); Total Protein 6.9 g/dL (6.4-8.2)
[2024-12-11] MEDS: Thiamine 100 MG TAB PO (07:33)
[2024-12-11] MEDS: Sertraline 50 MG TAB 100 MG PO (07:33)
[2024-12-11] MEDS: Multivitamin TAB 1 TAB PO (07:33)
[2024-12-11] MEDS: amLODIPine 10 MG TAB PO (07:34)
[2024-12-11] MEDS: Normal Saline Flush 10 ML SYR IVP (07:34)
[2024-12-11] MEDS: Folic Acid 1 MG TAB PO (07:34)
[2024-12-11] MEDS: cloNIDine 0.1 MG TAB PO (08:57)
[2024-12-11] MEDS: PHENobarbital 130 MG/ML VIAL IVP (09:45)
[2024-12-11] MEDS: Metoprolol 25 MG TAB PO (10:39)
[2024-12-11] MEDS: Potassium Chloride 20 MEQ TABCR 40 MEQ PO (11:01)
--- NOTE | 2024-12-11 11:51 | CHAPLAIN ---
Sanjiv was resting in bed when I visited this morning. He said he's likely being discharged in a few hours, and feels ready to do that. He's been here a few days and said he'd like to get home and take a shower. I explained my role and offered support.
--- NOTE | 2024-12-11 11:54 | DSE_ITS ---
Date of service: 12/11/24 Time of Service: 11:54 DS: Diagnosis Discharge Diagnosis (1) Alcohol withdrawal: (2) Alcohol use disorder: Status: Chronic (3) Depression: Status: Chronic (4) Nicotine use disorder: (5) Hypertension: (6) DVT prophylaxis: Status: Acute (7) Elevated bilirubin: Status: Acute Discharge Plan Disposition Patient Disposition: Home Condition: Improving Discharge Details Reason For Visit: Alcohol Withdrawel Admit Date/Time: 12/09/24 16:49 Admit Provider: Samir Mcclelland Attending Provider: Samir Mcclelland Primary Care Provider: Tara Humphreys Hospital Course Hospital Course: 34 yo M with alcohol use disorder, HTN, recent admissions 10/25-10/26/24 and 10/13- at [facility] for alcohol withdrawal, treated with phenobarbital protocol, who recently relapses to heavy alcohol use and presented today requesting assistance with withdrawal. He was admitted and treated with the phenobarbital protocol. He was observed overnight in the ICU, but was stable and downgraded to floor status 12/10. He had tachycardia with activity to around 150bpm. EKG confirmed sinus. He did not have chest pain or palpitations. He stated he gets this commonly for 2 weeks after getting off alcohol. He did have a nicotene patch for nicotene withdrawal. Blood pressure was elevated as well despite his amlodipine. He was given metoprolol 25mg, can take short term or PRN for tachycardia. He had a new mild bump in his bilirubin to 1.8 which improved to 1.3. His potassium was mildly low and was supplemented He has good support outpatient including a counselor. He had stopped his disulfuram weeks prior to his relapse. We discussed options and he would like to try naltrexone along with the disulfuram. Observed disulfuram therapy was recommended. The patient's antidepressants were in transition and were continued. He did mention he drinks not when depressed or due to cravings but when he feels great, which does suggest he may benefit from a mood stabilizer, but this was deferred to outpatient. PCP follow up: Follow up with counselor this week, PCP as planned repeat bilirubin non-urgently Assess response/tolerability/adherence to medications Home Meds and New Rx's Prescriptions: New nicotine 14 mg/24 hr Patch 24 Hour 14 mg transdermal DAILY PRN PRNQty: 30 0RF metoprolol tartrate 25 mg Tablet 25 mg PO BID 30 Days Qty: 60 0RF naltrexone 50 mg tablet 50 mg PO DAILY Qty: 30 3RF Continued trazodone 50 mg tablet See Rx Instructions PO QHS PRN (Reason: sleep) Qty: 40 0RF Rx Instructions: 25-50mg bedtime for sleep difficulty, may repeat 50mg x1 if first dose ineffective for max nightly dose 100mg PO every day at bedtime PRN; amlodipine 10 mg tablet 10 mg PO DAILY Qty: 90 3RF Rx Instructions: For BP with goal <140/90 disulfiram 500 mg tablet 500 mg PO DAILY Qty: 30 0RF folic acid 1 mg tablet 1 mg PO DAILY Patient Comments: TAKE ONE TABLET BY MOUTH EVERY DAY venlafaxine 75 mg capsule,extended release 24hr 75 mg PO QPM Patient Comments: TAKE ONE CAPSULE BY MOUTH AT BEDTIME sertraline 100 mg tablet 100 mg PO DAILY Patient Comments: TAKE ONE TABLET BY MOUTH EVERY DAY Discharge Instructions Instructions: Alcohol Use Disorder (DC) Additional Instructions: Try going back on naltrexone along with the disulfuram. I recommend strongly that you have a loved one give you the disulfuram daily for a few months. You can take the metoprolol to help with high heart rate and blood pressure for a couple weeks. Stop if you get low blood pressure, heart rate under 60, or dizziness Good luck and take care! Activity:: Activity as Tolerated Equipment/Supplies:: No Equipment Needed Diet:: As Tolerated Discharge Orders Discharge Orders: Discharge Order (Routine); Ordered 12/11/24 Ordered By: Samir Mcclelland DS: Summary Time Spent with Patient providing and/or coordinating discharge services: Greater than 30 minutes Status at Discharge Functional status at discharge: independent ambulation Overall status at discharge: patient is back to baseline Mental Status: mental status grossly normal Speech and Movement: speech and movement normal Mood: congruent mood Affect: normal affect and anxious affect Quality:SDOH Health Related Social Needs: Health related social needs material hardship(utilitie s) (Z59.12), problems related to housing/economic circumstances (Z59.89), feeling lonely/isolated (Z60.8), education (Z55.6) Exam Narrative Exam Narrative: GEN: Alert and oriented x 4, anxious, but NAD LUNGS: CTAB with normal effort CV: tachycardic, regular with no murmurs, gallops, or rubs. ABD: active bowel sounds, soft, nontender and nondistended. No masses. no HSM EXT: no cyanosis, clubbing, or edema NEURO: no tremor PSYCH: mildly anxious mood and affect, normal thought process, no AH/VH Psych Mental Status: mental status grossly normal Speech and Movement: speech and movement normal Mood: congruent mood Affect: normal affect and anxious affect DS: Data Vitals/I&O Vitals and I&O: Vital Signs Temperature 36.9 C 12/11/24 11:14 Temperature Source Temporal Artery Scan 12/11/24 11:14 Pulse 112 H 12/11/24 11:14 Pulse 117 H 12/10/24 12:00 Respiratory Rate 14 12/11/24 11:14 Respiratory Pattern Normal 12/09/24 15:59 Blood Pressure 129/97 H 12/11/24 11:14 Blood Pressure Mean 144 12/10/24 12:00 Blood Pressure Position Sitting 12/09/24 14:59 Pulse Oximetry 98 12/11/24 11:14 Oxygen Delivery Method Room Air 12/11/24 11:14 Oxygen Flow Rate 0 12/11/24 11:14 Pain Level 0 12/10/24 19:27 Comment RN notified 12/11/24 11:14 Intake & Output 12/10/24 12/10/24 12/11/24 11:59 23:59 11:59 Intake Total 1493.2 / 1595.0462 101.8462 / 1595.0462 Output Total 700 / 700 Balance 793.2 / 895.0462 101.8462 / 895.0462 Weight 69.2 kg 63.911 kg Intake: IV 1013.2 / 1115.0462 101.8462 / 1115.0462 Oral 480 / 480 Output: Urine 700 / 700 Other: Urine Color Yellow Urine Appearance Clear Urine Odor Normal Comment Patient voided ind. in the toilet. pt voided in toilet, unable to measure. no complaints from pt Data Completed and Pending Labs on day of discharge: Labs from last 24 hours 12/11/24 05:58 Sodium 138 Potassium 3.4 L Chloride 102 Carbon Dioxide 25.3 Anion Gap 10.7 BUN 10 Creatinine 0.8 Est GFR (CKD-EPI 2020) 119.84 Glucose 104 Calcium 9.5 Total Bilirubin 1.3 H AST 22 ALT 26 Alkaline Phosphatase 80 Total Protein 6.9 Albumin 3.6 PFSH All Active Problems (Updated 12/10/24 @ 11:15 by Samir Mcclelland) Elevated bilirubin (Acute) DVT prophylaxis (Acute) Alcohol withdrawal (Acute) Tachycardia (Acute) Hepatic steatosis (Acute ~12/2023) [place] Alcohol use disorder (Chronic) Bilateral ocular hypertension (Chronic) Sleeping difficulty (Acute) RX Trazodone Elevated BP without diagnosis of hypertension (Acute) alcohol-related Depression (Chronic) Venlafaxine; counselor Anxiety (Chronic) did not respond to low dose sertraline 01/11/11, failed Mirtazepine Medical History Alcohol withdrawal Hypertension Alcohol use disorder, moderate, in early remission Alcohol withdrawal Stressful life event affecting family Sister's illness/diagnosis Excessive drinking alcohol Reviewed norms Nicotine use disorder 16yo started 0.5-1PPD Family History Mother Breast cancer Pre-menopausal; has occurred x2 Asthma Heart disease [place] Father , COV, Winter 2019 Cancer lung Diabetes Sister Scleroderma Breast cancer Dx'ed mid 30s Paternal Uncle Scleroderma Social History (Updated 12/09/24 @ 17:33 by Samir Mcclelland) Smoking/Tobacco Use Status: Current every day Tobacco Type: cigarettes Tobacco: How many years used: 8 Quit status: considering quitting Smoking risk assessment performed?: Yes Alcohol Intake: current Alcohol Intake frequency: 3 or more drinks per day Alcohol type: wine and hard liquor Drug use: Never Substance use type: marijuana Adopted: No Caregiver/Support person: No Foster care: No Household members: family Housing: house Number of Children: 0 number of grandchildren: 0 Communication Needs: None Education Level: high school Do you need help understanding health information?: Rarely 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 Pets and animals: No Sexually active: Yes Do you think of yourself as: straight/heterosexual Current gender identity: male What is your relationship status?: refused to answer How often do you talk on the phone with friends or family?: three or more times per week How often do you get together with friends or relatives?: three or more times per week Do you belong to any clubs or organized social groups?: no Panel score (0-1 are the most socially isolated patients): 1 What type of physical activity do you participate in: walking Duration: > 90 minutes/day Frequency: 5-6 times per week Laina/Faith: None Special laina needs: No Seatbelt use: always Helmet use: Yes Helmet use: always Drive intox or ride w/intox day haul or farm charter bus driver: No Do you feel safe at home: Yes Do you feel safe in your relationship?: Yes Time Spent with Patient Time Spent with Patient: <45 minutes Time was spent: preparing to see the patient(eg.review tests), obtaining and/or reviewing separately otained hiistory, ordering medications,tests, procedures, referring, communicating with other health primary care pediatrician, indepentently interpreting results, counseling the patient and care coordination
--- NOTE | 2024-12-11 12:20 | CMDISCH_ITS ---
Date of service: 12/11/24 Time of Service: 12:21 LACE Index Scoring Tool Questions: Length of Stay (in days): 2 Was the patient admitted via the E.D.?: Yes E.D. Visits: 6 Answers: Total Score: 9 Risk of Readmission: Low Risk Care Management Discharge Plan Reason for Hospitalization: Alcohol Withdrawal Discharge Plan: Sanjiv will discharge home via private vehicle with family and will have no new services. Sanjiv will follow up with PCP, [facility] and discharge plan of care as directed. Patient/Family Education Needs: Review discharge instructions, activity and limitations. Plan to follow up with community providers. Discuss ask me three. SDOH Health Related Social Needs: Health related social needs material hardship(utilitie s) (Z59.12), problems related to housing/economic circumstances (Z59.89), feeling lonely/isolated (Z60.8), education (Z55.6)
== END 2024-12-11 12:27 | disposition home or self-care (01) | DRG 897 ==
LOC: ER 17:18 → ICU 18:10 → MS 12-10 12:16
PROVIDERS: Admitting Provider Family Medicine; Emergency Provider Emergency Medicine; PCP Nurse Practitioner Adult Health; Visit Provider Family Medicine
DX: F10.930 Alcohol use, unspecified with withdrawal, uncomplicated (principal); K76.0 Fatty (change of) liver, not elsewhere classified; I10 Essential (primary) hypertension; F32.A Depression, unspecified; G47.8 Other sleep disorders; E87.6 Hypokalemia; F12.90 Cannabis use, unspecified, uncomplicated; F17.210 Nicotine dependence, cigarettes, uncomplicated; Z79.899 Other long term (current) drug therapy
CPT/HCPCS: 00123; 36415; 80048; 80053; 80076; 80307; 96365; 96375; 99291; 80320; 81003; 81015; 83735; 85025; 85610; 93005; 93010; 99222; 99232; 99239; J2060; J2560; J3411; J3475

== ENCOUNTER 2024-12-21 21:34 | Inpatient (IN) | payer MEDICAID, SELFPAY ==
[2024-12-21] VITALS (24 sets, daily range): BP systolic 135–204; BP diastolic 95–167; PULSE 101–160; RESP 16–48; O2SAT 93–100
--- NOTE | 2024-12-21 22:00 | RT.EKG_ITS ---
APPROVED REPORT Exam: Resting ECG Reason for Exam: elevated heart rate Patient Location: E HR:132 bpm ECG Measurements Heart Rate 132 AXIS TX 144 P 67 QRSd 80 QRS 69 QT 288 T 53 QTc 426 Conclusion Sinus tachycardia...rate> 99 ST elev, probable normal early repol pattern...ST elevation, age<55 Physician: No stemi
[2024-12-21] MEDS: Lactated Ringers 1,000 ML 1000 ML IV (22:30)
[2024-12-21 22:36] LABS: Abs Immature Grans 0.03 10^3/uL (0.0-0.06); Absolute Basophil Count 0.04 10^3/uL (0.0-0.2); Absolute Eosinophil Count 0.06 10^3/uL (0.0-0.7); Absolute Lymphocyte Count 2.13 10^3/uL (1.2-3.4); Absolute Neutrophil Count 5.94 10^3/uL (1.2-6.7); Basophils % 0.5 %; Eosinophils % 0.7 %; HCT 46.3 % (40.0-50.0); HGB 16.7 g/dL (13.5-17.5); Immature Grans % 0.3 %; Lymphocytes % 24.5 %; MCH 33.2 pg (27.0-33.0); MCHC 36.1 % (32.0-36.0); MCV 92 fL (80-95); MPV 8.2 fL (8.0-11.0); Monocytes % 5.7 %; Neutrophils % 68.3 %; Platelet Count 287 10^3/uL (130-400); RBC 5.03 10^6/uL (4.36-5.78); RDW 12.2 % (11.8-14.1); RDW-SD 41.1 fL
[2024-12-21 22:52] LABS: ALT 30 U/L (16-63); AST 26 U/L (15-37); Albumin 3.8 g/dL (3.4-5.0); Alkaline Phosphatase 82 U/L (46-116); Anion Gap 12.9 mmol/L (3-11); BUN 12 mg/dL (7-18); Bilirubin, Total 0.3 mg/dL (0.2-1.0); CO2 24.1 mmol/L (21.0-32.0); Calcium 8.8 mg/dL (8.5-10.1); Chloride 103 mmol/L (98-107); ETHANOL BLOOD 238.8 mg/dL (<10); Estimated GFR 101.92 (mL/min/1.73m2); Glucose 101 mg/dL (74-106); Lipase 32 U/L (<78); Potassium 3.8 mmol/L (3.5-5.1); Sodium 140 mmol/L (136-145); Total Protein 7.2 g/dL (6.4-8.2)
[2024-12-21] MEDS: LORazepam 20 MG/10 ML VIAL 3 MG IVP (22:53)
[2024-12-21] MEDS: PHENobarbital 180 MG in Normal Saline 50 ML 100 MG IVPB (22:54)
--- NOTE | 2024-12-21 22:58 | ED.GENADUL_ITS ---
Discharge Plan Disposition Patient Disposition: Admit to [facility] Condition: Improving Discharge Details Chief Complaint: Anxiety Clinical Impression: Alcohol use disorder, Anxiety, Alcohol withdrawal Primary Care Provider: Tara Humphreys ED Provider: Rob Rao Home Meds and New Rx's Prescriptions: No Action trazodone 50 mg tablet See Rx Instructions PO QHS PRN (Reason: sleep) Qty: 40 0RF Rx Instructions: 25-50mg bedtime for sleep difficulty, may repeat 50mg x1 if first dose ineffective for max nightly dose 100mg PO every day at bedtime PRN; amlodipine 10 mg tablet 10 mg PO DAILY Qty: 90 3RF Rx Instructions: For BP with goal <140/90 buspirone 15 mg tablet 15 mg PO BID disulfiram 500 mg tablet 500 mg PO DAILY Qty: 30 0RF folic acid 1 mg tablet 1 mg PO DAILY Patient Comments: TAKE ONE TABLET BY MOUTH EVERY DAY venlafaxine 75 mg capsule,extended release 24hr 75 mg PO QPM Patient Comments: TAKE ONE CAPSULE BY MOUTH AT BEDTIME sertraline 100 mg tablet 100 mg PO DAILY Patient Comments: TAKE ONE TABLET BY MOUTH EVERY DAY nicotine 14 mg/24 hr Patch 24 Hour 14 mg transdermal DAILY PRN PRNQty: 30 0RF metoprolol tartrate 25 mg Tablet 25 mg PO BID 30 Days Qty: 60 0RF naltrexone 50 mg tablet 50 mg PO DAILY Qty: 30 3RF HPI General Date/Time Provider Initiated Documentation: 12/21/24 21:35 . HPI Narrative: 34-year-old male with a past medical history of depression, anxiety, alcohol use with a history of severe withdrawals which is compounded by his borderline debilitating anxiety, but no history of seizures, presents today for alcohol use. Patient has had few episodes over the last few years of sobriety and then punctuated episodes of binge drinking, which sometimes are remedied by courses of Librium, however other times require inpatient admission secondary to the severity of his symptoms and the amount of drinking. Patient presents tonight, he states that for the last week he has been drinking for 5 high concentration large alcohol beverages per day at minimum. Last drink was about an hour prior to arrival. He denies homicidal or suicidal ideations, but feels that he needs help to get over this. He is currently scheduled to work at [employer] this evening, but decided to come to the ER as he felt that this was something that he needed to confront and fix. He denies any fever or chills. He notes extreme anxiety, as well as uneasiness. He admits to nausea but no vomiting. No other complaints at this time. He denies any drug use. Related Data Home Medications ?Medication ?Instructions ?Recorded ?Confirmed trazodone 50 mg tablet See Rx Instructions PO QHS PRN 09/10/24 12/21/24 sleep #40 tabs disulfiram 500 mg tablet 500 mg PO DAILY #30 tabs 10/26/24 12/21/24 amlodipine 10 mg tablet 10 mg PO DAILY #90 tabs 12/03/24 12/21/24 folic acid 1 mg tablet 1 mg PO DAILY 12/09/24 12/21/24 venlafaxine 75 mg capsule,extended 75 mg PO QPM 12/09/24 12/21/24 release 24 hr sertraline 100 mg tablet 100 mg PO DAILY 12/10/24 12/21/24 metoprolol tartrate 25 mg tablet 25 mg PO BID 30 days #60 tabs 12/11/24 12/21/24 naltrexone 50 mg tablet 50 mg PO DAILY #30 tabs 12/11/24 12/21/24 nicotine 14 mg/24 hr daily 14 mg transdermal DAILY PRN PRN 12/11/24 12/21/24 transdermal patch #30 ea buspirone 15 mg tablet 15 mg PO BID 12/17/24 12/21/24 Previous Rx's ?Medication ?Instructions ?Recorded trazodone 50 mg tablet See Rx Instructions PO QHS PRN 09/10/24 sleep #40 tabs disulfiram 500 mg tablet 500 mg PO DAILY #30 tabs 10/26/24 amlodipine 10 mg tablet 10 mg PO DAILY #90 tabs 12/03/24 metoprolol tartrate 25 mg tablet 25 mg PO BID 30 days #60 tabs 12/11/24 naltrexone 50 mg tablet 50 mg PO DAILY #30 tabs 12/11/24 nicotine 14 mg/24 hr daily 14 mg transdermal DAILY PRN PRN 12/11/24 transdermal patch #30 ea Allergies Allergy/AdvReac Type Severity Reaction Status Date / Time No Known Allergies Allergy Verified 12/21/24 21:59 General Stated Complaint: Anxiety MOISES: 2 Exam Narrative Exam Narrative: 1.Const: Well-nourished, Well-developed, appearing stated age 2.Eyes: PERRL, no conjunctival injection, and symmetrical lids. 3.ENT: Atraumatic external nose and ears. Dry MM. Neck: Symmetric, trachea midline, No thyromegaly. 4.CVS: +S1/S2, Peripheral pulses 2+ and equal in all extremities. Brisk capillary refill in all extremities. 5.RESP: Unlabored respiratory effort. Clear to auscultation bilaterally. No wheezes rales or rhonchi 6.GI: Soft, Nontender/Nondistended, No hepatosplenomegaly. No guarding or rebound. 7.MSK: Normocephalic/Atraumatic, Extremities w/o deformity or ttp No cyanosis or clubbing, Normal movement of all extremities 8.Skin: Warm, Dry. No rashes or lesions. 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 Sensation grossly intact, no focal neurologic deficits. 10.Psych: (AAO) x3. Tearful, quite anxious, and tremulous Course Vital Signs Vital signs: Vital Signs Pulse 154 H 12/21/24 21:43 Respiratory Rate 24 12/21/24 21:43 Blood Pressure 195/139 H 12/21/24 21:43 Pulse Oximetry 100 12/21/24 21:43 Pulse 154 H 12/21/24 21:43 Respiratory Rate 24 12/21/24 21:52 Respiratory Effort Normal, Non-Labored 12/21/24 21:52 Respiratory Depth Normal 12/21/24 21:52 Respiratory Pattern Normal 12/21/24 21:54 Blood Pressure 195/139 H 12/21/24 21:43 Pulse Oximetry 100 12/21/24 21:43 Oxygen Delivery Method Room Air 12/21/24 21:43 Oxygen Flow Rate 0 12/21/24 21:43 Lab/Test Results Lab/Test Results: Laboratory Tests Range/Units 12/21/24 22:28 WBC (4.4-10.8) 10^3/uL 8.70 RBC (4.36-5.78) 10^6/uL 5.03 Hgb (13.5-17.5) g/dL 16.7 Hct (40.0-50.0) % 46.3 MCV (80-95) fL 92 MCH (27.0-33.0) pg 33.2 H MCHC (32.0-36.0) % 36.1 H RDW (11.8-14.1) % 12.2 Plt Count (130-400) 10^3/uL 287 MPV (8.0-11.0) fL 8.2 Immature Gran % % 0.3 Neutrophils % % 68.3 Lymphocytes % % 24.5 Monocytes % % 5.7 Eosinophils % % 0.7 Basophils % % 0.5 Nucleated RBC % (0.0-0.3) % 0.0 Absolute Neutrophils (1.2-6.7) 10^3/uL 5.94 Absolute Lymphocytes (1.2-3.4) 10^3/uL 2.13 Absolute Monocytes (0.1-0.8) 10^3/uL 0.50 Absolute Eosinophils (0.0-0.7) 10^3/uL 0.06 Absolute Basophils (0.0-0.2) 10^3/uL 0.04 Sodium (136-145) mmol/L 140 Potassium (3.5-5.1) mmol/L 3.8 Chloride (98-107) mmol/L 103 Carbon Dioxide (21.0-32.0) mmol/L 24.1 Anion Gap (3-11) mmol/L 12.9 H BUN (7-18) mg/dL 12 Creatinine (0.70-1.30) mg/dL 1.0 Est GFR (CKD-EPI 2020) (mL/min/1.73m2) 101.92 Glucose (74-106) mg/dL 101 Calcium (8.5-10.1) mg/dL 8.8 Total Bilirubin (0.2-1.0) mg/dL 0.3 AST (15-37) U/L 26 ALT (16-63) U/L 30 Alkaline Phosphatase (46-116) U/L 82 Total Protein (6.4-8.2) g/dL 7.2 Albumin (3.4-5.0) g/dL 3.8 Lipase (<78) U/L 32 Ethyl Alcohol (<10) mg/dL 238.8 H Medical Decision Making 34-year-old male with a past medical history of depression, anxiety, alcohol use with a history of severe withdrawals which is compounded by his borderline debilitating anxiety, but no history of seizures, presents today for alcohol use. Patient has had few episodes over the last few years of sobriety and then punctuated episodes of binge drinking, which sometimes are remedied by courses of Librium, however other times require inpatient admission secondary to the severity of his symptoms and the amount of drinking. Patient presents tonight, he states that for the last week he has been drinking for 5 high concentration large alcohol beverages per day at minimum. Last drink was about an hour prior to arrival. He denies homicidal or suicidal ideations, but feels that he needs help to get over this. He is currently scheduled to work at [employer] this evening, but decided to come to the ER as he felt that this was something that he needed to confront and fix. He denies any fever or chills. He notes extreme anxiety, as well as uneasiness. He admits to nausea but no vomiting. No other complaints at this time. He denies any drug use. Exam demonstrates notably anxious male, heart rate in the 140s, dry mucous membranes, tremulous, tearful. Symptoms appear consistent with a combination of his anxiety, but also potential early alcohol withdrawal. When the patient does have withdrawal, he usually has severe symptoms of nausea, sweating, and a high CIWA score without seizures. I do feel that early prophylactic treatment is indicated at this time. We will start him on the low-dose phenobarbital protocol, will give 3 mg of IV Ativan. Will rehydrate with a liter of IV fluids, will monitor closely and reassess. 11:08 PM Despite him having his significant symptoms already, alcohol level is 238, electrolytes normal, no white count or bandemia. Patient tolerated the Ativan and phenobarbital well. Heart rate has come down from the 140s to the 110s. Will continue to hydrate, plan for admission. 11:35 PM Case discussed with the hospitalist Dr. Joe, he agrees with the assessment and plan. I have extensively reviewed the treatment plan with the patient. I have addressed all patient concerns at this time. I have also discussed the plan with the admitting physician and they agree with the current assessment and plan and have agreed to assume responsibility for the patient. All parties demonstrate verbal understanding and agreement with our assessment and plan at this time. The documentation in this chart was dictated using Adly dictation software. Please excuse any dictation errors. Quality:SDOH Health Related Social Needs: Health related social needs material hardship(utilitie s) (Z59.12), problems related to housing/economic circumstances (Z59.89), feeling lonely/isolated (Z60.8), education (Z55.6) Critical Care Time Critical Care Time Critical Care Time: Yes Total Critical Care Time: 45 Attestation: Upon my evaluation, this patient had a high probability of imminent or life-threatening deterioration, which required my direct attention, intervention, and personal management. I have personally provided 45 minutes of critical care time exclusive of time spent on separately billable procedures. Time includes review of laboratory data, radiology results, discussion with consultants, and monitoring for potential decompensation. Interventions were performed as documented. PFSH All Active Problems (Updated 12/21/24 @ 23:35 by Rob Rao DO) Alcohol withdrawal (Acute) Elevated bilirubin (Acute) Alcohol withdrawal (Acute) Tachycardia (Acute) Alcohol use disorder (Chronic) Hepatic steatosis (Acute ~12/2023) [place] Bilateral ocular hypertension (Chronic) Sleeping difficulty (Acute) RX Trazodone Elevated BP without diagnosis of hypertension (Acute) alcohol-related Depression (Chronic) Venlafaxine; counselor Anxiety (Chronic) did not respond to low dose sertraline 01/11/11, failed Mirtazepine Medical History Alcohol withdrawal Hypertension Alcohol use disorder, moderate, in early remission Alcohol withdrawal Stressful life event affecting family Sister's illness/diagnosis Excessive drinking alcohol Reviewed norms Nicotine use disorder 16yo started 0.5-1PPD Family History Mother Breast cancer Pre-menopausal; has occurred x2 Asthma Heart disease [place] Father , COV, Winter 2019 Cancer lung Diabetes Sister Scleroderma Breast cancer Dx'ed mid 30s Paternal Uncle Scleroderma Social History (Updated 12/09/24 @ 17:33 by Samir Mcclelland) Smoking/Tobacco Use Status: Current every day Tobacco Type: cigarettes Tobacco: How many years used: 8 Quit status: considering quitting Smoking risk assessment performed?: Yes Alcohol Intake: current Alcohol Intake frequency: 3 or more drinks per day Alcohol type: wine and hard liquor Drug use: Socially Substance use type: marijuana Adopted: No Caregiver/Support person: No Foster care: No Household members: family Housing: house Number of Children: 0 number of grandchildren: 0 Communication Needs: None Education Level: high school Do you need help understanding health information?: Rarely 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: Working for [employer] on [employer] Pets and animals: No Sexually active: Yes Do you think of yourself as: straight/heterosexual Current gender identity: male What is your relationship status?: refused to answer How often do you talk on the phone with friends or family?: three or more times per week How often do you get together with friends or relatives?: three or more times per week Do you belong to any clubs or organized social groups?: no Panel score (0-1 are the most socially isolated patients): 1 What type of physical activity do you participate in: walking Duration: > 90 minutes/day Frequency: 5-6 times per week Laina/Bahai: None Special laina needs: No Seatbelt use: always Helmet use: Yes Helmet use: always Drive 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 or ride w/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 Do you feel safe at home: Yes Do you feel safe in your relationship?: Yes PAWSS Have you Been Recently Intoxicated or Drunk Within the Last 30 days?: Yes Have you Ever Experienced Previous Episodes of Alcohol Withdrawal?: Yes Have you ever Experienced Withdrawal Seizures?: No Have you ever Experienced Delirium Tremens(DT)s?: Yes Have you ever undergone Alcohol Rehabilitation Treatment (i.e, inpt ot outpatient treatment programs)?: Yes Have you ever Experienced Blackouts?: Yes Have you ever Combined Alcohol with other Downers within the last 90 days?: No Have you ever Combined Alcohol with any other Substance of Abuse during the last 90 days?: No Positive Blood Alcohol level on Presentation? [PCS.BAL]: Yes Evidence of Increased Autonomic Activity (i.e. HR>120, tremor, sweating, agitation, nausea)?: Yes Result: 7
--- NOTE | 2024-12-21 23:32 | W.PM.HP.N ---
Date of service: 12/21/24 Time of Service: 23:32 Assessment and Plan Assessment and plan (1) Anxiety: Status: Chronic Assessment and plan: Will restart his home medications. (2) Alcohol use disorder: Status: Chronic Assessment and plan: Patient will be placed on a phenobarbital protocol last at thiamine and multivitamin and folic acid. (3) Nicotine use disorder: Assessment and plan: Patient have a NicoDerm patch available. (4) Hypertension: Assessment and plan: Restart his home medications monitor for improvement. History of Present Illness History of Present Illness Chief Complaint: etoh wd Narrative: This is a 3 34-year-old gentleman who presents to the ED for concerns about alcohol withdrawal. Patient was recently admitted here and discharged on 12/11/24 the patient did experience of period of sobriety approximately 2 weeks but started drinking again last week. patient states that the reason for his relapse was due to working nights as well as stress at work. While in the ED he did have a workup including laboratory work, which did show an elevated alcohol level at 238. Upon my interview the patient reiterates his history Review of Systems All systems reviewed & are unremarkable except as noted in HPI and below PFSH All Active Problems (Updated 12/21/24 @ 23:35 by Rob Rao DO) Alcohol withdrawal (Acute) Elevated bilirubin (Acute) Alcohol withdrawal (Acute) Tachycardia (Acute) Alcohol use disorder (Chronic) Hepatic steatosis (Acute ~12/2023) [place] Bilateral ocular hypertension (Chronic) Sleeping difficulty (Acute) RX Trazodone Elevated BP without diagnosis of hypertension (Acute) alcohol-related Depression (Chronic) Venlafaxine; counselor Anxiety (Chronic) did not respond to low dose sertraline 01/11/11, failed Mirtazepine Medical History Alcohol withdrawal Hypertension Alcohol use disorder, moderate, in early remission Alcohol withdrawal Stressful life event affecting family Sister's illness/diagnosis Excessive drinking alcohol Reviewed norms Nicotine use disorder 16yo started 0.5-1PPD Family History Mother Breast cancer Pre-menopausal; has occurred x2 Asthma Heart disease [place] Father , COV, Winter 2019 Cancer lung Diabetes Sister Scleroderma Breast cancer Dx'ed mid 30s Paternal Uncle Scleroderma Social History (Updated 12/09/24 @ 17:33 by Samir Mcclelland) Smoking/Tobacco Use Status: Current every day Tobacco Type: cigarettes Tobacco: How many years used: 8 Quit status: considering quitting Smoking risk assessment performed?: Yes Alcohol Intake: current Alcohol Intake frequency: 3 or more drinks per day Alcohol type: wine and hard liquor Drug use: Socially Substance use type: marijuana Adopted: No Caregiver/Support person: No Foster care: No Household members: family Housing: house Number of Children: 0 number of grandchildren: 0 Communication Needs: None Education Level: high school Do you need help understanding health information?: Rarely 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: Working for [employer] on [employer] Pets and animals: No Sexually active: Yes Do you think of yourself as: straight/heterosexual Current gender identity: male What is your relationship status?: refused to answer How often do you talk on the phone with friends or family?: three or more times per week How often do you get together with friends or relatives?: three or more times per week Do you belong to any clubs or organized social groups?: no Panel score (0-1 are the most socially isolated patients): 1 What type of physical activity do you participate in: walking Duration: > 90 minutes/day Frequency: 5-6 times per week Laina/Voodoo: None Special laina needs: No Seatbelt use: always Helmet use: Yes Helmet use: always Drive 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 or ride w/intox 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 Do you feel safe at home: Yes Do you feel safe in your relationship?: Yes Meds Allergies and Home Medications Allergies Allergy/AdvReac Type Severity Reaction Status Date / Time No Known Allergies Allergy Verified 12/21/24 21:59 Home Medications ?Medication ?Instructions ?Recorded ?Confirmed ?Type trazodone 50 mg tablet See Rx Instructions PO QHS PRN 09/10/24 12/21/24 Rx sleep #40 tabs disulfiram 500 mg tablet 500 mg PO DAILY #30 tabs 10/26/24 12/21/24 Rx amlodipine 10 mg tablet 10 mg PO DAILY #90 tabs 12/03/24 12/21/24 Rx folic acid 1 mg tablet 1 mg PO DAILY 12/09/24 12/21/24 History venlafaxine 75 mg capsule,extended 75 mg PO QPM 12/09/24 12/21/24 History release 24 hr sertraline 100 mg tablet 100 mg PO DAILY 12/10/24 12/21/24 History metoprolol tartrate 25 mg tablet 25 mg PO BID 30 days #60 tabs 12/11/24 12/21/24 Rx naltrexone 50 mg tablet 50 mg PO DAILY #30 tabs 12/11/24 12/21/24 Rx nicotine 14 mg/24 hr daily 14 mg transdermal DAILY PRN PRN 12/11/24 12/21/24 Rx transdermal patch #30 ea buspirone 15 mg tablet 15 mg PO BID 12/17/24 12/21/24 History Exam Narrative Exam Narrative: HEENT: Normocephalic atraumatic mucous membranes are moist. He does have horizontal gaze nystagmus tach Neck: Lymph no lymphadenopathy no JVD Cardiovascular: Regular rate and rhythm no murmur rubs or gallops lungs: Clear to auscultation bilaterally with good air exchange Abdomen: Soft nontender nondistended Extremities: No sinus clubbing or edema Neurologic: Cranial nerves II through XII intact as tested in upper EXTR normal as tested Psych: Alert and oriented x 3 can give a linear history Results Labs 12/21/24 22:28 12/21/24 22:28 Labs: Laboratory Results - last 24 hr 12/21/24 22:28 WBC 8.70 RBC 5.03 Hgb 16.7 Hct 46.3 MCV 92 MCH 33.2 H MCHC 36.1 H RDW 12.2 Plt Count 287 MPV 8.2 Immature Gran % 0.3 Neutrophils % 68.3 Lymphocytes % 24.5 Monocytes % 5.7 Eosinophils % 0.7 Basophils % 0.5 Nucleated RBC % 0.0 Absolute Neutrophils 5.94 Absolute Lymphocytes 2.13 Absolute Monocytes 0.50 Absolute Eosinophils 0.06 Absolute Basophils 0.04 Sodium 140 Potassium 3.8 Chloride 103 Carbon Dioxide 24.1 Anion Gap 12.9 H BUN 12 Creatinine 1.0 Est GFR (CKD-EPI 2020) 101.92 Glucose 101 Calcium 8.8 Total Bilirubin 0.3 AST 26 ALT 30 Alkaline Phosphatase 82 Total Protein 7.2 Albumin 3.8 Lipase 32 Ethyl Alcohol 238.8 H Last Vital Signs Pulse 154 H 12/21/24 21:43 Resp 24 12/21/24 21:52 BP 195/139 H 12/21/24 21:43 Pulse Ox 100 12/21/24 21:43 PAWSS Have you Been Recently Intoxicated or Drunk Within the Last 30 days?: Yes Have you Ever Experienced Previous Episodes of Alcohol Withdrawal?: Yes Have you ever Experienced Withdrawal Seizures?: No Have you ever Experienced Delirium Tremens(DT)s?: Yes Have you ever undergone Alcohol Rehabilitation Treatment (i.e, inpt ot outpatient treatment programs)?: Yes Have you ever Experienced Blackouts?: Yes Have you ever Combined Alcohol with other Downers within the last 90 days?: No Have you ever Combined Alcohol with any other Substance of Abuse during the last 90 days?: No Positive Blood Alcohol level on Presentation? [PCS.BAL]: Yes Evidence of Increased Autonomic Activity (i.e. HR>120, tremor, sweating, agitation, nausea)?: Yes Result: 7 Time Spent Time spent with Patient: <40 minutes Time was spent: preparing to see the patient(eg.review tests), obtaining and/or reviewing separately otained hiistory, ordering medications,tests, procedures, referring, communicating with other health direct support professional caregiver, indepentently interpreting results, counseling the patient and care coordination
[2024-12-21] MEDS: MAGNESIUM SULFATE 8.12 MEQ, MULTIVITAMIN 10 ML, THIAMINE 100 MG, FOLIC ACID 1 MG in Nor... 168.867 MG IV (23:47)
[2024-12-22] VITALS (88 sets, daily range): BP systolic 109–170; BP diastolic 44–122; PULSE 85–138; RESP 9–34; TEMP 36.8–37.9; O2SAT 94–99
[2024-12-22] MEDS: PHENobarbital 130 MG in Normal Saline 50 ML 100 MG IVPB ×2 (02:22→05:10)
[2024-12-22] MEDS: PHENobarbital 130 MG/ML VIAL IVP ×5 (04:14→18:46)
[2024-12-22] MEDS: Normal Saline Flush 10 ML SYR IVP ×5 (04:15→18:46)
[2024-12-22] MEDS: Nicotine 14 MG/24 HR PATCH TD (07:56)
[2024-12-22] MEDS: Multivitamin TAB 1 TAB PO (07:58)
[2024-12-22] MEDS: Thiamine 100 MG TAB PO (07:58)
[2024-12-22] MEDS: busPIRone 15 MG TAB PO ×2 (07:58→19:51)
[2024-12-22] MEDS: Metoprolol 25 MG TAB PO ×2 (07:59→19:52)
[2024-12-22] MEDS: amLODIPine 10 MG TAB PO (07:59)
[2024-12-22] MEDS: Folic Acid 1 MG TAB PO (07:59)
[2024-12-22] MEDS: Sertraline 100 MG TAB PO (07:59)
--- NOTE | 2024-12-22 08:38 | PDOC.CMIN ---
Date of service: 12/22/24 Time of Service: 08:38 Care Management Initial Assmt Initial Assessment Reason for Hospitalization: ETOH abuse/withdrawal Functional Status/Living Situation Patient Presentation: Sanjiv presented to the ED last night stating that for the last week he has been drinking 4- 5 high concentration large alcohol beverages per day at minimum. Last drink was about an hour prior to arrival to ED. He has a history of depression, anxiety, ETOH use with severe withdrawals, but no seizures. Sanjiv was sitting up on the edge of the bed eating his lunch, when CM met with him today. He was pleasant, but noticeably anxious. CM mentioned that he seemed to be having a hard time, and he started to cry. He stated that he just can't seem to get over whatever has got a hold on him. Andrey stated that he has a Manager Personal, but doesn't seem to utilize his resources to their fullest. He has both a psychologist and a therapist who are helping him. Andrey did not want CM to make any calls for him today, he prefers, and is encouraged, to make these calls himself. Andrey did not want any word puzzle or coloring books. He stated that he did not have the mind to concentrate at this time. He was reminded that he can ask for these items at any time. 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 He stated that his work has been supportive, and he is hoping that will continue. He will require a work note. Town of Residence: [facility] Resides with: Parent (Mirella and Dr. Baron) Significant Other/Family: Local (parents, sister) Natural Supports: very supportive family Employment Status: Employed ([employer]) Instrumental Activities of Daily Living (ADLs): Independent Activities/Hobbies/SocialSupport: nothing right now Medications Medication Management: No Issues/Barriers identified Advance Directives Advance Directives: Do you have an Advance Directive: N 05/20/22 16:50 AD On File at [facility]: N 10/27/12 21:17 Date Asked 12/21/24 12/21/24 21:42 AD Date Reviewed COLST On File at [facility] No 09/28/24 21:15 COLST Date Scanned Code Status Resuscitation Status Full Code Portal Pt does not currently have a portal and education provided: Yes Insurance Coverage/Financial Issues Insurance: Medicaid Care Team Visit Care Team Role Provider Type Piero Celis MD MD [facility] STAFF PHYSICIAN Tara Humphreys, PETROS Primary Care Provider NURSE PRACTITIONER Love Damon Other Providers STEAM HOIST OPERATOR Xenia Calhoun Other Providers STEAM HOIST OPERATOR Aida Alva Other Providers STEAM HOIST OPERATOR Gypsy Murillo RN Other Providers STEAM HOIST OPERATOR Sumi Joe Other Providers STEAM HOIST OPERATOR Rob Rao, DO Emergency Provider [facility] STAFF PHYSICIAN Neo Joe MD Admit Provider [facility] STAFF PHYSICIAN Attending Provider Discharge Potential Discharge Needs: PCP F/U Appt and Other ([facility]) Anticipated Barriers to Discharge: None Identified Patient/Family Education Needs: Review discharge instructions, discuss Ask Me Three Transportation: Private vehicle Plan: Antcipate that Andrey will be discharged home with no new services once medically stable. He has been and will be encouraged to reach out to all of his supports. He was encouraged to seek inpatient care and was given information regarding such. He will f/u with his PCP and transport home in a private vehicle. CM will continue to follow and offer support. Social Determinants of Health Screening Social Determinants of health last assessed in clinic: 12/22/24 Will the Patient Participate in the Screening?: Yes Do you worry about having a steady place to live?: yes What is your living situation today?: I have housing today, but am worried about losing it Problems where you live: no known problems In the past 12 months, have you had to go without electric, gas, oil or water in your home?: no 1. Within the past 12 months, we worried whether our food would run out before we got money to buy more.: Don't know/refused 2. Within the past 12 months, the food we bought just didn't last and we didn't have money to get more.: Don't know/refused Has lack of transportation kept you from medical appointments or from doing things needed for daily living?: no Has anyone in your life made you feel unsafe or unsupported?: yes How often does anyone, including family and friends, physically hurt you?: Never How often does anyone, including family and friends, insult or talk down to you?: Never How often does anyone, including family and friends, threaten you with harm?: Never How often does anyone, including family and friends, scream or curse at you?: Sometimes HRSN Safety total score: 6 How hard is it for you to pay for the very basics like food, housing, medical care, and heating? Would you say it is:: Not hard at all Do you want help finding or keeping work or a job?: I do not need or want help If for any reason you need help with day-to-day activities such as bathing, preparing meals, shopping, managing finances, etc., do you get the help you need?: I don?t need any help How often do you feel lonely or isolated from those around you?: Sometimes Do you speak a language other than Spanish at home?: No Does the patient want assistance with any of the above?: No Health Related Social Needs Health related social needs: housing instability, housed, with risk of homelessness (Z59.811) and feeling lonely/isolated (Z60.8) Health related social needs details: Pt reports not having great support system. Reports that who he turns to for support changes frequently. PFSH All Active Problems (Updated 12/21/24 @ 23:35 by Rob Rao DO) Alcohol withdrawal (Acute) Elevated bilirubin (Acute) Alcohol withdrawal (Acute) Tachycardia (Acute) Alcohol use disorder (Chronic) Hepatic steatosis (Acute ~12/2023) US Bilateral ocular hypertension (Chronic) Sleeping difficulty (Acute) RX Trazodone Elevated BP without diagnosis of hypertension (Acute) alcohol-related Depression (Chronic) Venlafaxine; counselor Anxiety (Chronic) did not respond to low dose sertraline 01/11/11, failed Mirtazepine Medical History Alcohol withdrawal Hypertension Alcohol use disorder, moderate, in early remission Alcohol withdrawal Stressful life event affecting family Sister's illness/diagnosis Excessive drinking alcohol Reviewed norms Nicotine use disorder 16yo started 0.5-1PPD Family History Mother Breast cancer Pre-menopausal; has occurred x2 Asthma Heart disease [place] Father , COV, Winter 2019 Cancer lung Diabetes Sister Scleroderma Breast cancer Dx'ed mid 30s Paternal Uncle Scleroderma Social History (Updated 12/09/24 @ 17:33 by Smair Mcclelland) Smoking/Tobacco Use Status: Current every day Tobacco Type: cigarettes Tobacco: How many years used: 8 Quit status: considering quitting Smoking risk assessment performed?: Yes Alcohol Intake: current Alcohol Intake frequency: 3 or more drinks per day Alcohol type: wine and hard liquor Drug use: Socially Substance use type: marijuana Adopted: No Caregiver/Support person: No Foster care: No Household members: family Housing: house Number of Children: 0 number of grandchildren: 0 Communication Needs: None Education Level: high school Do you need help understanding health information?: Rarely 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: Working for [employer] on [employer] Pets and animals: No Sexually active: Yes Do you think of yourself as: straight/heterosexual Current gender identity: male What is your relationship status?: refused to answer How often do you talk on the phone with friends or family?: three or more times per week How often do you get together with friends or relatives?: three or more times per week Do you belong to any clubs or organized social groups?: no Panel score (0-1 are the most socially isolated patients): 1 What type of physical activity do you participate in: walking Duration: > 90 minutes/day Frequency: 5-6 times per week Laina/Pentecostalism: None Special laina needs: No Seatbelt use: always Helmet use: Yes Helmet use: always Drive intox or ride w/intox lumber stacker driver: No Do you feel safe at home: Yes Do you feel safe in your relationship?: Yes Readmission Within the Past 30 Days Yes or No: Yes Date of First Admission Date of 1st Admission: 12/09/24 Date of this Admission Date of Admission: 12/22/24 Office Visit Since 1st Admission Have you seen your PCP in the office since discharge?: No Had an appointment Been Scheduled?: Yes Date of Scheduled Appointment: 01/07/25 Speicalist Appointments Have you seen any other specialist since your 1st Admission?: No I. Interview patient and/or Family Did you feel ready for discharge when you left the last time: Yes ED visits How many ED visits in the past 12 months: 10 Assessment for Readmission Summary of readmission circumstances, based upon interviews: Sanjiv is stuck. He continues to relapse despite having services and support available.
[2024-12-22 08:56] LABS: *AMPHETAMINES SCREEN URINE Negative (Negative); *BARBITURATES SCREEN URINE Positive (Negative); *BENZODIAZEPINES SCREEN URINE Negative (Negative); Cannabinoids THC Negative (Negative); Cocaine Screen,Urine Negative (Negative); METHADONE URINE SCREEN Negative (Negative); OPIATES URINE SCREEN Negative (Negative)
[2024-12-22 08:57] LABS: Tricyclic Antidepressants Negative (Negative)
--- NOTE | 2024-12-22 12:50 | PHA.REVIEW2 ---
Pharmacy Admission Review Admission Clinical Review Admission Pharmacy Review: No Known Allergies Allergy (Verified 12/21/24 21:59) Resuscitation Status Full Code Height 5 ft 10 in Weight 65.8 kg Pharmacy Admission Review Renal Dosing Renal Dosing: BUN 12 mg/dL (7-18) 12/21/24 22:28 Creatinine 1.0 mg/dL (0.70-1.30) 12/21/24 22:28 Medications needing adjustments: Reviewed (CrCl 97 mL/min) List of meds needing interventions: Current medications are okay Anticoagulation Anticoagulation: Hgb 16.7 g/dL (13.5-17.5) 12/21/24 22:28 Hct 46.3 % (40.0-50.0) 12/21/24 22:28 Plt Count 287 10^3/uL (130-400) 12/21/24 22:28 Creatinine 1.0 mg/dL (0.70-1.30) 12/21/24 22:28 DVT Prophylaxis: Reviewed Medications: Enoxaparin (40mg daily) Relevant Labs Relevant Labs: Sodium 140 mmol/L (136-145) 12/21/24 22:28 Potassium 3.8 mmol/L (3.5-5.1) 12/21/24 22:28 Chloride 103 mmol/L (98-107) 12/21/24 22:28 Electrolytes, C-Reactive P, ESR: Reviewed (No new labs for today) Cardiac Review Cardiac Review: Blood Pressure : Heart Rate 160/120 : 102 0800 Blood Pressure : Heart Rate 148/113 : 118 0739 Blood Pressure : Heart Rate 138/93 : 104 0701 Blood Pressure : Heart Rate 140/101 : 113 0622 Blood Pressure : Heart Rate 142/98 : 110 0515 Blood Pressure : Heart Rate 142/98 : 129 0513 Blood Pressure : Heart Rate 123/86 : 116 0401 Blood Pressure : Heart Rate 133/98 : 117 0300 Blood Pressure : Heart Rate 140/94 : 107 0216 Blood Pressure : Heart Rate 130/88 : 112 0201 Blood Pressure : Heart Rate 137/95 : 111 0146 Blood Pressure : Heart Rate 109/46 : 109 0146 Blood Pressure : Heart Rate 114/44 : 106 0131 BP, HR, EF%: Reviewed (temp 37.8 at 1230) List meds needing interventions: Has orders for amlodipine 10mg daily and metoprolol 25mg BID QTc Review QTc: Reviewed (426 from 12/21/24) IV to PO Switch IV Medications: Reviewed (phenobarbital) Home Meds Home Med List reviewed: Reviewed Relevent Home Meds Not ordered & why?: disulfiram (listed as not taking on home med list) Current Meds Current Medication Order Review: Intervened Comments: Added soft stop and hard stop to PRN phenobarbital order Phenobarbital for alcohol withdrawal Limits calculated using ACTUAL body weight (actual < IBW) Soft stop: 987mg Hard stop: 1316mg CIWA 5 at 1230 Total dose (as of 12/22 at 1300): 830mg Loading doses for phenobarbital given in ED last night. Doses were calculated incorrectly (used IBW, should have used actual body weight) - informed provider during morning meeting. Patient approaching soft stop.
[2024-12-22] MEDS: Acetaminophen 325 MG TAB PO (18:45)
[2024-12-22] MEDS: traZODone 50 MG TAB PO (19:51)
[2024-12-22] MEDS: Venlafaxine 75 MG CAPCR PO (19:51)
[2024-12-23] VITALS (13 sets, daily range): BP systolic 109–144; BP diastolic 74–117; PULSE 70–96; RESP 10–18; TEMP 36.7–37.2; O2SAT 95–98
[2024-12-23] MEDS: Metoprolol 25 MG TAB PO (08:01)
[2024-12-23] MEDS: Sertraline 100 MG TAB PO (08:02)
[2024-12-23] MEDS: Thiamine 100 MG TAB PO (08:02)
[2024-12-23] MEDS: Multivitamin TAB 1 TAB PO (08:02)
[2024-12-23] MEDS: busPIRone 15 MG TAB PO (08:02)
[2024-12-23] MEDS: Folic Acid 1 MG TAB PO (08:02)
[2024-12-23] MEDS: amLODIPine 10 MG TAB PO (08:02)
[2024-12-23] MEDS: Naltrexone 50 MG TAB PO (08:02)
[2024-12-23] MEDS: Normal Saline Flush 10 ML SYR IVP (08:03)
--- NOTE | 2024-12-23 11:15 | CMDISCH_ITS ---
Date of service: 12/23/24 Time of Service: 11:15 LACE Index Scoring Tool Questions: Length of Stay (in days): 1 Was the patient admitted via the E.D.?: Yes E.D. Visits: 7 Answers: Total Score: 8 Risk of Readmission: Low Risk Care Management Discharge Plan Reason for Hospitalization: alcohol withdrawal Discharge Plan: Andrey will be discharged home later today with no new services. He was given a work note to return to work tonight, per his request. Andrey stated that he really wants to try harder, and he hopes to never have to come back to the hospital again. Andrey was speaking with his control and recovery special tactics when CM delivered the work note. 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 He will f/u with his PCP, continue per his plan of care, and transport home in a private vehicle. Patient/Family Education Needs: Review of discharge instructions, activity, limitations, and discuss Ask me 3. SDOH Health Related Social Needs: Health related social needs housing instability, house d, with risk of homelessness (Z59.811), feeling lonely/isolated (Z60.8) Health related social needs details Pt reports not hav ing great support system. Reports that who he turns to for support changes frequently. Health related social needs details: Pt reports not having great support system. Reports that who he turns to for support changes frequently.
--- NOTE | 2024-12-23 12:21 | W.PM.DS.N ---
Date of service: 12/23/24 Time of Service: 12:21 DS: Diagnosis Discharge Diagnosis (1) Anxiety: Status: Chronic (2) Alcohol use disorder: Status: Chronic (3) Nicotine use disorder: (4) Hypertension: Discharge Plan Disposition Patient Disposition: Home Condition: Good Discharge Details Reason For Visit: ETOH withdrawal Admit Date/Time: 12/22/24 01:48 Admit Provider: Neo Joe Attending Provider: Neo Joe Primary Care Provider: Tara Humphreys Hospital Course Hospital Course: Patient presented with signs and symptoms consistent with alcohol withdrawal. Hematuria phenobarbital protocol and hit his soft limit but ultimately had complete resolution of his symptoms and was determined to be stable for discharge home. Home Meds and New Rx's Prescriptions: New thiamine mononitrate (vit B1) [Vitamin B-1 (mononitrate)] 100 mg Tablet 100 mg PO QAM Qty: 90 0RF Continued trazodone 50 mg tablet See Rx Instructions PO QHS PRN (Reason: sleep) Qty: 40 0RF Rx Instructions: 25-50mg bedtime for sleep difficulty, may repeat 50mg x1 if first dose ineffective for max nightly dose 100mg PO every day at bedtime PRN; amlodipine 10 mg tablet 10 mg PO DAILY Qty: 90 3RF Rx Instructions: For BP with goal <140/90 buspirone 15 mg tablet 15 mg PO BID disulfiram 500 mg tablet 500 mg PO DAILY Qty: 30 0RF folic acid 1 mg tablet 1 mg PO DAILY Patient Comments: TAKE ONE TABLET BY MOUTH EVERY DAY venlafaxine 75 mg capsule,extended release 24hr 75 mg PO QPM Patient Comments: TAKE ONE CAPSULE BY MOUTH AT BEDTIME sertraline 100 mg tablet 100 mg PO DAILY Patient Comments: TAKE ONE TABLET BY MOUTH EVERY DAY nicotine 14 mg/24 hr Patch 24 Hour 14 mg transdermal DAILY PRN PRNQty: 30 0RF metoprolol tartrate 25 mg Tablet 25 mg PO BID 30 Days Qty: 60 0RF naltrexone 50 mg tablet 50 mg PO DAILY Qty: 30 3RF Discharge Instructions Referrals: Tara Humphreys NP [Primary Care Provider] - 12/30/24 2:00 pm Activity:: Activity as Tolerated Equipment/Supplies:: No Equipment Needed Diet:: As Tolerated Discharge Orders Discharge Orders: Discharge Order (Routine); Ordered 12/23/24 Ordered By: Piero Celis Discharge Data Discharge Date/Time-TO BE ENTERED AT DEPARTURE: 12/23/24 12:38 DS: Summary Time Spent with Patient providing and/or coordinating discharge services: Greater than 30 minutes Status at Discharge Functional status at discharge: independent ambulation Overall status at discharge: patient is back to baseline Mental Status: mental status grossly normal Speech and Movement: speech and movement normal Mood: congruent mood Affect: normal affect Quality:SDOH Health Related Social Needs: Health related social needs housing instability, housed, with risk of homelessness (Z59.811), feeling lonely/isolated (Z60.8) Health related social needs details Pt reports not having great support system. Reports that who he turns to for support changes frequently. Health related social needs details: Pt reports not having great support system. Reports that who he turns to for support changes frequently. Exam Narrative Exam Narrative: Well-appearing but mildly anxious young gentleman laying in bed in no acute distress, ANO x 4, heart regular rhythm, lungs good auscultation bilaterally, abdomen soft, nontender, nondistended Psych Mental Status: mental status grossly normal Speech and Movement: speech and movement normal Mood: congruent mood Affect: normal affect DS: Data Vitals/I&O Vitals and I&O: Vital Signs Temperature 98.1 F 12/23/24 08:15 Temperature Source Temporal Artery Scan 12/23/24 08:15 Pulse 83 12/23/24 10:01 Pulse 87 12/23/24 10:01 Respiratory Rate 16 12/23/24 10:01 Respiratory Effort Normal 12/22/24 01:45 Respiratory Depth Normal 12/22/24 01:45 Respiratory Pattern Normal 12/22/24 01:45 Blood Pressure 144/117 H 12/23/24 10:01 Blood Pressure Mean 126 12/23/24 10:01 Blood Pressure Position Supine 12/22/24 01:45 Pulse Oximetry 98 12/23/24 10:01 Oxygen Delivery Method Room Air 12/23/24 05:38 Oxygen Flow Rate 0 12/23/24 05:38 Pain Level 0 12/23/24 08:15 Intake & Output 12/22/24 12/23/24 12/23/24 17:59 05:59 17:59 Intake Total 1082.589 / 1082.589 411 / 1493.589 378 / 378 Output Total 550 / 550 Balance 532.589 / 532.589 411 / 943.589 378 / 378 Weight 143 lb 15.39 oz Intake: IV 582.589 / 582.589 11 / 593.589 10 10 Oral 500 / 500 400 / 900 368 / 368 Output: Urine 550 / 550 Other: Urine Color Yellow Urine Appearance Clear Urine Odor Normal Comment patient voided in restroom. void not viewed or measured. patient declines to use ICU commode. pt to public bathroom per his request. reports urine only Amount/appearance not observed by nursing as pt requests to use M/S unit bathroom. Pt reports no issues w/ urination. Stool Characteristics Soft PFSH All Active Problems (Updated 12/24/24 @ 00:03 by LINN BURROUGHS) Alcohol withdrawal (Acute) Elevated bilirubin (Acute) Alcohol withdrawal (Acute) Tachycardia (Acute) Alcohol use disorder (Chronic) Hepatic steatosis (Acute ~12/2023) US Bilateral ocular hypertension (Chronic) Sleeping difficulty (Acute) RX Trazodone Elevated BP without diagnosis of hypertension (Acute) alcohol-related Depression (Chronic) Venlafaxine; counselor Anxiety (Chronic) did not respond to low dose sertraline 01/11/11, failed Mirtazepine Medical History Alcohol withdrawal Hypertension Alcohol use disorder, moderate, in early remission Alcohol withdrawal Stressful life event affecting family Sister's illness/diagnosis Excessive drinking alcohol Reviewed norms Nicotine use disorder 16yo started 0.5-1PPD Family History Mother Breast cancer Pre-menopausal; has occurred x2 Asthma Heart disease [place] Father , COV, Winter 2019 Cancer lung Diabetes Sister Scleroderma Breast cancer Dx'ed mid 30s Paternal Uncle Scleroderma Social History (Updated 12/09/24 @ 17:33 by Samir Mcclelland) Smoking/Tobacco Use Status: Current every day Tobacco Type: cigarettes Tobacco: How many years used: 8 Quit status: considering quitting Smoking risk assessment performed?: Yes Alcohol Intake: current Alcohol Intake frequency: 3 or more drinks per day Alcohol type: wine and hard liquor Drug use: Socially Substance use type: marijuana Adopted: No Caregiver/Support person: No Foster care: No Household members: family Housing: house Number of Children: 0 number of grandchildren: 0 Communication Needs: None Education Level: high school Do you need help understanding health information?: Rarely 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 Pets and animals: No Sexually active: Yes Do you think of yourself as: straight/heterosexual Current gender identity: male What is your relationship status?: refused to answer How often do you talk on the phone with friends or family?: three or more times per week How often do you get together with friends or relatives?: three or more times per week Do you belong to any clubs or organized social groups?: no Panel score (0-1 are the most socially isolated patients): 1 What type of physical activity do you participate in: walking Duration: > 90 minutes/day Frequency: 5-6 times per week Laina/Scientologist: None Special laina needs: No Seatbelt use: always Helmet use: Yes Helmet use: always Drive intox or ride w/intox 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
== END 2024-12-23 12:38 | disposition home or self-care (01) | DRG 897 ==
LOC: ER 23:35 → ICU 12-22 01:51
PROVIDERS: Admitting Provider Hospitalist; Emergency Provider Student in an Organized Health Care Education/Training Program; PCP Nurse Practitioner Adult Health; Responsible Provider Family Medicine; Visit Provider Hospitalist
DX: F10.239 Alcohol dependence with withdrawal, unspecified (principal); Z59.12 Inadequate housing utilities; F41.0 Panic disorder [episodic paroxysmal anxiety]; F17.210 Nicotine dependence, cigarettes, uncomplicated; H40.053 Ocular hypertension, bilateral; I10 Essential (primary) hypertension; R00.0 Tachycardia, unspecified; K76.0 Fatty (change of) liver, not elsewhere classified; Z60.8 Other problems related to social environment; Z59.89 Other problems related to housing and economic circumstances; Z79.899 Other long term (current) drug therapy; Y90.7 Blood alcohol level of 200-239 mg/100 ml
CPT/HCPCS: 00123; 36415; 80053; 80307; 83690; 93005; 96365; 96375; 99291; J1650; 80320; 85025; 93010; 99222; 99239; J2060; J2560; J3411; J3475

== ENCOUNTER 2025-02-08 19:08 | Inpatient (IN) | payer MEDICAID, SELFPAY ==
[2025-02-08] VITALS (25 sets, daily range): BP systolic 134–186; BP diastolic 92–145; PULSE 92–153; RESP 11–28; TEMP 36.6; O2SAT 92–98
[2025-02-08] MEDS: diazePAM 10 MG/2 ML SYR 5 MG IVP (19:48)
[2025-02-08 19:50] LABS: Abs Immature Grans 0.02 10^3/uL (0.0-0.06); Absolute Basophil Count 0.03 10^3/uL (0.0-0.2); Absolute Eosinophil Count 0.19 10^3/uL (0.0-0.7); Absolute Lymphocyte Count 2.67 10^3/uL (1.2-3.4); Absolute Monocyte Count 0.54 10^3/uL (0.1-0.8); Absolute Neutrophil Count 3.59 10^3/uL (1.2-6.7); Basophils % 0.4 %; Eosinophils % 2.7 %; HCT 50.6 % (40.0-50.0); HGB 18.3 g/dL (13.5-17.5); Immature Grans % 0.3 %; Lymphocytes % 37.9 %; MCH 31.8 pg (27.0-33.0); MCHC 36.2 % (32.0-36.0); MCV 88 fL (80-95); MPV 8.8 fL (8.0-11.0); Monocytes % 7.7 %; Platelet Count 271 10^3/uL (130-400); RBC 5.75 10^6/uL (4.36-5.78); RDW 12.5 % (11.8-14.1); RDW-SD 40.5 fL; WBC 7.04 10^3/uL (4.4-10.8)
--- NOTE | 2025-02-08 20:00 | RT.EKG_ITS ---
APPROVED REPORT Exam: Resting ECG Reason for Exam: tachycardia Patient Location: E HR:120 bpm ECG Measurements Heart Rate 120 AXIS NH 139 P 55 QRSd 77 QRS 70 QT 307 T -4 QTc 434 Conclusion Sinus tachycardia...rate> 99 Ventricular premature complex...V complex w/ short R-R interval Inferior infarct, age indeterminate...Q>35mS, T neg, II III aVF Borderline ST elevation, lateral leads...ST >0.06mV, I aVL V5 V6 Physician: No STEMI
[2025-02-08] MEDS: MAGNESIUM SULFATE 8.12 MEQ, MULTIVITAMIN 10 ML, THIAMINE 100 MG, FOLIC ACID 1 MG in Nor... 168.867 MG IV (20:03)
[2025-02-08 20:16] LABS: ALT 29 U/L (16-63); AST 18 U/L (15-37); Albumin 3.9 g/dL (3.4-5.0); Alkaline Phosphatase 90 U/L (46-116); Anion Gap 16.6 mmol/L (3-11); BUN 5 mg/dL (7-18); Bilirubin, Total 0.6 mg/dL (0.2-1.0); CO2 24.4 mmol/L (21.0-32.0); CREATININE 0.9 mg/dL (0.70-1.30); Chloride 100 mmol/L (98-107); Estimated GFR 115.65 (mL/min/1.73m2); Glucose 228 mg/dL (74-106); Magnesium 1.6 mg/dL (1.8-2.4); Potassium 3.4 mmol/L (3.5-5.1); Sodium 141 mmol/L (136-145); TSH (W/Ref FT4) 1.07 uIU/mL (0.36-3.74); Total Protein 7.4 g/dL (6.4-8.2)
[2025-02-08] MEDS: Normal Saline 500 ML 1000 ML IV (20:17)
[2025-02-08 20:18] LABS: ETHANOL BLOOD 327.8 mg/dL (<10)
[2025-02-08] MEDS: Ondansetron 4 MG/2 ML VIAL IVP (22:04)
[2025-02-08] MEDS: Famotidine 20 MG/2 ML VIAL IVP (22:04)
--- NOTE | 2025-02-08 22:37 | W.PM.HP.N ---
Date of service: 02/08/25 Time of Service: 22:37 Assessment and Plan Assessment and plan (1) Alcohol withdrawal: Start date: 02/08/25 Assessment and plan: This is a 34-year-old gentleman who has had frequent visits for alcohol withdrawal now presently having acute alcohol withdrawal though he does have a measured alcohol level and alcohol odor on his breath during exam. He is extremely anxious and depressed. He will be admitted to the ICU with alcohol withdrawal protocol using phenobarbital. Will avoid benzodiazepines. After medically cleared the patient will be released for mental health and alcohol rehab evaluation. He should be more aggressive with rehabilitation and abstinence to maintain his job at [employer]. Social support aids to be reviewed which appears to be minimal presently. He may have burned multiple bridges in the past. He appears to be motivated to change but is hopeless. He does not appear to be suicidal at this time. He is a full code. (2) Alcohol use disorder: Status: Chronic Assessment and plan: Patient needs outpatient for inpatient rehabilitation and long-term abstinence. Prognosis is poor for change at this time. (3) Hypomagnesemia: Start date: 02/08/25 Status: Acute Assessment and plan: IV repletion and follow-up labs. (4) Acute dehydration: Start date: 02/08/25 Status: Acute Assessment and plan: IV hydration and follow-up labs. (5) Primary hypertension: Status: Chronic Assessment and plan: Continue outpatient medical therapy. (6) Depression: Status: Chronic Assessment and plan: Continue outpatient medical therapy. (7) Anxiety: Status: Chronic Assessment and plan: Patient is at risk for self treatment with his anxiety. JS was done ans [facility] does reveal occasional prescriptions for Librium but no chronic prescription for controlled substances. He is at high risk for misuse. History of Present Illness History of Present Illness Chief Complaint: Nausea with overwhelming anxiety and hallucinations. 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 He has had these episodes in the past. He is not suicidal overtly. 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 He has lived with his parents over the last 3 years and is not able to continue to live with his parents presently. He does not want to change but finds this difficult. He is overwhelmed. He was having auditory hallucinations and mild symptoms of delirium with alcohol use recently though he did have an alcohol level which was dropping but measured in the ED. Urine drug screen is pending patient does not have any history of chronic opioid use. VPMS was reviewed and he has been prescribed Librium earlier this year for outpatient treatment of alcohol withdrawal. Because of patient's severe withdrawal symptoms and some evidence of delirium, he will be admitted to the ICU for alcohol withdrawal treatment using phenobarbital protocol. Benzodiazepines need to be avoided if possible. Patient is on psychiatric medications which will be continued. Long-term he needs to talk with mental health and alcohol rehab as an outpatient versus inpatient. He would need to be medically cleared to discharge to a inpatient rehab facility. He does have some slight abnormalities which will be repleted and he will be IV hydrated appearing to be acutely dehydrated with polycythemia, elevated BUN and dry oral mucosa on exam. He is a full code. Review of Systems Narrative: 13 point review of systems otherwise unrevealing or stable. Patient is thin. [facility] All Active Problems (Updated 02/08/25 @ 22:43 by Valentín Melton) Acute dehydration (Acute) Hypomagnesemia (Acute) Alcohol use disorder (Chronic) Primary hypertension (Chronic ~2023) Elevated bilirubin (Acute) Tachycardia (Acute) Hepatic steatosis (Acute ~12/2023) Bilateral ocular hypertension (Chronic) Sleeping difficulty (Acute) RX Trazodone Elevated BP without diagnosis of hypertension (Acute) alcohol-related Depression (Chronic) Venlafaxine; counselor Anxiety (Chronic) did not respond to low dose sertraline 01/11/11, failed Mirtazepine Medical History Alcohol use disorder, moderate, in early remission Alcohol withdrawal Hypertension Nicotine use disorder 16yo started 0.5-1PPD Stressful life event affecting family Sister's illness/diagnosis Excessive drinking alcohol Reviewed norms Family History Mother Breast cancer Pre-menopausal; has occurred x2 Asthma Heart disease [place] Father , COVwinter Cancer lung Diabetes Sister Scleroderma Breast cancer Dx'ed mid 30s Paternal Uncle Scleroderma Social History Smoking/Tobacco Use Status: Current every day Tobacco Type: cigarettes Years smoked: 20 Tobacco: How many years used: 8 Quit status: considering quitting Smoking risk assessment performed?: Yes Alcohol Intake: current Alcohol Intake frequency: 3 or more drinks per day Alcohol type: wine and hard liquor Drug use: Socially Substance use type: marijuana Adopted: No Caregiver/Support person: No Foster care: No Household members: family Housing: house Number of Children: 0 number of grandchildren: 0 Communication Needs: None Education Level: high school Do you need help understanding health information?: Rarely 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: Working for [employer] on [employer] Pets and animals: No Sexually active: Yes Do you think of yourself as: straight/heterosexual Current gender identity: male What is your relationship status?: refused to answer How often do you talk on the phone with friends or family?: three or more times per week How often do you get together with friends or relatives?: three or more times per week Do you belong to any clubs or organized social groups?: no Panel score (0-1 are the most socially isolated patients): 1 What type of physical activity do you participate in: walking Duration: > 90 minutes/day Frequency: 5-6 times per week Laina/Episcopal: None Special laina needs: No Seatbelt use: always Helmet use: Yes Helmet use: always Drive intox or ride w/intox team cdl driver: No Do you feel safe at home: Yes Do you feel safe in your relationship?: Yes Meds Allergies and Home Medications Allergies Allergy/AdvReac Type Severity Reaction Status Date / Time No Known Allergies Allergy Verified 02/08/25 19:14 Home Medications ?Medication ?Instructions ?Recorded ?Confirmed ?Type trazodone 50 mg tablet See Rx Instructions PO QHS PRN 09/10/24 02/01/25 Rx sleep #40 tabs disulfiram 500 mg tablet 500 mg PO DAILY #30 tabs 10/26/24 02/01/25 Rx amlodipine 10 mg tablet 10 mg PO DAILY #90 tabs 12/03/24 02/01/25 Rx folic acid 1 mg tablet 1 mg PO DAILY 12/09/24 02/01/25 History venlafaxine 75 mg capsule,extended 75 mg PO QPM 12/09/24 02/01/25 History release 24 hr naltrexone 50 mg tablet 50 mg PO DAILY #30 tabs 12/11/24 02/01/25 Rx nicotine 14 mg/24 hr daily 14 mg transdermal DAILY PRN PRN 12/11/24 02/01/25 Rx transdermal patch #30 ea buspirone 15 mg tablet 15 mg PO BID 12/17/24 02/01/25 History thiamine mononitrate (vit B1) 100 100 mg PO QAM #90 tabs 12/23/24 02/01/25 Rx mg tablet (Vitamin B-1 (mononitrate)) sertraline 100 mg tablet 200 mg PO DAILY 02/01/25 02/01/25 History Exam Narrative Exam Narrative: General: Patient is thin, disheveled and appears chronically ill. He is unshaven. He has poor eye contact and slow monotonous tone to his speech. He has a moderate distress from his withdrawal but is able to have conversation. He is denying any auditory or visual hallucinations at the time of my exam. He is alert and oriented x 3. HEENT: Normocephalic, unshaven, eyes with pupils equal and reactive to light symmetrically, extraocular movement intact and sclera anicteric. Oropharynx with dry mucosa and fair dentition. Neck: Supple without JVD. Back: Normal posture without CVA tenderness. Lungs: Aeration and clear to auscultation percussion. No focalizing rales or rhonchi. No expiratory wheeze. Heart: Dynamic heart sounds with regular rate and rhythm with no murmur or gallop appreciated. Abdomen: Scaphoid contour, soft and nontender to palpation without palpable hepatosplenomegaly. No focal guarding or rebound. Bowel sounds positive all quadrants. Genitalia/rectal: Exam deferred. Extremities: Without clubbing, cyanosis or pitting edema, peripheral pulses intact. Skin: Normal color, warm and moist. Neuro: Cranial nerves II through XII gross intact, no focalized motor deficits and no tremor. Psych: Flattened affect with poor eye contact, depressed mood with soft voice when just guessing his history. No abnormal thought processes manifested during my exam. Remote and recent memory grossly intact. Results Labs 02/08/25 19:40 02/08/25 19:40 Labs: Laboratory Results - last 24 hr 02/08/25 19:40 WBC 7.04 RBC 5.75 Hgb 18.3 H Hct 50.6 H MCV 88 MCH 31.8 MCHC 36.2 H RDW 12.5 Plt Count 271 MPV 8.8 Immature Gran % 0.3 Neutrophils % 51.0 Lymphocytes % 37.9 Monocytes % 7.7 Eosinophils % 2.7 Basophils % 0.4 Nucleated RBC % 0.0 Absolute Neutrophils 3.59 Absolute Lymphocytes 2.67 Absolute Monocytes 0.54 Absolute Eosinophils 0.19 Absolute Basophils 0.03 Sodium 141 Potassium 3.4 L Chloride 100 Carbon Dioxide 24.4 Anion Gap 16.6 H BUN 5 L Creatinine 0.9 Est GFR (CKD-EPI 2020) 115.65 Glucose 228 H Calcium 9.0 Magnesium 1.6 L Total Bilirubin 0.6 AST 18 ALT 29 Alkaline Phosphatase 90 Total Protein 7.4 Albumin 3.9 TSH 1.07 Ethyl Alcohol 327.8 H Last Vital Signs Temp 36.6 C 02/08/25 19:15 Pulse 133 H 02/08/25 20:10 Resp 15 02/08/25 20:10 BP 159/105 H 02/08/25 20:00 Pulse Ox 93 02/08/25 20:10 PAWSS Have you Been Recently Intoxicated or Drunk Within the Last 30 days?: Yes Have you Ever Experienced Previous Episodes of Alcohol Withdrawal?: Yes Have you ever Experienced Withdrawal Seizures?: No Have you ever Experienced Delirium Tremens(DT)s?: Yes Have you ever undergone Alcohol Rehabilitation Treatment (i.e, inpt ot outpatient treatment programs)?: Yes Have you ever Experienced Blackouts?: Yes Have you ever Combined Alcohol with other Downers within the last 90 days?: No Have you ever Combined Alcohol with any other Substance of Abuse during the last 90 days?: No Positive Blood Alcohol level on Presentation? [PCS.BAL]: Yes Evidence of Increased Autonomic Activity (i.e. HR>120, tremor, sweating, agitation, nausea)?: Yes Result: 7 Time Spent Time spent with Patient: >75 minutes Time was spent: preparing to see the patient(eg.review tests), obtaining and/or reviewing separately otained hiistory, ordering medications,tests, procedures, indepentently interpreting results, counseling the patient and care coordination
--- NOTE | 2025-02-08 23:25 | W.ED.GENAD ---
Discharge Plan Discharge Details Chief Complaint: ETOHWithdr Primary Care Provider: Tara Humphreys ED Provider: Edwina Caceres Home Meds and New Rx's Prescriptions: No Action trazodone 50 mg tablet See Rx Instructions PO QHS PRN (Reason: sleep) Qty: 40 0RF Rx Instructions: 25-50mg bedtime for sleep difficulty, may repeat 50mg x1 if first dose ineffective for max nightly dose 100mg PO every day at bedtime PRN; amlodipine 10 mg tablet 10 mg PO DAILY Qty: 90 3RF Rx Instructions: For BP with goal <140/90 buspirone 15 mg tablet 15 mg PO BID thiamine mononitrate (vit B1) [Vitamin B-1 (mononitrate)] 100 mg Tablet 100 mg PO QAM Qty: 90 0RF disulfiram 500 mg tablet 500 mg PO DAILY Qty: 30 0RF folic acid 1 mg tablet 1 mg PO DAILY Patient Comments: TAKE ONE TABLET BY MOUTH EVERY DAY venlafaxine 75 mg capsule,extended release 24hr 75 mg PO QPM Patient Comments: TAKE ONE CAPSULE BY MOUTH AT BEDTIME nicotine 14 mg/24 hr Patch 24 Hour 14 mg transdermal DAILY PRN PRNQty: 30 0RF naltrexone 50 mg tablet 50 mg PO DAILY Qty: 30 3RF sertraline 100 mg tablet 200 mg PO DAILY Patient Comments: TAKE ONE TABLET BY MOUTH EVERY DAY HPI General Date/Time Provider Initiated Documentation: 02/08/25 19:13. HPI Narrative: 34-year-old male with AUD presents with nausea, overwhelming anxiety, and auditory hallucinations. Consumes 12 large seltzers daily for the past week. Was sober for a month after last admission but resumed drinking due to an unspecified incident. Drinking consistently for the past 7 days. Homeless and feels hopeless. No direct suicidality but expresses hopelessness related to homelessness. No additional illicit drug use. History of severe alcohol withdrawal, no past seizures. Last drink 2 hours prior to arrival. No head injuries. Experiences abdominal discomfort and nausea. Related Data Home Medications ?Medication ?Instructions ?Recorded ?Confirmed trazodone 50 mg tablet See Rx Instructions PO QHS PRN 09/10/24 02/01/25 sleep #40 tabs disulfiram 500 mg tablet 500 mg PO DAILY #30 tabs 10/26/24 02/01/25 amlodipine 10 mg tablet 10 mg PO DAILY #90 tabs 12/03/24 02/01/25 folic acid 1 mg tablet 1 mg PO DAILY 12/09/24 02/01/25 venlafaxine 75 mg capsule,extended 75 mg PO QPM 12/09/24 02/01/25 release 24 hr naltrexone 50 mg tablet 50 mg PO DAILY #30 tabs 12/11/24 02/01/25 nicotine 14 mg/24 hr daily 14 mg transdermal DAILY PRN PRN 12/11/24 02/01/25 transdermal patch #30 ea buspirone 15 mg tablet 15 mg PO BID 12/17/24 02/01/25 thiamine mononitrate (vit B1) 100 100 mg PO QAM #90 tabs 12/23/24 02/01/25 mg tablet (Vitamin B-1 (mononitrate)) sertraline 100 mg tablet 200 mg PO DAILY 02/01/25 02/01/25 Previous Rx's ?Medication ?Instructions ?Recorded trazodone 50 mg tablet See Rx Instructions PO QHS PRN 09/10/24 sleep #40 tabs disulfiram 500 mg tablet 500 mg PO DAILY #30 tabs 10/26/24 amlodipine 10 mg tablet 10 mg PO DAILY #90 tabs 12/03/24 naltrexone 50 mg tablet 50 mg PO DAILY #30 tabs 12/11/24 nicotine 14 mg/24 hr daily 14 mg transdermal DAILY PRN PRN 12/11/24 transdermal patch #30 ea thiamine mononitrate (vit B1) 100 100 mg PO QAM #90 tabs 12/23/24 mg tablet (Vitamin B-1 (mononitrate)) Allergies Allergy/AdvReac Type Severity Reaction Status Date / Time No Known Allergies Allergy Verified 02/08/25 19:14 General Stated Complaint: ETOHWithdr MOISES: 3 Exam Narrative Exam Narrative: General Appearance: Alert, very anxious, tremulous, diaphoretic. Vital signs: Significantly tachycardic (HR 150s). HEENT: No tongue fasciculations. Respiratory: Within normal limits. Cardiovascular: Regular cardiac rhythm. Extremities: No peripheral edema. Skin: Warm and dry, no rash. Neurological: Fully alert and oriented, answers questions appropriately. Psychiatric: Very anxious. Course Vital Signs Vital signs: Vital Signs Temperature 36.6 C 02/08/25 19:15 Pulse 148 H 02/08/25 19:15 Respiratory Rate 20 06/23/25 19:15 Blood Pressure 152/104 H 02/08/25 19:15 Pulse Oximetry 98 02/08/25 19:15 Temperature 36.6 C 02/08/25 19:15 Temperature Source Oral 02/08/25 19:15 Pulse 133 H 02/08/25 20:10 Pulse 131 H 02/08/25 20:10 Respiratory Rate 15 02/08/25 20:10 Blood Pressure 159/105 H 02/08/25 20:00 Blood Pressure Mean 124 02/08/25 20:00 Blood Pressure Position Sitting 02/08/25 19:15 Pulse Oximetry 93 02/08/25 20:10 Oxygen Delivery Method Room Air 02/08/25 19:15 Oxygen Flow Rate 0 02/08/25 19:15 Pain Level 0 02/08/25 19:15 Lab/Test Results Lab/Test Results: Laboratory Tests Range/Units 02/08/25 19:40 WBC (4.4-10.8) 10^3/uL 7.04 RBC (4.36-5.78) 10^6/uL 5.75 Hgb (13.5-17.5) g/dL 18.3 H Hct (40.0-50.0) % 50.6 H MCV (80-95) fL 88 MCH (27.0-33.0) pg 31.8 MCHC (32.0-36.0) % 36.2 H RDW (11.8-14.1) % 12.5 Plt Count (130-400) 10^3/uL 271 MPV (8.0-11.0) fL 8.8 Immature Gran % % 0.3 Neutrophils % % 51.0 Lymphocytes % % 37.9 Monocytes % % 7.7 Eosinophils % % 2.7 Basophils % % 0.4 Nucleated RBC % (0.0-0.3) % 0.0 Absolute Neutrophils (1.2-6.7) 10^3/uL 3.59 Absolute Lymphocytes (1.2-3.4) 10^3/uL 2.67 Absolute Monocytes (0.1-0.8) 10^3/uL 0.54 Absolute Eosinophils (0.0-0.7) 10^3/uL 0.19 Absolute Basophils (0.0-0.2) 10^3/uL 0.03 Sodium (136-145) mmol/L 141 Potassium (3.5-5.1) mmol/L 3.4 L Chloride (98-107) mmol/L 100 Carbon Dioxide (21.0-32.0) mmol/L 24.4 Anion Gap (3-11) mmol/L 16.6 H BUN (7-18) mg/dL 5 L Creatinine (0.70-1.30) mg/dL 0.9 Est GFR (CKD-EPI 2020) (mL/min/1.73m2) 115.65 Glucose (74-106) mg/dL 228 H Calcium (8.5-10.1) mg/dL 9.0 Magnesium (1.8-2.4) mg/dL 1.6 L Total Bilirubin (0.2-1.0) mg/dL 0.6 AST (15-37) U/L 18 ALT (16-63) U/L 29 Alkaline Phosphatase (46-116) U/L 90 Total Protein (6.4-8.2) g/dL 7.4 Albumin (3.4-5.0) g/dL 3.9 TSH (0.36-3.74) uIU/mL 1.07 Ethyl Alcohol (<10) mg/dL 327.8 H Medical Decision Making Blood alcohol level 357. Labs reassuring: CBC, CMP, TSH. Blood glucose 228 no evidence of DKA no history of diabetes Initial Assessment: 34-year-old male with history of severe alcohol withdrawal presents with nausea, overwhelming anxiety, and homelessness. Drinking 12 large seltzers daily for the past week. Last drink approximately 2 hours prior to arrival. Denies additional illicit drug use, seizures, and head injuries. On arrival, significantly tachycardic, very anxious, diaphoretic, and tremulous. Blood alcohol level 357. ED Course: - Blood alcohol level 357 on arrival. - Labs: CBC, CMP, TSH reassuring. - Given 5 mg Valium. - Remains hypertensive and very anxious. - Phenobarbital protocol ordered due to risk of complicated withdrawal, pending mental health assessment once patient has been medically cleared - Start phenobarbital at lower dose as blood alcohol initially 357, severe anxiety complicating withdrawal diagnosis - Case discussed with hospitalist who admit patient to the service Final Assessment: Patient with severe alcohol withdrawal, anxiety, and homelessness. Given Valium and started on phenobarbital protocol due to risk of complicated withdrawal. Needs mental health assessment after medical clearance. Clinical Impression: - Alcohol Use Disorder - Anxiety - Homelessness Disposition: - Follow-Up: Mental health assessment after medical clearance. MDM Components Evaluation: - Number of Differential Diagnoses or Management Options: Alcohol Use Disorder, Anxiety, Homelessness. - Amount and Complexity of Data Reviewed: Blood alcohol level, CBC, CMP, TSH. - Risk of Complication and Morbidity or Mortality: High risk due to severe alcohol withdrawal and homelessness. Quality:SDOH Health Related Social Needs: Health related social needs risk of homeless lonely/isolated Health related social needs details Pt reports not having great support system. Reports that who he turns to for support changes frequently. PFSH All Active Problems (Updated 02/08/25 @ 22:43 by Valentín Melton) Acute dehydration (Acute) Hypomagnesemia (Acute) Alcohol use disorder (Chronic) Primary hypertension (Chronic ~2023) Elevated bilirubin (Acute) Tachycardia (Acute) Hepatic steatosis (Acute ~12/2023) [place] Bilateral ocular hypertension (Chronic) Sleeping difficulty (Acute) RX Trazodone Elevated BP without diagnosis of hypertension (Acute) alcohol-related Depression (Chronic) Venlafaxine; counselor Anxiety (Chronic) did not respond to low dose sertraline 01/11/11, failed Mirtazepine Medical History Alcohol use disorder, moderate, in early remission Alcohol withdrawal Hypertension Nicotine use disorder 16yo started 0.5-1PPD Stressful life event affecting family Sister's illness/diagnosis Excessive drinking alcohol Reviewed norms Family History Mother Breast cancer Pre-menopausal; has occurred x2 Asthma Heart disease [place] Father , COV, Winter 2019 Cancer lung Diabetes Sister Scleroderma Breast cancer Dx'ed mid 30s Paternal Uncle Scleroderma Social History Smoking/Tobacco Use Status: Current every day Tobacco Type: cigarettes Years smoked: 20 Tobacco: How many years used: 8 Quit status: considering quitting Smoking risk assessment performed?: Yes Alcohol Intake: current Alcohol Intake frequency: 3 or more drinks per day Alcohol type: wine and hard liquor Drug use: Socially Substance use type: marijuana Adopted: No Caregiver/Support person: No Foster care: No Household members: family Housing: house Number of Children: 0 number of grandchildren: 0 Communication Needs: None Education Level: high school Do you need help understanding health information?: Rarely 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 Pets and animals: No Sexually active: Yes Do you think of yourself as: straight/heterosexual Current gender identity: male What is your relationship status?: refused to answer How often do you talk on the phone with friends or family?: three or more times per week How often do you get together with friends or relatives?: three or more times per week Do you belong to any clubs or organized social groups?: no Panel score (0-1 are the most socially isolated patients): 1 What type of physical activity do you participate in: walking Duration: > 90 minutes/day Frequency: 5-6 times per week Laina/Advent: None Special laina needs: No Seatbelt use: always Helmet use: Yes Helmet use: always Drive intox or ride w/intox wheelchair driver: No Do you feel safe at home: Yes Do you feel safe in your relationship?: Yes PAWSS Have you Been Recently Intoxicated or Drunk Within the Last 30 days?: Yes Have you Ever Experienced Previous Episodes of Alcohol Withdrawal?: Yes Have you ever Experienced Withdrawal Seizures?: No Have you ever Experienced Delirium Tremens(DT)s?: Yes Have you ever undergone Alcohol Rehabilitation Treatment (i.e, inpt ot outpatient treatment programs)?: Yes Have you ever Experienced Blackouts?: Yes Have you ever Combined Alcohol with other Downers within the last 90 days?: No Have you ever Combined Alcohol with any other Substance of Abuse during the last 90 days?: No Positive Blood Alcohol level on Presentation? [PCS.BAL]: Yes Evidence of Increased Autonomic Activity (i.e. HR>120, tremor, sweating, agitation, nausea)?: Yes Result: 7
[2025-02-08 23:28] LABS: Troponin I 7 ng/L (<or=76)
[2025-02-09] VITALS (64 sets, daily range): BP systolic 98–156; BP diastolic 66–136; PULSE 74–136; RESP 9–23; TEMP 36.7–37.4; O2SAT 92–98
[2025-02-09] MEDS: PHENobarbital 130 MG/ML VIAL IVP ×6 (00:32→16:39)
[2025-02-09] MEDS: PHENobarbital 180 MG in Normal Saline 50 ML 100 MG IVPB (00:39)
[2025-02-09] MEDS: MAGNESIUM SULFATE 4 GM/100 ML BAG IV_INF (00:56)
[2025-02-09] MEDS: traZODone 50 MG TAB PO ×2 (01:10→21:03)
[2025-02-09] MEDS: Normal Saline 1,000 ML 150 ML IV ×4 (02:08→22:50)
[2025-02-09] MEDS: PHENobarbital 130 MG in Normal Saline 50 ML 100 MG IVPB ×2 (04:00→06:44)
[2025-02-09 06:17] LABS: HGB 14.6 g/dL (13.5-17.5); MCH 31.3 pg (27.0-33.0); MCHC 34.8 % (32.0-36.0); MCV 90 fL (80-95); MPV 9.2 fL (8.0-11.0); Platelet Count 182 10^3/uL (130-400); RBC 4.67 10^6/uL (4.36-5.78); RDW 12.6 % (11.8-14.1); RDW-SD 41.8 fL; WBC 5.82 10^3/uL (4.4-10.8)
[2025-02-09 06:32] LABS: Prothrombin Time 10.3 sec (9.1-11.1)
[2025-02-09 06:38] LABS: ALT 21 U/L (16-63); AST 15 U/L (15-37); Albumin 2.9 g/dL (3.4-5.0); Alkaline Phosphatase 66 U/L (46-116); Anion Gap 8.2 mmol/L (3-11); BUN 7 mg/dL (7-18); Bilirubin, Total 0.7 mg/dL (0.2-1.0); CO2 29.8 mmol/L (21.0-32.0); CREATININE 0.7 mg/dL (0.70-1.30); Chloride 106 mmol/L (98-107); Estimated GFR 124.77 (mL/min/1.73m2); Glucose 98 mg/dL (74-106); Potassium 3.7 mmol/L (3.5-5.1); Sodium 144 mmol/L (136-145); Total Protein 5.5 g/dL (6.4-8.2)
[2025-02-09 06:47] LABS: TSH 0.99 uIU/mL (0.36-3.74)
[2025-02-09 06:48] LABS: COVID-19 PCR Negative (Negative); Influenza A PCR Negative (Negative); Influenza B PCR Negative (Negative); RSV PCR Negative (Negative)
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
[2025-02-09 06:56] LABS: Source Nasopharynx
[2025-02-09] MEDS: Ondansetron 4 MG/2 ML VIAL IVP (09:47)
[2025-02-09] MEDS: Sertraline 100 MG TAB 200 MG PO (09:51)
[2025-02-09] MEDS: busPIRone 15 MG TAB PO ×2 (09:51→21:03)
[2025-02-09] MEDS: amLODIPine 10 MG TAB PO (09:51)
[2025-02-09] MEDS: Thiamine 100 MG TAB PO (09:51)
[2025-02-09] MEDS: Multivitamin TAB 1 TAB PO (09:52)
[2025-02-09] MEDS: Folic Acid 1 MG TAB PO (09:52)
[2025-02-09] MEDS: Normal Saline Flush 10 ML SYR IVP ×3 (09:54→21:05)
--- NOTE | 2025-02-09 11:34 | W.PM.PROGNOT ---
Date of Service Date of service: 02/09/25 Time of Service: 11:34 Assessment and Plan Assessment and plan (1) Alcohol withdrawal: Start date: 02/08/25 Assessment and plan: Responding appropriately to phenobarbital protocol, continue. (2) Alcohol use disorder: Status: Chronic Assessment and plan: Patient needs outpatient or inpatient rehabilitation and long-term abstinence. We did discuss rehab, preferably dual diagnosis for depression/axiety if possible once medically clear. (3) Hypomagnesemia: Start date: 02/08/25 Status: Acute Assessment and plan: normalized (4) Acute dehydration: Start date: 02/08/25 Status: Acute Assessment and plan: Resolved, starting to eat/drink but not a lot. can stop IV fluids once clearly takign adequate po. (5) Primary hypertension: Status: Chronic Assessment and plan: Continue outpatient amlodipine (6) Depression: Status: Chronic Assessment and plan: Severe depression and anxiety contributing to AUD. Continue outpatient medical therapy, see above re: rehab. Subjective Subjective Patient reports: no new complaints, tolerating liquids well and voiding w/o difficulty; denies diarrhea, vomiting, shortness of breath or fever Interval history since last seen: Doesn't feel good, quite anxious, but feels a little better. Exam Narrative Exam Narrative: Gen: Alert and oriented, anxious, but not agitated. mild tremor Respiratory: CTAB with normal effort Cardiovascular: RRR no m/g/r ABD: +BS, soft, NT/ND Extremities: No c/c/e Objective Last Vital Signs Temp 37.4 C 02/09/25 10:07 Pulse 101 H 02/09/25 11:01 Resp 13 02/09/25 11:01 BP 134/92 H 02/09/25 11:01 Pulse Ox 96 02/09/25 11:01 Laboratory Results - last 24 hr 02/08/25 02/08/25 02/08/25 19:40 21:17 23:17 WBC 7.04 RBC 5.75 Hgb 18.3 H Hct 50.6 H MCV 88 MCH 31.8 MCHC 36.2 H RDW 12.5 Plt Count 271 MPV 8.8 Immature Gran % 0.3 Neutrophils % 51.0 Lymphocytes % 37.9 Monocytes % 7.7 Eosinophils % 2.7 Basophils % 0.4 Nucleated RBC % 0.0 Absolute Neutrophils 3.59 Absolute Lymphocytes 2.67 Absolute Monocytes 0.54 Absolute Eosinophils 0.19 Absolute Basophils 0.03 PT INR Sodium 141 Potassium 3.4 L Chloride 100 Carbon Dioxide 24.4 Anion Gap 16.6 H BUN 5 L Creatinine 0.9 Est GFR (CKD-EPI 2020) 115.65 Glucose 228 H Calcium 9.0 Phosphorus Magnesium 1.6 L Total Bilirubin 0.6 AST 18 ALT 29 Alkaline Phosphatase 90 Troponin I 7 Cancelled Cancelled Total Protein 7.4 Albumin 3.9 TSH 1.07 Ethyl Alcohol 327.8 H COVID-19 Source SARS-CoV-2 (PCR) Influenza Type A (PCR) Influenza Type B (PCR) RSV (PCR) 02/09/25 02/09/25 05:15 05:25 WBC 5.82 RBC 4.67 Hgb 14.6 D Hct 42.0 MCV 90 MCH 31.3 MCHC 34.8 RDW 12.6 Plt Count 182 MPV 9.2 Immature Gran % Neutrophils % Lymphocytes % Monocytes % Eosinophils % Basophils % Nucleated RBC % Absolute Neutrophils Absolute Lymphocytes Absolute Monocytes Absolute Eosinophils Absolute Basophils PT 10.3 INR 1.0 Sodium 144 Potassium 3.7 Chloride 106 Carbon Dioxide 29.8 Anion Gap 8.2 BUN 7 Creatinine 0.7 Est GFR (CKD-EPI 2020) 124.77 Glucose 98 Calcium 8.0 L Phosphorus 3.0 Magnesium 3.0 H Total Bilirubin 0.7 AST 15 ALT 21 Alkaline Phosphatase 66 Troponin I Total Protein 5.5 L Albumin 2.9 L TSH 0.99 Ethyl Alcohol COVID-19 Source Nasopharynx SARS-CoV-2 (PCR) Negative Influenza Type A (PCR) Negative Influenza Type B (PCR) Negative RSV (PCR) Negative PAWSS Have you Been Recently Intoxicated or Drunk Within the Last 30 days?: Yes Have you Ever Experienced Previous Episodes of Alcohol Withdrawal?: Yes Have you ever Experienced Withdrawal Seizures?: No Have you ever Experienced Delirium Tremens(DT)s?: Yes Have you ever undergone Alcohol Rehabilitation Treatment (i.e, inpt ot outpatient treatment programs)?: Yes Have you ever Experienced Blackouts?: Yes Have you ever Combined Alcohol with other Downers within the last 90 days?: No Have you ever Combined Alcohol with any other Substance of Abuse during the last 90 days?: No Positive Blood Alcohol level on Presentation? [PCS.BAL]: Yes Evidence of Increased Autonomic Activity (i.e. HR>120, tremor, sweating, agitation, nausea)?: Yes Result: 7 Time Spent with Patient Time Spent with Patient: 35-49 minutes Time was spent: preparing to see the patient(eg.review tests), obtaining and/or reviewing separately otained hiistory, ordering medications,tests, procedures, referring, communicating with other health restorative care technician, indepentently interpreting results, counseling the patient and care coordination
--- NOTE | 2025-02-09 13:59 | PHA.REVIEW2 ---
Pharmacy Admission Review Admission Clinical Review Admission Pharmacy Review: Acute dehydration (Acute) Hypomagnesemia (Acute) No Known Allergies Allergy (Verified 02/08/25 19:14) Resuscitation Status Full Code Height 5 ft 10 in Weight 80.9 kg Pharmacy Admission Review Renal Dosing Renal Dosing: BUN 7 mg/dL (7-18) 02/09/25 05:15 Creatinine 0.7 mg/dL (0.70-1.30) 02/09/25 05:15 Medications needing adjustments: Reviewed (CrCl 171 mL/min) List of meds needing interventions: Current medications are okay Anticoagulation Anticoagulation: Hgb 14.6 g/dL (13.5-17.5) D 02/09/25 05:15 Hct 42.0 % (40.0-50.0) 02/09/25 05:15 Plt Count 182 10^3/uL (130-400) 02/09/25 05:15 INR 1.0 (0.9-1.1) 02/09/25 05:15 Creatinine 0.7 mg/dL (0.70-1.30) 02/09/25 05:15 DVT Prophylaxis: Reviewed (Hgb decreased from 18.3) Medications: Enoxaparin (40mg daily) Relevant Labs Relevant Labs: Sodium 144 mmol/L (136-145) 02/09/25 05:15 Potassium 3.7 mmol/L (3.5-5.1) 02/09/25 05:15 Chloride 106 mmol/L (98-107) 02/09/25 05:15 Phosphorus 3.0 mg/dL (2.6-4.7) 02/09/25 05:15 Magnesium 3.0 mg/dL (1.8-2.4) H 02/09/25 05:15 Electrolytes, C-Reactive P, ESR: Reviewed Cardiac Review Cardiac Review: Troponin I Cancelled 02/08/25 23:17 Blood Pressure 156/120 1354 Blood Pressure 156/120 1301 Blood Pressure 143/105 1240 Blood Pressure 138/81 1201 Blood Pressure 134/92 1101 Blood Pressure 146/118 1007 Blood Pressure 146/118 1001 Blood Pressure 130/92 0901 Blood Pressure 115/77 0800 Blood Pressure 114/77 0701 Blood Pressure 110/78 0601 Blood Pressure 103/77 0501 Blood Pressure 107/73 0400 Blood Pressure 98/66 0301 BP, HR, EF%: Reviewed (HR 96) List meds needing interventions: Has order for amlodipine 10mg daily QTc Review QTc: Reviewed (434 from 02/08) IV to PO Switch IV Medications: Intervened (phenobarbitalAbdirahmanan - spoke with provider and changed from IV to PO) Home Meds Home Med List reviewed: Intervened Relevent Home Meds Not ordered & why?: disulfiram and naltrexone Patient recently filled hydroxyzine but not on home med list. Called nurse to verify with patient. Per nurse patient does take at home sometimes but not often. I added to home med list. Current Meds Current Medication Order Review: Reviewed Comments: Phenobarbital for CIWA CIWA 20 at 0957 Soft stop: 1095 mg Hard stop: 1460 mg Current total: 960mg (as of 02/09 at 1400)
--- NOTE | 2025-02-09 14:30 | PDOC.CMIN ---
Date of service: 02/09/25 Time of Service: 14:30 Care Management Initial Assmt Initial Assessment Reason for Hospitalization: alcohol withdrawal, dehydration Functional Status/Living Situation Patient Presentation: Andrey was lying in bed when CM met with him. He was pleasant and engaged in conversation well. He reported that he is not feeling well, both physically and mentally. He appeared anxious and tearful throughout the conversation, discussing his challenges with sobriety and the negative impact alcohol use has made on his life. CM provided validation and support, as he has had periods of sobriety recently, and discussed the connection between substance use and mental health. Andrey had a difficult time identifying what has helped him stop drinking in the past, and verbalized that he is struggling with making a decision about next steps, once he is medically cleared for discharge. He stated that he does not like the feeling of being locked up in a facility, and has had negative experiences in the past. CM discussed options including dual diagnosis treatment at [facility], inpatient DAVILA rehab at [facility], and outpatient supports. He reported that he has a therapist that he sees biweekly, and a psychiatrist that he also sees outpatient. Andrey reported that he has been living in his car recently, and works at [employer] [place] but is not sure if he will be able to keep him job; CM offered a return to work letter, if needed. CM encouraged him to think about his options, stating that he does not need to make a decision today, and that he is voluntary, therefore he is able to make his own decision about where he will go from here. CM will continue to follow. Town of Residence: [facility] Resides with: Other (unhoused, living in car) Significant Other/Family: Local Natural Supports: supportive family, but not in good contact at this time Employment Status: Employed ([employer] [place] Instrumental Activities of Daily Living (ADLs): Independent Medications Medication Management: No Issues/Barriers identified Advance Directives Advance Directives: Do you have an Advance Directive: N 05/20/22, 16:50 AD On File at [facility]: N 10/27/12, 21:17 Date Asked 02/08/25 02/08/25, 19:12 AD Date Reviewed COLST On File at [facility] No 09/28/24, 21:15 COLST Date Scanned Code Status Resuscitation Status Full Code Insurance Coverage/Financial Issues Insurance: [facility] Care Team Visit Care Team Role Provider Type Samir Mcclelland MD [facility] STAFF PHYSICIAN Tara Humphreys, PETROS Primary Care Provider NURSE PRACTITIONER RODRIGO Delgado Emergency Provider PHYSICIANS [employer] DRIVER Valentín Melton Admit Provider NON-[facility] STAFF PHYSICIAN Attending Provider Discharge Potential Discharge Needs: PCP F/U Appt and 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 He will likely discharge back to the community once medically cleared. CM discussed options for support both inpatient and outpatient. He will transport via his own vehicle. He will follow up with his PCP and discharge plan of care. CM will continue to follow. Social Determinants of Health Screening Social Determinants of health last assessed in clinic: 02/09/25 Will the Patient Participate in the Screening?: Yes Do you worry about having a steady place to live?: no Problems where you live: no known problems In the past 12 months, have you had to go without electric, gas, oil or water in your home?: no 1. Within the past 12 months, we worried whether our food would run out before we got money to buy more.: Don't know/refused 2. Within the past 12 months, the food we bought just didn't last and we didn't have money to get more.: Don't know/refused Has lack of transportation kept you from medical appointments or from doing things needed for daily living?: no Has anyone in your life made you feel unsafe or unsupported?: no How hard is it for you to pay for the very basics like food, housing, medical care, and heating? Would you say it is:: Not hard at all Do you want help finding or keeping work or a job?: I do not need or want help If for any reason you need help with day-to-day activities such as bathing, preparing meals, shopping, managing finances, etc., do you get the help you need?: I don?t need any help How often do you feel lonely or isolated from those around you?: Never Do you speak a language other than Cambodian at home?: No Does the patient want assistance with any of the above?: No PFSH All Active Problems (Updated 02/08/25 @ 22:43 by Valentín Melton) Acute dehydration (Acute) Hypomagnesemia (Acute) Alcohol use disorder (Chronic) Primary hypertension (Chronic ~2023) Elevated bilirubin (Acute) Tachycardia (Acute) Hepatic steatosis (Acute ~12/2023) US Bilateral ocular hypertension (Chronic) Sleeping difficulty (Acute) RX Trazodone Elevated BP without diagnosis of hypertension (Acute) alcohol-related Depression (Chronic) Venlafaxine; counselor Anxiety (Chronic) did not respond to low dose sertraline 01/11/11, failed Mirtazepine Medical History Alcohol use disorder, moderate, in early remission Alcohol withdrawal Hypertension Nicotine use disorder 16yo started 0.5-1PPD Stressful life event affecting family Sister's illness/diagnosis Excessive drinking alcohol Reviewed norms Family History Mother Breast cancer Pre-menopausal; has occurred x2 Asthma Heart disease [place] Father , , Winter 2019 Cancer lung Diabetes Sister Scleroderma Breast cancer Dx'ed mid 30s Paternal Uncle Scleroderma Social History Smoking/Tobacco Use Status: Current every day Tobacco Type: cigarettes Years smoked: 20 Tobacco: How many years used: 8 Quit status: considering quitting Smoking risk assessment performed?: Yes Alcohol Intake: current Alcohol Intake frequency: 3 or more drinks per day Alcohol type: wine and hard liquor Drug use: Socially Substance use type: marijuana Adopted: No Caregiver/Support person: No Foster care: No Household members: family Housing: homeless Number of Children: 0 number of grandchildren: 0 Communication Needs: None Education Level: high school Do you need help understanding health information?: Rarely 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: Working for [employer] on [employer] Pets and animals: No Sexually active: Yes Do you think of yourself as: straight/heterosexual Current gender identity: male What is your relationship status?: refused to answer How often do you talk on the phone with friends or family?: three or more times per week How often do you get together with friends or relatives?: three or more times per week Do you belong to any clubs or organized social groups?: no Panel score (0-1 are the most socially isolated patients): 1 What type of physical activity do you participate in: walking Duration: > 90 minutes/day Frequency: 5-6 times per week Laina/Confucianist: None Special laina needs: No Seatbelt use: always Helmet use: Yes Helmet use: always Drive intox or ride w/intox show horse driver: No Do you feel safe at home: Yes Do you feel safe in your relationship?: Yes
[2025-02-09 14:56] LABS: *AMPHETAMINES SCREEN URINE Negative (Negative); *BARBITURATES SCREEN URINE Positive (Negative); *BENZODIAZEPINES SCREEN URINE Positive (Negative); Cannabinoids THC Negative (Negative); Cocaine Screen,Urine Negative (Negative); METHADONE URINE SCREEN Negative (Negative); OPIATES URINE SCREEN Negative (Negative)
[2025-02-09 14:57] LABS: Bilirubin Negative (Negative); Blood Negative (Negative); Clarity Cloudy (Clear); Glucose Negative (Negative); Ketones Negative (Negative); Leukocyte Esterase Negative (Negative); Nitrite Negative (Negative)
[2025-02-09 14:58] LABS: Tricyclic Antidepressants Negative (Negative)
[2025-02-09] MEDS: dexmedeTOMidine IN 0.9 % NACL 400 MCG/100 ML BTL 8.09 MCG IV (16:39)
[2025-02-09] MEDS: Acetaminophen 325 MG TAB PO (21:03)
[2025-02-09] MEDS: Venlafaxine 75 MG CAPCR PO (21:03)
[2025-02-09] MEDS: dexmedeTOMidine IN 0.9 % NACL 400 MCG/100 ML BTL 16.18 MCG IV (21:03)
[2025-02-10] VITALS (48 sets, daily range): BP systolic 99–127; BP diastolic 75–104; PULSE 57–99; RESP 10–24; TEMP 36.5–37.3; O2SAT 94–98
[2025-02-10] MEDS: Tamsulosin 0.4 MG CAPCR PO (00:29)
[2025-02-10] MEDS: dexmedeTOMidine IN 0.9 % NACL 400 MCG/100 ML BTL 16.18 MCG IV (06:13)
[2025-02-10] MEDS: Normal Saline 1,000 ML 150 ML IV ×2 (06:57→14:19)
[2025-02-10 07:58] LABS: ALT 22 U/L (16-63); AST 29 U/L (15-37); Albumin 2.9 g/dL (3.4-5.0); Alkaline Phosphatase 85 U/L (46-116); Anion Gap 8.2 mmol/L (3-11); BUN 6 mg/dL (7-18); Bilirubin, Total 1.2 mg/dL (0.2-1.0); CO2 25.8 mmol/L (21.0-32.0); CREATININE 0.6 mg/dL (0.70-1.30); Calcium 8.2 mg/dL (8.5-10.1); Chloride 103 mmol/L (98-107); Estimated GFR 130.72 (mL/min/1.73m2); Glucose 105 mg/dL (74-106); PHENOBARBITAL 23.4 ug/mL (15.0-40.0); Potassium 4.2 mmol/L (3.5-5.1); Sodium 137 mmol/L (136-145); Total Protein 5.2 g/dL (6.4-8.2)
[2025-02-10] MEDS: Thiamine 100 MG TAB PO (09:33)
[2025-02-10] MEDS: Sertraline 100 MG TAB 200 MG PO (09:33)
[2025-02-10] MEDS: Multivitamin TAB 1 TAB PO (09:34)
[2025-02-10] MEDS: busPIRone 15 MG TAB PO ×2 (09:34→21:01)
[2025-02-10] MEDS: Folic Acid 1 MG TAB PO (09:34)
[2025-02-10] MEDS: amLODIPine 10 MG TAB PO (09:34)
[2025-02-10] MEDS: Normal Saline Flush 10 ML SYR IVP ×3 (09:37→21:02)
--- NOTE | 2025-02-10 12:14 | CMPROGNOTE_ITS ---
Date of service: 02/10/25 Time of Service: 12:14 Care Management Progress Note Progress Note Text Progress Note Text: Andrey was lying in bed when CM met with him. He stated that physically he feels much better today, but he continues to feel overwhelmed and stressed, particularly when thinking about the next steps post discharge. He stated that the thought of going to an inpatient facility (DAVILA vs dual diagnosis treatment) provokes intense anxiety, and he does not feel that it is an option for him at this time. He did express a strong desire to engage in outpatient supports. He is agreeable to meeting with the project manager/team coach while he is here, and possibly talking with [facility] about outpatient supports for dual diagnosis treatment. He plans to continue working with his therapist and psychiatrist from [facility] (an outpatient, [facility] affiliated clinic). He reported that [facility] has a great outpatient DAVILA/MH program, but they do not accept [place], therefore he cannot utilize those services. Per RN, Andrey continues to improve, and his most recent CIWA was a 5. CM will continue to follow. Discharge Potential Discharge Needs: PCP F/U Appt Anticipated Barriers to Discharge: None Identified Patient/Family Education Needs: Review discharge instructions, discuss Ask Me Three Transportation: Private vehicle Plan: Andrey is being closely monitored at ICU level of care. He will likely discharge back to the community once medically cleared. CM discussed options for support both inpatient and outpatient. He will transport via his own vehicle. He will follow up with his PCP and discharge plan of care. CM will continue to follow. Social Determinants of Health Screening Social Determinants of health last assessed in clinic: 02/10/25 Will the Patient Participate in the Screening?: Yes Do you worry about having a steady place to live?: no Problems where you live: no known problems In the past 12 months, have you had to go without electric, gas, oil or water in your home?: no 1. Within the past 12 months, we worried whether our food would run out before we got money to buy more.: Don't know/refused 2. Within the past 12 months, the food we bought just didn't last and we didn't have money to get more.: Don't know/refused Has lack of transportation kept you from medical appointments or from doing things needed for daily living?: no Has anyone in your life made you feel unsafe or unsupported?: no How hard is it for you to pay for the very basics like food, housing, medical care, and heating? Would you say it is:: Not hard at all Do you want help finding or keeping work or a job?: I do not need or want help If for any reason you need help with day-to-day activities such as bathing, preparing meals, shopping, managing finances, etc., do you get the help you need?: I don?t need any help How often do you feel lonely or isolated from those around you?: Never Do you speak a language other than French at home?: No Does the patient want assistance with any of the above?: No
[2025-02-10] MEDS: dexmedeTOMidine IN 0.9 % NACL 400 MCG/100 ML BTL 12.135 MCG IV ×2 (15:20→21:15)
--- NOTE | 2025-02-10 18:24 | PGE_ITS ---
Date of Service Date of service: 02/10/25 Time of Service: 18:24 Assessment and Plan Assessment and plan (1) Alcohol withdrawal: Start date: 02/08/25 Assessment and plan: Responding appropriately to phenobarbital protocol, with addition of dexmetetomidine, continue these. We should see improvement 02/11 (2) Alcohol use disorder: Status: Chronic Assessment and plan: Patient needs outpatient or inpatient rehabilitation and long-term abstinence. We did discuss rehab, also intermediate house type supportive housing once medically clear. He feels home is not a great situation for him. On IM naltrexone. Discussed other options for cravings. I think supportive justine sing and treatment of mood issues would help. (3) Primary hypertension: Status: Chronic Assessment and plan: Continue outpatient amlodipine (4) Depression: Status: Chronic Assessment and plan: Severe depression and anxiety contributing to AUD. Continue outpatient medical therapy, see above re: rehab vs supportive housing (5) DVT prophylaxis: Status: Acute Assessment and plan: enoxaparin (6) Discharge planning issues: Status: Acute Assessment and plan: ICU while on precedex home 02/11- pending improvement. Subjective Subjective Patient reports: tolerating a regular diet and voiding w/o difficulty; denies diarrhea, vomiting, shortness of breath or fever Interval history since last seen: Events: Started on precedex 02/09, helping but still uncomfortable He feels a little better but not great. A lot of anxiety. Even when doing well has a sense of emptiness, depression and anxiety. He is getting naltrexone shot. He is seeing psychiatric provider and adjusting medications. Exam Narrative Exam Narrative: Gen: Alert and oriented, anxious, but not agitated. no tremor now Respiratory: CTAB with normal effort Cardiovascular: RRR no m/g/r ABD: +BS, soft, NT/ND Extremities: No c/c/e Objective Last Vital Signs Temp 37.3 C 02/10/25 14:25 Pulse 77 02/10/25 17:03 Resp 16 02/10/25 17:03 BP 124/103 H 02/10/25 17:03 Pulse Ox 96 02/10/25 09:28 Laboratory Results - last 24 hr 02/10/25 05:40 Sodium 137 Potassium 4.2 Chloride 103 Carbon Dioxide 25.8 Anion Gap 8.2 BUN 6 L Creatinine 0.6 L Est GFR (CKD-EPI 2020) 130.72 Glucose 105 Calcium 8.2 L Total Bilirubin 1.2 H AST 29 ALT 22 Alkaline Phosphatase 85 Total Protein 5.2 L Albumin 2.9 L Phenobarbital 23.4 PAWSS Have you Been Recently Intoxicated or Drunk Within the Last 30 days?: Yes Have you Ever Experienced Previous Episodes of Alcohol Withdrawal?: Yes Have you ever Experienced Withdrawal Seizures?: No Have you ever Experienced Delirium Tremens(DT)s?: Yes Have you ever undergone Alcohol Rehabilitation Treatment (i.e, inpt ot out patient treatment programs)?: Yes Have you ever Experienced Blackouts?: Yes Have you ever Combined Alcohol with other Downers within the last 90 days?: No Have you ever Combined Alcohol with any other Substance of Abuse during the last 90 days?: No Positive Blood Alcohol level on Presentation? [PCS.BAL]: Yes Evidence of Increased Autonomic Activity (i.e. HR>120, tremor, sweating, agitation, nausea)?: Yes Result: 7 Time Spent with Patient Time Spent with Patient: 35-49 minutes Time was spent: preparing to see the patient(eg.review tests), obtaining and/or reviewing separately otained hiistory, ordering medications,tests, procedures, referring, communicating with other health child caregiver private home, indepentently interpreting results, counseling the patient and care coordination
[2025-02-10] MEDS: traZODone 50 MG TAB PO (21:01)
[2025-02-10] MEDS: Venlafaxine 75 MG CAPCR PO (21:01)
[2025-02-10] MEDS: Acetaminophen 325 MG TAB PO (21:02)
[2025-02-11] VITALS (42 sets, daily range): BP systolic 92–150; BP diastolic 63–101; PULSE 59–112; RESP 10–31; TEMP 36.5–36.8; O2SAT 94–98
[2025-02-11] MEDS: dexmedeTOMidine IN 0.9 % NACL 400 MCG/100 ML BTL 12.135 MCG IV (05:25)
--- NOTE | 2025-02-11 08:41 | PDOC.CMPRO ---
Date of service: 02/11/25 Time of Service: 08:41 Care Management Progress Note Progress Note Text Progress Note Text: Andrey was sitting cross legged on the bed, rocking back and forth, when CM met with him today. He stated that he is extremely anxious. He was crying a bit. He's upset that he has found himself in this situation again. He is basically homeless, and stated that he is afraid to ask his family for help again. He is no longer working, he is behind a payment on his car, and has a lot of things going on that he is struggling to handle. Andrey stated that he did not want to the cost recovery technician today. CM reminded him that the job coach/job developer is available at any time. He can call [facility] on his own, ask his RN to call, or ask CM to call. He was aware of this. Andrey had a zoom meeting with the [facility] ventilation worker, Madhavi, this afternoon. He stated that it was a bit helpful. Andrey is already connected with a therapist and a psychiatrist, and was encouraged to connect with them. He is being discharged home today on a safety plan. Andrey has stated that he is not interested in inpatient treatment for his alcohol abuse. Discharge Potential Discharge Needs: Consult (Cpa [employer]) and PCP F/U Appt Anticipated Barriers to Discharge: None Identified Patient/Family Education Needs: Review discharge instructions, discuss Ask Me Three Transportation: Private vehicle Plan: Andrey will be discharged home this afternoon with no new services. He will stay in an RV on his mom's property. He feels that his mom is his greatest support. Andrey will f/u with his PCP, his therapist and his psychiatrist. He was given a safety plan by [facility]. Andrey will drive himself home and continue per his plan of care. Social Determinants of Health Screening Social Determinants of health last assessed in clinic: 02/11/25 Will the Patient Participate in the Screening?: Yes Do you worry about having a steady place to live?: no Problems where you live: no known problems In the past 12 months, have you had to go without electric, gas, oil or water in your home?: no 1. Within the past 12 months, we worried whether our food would run out before we got money to buy more.: Don't know/refused 2. Within the past 12 months, the food we bought just didn't last and we didn't have money to get more.: Don't know/refused Has lack of transportation kept you from medical appointments or from doing things needed for daily living?: no Has anyone in your life made you feel unsafe or unsupported?: no How hard is it for you to pay for the very basics like food, housing, medical care, and heating? Would you say it is:: Not hard at all Do you want help finding or keeping work or a job?: I do not need or want help If for any reason you need help with day-to-day activities such as bathing, preparing meals, shopping, managing finances, etc., do you get the help you need?: I don?t need any help How often do you feel lonely or isolated from those around you?: Never Do you speak a language other than Armenian at home?: No Does the patient want assistance with any of the above?: No
[2025-02-11] MEDS: Thiamine 100 MG TAB PO (08:43)
[2025-02-11] MEDS: Folic Acid 1 MG TAB PO (08:43)
[2025-02-11] MEDS: busPIRone 15 MG TAB PO (08:43)
[2025-02-11] MEDS: Multivitamin TAB 1 TAB PO (08:44)
[2025-02-11] MEDS: Sertraline 100 MG TAB 200 MG PO (08:44)
[2025-02-11] MEDS: amLODIPine 10 MG TAB PO (08:44)
[2025-02-11] MEDS: Normal Saline Flush 10 ML SYR IVP (08:44)
--- NOTE | 2025-02-11 14:08 | W.PM.DS.N ---
Date of service: 02/11/25 Time of Service: 14:08 DS: Diagnosis Discharge Diagnosis (1) Alcohol withdrawal: (2) Alcohol use disorder: Status: Chronic (3) Primary hypertension: Status: Chronic (4) Depression: Status: Chronic (5) DVT prophylaxis: Status: Acute (6) Discharge planning issues: Status: Acute Discharge Plan Disposition Patient Disposition: Home Condition: Stable Discharge Details Reason For Visit: Alcohol withdrawal, Dehydration Admit Date/Time: 02/08/25 22:52 Admit Provider: Valentín Melton Attending Provider: Valentín Melton Primary Care Provider: Tara Humphreys Hospital Course Hospital Course: 34 yo M with alcohol use disorder and chronic depression and anxiety who presented with alcohol intoxication. He was admitted and started on phenobarbital protocol. He required addition of dexmedetomidine for anxiety relief. By 02/11 his CIWA scoring was only significant for anxiety. Resources for AUD including rehabilitation and supportive living were reviewed. He decided to return home to live on his parent's property. He is being treated with naltrexone and has disulfuram as well. He was evaluated by [facility] for his mood disorder prior to discharge. They completed a safety plan. He has outpatient follow up psychiatric care. F/u with PCP in 1-2 weeks. Home Meds and New Rx's Prescriptions: No Action trazodone 50 mg tablet See Rx Instructions PO QHS PRN (Reason: sleep) Qty: 40 0RF Rx Instructions: 25-50mg bedtime for sleep difficulty, may repeat 50mg x1 if first dose ineffective for max nightly dose 100mg PO every day at bedtime PRN; amlodipine 10 mg tablet 10 mg PO DAILY Qty: 90 3RF Rx Instructions: For BP with goal <140/90 buspirone 15 mg tablet 15 mg PO BID thiamine mononitrate (vit B1) [Vitamin B-1 (mononitrate)] 100 mg Tablet 100 mg PO QAM Qty: 90 0RF disulfiram 500 mg tablet 500 mg PO DAILY Qty: 30 0RF folic acid 1 mg tablet 1 mg PO DAILY Patient Comments: TAKE ONE TABLET BY MOUTH EVERY DAY venlafaxine 75 mg capsule,extended release 24hr 75 mg PO QPM Patient Comments: TAKE ONE CAPSULE BY MOUTH AT BEDTIME nicotine 14 mg/24 hr Patch 24 Hour 14 mg transdermal DAILY PRN PRNQty: 30 0RF naltrexone 50 mg tablet 50 mg PO DAILY Qty: 30 3RF sertraline 100 mg tablet 200 mg PO DAILY Patient Comments: TAKE ONE TABLET BY MOUTH EVERY DAY hydroxyzine HCl 25 mg tablet 25 mg PO BID PRN Patient Comments: TAKE 1 TABLET TWICE DAILY NEEDED FOR ANXIETY Discharge Instructions Additional Instructions: follow up with your therapist and psychiatric provider [facility] to help find stability in your recovery. The recovery center can help you coordinate this. Activity:: Activity as Tolerated Equipment/Supplies:: No Equipment Needed Diet:: As Tolerated Discharge Orders Discharge Orders: Discharge Order (Routine); Ordered 02/11/25 Ordered By: Samir Mcclelland DS: Summary Time Spent with Patient providing and/or coordinating discharge services: Greater than 30 minutes Status at Discharge Functional status at discharge: independent ambulation Overall status at discharge: patient is back to baseline Mental Status: mental status grossly normal Speech and Movement: speech and movement normal Mood: congruent mood Affect: normal affect Quality:SDOH Health Related Social Needs: Health related social needs risk of homeless lonely/isolated Health related social needs details Pt reports not having great support system. Reports that who he turns to for support changes frequently. Exam Psych Mental Status: mental status grossly normal Speech and Movement: speech and movement normal Mood: congruent mood Affect: normal affect DS: Data Vitals/I&O Vitals and I&O: Vital Signs Temperature 36.8 C 02/11/25 07:25 Temperature Source Temporal Artery Scan 02/11/25 07:25 Pulse 94 H 02/11/25 10:02 Pulse 93 H 02/11/25 10:02 Respiratory Rate 17 02/11/25 10:02 Respiratory Effort Non-Labored 02/09/25 00:10 Respiratory Depth Normal 02/09/25 00:10 Respiratory Pattern Normal 02/09/25 00:16 Blood Pressure 92/63 L 02/11/25 10:01 Blood Pressure Mean 73 02/11/25 10:01 Blood Pressure Position Supine 02/09/25 00:10 Pulse Oximetry 98 02/11/25 10:02 Oxygen Delivery Method Room Air 02/11/25 07:25 Oxygen Flow Rate 0 02/11/25 07:25 Pain Level 0 02/10/25 09:28 Comment Testing Miguel monitor interface. 02/10/25 12:30 Intake & Output 02/10/25 02/11/25 02/11/25 23:59 11:59 23:59 Intake Total 3200.362 / 4943.598 383.867 / 383.867 Balance 3200.362 / 4943.598 383.867 / 383.867 Weight 68.1 kg Intake: IV 2240.362 / 3343.598 143.867 / 143.867 Oral 960 / 1600 240 / 240 Other: Urine Color Yellow Urine Appearance Clear Urine Odor None Comment pt reports voiding in his room toilet voided large amt in toilet in room PFSH All Active Problems (Updated 02/11/25 @ 14:08 by Samir Mcclelland) Discharge planning issues (Acute) DVT prophylaxis (Acute) Acute dehydration (Acute) Hypomagnesemia (Acute) Primary hypertension (Chronic ~2023) Elevated bilirubin (Acute) Tachycardia (Acute) Hepatic steatosis (Acute ~12/2023) [place] Alcohol use disorder (Chronic) Bilateral ocular hypertension (Chronic) Sleeping difficulty (Acute) RX Trazodone Elevated BP without diagnosis of hypertension (Acute) alcohol-related Depression (Chronic) Venlafaxine; counselor Anxiety (Chronic) did not respond to low dose sertraline 01/11/11, failed Mirtazepine Medical History (Updated 02/11/25 @ 14:08 by Samir Mcclelland) Alcohol withdrawal Hypertension Alcohol use disorder, moderate, in early remission Stressful life event affecting family Sister's illness/diagnosis Excessive drinking alcohol Reviewed norms Nicotine use disorder 16yo started 0.5-1PPD Family History Mother Breast cancer Pre-menopausal; has occurred x2 Asthma Heart disease [place] Father , winter Cancer lung Diabetes Sister Scleroderma Breast cancer Dx'ed mid 30s Paternal Uncle Scleroderma Social History Smoking/Tobacco Use Status: Current every day Tobacco Type: cigarettes Years smoked: 20 Tobacco: How many years used: 8 Quit status: considering quitting Smoking risk assessment performed?: Yes Alcohol Intake: current Alcohol Intake frequency: 3 or more drinks per day Alcohol type: wine and hard liquor Drug use: Socially Substance use type: marijuana Adopted: No Caregiver/Support person: No Foster care: No Household members: family Housing: homeless Number of Children: 0 number of grandchildren: 0 Communication Needs: None Education Level: high school Do you need help understanding health information?: Rarely 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 Pets and animals: No Sexually active: Yes Do you think of yourself as: straight/heterosexual Current gender identity: male What is your relationship status?: refused to answer How often do you talk on the phone with friends or family?: three or more times per week How often do you get together with friends or relatives?: three or more times per week Do you belong to any clubs or organized social groups?: no Panel score (0-1 are the most socially isolated patients): 1 What type of physical activity do you participate in: walking Duration: > 90 minutes/day Frequency: 5-6 times per week Laina/Mosque: None Special laina needs: No Seatbelt use: always Helmet use: Yes Helmet use: always Drive intox or ride w/intox escort car driver: No Do you feel safe at home: Yes Do you feel safe in your relationship?: Yes Time Spent with Patient Time Spent with Patient: <45 minutes Time was spent: preparing to see the patient(eg.review tests), obtaining and/or reviewing separately otained hiistory, ordering medications,tests, procedures, referring, communicating with other health health care coach, indepentently interpreting results, counseling the patient and care coordination
--- NOTE | 2025-02-11 14:23 | PDOC.CMDIS ---
Date of service: 02/11/25 Time of Service: 14:23 LACE Index Scoring Tool Questions: Length of Stay (in days): 3 Was the patient admitted via the E.D.?: Yes E.D. Visits: 8 Answers: Total Score: 10 Risk of Readmission: High Risk Care Management Discharge Plan Reason for Hospitalization: alcohol withdrawal Discharge Plan: Andrey will be discharged home this afternoon with no new services. He will stay in an RV on his mom's property. He feels that his mom is his greatest support. Andrey will f/u with his PCP, his therapist and his psychiatrist. He was given a safety plan by [facility]. Andrey will drive himself home and continue per his plan of care Patient/Family Education Needs: Review of discharge instructions, activity, limitations and supports. Discuss Ask me 3. SDOH Health Related Social Needs: Health related social needs risk of homeless lonely/isolated Health related social needs details Pt reports not having great support system. Reports that who he turns to for support changes frequently.
== END 2025-02-11 17:33 | disposition home or self-care (01) | DRG 897 ==
LOC: ER 23:49 → ICU 02-09 00:20
PROVIDERS: Admitting Provider Family Medicine; Emergency Provider Physician Assistant; PCP Nurse Practitioner Adult Health; Responsible Provider Family Medicine; Visit Provider Family Medicine
DX: F10.239 Alcohol dependence with withdrawal, unspecified (principal); E83.42 Hypomagnesemia; E86.0 Dehydration; I10 Essential (primary) hypertension; F41.9 Anxiety disorder, unspecified; F32.A Depression, unspecified; K76.0 Fatty (change of) liver, not elsewhere classified; F17.210 Nicotine dependence, cigarettes, uncomplicated; H40.053 Ocular hypertension, bilateral; Y90.8 Blood alcohol level of 240 mg/100 ml or more; Z79.899 Other long term (current) drug therapy
CPT/HCPCS: 00123; 36415; 80053; 80307; 85027; 87637; 93005; 96365; 96366; 96375; 99285; J1650; 80184; 80320; 81003; 83735; 84100; 84443; 84484; 85025; 85610; 93010; 99223; 99232; 99239; J2405; J2560; J3360; J3411; J3475

== ENCOUNTER 2025-02-17 18:17 | Inpatient (IN) | payer MEDICAID, SELFPAY ==
[2025-02-17] VITALS (79 sets, daily range): BP systolic 104–175; BP diastolic 72–127; PULSE 77–175; RESP 3–44; TEMP 37; O2SAT 92–99
--- NOTE | 2025-02-17 18:34 | W.ED.GENAD ---
Discharge Plan Disposition Patient Disposition: Admit to [facility] Condition: Stable Discharge Details Clinical Impression: Alcohol withdrawal Admit Date/Time: 02/17/25 20:48 Admit Provider: Neo Joe Attending Provider: Neo Joe Primary Care Provider: Tara Humphreys ED Provider: Rob Valdez HPI General Date/Time Provider Initiated Documentation: 02/17/25 18:30. HPI Narrative: 34 year-old male presents to ED today by POV/ambulating with his mother with a chief complaint of alcohol withdrawal, alcohol abuse after signing out AMA last week from [facility] in-patient, drinking heavily all day every day since. Having nausea/vomiting and abdominal pain with onset over the past day or so. States his last drink was 1230 today. Quality described as nausea/vomiting, having severe anxiety, upper central abdominal pain, no radiation to shortness of breath, syncope, seizure activity, altered mentation. Severity is described as severe. Palliating factors include nothing specific attempted. Provoking factors include has not been taking any of his medications. Events leading up to the incident/Associated Symptoms: Patient does wish to pursue rehab or power and recovery supervisor. Patient not anticoagulated. Related Data Home Medications ?Medication ?Instructions ?Recorded ?Confirmed trazodone 50 mg tablet See Rx Instructions PO QHS PRN 09/10/24 02/17/25 sleep #40 tabs disulfiram 500 mg tablet 500 mg PO DAILY #30 tabs 10/26/24 02/17/25 Held on 02/17/25. Instructions: Pt Stopped/Never Started amlodipine 10 mg tablet 10 mg PO DAILY #90 tabs 12/03/24 02/17/25 nicotine 14 mg/24 hr daily 14 mg transdermal DAILY PRN PRN 12/11/24 02/17/25 transdermal patch #30 ea buspirone 15 mg tablet 15 mg PO BID 12/17/24 02/17/25 thiamine mononitrate (vit B1) 100 100 mg PO QAM #90 tabs 12/23/24 02/17/25 mg tablet (Vitamin B-1 (mononitrate)) Held on 02/17/25. Instructions: Pt Stopped/Never Started sertraline 100 mg tablet 200 mg PO DAILY 02/01/25 02/17/25 hydroxyzine HCl 25 mg tablet 25 mg PO BID PRN 02/09/25 02/17/25 Held on 02/17/25. Instructions: Pt Stopped/Never Started Previous Rx's ?Medication ?Instructions ?Recorded trazodone 50 mg tablet See Rx Instructions PO QHS PRN 09/10/24 sleep #40 tabs disulfiram 500 mg tablet 500 mg PO DAILY #30 tabs 10/26/24 Held on 02/17/25. Instructions: Pt Stopped/Never Started amlodipine 10 mg tablet 10 mg PO DAILY #90 tabs 12/03/24 nicotine 14 mg/24 hr daily 14 mg transdermal DAILY PRN PRN 12/11/24 transdermal patch #30 ea thiamine mononitrate (vit B1) 100 100 mg PO QAM #90 tabs 12/23/24 mg tablet (Vitamin B-1 (mononitrate)) Held on 02/17/25. Instructions: Pt Stopped/Never Started Allergies Allergy/AdvReac Type Severity Reaction Status Date / Time No Known Allergies Allergy Verified 02/17/25 18:18 General Stated Complaint: ETOHWithdr MOISES: 3 Review of Systems All systems reviewed & are unremarkable except as noted in HPI and below Exam Narrative Exam Narrative: GENERAL APPEARANCE: Mal-nourished, toxic, awake and alert, atraumatic, moderate acute distress. SKIN: Warm, pink, dry, intact, without rashes/lesions/ulcerations. HEAD: Normocephalic, atraumatic, normal hair distribution for gender/age. EYES: Normal conjunctiva, no exudates on lids/lashes. ENT: Nares patent, no circumoral cyanosis, no facial swelling NECK: Supple, trachea midline, painless cervical ROM. LUNGS/CHEST: Lungs CTA bilaterally- no rhonchi/rales/wheezes diffusely, non-labored respirations, normal A/P diameter, symmetrical expansion, no chest wall deformity HEART (CV/PV): Regular rate and rhythm without murmur- very tachycardic, no peripheral edema, no JVD. ABDOMEN: Soft, non-distended, no guarding, epigastric tenderness, no CVA tenderness to percussion bilaterally. MSK: Normal ROM, no swelling/deformity to bilateral UEs or LEs, moving all extremities without weakness, no cyanosis, spine midline without tenderness, normal curvature. NEURO: Mental Status AAOx4 - alert to person, place, time, events No facial droop, no forehead involvement. Motor: No focal weakness - strength 5/5 in bilateral UEs and LEs, proximal and distal, symmetric. Sensory: sensation intact to light touch globally. Gait NT. PSYCH: dysthymic, cooperative, anxious, appropriate speech Course Vital Signs Vital signs: Vital Signs Temperature 37.0 C 02/17/25 18:23 Pulse 146 H 02/17/25 18:23 Respiratory Rate 20 02/17/25 18:23 Blood Pressure 104/72 02/17/25 18:23 Pulse Oximetry 98 02/17/25 18:23 Temperature 37.0 C 02/17/25 18:23 Temperature Source Oral 02/17/25 18:23 Pulse 146 H 02/17/25 18:23 Respiratory Rate 20 02/17/25 18:23 Blood Pressure 104/72 02/17/25 18:23 Blood Pressure Position Sitting 02/17/25 18:23 Pulse Oximetry 98 02/17/25 18:23 Oxygen Delivery Method Room Air 02/17/25 18:23 Oxygen Flow Rate 0 02/17/25 18:23 Pain Level 6 02/17/25 18:23 Medical Decision Making This dictation utilizes [id number] dictation software and may contain unedited grammatical errors. 34 year-old male presents to ED today by POV/ambulating with his mother with a chief complaint of alcohol withdrawal, alcohol abuse after signing out AMA last week from [facility] in-patient, drinking heavily all day every day since. Having nausea/vomiting and abdominal pain with onset over the past day or so. States his last drink was 1230 today. Quality described as nausea/vomiting, having severe anxiety, upper central abdominal pain, no radiation to shortness of breath, syncope, seizure activity, altered mentation. Severity is described as severe. Palliating factors include nothing specific attempted. Provoking factors include has not been taking any of his medications. Events leading up to the incident/Associated Symptoms: Patient does wish to pursue rehab or power and recovery supervisor. Patients' medical history: Alcohol use disorder, hypertension, electrolyte abnormalities, history of elevated bilirubin. Family and social history: heavy drinking daily, denies any other substance use. Pertinent exam findings / vital signs include epigastric tenderness, negative Membreno's, no CVA tendernes to percussion bilaterally, tachycardic and regular, lungs CTA, no seizure-like activity Differential / pathologies of concern include alcohol intoxication and withdrawal, anxiety, SVT. Diagnostic studies of: - CBC, BMP, liver panel, lipase, troponin, alcohol level, TSH, magnesium, phosphorus, acetaminophen level, salicylate level, EKG, UA, UDS, CIWA evaluation -CBC shows no leukocytosis, no anemia - BMP shows no actionable abnormality, elevated anion gap at 14.9 - Magnesium within normal limits - LFTs within normal limits - Troponin negative - Lipase within normal limits - TSH within normal limits - Alcohol level 213 - EKG shows sinus tachycardia at [address], no evidence of heart block or SVT or A-fib with RVR - Phos WNL - Initial CIWA 24 Interventions of: - 2mg IVP Ativan. - Consult Dr. Joe for ICU admission, accepted pending remaining labs at 2004 ED Course/Assessment/Plan: 34-year-old male presents with alcohol intoxication and possible withdrawal even at the alcohol level of 213, no seizure-like activity at this time did have a CIWA of 24, was provided 2 mg IV push Ativan, pancreas and liver enzymes within normal limits, patient needs admission for alcohol withdrawal as he had prior admission and left AMA, he is more open to rehab and recovery coaching at this time, Dr. Joe accepted for admission 2004, no acute deterioration while in ED, admitted to ICU for likely phenobarb treatment. Disposition of Alcohol Withdrawal. Patient verbalized understanding of the plan and return to ED criteria and engaged in shared decision making. Medical Records Medical records reviewed: Yes I reviewed the patient's medical records. Lab Data Lab results reviewed: Yes I reviewed the patient's lab results. Labs: Laboratory Tests Range/Units 02/17/25 18:57 WBC (4.4-10.8) 10^3/uL 6.62 RBC (4.36-5.78) 10^6/uL 5.39 Hgb (13.5-17.5) g/dL 17.1 Hct (40.0-50.0) % 46.7 MCV (80-95) fL 87 MCH (27.0-33.0) pg 31.7 MCHC (32.0-36.0) % 36.6 H RDW (11.8-14.1) % 12.8 Plt Count (130-400) 10^3/uL 256 MPV (8.0-11.0) fL 8.7 Immature Gran % % 0.3 Neutrophils % % 44.5 Lymphocytes % % 42.1 Monocytes % % 10.9 Eosinophils % % 1.7 Basophils % % 0.5 Nucleated RBC % (0.0-0.3) % 0.0 Absolute Neutrophils (1.2-6.7) 10^3/uL 2.95 Absolute Lymphocytes (1.2-3.4) 10^3/uL 2.79 Absolute Monocytes (0.1-0.8) 10^3/uL 0.72 Absolute Eosinophils (0.0-0.7) 10^3/uL 0.11 Absolute Basophils (0.0-0.2) 10^3/uL 0.03 Sodium (136-145) mmol/L 145 Potassium (3.5-5.1) mmol/L 3.6 Chloride (98-107) mmol/L 103 Carbon Dioxide (21.0-32.0) mmol/L 27.1 Anion Gap (3-11) mmol/L 14.9 H BUN (7-18) mg/dL 9 Creatinine (0.70-1.30) mg/dL 0.8 Est GFR (CKD-EPI 2020) (mL/min/1.73m2) 119.84 Glucose (74-106) mg/dL 149 H Calcium (8.5-10.1) mg/dL 8.8 Phosphorus (2.6-4.7) mg/dL 3.5 Magnesium (1.8-2.4) mg/dL 1.8 Total Bilirubin (0.2-1.0) mg/dL 0.8 Conjugated Bilirubin (0.0-0.2) mg/dL 0.2 AST (15-37) U/L 20 ALT (16-63) U/L 27 Alkaline Phosphatase (46-116) U/L 99 Creatine Kinase (39-308) U/L 71 Troponin I (<or=76) ng/L 11 Total Protein (6.4-8.2) g/dL 7.2 Albumin (3.4-5.0) g/dL 3.9 Lipase (<78) U/L 30 TSH (0.36-3.74) uIU/mL 2.12 Ethyl Alcohol (<10) mg/dL 213.3 H Quality:[facility] Health Related Social Needs: Health related social needs risk of homeless lonely/isolated Health related social needs details Pt reports not having great support system. Reports that who he turns to for support changes frequently. PFSH All Active Problems (Updated 02/17/25 @ 22:32 by RODRIGO Santiago) Alcohol withdrawal (Acute) Abdominal pain (Acute) Alcohol use disorder (Chronic) Primary hypertension (Chronic ~2023) Elevated bilirubin (Acute) Tachycardia (Acute) Hepatic steatosis (Acute ~12/2023) [place] Bilateral ocular hypertension (Chronic) Sleeping difficulty (Acute) RX Trazodone Elevated BP without diagnosis of hypertension (Acute) alcohol-related Depression (Chronic) Venlafaxine; counselor Anxiety (Chronic) did not respond to low dose sertraline 01/11/11, failed Mirtazepine Medical History Hypomagnesemia Alcohol use disorder, moderate, in early remission Alcohol withdrawal Hypertension Nicotine use disorder 16yo started 0.5-1PPD Stressful life event affecting family Sister's illness/diagnosis Excessive drinking alcohol Reviewed norms Family History Mother Breast cancer Pre-menopausal; has occurred x2 Asthma Heart disease [place] Father , , Winter 2019 Cancer lung Diabetes Sister Scleroderma Breast cancer Dx'ed mid 30s Paternal Uncle Scleroderma Social History Smoking/Tobacco Use Status: Current every day Tobacco Type: cigarettes Years smoked: 20 Tobacco: How many years used: 8 Quit status: considering quitting Smoking risk assessment performed?: Yes Alcohol Intake: current Alcohol Intake frequency: 3 or more drinks per day Alcohol type: wine and hard liquor Drug use: Occasionally Substance use type: marijuana Adopted: No Caregiver/Support person: No Foster care: No Household members: family Housing: homeless Number of Children: 0 number of grandchildren: 0 Communication Needs: None Education Level: high school Do you need help understanding health information?: Rarely 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: Working for [employer] on [employer] Pets and animals: No Sexually active: Yes Do you think of yourself as: straight/heterosexual Current gender identity: male What is your relationship status?: refused to answer How often do you talk on the phone with friends or family?: three or more times per week How often do you get together with friends or relatives?: three or more times per week Do you belong to any clubs or organized social groups?: no Panel score (0-1 are the most socially isolated patients): 1 What type of physical activity do you participate in: walking Duration: > 90 minutes/day Frequency: 5-6 times per week Laina/Mormon: None Special laina needs: No Seatbelt use: always Helmet use: Yes Helmet use: always Drive intox or ride w/intox 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 Do you feel safe at home: Yes Do you feel safe in your relationship?: Yes PAWSS Have you Been Recently Intoxicated or Drunk Within the Last 30 days?: Yes Have you Ever Experienced Previous Episodes of Alcohol Withdrawal?: Yes Have you ever Experienced Withdrawal Seizures?: No Have you ever Experienced Delirium Tremens(DT)s?: Yes Have you ever undergone Alcohol Rehabilitation Treatment (i.e, inpt ot outpatient treatment programs)?: Yes Have you ever Experienced Blackouts?: Yes Have you ever Combined Alcohol with other Downers within the last 90 days?: Yes Have you ever Combined Alcohol with any other Substance of Abuse during the last 90 days?: Yes Positive Blood Alcohol level on Presentation? [PCS.BAL]: Yes Evidence of Increased Autonomic Activity (i.e. HR>120, tremor, sweating, agitation, nausea)?: Yes Result: 9
--- NOTE | 2025-02-17 18:45 | RT.EKG_ITS ---
APPROVED REPORT Exam: Resting ECG Reason for Exam: tachycardia Patient Location: E HR:123 bpm ECG Measurements Heart Rate 123 AXIS NE 137 P 54 QRSd 76 QRS 36 QT 299 T 42 QTc 428 Conclusion Sinus tachycardia 123 Normal axis no stemi
[2025-02-17 19:05] LABS: Abs Immature Grans 0.02 10^3/uL (0.0-0.06); HCT 46.7 % (40.0-50.0); HGB 17.1 g/dL (13.5-17.5); Immature Grans % 0.3 %; MCH 31.7 pg (27.0-33.0); MCHC 36.6 % (32.0-36.0); MCV 87 fL (80-95); MPV 8.7 fL (8.0-11.0); Platelet Count 256 10^3/uL (130-400); RBC 5.39 10^6/uL (4.36-5.78); RDW 12.8 % (11.8-14.1); RDW-SD 39.8 fL; WBC 6.62 10^3/uL (4.4-10.8)
[2025-02-17] MEDS: LORazepam 20 MG/10 ML VIAL IVP ×2 (19:09→19:35)
[2025-02-17 19:18] LABS: Lipase 30 U/L (<78)
[2025-02-17 19:30] LABS: ALT 27 U/L (16-63); AST 20 U/L (15-37); Albumin 3.9 g/dL (3.4-5.0); Alkaline Phosphatase 99 U/L (46-116); Anion Gap 14.9 mmol/L (3-11); BUN 9 mg/dL (7-18); Bilirubin, Direct 0.2 mg/dL (0.0-0.2); Bilirubin, Total 0.8 mg/dL (0.2-1.0); CO2 27.1 mmol/L (21.0-32.0); Calcium 8.8 mg/dL (8.5-10.1); Chloride 103 mmol/L (98-107); Creatine Kinase 71 U/L (39-308); Estimated GFR 119.84 (mL/min/1.73m2); Glucose 149 mg/dL (74-106); Magnesium 1.8 mg/dL (1.8-2.4); Potassium 3.6 mmol/L (3.5-5.1); Sodium 145 mmol/L (136-145); TSH (W/Ref FT4) 2.12 uIU/mL (0.36-3.74); Total Protein 7.2 g/dL (6.4-8.2); Troponin I 11 ng/L (<or=76)
[2025-02-17] MEDS: MAGNESIUM SULFATE 8.12 MEQ, MULTIVITAMIN 10 ML, THIAMINE 100 MG, FOLIC ACID 1 MG in Nor... 168.867 MG IV (19:36)
[2025-02-17 20:11] LABS: Salicylate < 2.8 mg/dL (<2.8)
[2025-02-17 20:13] LABS: Acetaminophen < 2 ug/mL (10-30)
--- NOTE | 2025-02-17 20:52 | W.PM.HP.N ---
Date of service: 02/17/25 Time of Service: 20:52 Assessment and Plan Assessment and plan (1) Elevated BP without diagnosis of hypertension: Status: Acute Assessment and plan: Secondary to alcohol withdrawal as well as anxiety restart home meds (2) Tachycardia: Status: Acute Assessment and plan: As above restart home meds (3) Anxiety: Status: Chronic Assessment and plan: As above restart home meds (4) Depression: Status: Chronic Assessment and plan: As above restart home meds (5) Alcohol use disorder: Status: Chronic Assessment and plan: Patient was placed on phenobarbital protocol and will add banana bag. Recheck alcohol level in AM. Patient is being mated to the ICU (6) Nicotine use disorder: Assessment and plan: Added NicoDerm patch. (7) Abdominal pain: Status: Acute Assessment and plan: Exact etiology is unknown. lab work is fairly bland we will start workup with a abdominal film. Lipase levels within normal limits History of Present Illness History of Present Illness Chief Complaint: etoh w/d Narrative: 34-year-old chronic history of alcohol use presents to the ED with abdominal pain. There was concern on admission about alcohol withdrawal where his CIWA score was over 20. Considering the fact that his last drink was at 1230 today and he was having significant symptoms of request was made to admission. Patient will be placed in the ICU. At the time of admission his alcohol level was 213. Patient did have elevations in his heart rate as well as blood pressure. Patient states he does have a history of anxiety. Of note, the patient was recently admitted to the hospital on 08 February and left on the AMA. Patient states his abdominal pain is in both lower quadrants and does not radiate into any of the other upper quadrants. Patient states that sharp in nature and is not made better or worse by eating. Patient denies any melena or hematochezia. Patient does endorse some anorexia. Actually reading his discharge summary does not appear he left AMA. At this time I do not see any imaging of his abdominal area. Patient does endorse significant tobacco use as well. Denies any illicit drugs Review of Systems All systems reviewed & are unremarkable except as noted in HPI and below PFSH All Active Problems (Updated 02/17/25 @ 21:00 by Neo Joe MD) Abdominal pain (Acute) Alcohol use disorder (Chronic) Primary hypertension (Chronic ~2023) Elevated bilirubin (Acute) Tachycardia (Acute) Hepatic steatosis (Acute ~12/2023) [place] Bilateral ocular hypertension (Chronic) Sleeping difficulty (Acute) RX Trazodone Elevated BP without diagnosis of hypertension (Acute) alcohol-related Depression (Chronic) Venlafaxine; counselor Anxiety (Chronic) did not respond to low dose sertraline 01/11/11, failed Mirtazepine Medical History Hypomagnesemia Alcohol use disorder, moderate, in early remission Alcohol withdrawal Hypertension Nicotine use disorder 16yo started 0.5-1PPD Stressful life event affecting family Sister's illness/diagnosis Excessive drinking alcohol Reviewed norms Family History Mother Breast cancer Pre-menopausal; has occurred x2 Asthma Heart disease [place] Father , , Winter 2019 Cancer lung Diabetes Sister Scleroderma Breast cancer Dx'ed mid 30s Paternal Uncle Scleroderma Social History Smoking/Tobacco Use Status: Current every day Tobacco Type: cigarettes Years smoked: 20 Tobacco: How many years used: 8 Quit status: considering quitting Smoking risk assessment performed?: Yes Alcohol Intake: current Alcohol Intake frequency: 3 or more drinks per day Alcohol type: wine and hard liquor Drug use: Occasionally Substance use type: marijuana Adopted: No Caregiver/Support person: No Foster care: No Household members: family Housing: homeless Number of Children: 0 number of grandchildren: 0 Communication Needs: None Education Level: high school Do you need help understanding health information?: Rarely 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: Working for [employer] on [employer] Pets and animals: No Sexually active: Yes Do you think of yourself as: straight/heterosexual Current gender identity: male What is your relationship status?: refused to answer How often do you talk on the phone with friends or family?: three or more times per week How often do you get together with friends or relatives?: three or more times per week Do you belong to any clubs or organized social groups?: no Panel score (0-1 are the most socially isolated patients): 1 What type of physical activity do you participate in: walking Duration: > 90 minutes/day Frequency: 5-6 times per week Laina/Judaism: None Special laina needs: No Seatbelt use: always Helmet use: Yes Helmet use: always Drive 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 Instructions: Pt Stopped/Never Started amlodipine 10 mg tablet 10 mg PO DAILY #90 tabs 12/03/24 02/17/25 Rx nicotine 14 mg/24 hr daily 14 mg transdermal DAILY PRN PRN 12/11/24 02/17/25 Rx transdermal patch #30 ea buspirone 15 mg tablet 15 mg PO BID 12/17/24 02/17/25 History thiamine mononitrate (vit B1) 100 100 mg PO QAM #90 tabs 12/23/24 02/17/25 Rx mg tablet (Vitamin B-1 (mononitrate)) Held on 02/17/25. Instructions: Pt Stopped/Never Started sertraline 100 mg tablet 200 mg PO DAILY 02/01/25 02/17/25 History hydroxyzine HCl 25 mg tablet 25 mg PO BID PRN 02/09/25 02/17/25 History Held on 02/17/25. Instructions: Pt Stopped/Never Started Exam Narrative Exam Narrative: HEENT-normocephalic atraumatic mucous membranes moist Neck-no lymphadenopathy no JVD no thyromegaly Cardiovascular-tachycardia with no murmur rubs gallops Pulm-bilateral wheeze but no accessory muscle use Abdomen-soft tenderness to palpation in both lower quadrants bowel sounds active Extremity-no sinus clubbing or edema Neurologic-cranial nerves II through XII are intact as tested except for horizontal nystagmus and tremulousness [id number]-old gentleman appears in moderate distress Results Labs 02/17/25 18:57 02/17/25 18:57 Labs: Laboratory Results - last 24 hr 02/17/25 18:57 WBC 6.62 RBC 5.39 Hgb 17.1 Hct 46.7 MCV 87 MCH 31.7 MCHC 36.6 H RDW 12.8 Plt Count 256 MPV 8.7 Immature Gran % 0.3 Neutrophils % 44.5 Lymphocytes % 42.1 Monocytes % 10.9 Eosinophils % 1.7 Basophils % 0.5 Nucleated RBC % 0.0 Absolute Neutrophils 2.95 Absolute Lymphocytes 2.79 Absolute Monocytes 0.72 Absolute Eosinophils 0.11 Absolute Basophils 0.03 Sodium 145 Potassium 3.6 Chloride 103 Carbon Dioxide 27.1 Anion Gap 14.9 H BUN 9 Creatinine 0.8 Est GFR (CKD-EPI 2020) 119.84 Glucose 149 H Calcium 8.8 Phosphorus 3.5 Magnesium 1.8 Total Bilirubin 0.8 Conjugated Bilirubin 0.2 AST 20 ALT 27 Alkaline Phosphatase 99 Creatine Kinase 71 Troponin I 11 Total Protein 7.2 Albumin 3.9 Lipase 30 TSH 2.12 Salicylates < 2.8 Acetaminophen < 2 Ethyl Alcohol 213.3 H Last Vital Signs Temp 37.0 C 02/17/25 18:23 Pulse 125 H 02/17/25 20:30 Resp 18 02/17/25 20:30 BP 130/84 02/17/25 20:16 Pulse Ox 93 02/17/25 20:30 PAWSS Have you Been Recently Intoxicated or Drunk Within the Last 30 days?: Yes Have you Ever Experienced Previous Episodes of Alcohol Withdrawal?: Yes Have you ever Experienced Withdrawal Seizures?: No Have you ever Experienced Delirium Tremens(DT)s?: Yes Have you ever undergone Alcohol Rehabilitation Treatment (i.e, inpt ot outpatient treatment programs)?: Yes Have you ever Experienced Blackouts?: Yes Have you ever Combined Alcohol with other Downers within the last 90 days?: Yes Have you ever Combined Alcohol with any other Substance of Abuse during the last 90 days?: Yes Positive Blood Alcohol level on Presentation? [PCS.BAL]: Yes Evidence of Increased Autonomic Activity (i.e. HR>120, tremor, sweating, agitation, nausea)?: Yes Result: 9 Time Spent Time spent with Patient: <40 minutes Time was spent: preparing to see the patient(eg.review tests), obtaining and/or reviewing separately otained hiistory, ordering medications,tests, procedures, referring, communicating with other health certified social workers in health care, indepentently interpreting results, counseling the patient and care coordination
--- NOTE | 2025-02-17 22:50 | W.PC.ACHO ---
Registration Status: ADM IN Primary Language: Preferred Language: Danish ED Information & Data Chief Complaint ETOHWithdr 02/17/25 18:35 Triage Note Pt reports alcohol relapse. 02/17/25 18:23 Was admitted for it last week, left AMA. Has been drinking, had 3 large strong drinks today, last one at 1230 this afternoon. Pt afraid of going inpatient for psych. Has been connected with mental health , did not follow up, has not been taking many of his medications. Reports epigastic pain, has been vomiting and diarrhea X 4 days. Medical / Surgical History Hypomagnesemia Alcohol use disorder, moderate, in early remission Alcohol withdrawal Hypertension Nicotine use disorder Stressful life event affecting family Excessive drinking alcohol Most Recent Vital Signs Temperature 37.0 C 02/17/25 18:23 Temperature Source Oral 02/17/25 18:23 Pulse 111 H 02/17/25 21:50 Pulse 110 H 02/17/25 21:50 Respiratory Rate 15 02/17/25 21:50 Respiratory Pattern Normal 02/17/25 19:37 Blood Pressure 130/84 02/17/25 20:16 Blood Pressure Mean 96 02/17/25 20:16 Blood Pressure Position Sitting 02/17/25 18:23 Pulse Oximetry 93 02/17/25 21:50 Oxygen Delivery Method Room Air 02/17/25 18:23 Oxygen Flow Rate 0 02/17/25 18:23 Pain Level 6 02/17/25 18:23 Allergies No Known Allergies Allergy (Verified 02/17/25 18:18) Active Medications Generic Name Dose Route Start Last Admin Trade Name Freq PRN Reason Stop Dose Admin Magnesium Sulfate 8.12 meq/ 1,013.2 mls @ 168.867 mls/hr 02/17/25 18:46 02/17/25 19:36 Multivitamins 10 ml/ Thiamine IV 02/18/25 00:45 168.867 mls/hr HCl 100 mg/ Folic Acid 1 mg/ INFUSION ONE Administration Sodium Chloride IV IV Catheter Type [Left Saline Lock Antecubital] IV Catheter Gauge [Left 18 Antecubital] Diet Orders Category Date Time Status Regular/Normal [DIET] Nutrition 02/18/25 Breakfast Ordered Diagnostics 02/17/25 Range/Units 18:57 WBC 6.62 (4.4-10.8) 10^3/uL RBC 5.39 (4.36-5.78) 10^6/uL Hgb 17.1 (13.5-17.5) g/dL Hct 46.7 (40.0-50.0) % MCV 87 (80-95) fL MCH 31.7 (27.0-33.0) pg MCHC 36.6 H (32.0-36.0) % RDW 12.8 (11.8-14.1) % Plt Count 256 (130-400) 10^3/uL MPV 8.7 (8.0-11.0) fL Immature Gran % 0.3 % Neutrophils % 44.5 % Lymphocytes % 42.1 % Monocytes % 10.9 % Eosinophils % 1.7 % Basophils % 0.5 % Nucleated RBC % 0.0 (0.0-0.3) % Absolute Neutrophils 2.95 (1.2-6.7) 10^3/uL Absolute Lymphocytes 2.79 (1.2-3.4) 10^3/uL Absolute Monocytes 0.72 (0.1-0.8) 10^3/uL Absolute Eosinophils 0.11 (0.0-0.7) 10^3/uL Absolute Basophils 0.03 (0.0-0.2) 10^3/uL Sodium 145 (136-145) mmol/L Potassium 3.6 (3.5-5.1) mmol/L Chloride 103 (98-107) mmol/L Carbon Dioxide 27.1 (21.0-32.0) mmol/L Anion Gap 14.9 H (3-11) mmol/L BUN 9 (7-18) mg/dL Creatinine 0.8 (0.70-1.30) mg/dL Est GFR (CKD-EPI 2020) 119.84 (mL/min/1.73m2) Glucose 149 H (74-106) mg/dL Calcium 8.8 (8.5-10.1) mg/dL Phosphorus 3.5 (2.6-4.7) mg/dL Magnesium 1.8 (1.8-2.4) mg/dL Total Bilirubin 0.8 (0.2-1.0) mg/dL Conjugated Bilirubin 0.2 (0.0-0.2) mg/dL AST 20 (15-37) U/L ALT 27 (16-63) U/L Alkaline Phosphatase 99 (46-116) U/L Creatine Kinase 71 (39-308) U/L Troponin I 11 (<or=76) ng/L Total Protein 7.2 (6.4-8.2) g/dL Albumin 3.9 (3.4-5.0) g/dL Lipase 30 (<78) U/L TSH 2.12 (0.36-3.74) uIU/mL Salicylates < 2.8 (<2.8) mg/dL Acetaminophen < 2 (10-30) ug/mL Ethyl Alcohol 213.3 H (<10) mg/dL Intake and Output - 24 Hour Total 02/17/25 18:17 thru 02/17/25 19:15 Intake Total 10 Balance 10 Weight 63.503 kg Intake: IV 10 Falls Risk Assessment History of Falls No History 02/17/25 19:37 Contributing Factors No Factors 02/17/25 19:37 Ambulatory Aids Independent 02/17/25 19:37 Tubes/Lines None 02/17/25 19:37 Gait Evaluation No gait disturbance 02/17/25 19:37 Cognition No cognitive impairment 02/17/25 19:37 Fall Total Score 0 02/17/25 19:37 Level of Risk Standard/Low Risk 02/17/25 19:37 Problems (Last Updated 02/08/25 @ 22:41 by Valentín Melton) Abdominal pain (Acute) Alcohol use disorder (Chronic) Tachycardia (Acute) Elevated BP without diagnosis of hypertension (Acute) Depression (Chronic) Anxiety (Chronic) v v v v v v v v v Sending and/or Receiving Nurses: Please use comment section below to note any information pertinent to the patient hand-off not included above. Information / Comments:All questions answered. Report received from:FAB Choudhury
[2025-02-18] VITALS (53 sets, daily range): BP systolic 114–182; BP diastolic 77–127; PULSE 77–135; RESP 12–24; TEMP 36.5–37.2; O2SAT 90–98
[2025-02-18] MEDS: Calcium Carbonate *TUMS* 500 MG CHEW 1000 MG PO (00:30)
[2025-02-18] MEDS: Ondansetron 4 MG/2 ML VIAL IVP ×2 (03:23→09:20)
[2025-02-18] MEDS: Ketorolac 15 MG/ML VIAL IVP ×2 (04:12→10:58)
[2025-02-18 06:45] LABS: Abs Immature Grans 0.01 10^3/uL (0.0-0.06); HCT 40.3 % (40.0-50.0); HGB 14.6 g/dL (13.5-17.5); Immature Grans % 0.1 %; MCH 31.9 pg (27.0-33.0); MCHC 36.2 % (32.0-36.0); MCV 88 fL (80-95); MPV 9.1 fL (8.0-11.0); Platelet Count 218 10^3/uL (130-400); RBC 4.58 10^6/uL (4.36-5.78); RDW 12.6 % (11.8-14.1); RDW-SD 40.4 fL; WBC 8.41 10^3/uL (4.4-10.8)
[2025-02-18 07:04] LABS: Magnesium 1.7 mg/dL (1.8-2.4)
[2025-02-18 08:15] LABS: Glucose Negative (Negative)
[2025-02-18 08:21] LABS: Cannabinoids THC Negative (Negative); METHADONE URINE SCREEN Negative (Negative)
[2025-02-18] MEDS: Pantoprazole 40 MG VIAL IVP ×2 (09:09→19:47)
[2025-02-18] MEDS: PHENobarbital 130 MG/ML VIAL IVP ×2 (09:09→13:30)
[2025-02-18] MEDS: Sertraline 100 MG TAB 200 MG PO (09:16)
[2025-02-18] MEDS: Multivitamin TAB 1 TAB PO (09:17)
[2025-02-18] MEDS: Thiamine 100 MG TAB PO (09:17)
[2025-02-18] MEDS: amLODIPine 10 MG TAB PO (09:17)
[2025-02-18] MEDS: Folic Acid 1 MG TAB PO (09:17)
[2025-02-18] MEDS: busPIRone 15 MG TAB PO ×2 (09:17→19:48)
[2025-02-18] MEDS: MAGNESIUM SULFATE 2 GM/50 ML BAG IV_INF (09:19)
[2025-02-18] MEDS: Normal Saline Flush 10 ML SYR ×3 (09:30→13:40)
--- NOTE | 2025-02-18 10:38 | INITIAL_ITS ---
Date of service: 02/18/25 Time of Service: 11:00 Care Management Initial Assmt Initial Assessment Reason for Hospitalization: ETOH withdrawal Functional Status/Living Situation Patient Presentation: Andrey presented to the ED yesterday with c/o alcohol withdrawal and abuse. He was just discharged for same reason on 02/11/25. Andrey's mom accompanied him to the ER. Andrey was lying in bed when CM met with him today. He is known to from previous admissions. Andrey looked very uncomfortable. His RN stated that he is having a lot of abdominal issues, which is not usual for him. Andrey confirmed that he is having a lot of abdominal pain. Andrey stated that he has been living in trailer on his mom's land. He did not return to work after his last admission and is just really struggling. CM off ered to reach out to [facility] and / or the hospital toxics program officer, but he declined. Andrey was reminded that he can call on his own, or ask for help with these calls at any time. Andrey stated that he really didn't want to talk and that he is aware of his options. Town of Residence: [facility] Resides with: Parent (living in trailer on mom's land) Significant Other/Family: Local Natural Supports: his mom is his best support Instrumental Activities of Daily Living (ADLs): Independent Advance Directives Advance Directives: Do you have an Advance Directive: N , 16:50 AD On File at [facility]: N 10/27/12, 21:17 Date Asked 02/17/25 02/17/25, 18:25 AD Date Reviewed COLST On File at [facility] No 09/28/24, 21:15 COLST Date Scanned Code Status Resuscitation Status Full Code Insurance Coverage/Financial Issues Insurance: Medicaid Care Team Visit Care Team Role Provider Type Samir Mcclelland MD [facility] STAFF PHYSICIAN Tara Humphreys NP Primary Care Provider NURSE PRACTITIONER RODRIGO Santiago Emergency Provider PHYSICIANS VOCATIONAL PLACEMENT SPECIALIST Neo Joe MD Admit Provider [facility] STAFF PHYSICIAN Attending Provider Discharge Potential Discharge Needs: PCP F/U Appt (has PCP f/u already scheduled on 03/10 at 12:30) and Other (literacy coach) Anticipated Barriers to Discharge: None Identified Patient/Family Education Needs: Review discharge instructions, discuss Ask Me Three Transportation: Private vehicle Plan: Andrey is being closely monitored at ICU level of care. He will likely discharge back to the community once medically cleared. He will transport in a private vehicle and continue per his plan of care. CM will continue to follow. Social Determinants of Health Screening Social Determinants of health last assessed in clinic: 02/18/25 Will the Patient Participate in the Screening?: Yes Do you worry about having a steady place to live?: yes What is your living situation today?: I have housing today, but am worried about losing it Problems where you live: no known problems In the past 12 months, have you had to go without electric, gas, oil or water in your home?: yes 1. Within the past 12 months, we worried whether our food would run out before we got money to buy more.: Don't know/refused 2. Within the past 12 months, the food we bought just didn't last and we didn't have money to get more.: Don't know/refused Has lack of transportation kept you from medical appointments or from doing things needed for daily living?: yes Has anyone in your life made you feel unsafe or unsupported?: no How hard is it for you to pay for the very basics like food, housing, medical care, and heating? Would you say it is:: Not hard at all Do you want help finding or keeping work or a job?: Yes, help finding work If for any reason you need help with day-to-day activities such as bathing, preparing meals, shopping, managing finances, etc., do you get the help you need?: I need a lot more help How often do you feel lonely or isolated from those around you?: Often Do you speak a language other than Portuguese at home?: No Does the patient want assistance with any of the above?: Yes Comments: Requesting assistance finding housing Health Related Social Needs Health related social needs: housing instability, housed, with risk of homelessness (Z59.811), transportation insecurity (Z59.82), material hardship(utilities) (Z59.12), problems finding work (Z56.9), problems with daily activities (Z73.9) and feeling lonely/isolated (Z60.8) Health related social needs details: Needs assistance with work and finding housing PFS All Active Problems (Updated 02/17/25 @ 22:32 by RODRIGO Santiago) Alcohol withdrawal (Acute) Abdominal pain (Acute) Alcohol use disorder (Chronic) Primary hypertension (Chronic ~2023) Elevated bilirubin (Acute) Tachycardia (Acute) Hepatic steatosis (Acute ~12/2023) US Bilateral ocular hypertension (Chronic) Sleeping difficulty (Acute) RX Trazodone Elevated BP without diagnosis of hypertension (Acute) alcohol-related Depression (Chronic) Venlafaxine; counselor Anxiety (Chronic) did not respond to low dose sertraline 01/11/11, failed Mirtazepine Medical History Hypomagnesemia Alcohol use disorder, moderate, in early remission Alcohol withdrawal Hypertension Nicotine use disorder 16yo started 0.5-1PPD Stressful life event affecting family Sister's illness/diagnosis Excessive drinking alcohol Reviewed norms Family History Mother Breast cancer Pre-menopausal; has occurred x2 Asthma Heart disease [place] Father , winter Cancer lung Diabetes Sister Scleroderma Breast cancer Dx'ed mid 30s Paternal Uncle Scleroderma Social History Smoking/Tobacco Use Status: Current every day Tobacco Type: cigarettes Years smoked: 20 Tobacco: How many years used: 8 Quit status: considering quitting Smoking risk assessment performed?: Yes Alcohol Intake: current Alcohol Intake frequency: 3 or more drinks per day Alcohol type: wine and hard liquor Drug use: Occasionally Substance use type: marijuana Adopted: No Caregiver/Support person: No Foster care: No Household members: family Housing: other Number of Children: 0 number of grandchildren: 0 Communication Needs: None Education Level: high school Do you need help understanding health information?: Rarely 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: Working for [employer] on [employer] Pets and animals: No Sexually active: Yes Do you think of yourself as: straight/heterosexual Current gender identity: male What is your relationship status?: refused to answer How often do you talk on the phone with friends or family?: three or more times per week How often do you get together with friends or relatives?: three or more times per week Do you belong to any clubs or organized social groups?: no Panel score (0-1 are the most socially isolated patients): 1 What type of physical activity do you participate in: walking Duration: > 90 minutes/day Frequency: 5-6 times per week Laina/Gnosticism: None Special laina needs: No Seatbelt use: always Helmet use: Yes Helmet use: always Drive intox or ride w/intox power truck driver: No Do you feel safe at home: Yes Do you feel safe in your relationship?: Yes Readmission Within the Past 30 Days Yes or No: Yes Date of First Admission Date of 1st Admission: 02/08/25 Date of this Admission Date of Admission: 02/17/25 This admission was: Through ED Office Visit Since 1st Admission Have you seen your PCP in the office since discharge?: No Had an appointment Been Scheduled?: Yes Date of Scheduled Appointment: 03/10/25 Describe barriers for scheduling or getting an appointment: was reached out to be CCC at PCP office on 02/16, but she was unable to reach him Speicalist Appointments Have you seen any other specialist since your 1st Admission?: No ED visits How many ED visits in the past 12 months: 11 Assessment for Readmission Summary of readmission circumstances, based upon interviews: Andrey is an alcoholic in crisis.
--- NOTE | 2025-02-18 13:31 | PGE_ITS ---
Date of Service Date of service: 02/18/25 Time of Service: 13:36 Assessment and Plan Assessment and plan (1) Alcohol withdrawal: Status: Acute Assessment and plan: On phenobarbital protocol. In ICU for h/o severe withdrawal, has needed addition of precedex in the past. (2) Abdominal pain: Status: Acute Assessment and plan: Exact etiology is unknown. lab work is fairly bland including lipase levels within normal limits. Clinically most c/w esophagitis/gastritis. Started PPI. Try mylanta/lidocaine diagnostically. If he is not improving, consider CT A/P (3) Depression: Status: Chronic Assessment and plan: resumed home meds (4) Alcohol use disorder: Status: Chronic Assessment and plan: Needs more intensive treatement, see below re supportive living when ready for discharge. holding outpatient naltrexone, not taking dissulfuram. (5) Nicotine use disorder: Assessment and plan: NicoDerm patch. (6) Discharge planning issues: Status: Acute Assessment and plan: Last week we had discussed supportive living. He is open to this after discussion today. When clinically improved, meet with women's lacrosse coach to call to assess placement options. (7) DVT prophylaxis: Status: Acute Assessment and plan: ambulatory Subjective Subjective Patient reports: voiding w/o difficulty, nausea and vomiting; denies diarrhea, shortness of breath or fever Interval history since last seen: events: CIWA 7-18 overnight He is getting some epigastric burning pain and feeling of acid reflux. Tried tums, didn't help much. Nauseous. Given pantoprazole this morning, felt like it helped a little. States BM was black before coming in. No chest pain, pain not pleuritic. He is drinking some, but has been wretching. Exam Narrative Exam Narrative: Gen: A&O, appears uncomfortable, but not toxic. HEENT-MMM, no icterus Cardiovascular-tachycardia with no murmur rubs gallops Pulm-CTAB, nl effort Abdomen-+BS, soft, mild epigastric tenderness to palpation, no guarding/rebound Extremity-no sinus clubbing or edema Neurologic- no nystagmus, mild tremor with hands extended only. Objective Last Vital Signs Temp 36.7 C 02/18/25 09:20 Pulse 116 H 02/18/25 12:01 Resp 21 02/18/25 12:01 BP 182/123 H 02/18/25 12:01 Pulse Ox 96 02/18/25 11:00 Laboratory Results - last 24 hr 02/17/25 02/18/25 02/18/25 18:57 05:51 07:57 WBC 6.62 8.41 RBC 5.39 4.58 Hgb 17.1 14.6 D Hct 46.7 40.3 MCV 87 88 MCH 31.7 31.9 MCHC 36.6 H 36.2 H RDW 12.8 12.6 Plt Count 256 218 MPV 8.7 9.1 Immature Gran % 0.3 0.1 Neutrophils % 44.5 65.9 Lymphocytes % 42.1 22.4 Monocytes % 10.9 9.9 Eosinophils % 1.7 1.3 Basophils % 0.5 0.4 Nucleated RBC % 0.0 0.0 Absolute Neutrophils 2.95 5.55 Absolute Lymphocytes 2.79 1.88 Absolute Monocytes 0.72 0.83 H Absolute Eosinophils 0.11 0.11 Absolute Basophils 0.03 0.03 Sodium 145 Potassium 3.6 Chloride 103 Carbon Dioxide 27.1 Anion Gap 14.9 H BUN 9 Creatinine 0.8 Est GFR (CKD-EPI 2020) 119.84 Glucose 149 H Calcium 8.8 Phosphorus 3.5 4.9 H Magnesium 1.8 1.7 L Total Bilirubin 0.8 Conjugated Bilirubin 0.2 AST 20 ALT 27 Alkaline Phosphatase 99 Creatine Kinase 71 Troponin I 11 Total Protein 7.2 Albumin 3.9 Lipase 30 TSH 2.12 Urine Color Yellow Urine Clarity Cloudy Urine pH 8.0 Ur Specific [place] 1.020 Urine Protein Negative Urine Ketones Negative Urine Blood Negative Urine Nitrite Negative Urine Bilirubin Negative Urine Urobilinogen 1.0 H Ur Leukocyte Esterase Negative Urine Glucose Negative Salicylates < 2.8 Urine Opiates Screen Negative Urine Methadone Screen Negative Acetaminophen < 2 Ur Barbiturates Screen Positive A Ur Tricyclics Screen Negative Ur Amphetamines Screen Negative U Benzodiazepines Scrn Negative Urine Cocaine Screen Negative Ur THC Screen Negative Ethyl Alcohol 213.3 H < 3.0 PAWSS Have you Been Recently Intoxicated or Drunk Within the Last 30 days?: Yes Have you Ever Experienced Previous Episodes of Alcohol Withdrawal?: Yes Have you ever Experienced Withdrawal Seizures?: No Have you ever Experienced Delirium Tremens(DT)s?: No Have you ever undergone Alcohol Rehabilitation Treatment (i.e, inpt ot outpatient treatment programs)?: Yes Have you ever Experienced Blackouts?: Yes Have you ever Combined Alcohol with other Downers within the last 90 days?: No Have you ever Combined Alcohol with any other Substance of Abuse during the last 90 days?: No Positive Blood Alcohol level on Presentation? [PCS.BAL]: Yes Evidence of Increased Autonomic Activity (i.e. HR>120, tremor, sweating, agitation, nausea)?: Yes Result: 6 Time Spent with Patient Time Spent with Patient: >50 minutes Time was spent: preparing to see the patient(eg.review tests), obtaining and/or reviewing separately otained hiistory, ordering medications,tests, procedures, referring, communicating with other health md do resident urgent care, indepentently interpreting results, counseling the patient and care coordination
[2025-02-18] MEDS: Prochlorperazine 10 MG/2 ML VIAL IVP (13:48)
[2025-02-18] MEDS: MYLANTA 30 ML, LIDOCAINE 2% VISCOUS UD 15 ML PO (13:48)
--- NOTE | 2025-02-18 15:32 | TELEFU_ITS ---
Date of service: 02/18/25 Time of Service: 15:32 Nutrition Note NOTE: Pt is a 34yo male known to me from previous admissions for etoh w/d. Weight has remained farily stable over the last 12 months. Ordered for regular diet but poor po intake thus far, refusing breakfast and lunch today. Ordered for bananan bag to replete along with MVI tab, 1 time IV mag+, and po B1 (100mg qd). Nutrition-related labs: Phos 4.9 and Mag 1.7 today. Total protein and albumin wnl yesterday. Nutrition intevention: Will provide regular meals and any required/desired nourshments between meals to help meet nutrition needs. Will monitor po intake for improvement, as well as weight, nutrition-related l abs and any desire/need for nutrition education Time Spent in Nutritional Counseling and Treatment: 0
[2025-02-18] MEDS: Nicotine 14 MG/24 HR PATCH TD (18:09)
[2025-02-18] MEDS: Normal Saline Flush 10 ML SYR IVP (19:48)
[2025-02-18] MEDS: traZODone 50 MG TAB PO (21:11)
[2025-02-19] VITALS (17 sets, daily range): BP systolic 126–158; BP diastolic 88–114; PULSE 72–104; RESP 10–20; TEMP 37.4; O2SAT 95–98
[2025-02-19] MEDS: PHENobarbital 130 MG/ML VIAL IVP ×2 (01:13→08:59)
[2025-02-19] MEDS: Normal Saline Flush 10 ML SYR IVP ×2 (01:20→08:41)
[2025-02-19 06:23] LABS: HCT 41.6 % (40.0-50.0); HGB 15.2 g/dL (13.5-17.5); MCH 31.9 pg (27.0-33.0); MCHC 36.5 % (32.0-36.0); MCV 87 fL (80-95); MPV 9.1 fL (8.0-11.0); Platelet Count 186 10^3/uL (130-400); RBC 4.76 10^6/uL (4.36-5.78); RDW 12.5 % (11.8-14.1); RDW-SD 39.7 fL; WBC 5.66 10^3/uL (4.4-10.8)
[2025-02-19 06:40] LABS: ALT 24 U/L (16-63); AST 29 U/L (15-37); Albumin 3.3 g/dL (3.4-5.0); Alkaline Phosphatase 100 U/L (46-116); Anion Gap 11.5 mmol/L (3-11); BUN 7 mg/dL (7-18); Bilirubin, Total 1.4 mg/dL (0.2-1.0); CO2 26.5 mmol/L (21.0-32.0); Calcium 8.8 mg/dL (8.5-10.1); Chloride 100 mmol/L (98-107); Estimated GFR 124.77 (mL/min/1.73m2); Glucose 101 mg/dL (74-106); Magnesium 2.1 mg/dL (1.8-2.4); Potassium 3.5 mmol/L (3.5-5.1); Sodium 138 mmol/L (136-145); Total Protein 6.3 g/dL (6.4-8.2)
[2025-02-19] MEDS: Pantoprazole 40 MG VIAL IVP (08:40)
[2025-02-19] MEDS: Thiamine 100 MG TAB PO (08:41)
[2025-02-19] MEDS: Sertraline 100 MG TAB 200 MG PO (08:41)
[2025-02-19] MEDS: busPIRone 15 MG TAB PO (08:42)
[2025-02-19] MEDS: Folic Acid 1 MG TAB PO (08:42)
[2025-02-19] MEDS: amLODIPine 10 MG TAB PO (08:42)
[2025-02-19] MEDS: Multivitamin TAB 1 TAB PO (08:42)
[2025-02-19] MEDS: Tamsulosin 0.4 MG CAPCR PO (13:57)
--- NOTE | 2025-02-19 16:57 | DSE_ITS ---
Date of service: 02/19/25 Time of Service: 16:57 DS: Diagnosis Discharge Diagnosis (1) Alcohol withdrawal: Status: Acute (2) Abdominal pain: Status: Acute (3) Depression: Status: Chronic (4) Alcohol use disorder: Status: Chronic (5) Nicotine use disorder: (6) Discharge planning issues: Status: Acute (7) DVT prophylaxis: Status: Acute Discharge Plan Disposition Patient Disposition: Home Condition: Improving Discharge Details Reason For Visit: etoh wd Admit Date/Time: 02/17/25 20:48 Admit Provider: Neo Joe Attending Provider: Neo Joe Primary Care Provider: Tara Humphreys Hospital Course Hospital Course: 34-year-old chronic history of alcohol use disorder and relapse to daily use after recent admission for alcohol withdrawal who presented to the ED with abdominal pain. His CIWA score was over 20 and he was started on phenobarbital protocol. He was monitored in the ICU and did not require additional phenobarbital after 9am on the morning of discharge and he had minimal withdrawal symptoms at the time of discharge around 5pm. he had epigatric pain that was initially severe. He was treated with pantoprazole, and mylanta/lidocaine mix did help. He should continue with a PPI for at least another 2 weeks. He reported a black stool but did not have another BM to test while here. His hemoglobin did not drop. His mother and [id number] met with Sanjiv and the team and supportive. He would like placement in residential program but these were not available immediately. He plans to return to his parents home without use of his car until he has placement in a residential program. He plans to resume daily disulfuram under supervision. Home Meds and New Rx's Prescriptions: New multivitamin [Multiple Vitamins] Tablet 1 tab PO DAILY Qty: 0 0RF disulfiram 500 mg tablet 500 mg PO DAILY Qty: 30 0RF omeprazole magnesium 20 mg tablet,delayed release (DR/EC) 20 mg PO DAILY Qty: 14 0RF Continued amlodipine 10 mg tablet 10 mg PO DAILY Qty: 90 3RF Rx Instructions: For BP with goal <140/90 buspirone 15 mg tablet 15 mg PO BID thiamine mononitrate (vit B1) [Vitamin B-1 (mononitrate)] 100 mg Tablet 100 mg PO QAM Qty: 90 0RF disulfiram 500 mg tablet 500 mg PO DAILY Qty: 30 0RF nicotine 14 mg/24 hr Patch 24 Hour 14 mg transdermal DAILY PRN PRNQty: 30 0RF sertraline 100 mg tablet 200 mg PO DAILY Patient Comments: TAKE ONE TABLET BY MOUTH EVERY DAY hydroxyzine HCl 25 mg tablet 25 mg PO BID PRN Patient Comments: TAKE 1 TABLET TWICE DAILY NEEDED FOR ANXIETY trazodone 50 mg tablet See Rx Instructions PO QHS PRN (Reason: sleep) Qty: 40 0RF Rx Instructions: 25-50mg bedtime for sleep difficulty, may repeat 50mg x1 if first dose ineffective for max nightly dose 100mg PO every day at bedtime PRN; Discharge Instructions Additional Instructions: We sent additional trazodone to help you sleep you can start the disulfuram daily, and have a family member watch you take it Follow up with placement for residential program Take omeprazole or similar to help your stomach and esophagus recover. Watch for blood or black stools. Activity:: Activity as Tolerated Equipment/Supplies:: No Equipment Needed Diet:: As Tolerated Discharge Orders Discharge Orders: Discharge Order (Routine); Ordered 02/19/25 Ordered By: Samir Mcclelland DS: Summary Time Spent with Patient providing and/or coordinating discharge services: Greater than 30 minutes Status at Discharge Functional status at discharge: independent ambulation Overall status at discharge: patient is progressing back to baseline Mental Status: mental status grossly normal Speech and Movement: speech and movement normal Mood: anxious mood Affect: normal affect Quality:SDOH Health Related Social Needs: Health related social needs risk of homeless transpo i nsecurity material hardship finding work daily activities lonely/isolated Health related social needs details Needs assistance w [facility] work and finding housing Health related social needs details: Needs assistance with work and finding housing Exam Narrative Exam Narrative: Gen: A&O, appears uncomfortable, but not toxic. HEENT-MMM, no icterus Cardiovascular-tachycardia with no murmur rubs gallops Pulm-CTAB, nl effort Abdomen-+BS, soft, mild epigastric tenderness to palpation, no guarding/rebound Extremity-no sinus clubbing or edema Neurologic- no nystagmus, no tremor. normal thought process Psych Mental Status: mental status grossly normal Speech and Movement: speech and movement normal Mood: anxious mood Affect: normal affect DS: Data Vitals/I&O Vitals and I&O: Vital Signs Temperature 37.4 C 02/19/25 04:59 Temperature Source Temporal Artery Scan 02/19/25 04:59 Pulse 95 H 02/19/25 12:16 Pulse 104 H 02/19/25 12:16 Respiratory Rate 14 02/19/25 12:16 Respiratory Effort Normal 02/17/25 22:10 Respiratory Depth Normal 02/17/25 22:10 Respiratory Pattern Normal 02/17/25 22:10 Blood Pressure 147/88 H 02/19/25 12:16 Blood Pressure Mean 104 02/19/25 12:16 Blood Pressure Position Sitting 02/17/25 22:10 Pulse Oximetry 97 02/19/25 06:01 Oxygen Delivery Method Room Air 02/19/25 04:59 Oxygen Flow Rate 0 02/19/25 04:59 Pain Level 6 02/18/25 04:12 Intake & Output 02/18/25 02/19/25 02/19/25 23:59 11:59 23:59 Intake Total 480 / 2696.2 200 / 200 Output Total 0 / 0 Balance 480 / 2296.2 200 / 200 Weight 65.1 kg Intake: Oral 480 / 1530 200 / 200 Output: Urine 0 / 0 Other: Comment Patient voided in toilet at this time. This nurse did not see or measure his urine as he flushed the toilet. patient got up and went directly into toilet. Urine not saved. Data Completed and Pending Labs on day of discharge: Labs from last 24 hours 02/19/25 05:42 WBC 5.66 RBC 4.76 Hgb 15.2 Hct 41.6 MCV 87 MCH 31.9 MCHC 36.5 H RDW 12.5 Plt Count 186 MPV 9.1 Sodium 138 Potassium 3.5 Chloride 100 Carbon Dioxide 26.5 Anion Gap 11.5 H BUN 7 Creatinine 0.7 Est GFR (CKD-EPI 2020) 124.77 Glucose 101 Calcium 8.8 Magnesium 2.1 Total Bilirubin 1.4 H AST 29 ALT 24 Alkaline Phosphatase 100 Total Protein 6.3 L Albumin 3.3 L PFSH All Active Problems (Updated 02/19/25 @ 16:54 by Samir Mcclelland) DVT prophylaxis (Acute) Discharge planning issues (Acute) Alcohol withdrawal (Acute) Abdominal pain (Acute) Primary hypertension (Chronic ~2023) Elevated bilirubin (Acute) Tachycardia (Acute) Hepatic steatosis (Acute ~12/2023) Alcohol use disorder (Chronic) Bilateral ocular hypertension (Chronic) Sleeping difficulty (Acute) RX Trazodone Elevated BP without diagnosis of hypertension (Acute) alcohol-related Depression (Chronic) Venlafaxine; counselor Anxiety (Chronic) did not respond to low dose sertraline 01/11/11, failed Mirtazepine Medical History (Updated 02/19/25 @ 16:54 by Samir Mcclelland) Hypomagnesemia Alcohol withdrawal Hypertension Alcohol use disorder, moderate, in early remission Stressful life event affecting family Sister's illness/diagnosis Excessive drinking alcohol Reviewed norms Nicotine use disorder 16yo started 0.5-1PPD Family History Mother Breast cancer Pre-menopausal; has occurred x2 Asthma Heart disease [place] Father , COV, Winter 2019 Cancer lung Diabetes Sister Scleroderma Breast cancer Dx'ed mid 30s Paternal Uncle Scleroderma Social History Smoking/Tobacco Use Status: Current every day Tobacco Type: cigarettes Years smoked: 20 Tobacco: How many years used: 8 Quit status: considering quitting Smoking risk assessment performed?: Yes Alcohol Intake: current Alcohol Intake frequency: 3 or more drinks per day Alcohol type: wine and hard liquor Drug use: Occasionally Substance use type: marijuana Adopted: No Caregiver/Support person: No Foster care: No Household members: family Housing: other Number of Children: 0 number of grandchildren: 0 Communication Needs: None Education Level: high school Do you need help understanding health information?: Rarely 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: Working for [employer] on [employer] Pets and animals: No Sexually active: Yes Do you think of yourself as: straight/heterosexual Current gender identity: male What is your relationship status?: refused to answer How often do you talk on the phone with friends or family?: three or more times per week How often do you get together with friends or relatives?: three or more times per week Do you belong to any clubs or organized social groups?: no Panel score (0-1 are the most socially isolated patients): 1 What type of physical activity do you participate in: walking Duration: > 90 minutes/day Frequency: 5-6 times per week Laina/Protestant: None Special laina needs: No Seatbelt use: always Helmet use: Yes Helmet use: always Drive intox or ride w/intox tow truck driver: No Do you feel safe at home: Yes Do you feel safe in your relationship?: Yes Time Spent with Patient Time Spent with Patient: 45-69 minutes Time was spent: preparing to see the patient(eg.review tests), obtaining and/or reviewing separately otained hiistory, ordering medications,tests, procedures, referring, communicating with other health campground caretaker, indepentently interpreting results, counseling the patient and care coordination
== END 2025-02-19 17:15 | disposition home or self-care (01) | DRG 897 ==
LOC: ER 18:56 → ICU 22:05
PROVIDERS: Admitting Provider Hospitalist; Emergency Provider Physician Assistant; PCP Nurse Practitioner Adult Health; Responsible Provider Family Medicine; Visit Provider Hospitalist
DX: F10.939 Alcohol use, unspecified with withdrawal, unspecified (principal); R00.0 Tachycardia, unspecified; F41.9 Anxiety disorder, unspecified; F17.210 Nicotine dependence, cigarettes, uncomplicated; R10.30 Lower abdominal pain, unspecified; I10 Essential (primary) hypertension; K76.0 Fatty (change of) liver, not elsewhere classified; H40.053 Ocular hypertension, bilateral; Y90.7 Blood alcohol level of 200-239 mg/100 ml; R10.13 Epigastric pain; F32.A Depression, unspecified
CPT/HCPCS: 00123; 36415; 80048; 80053; 80076; 80307; 82550; 83690; 85027; 93005; 96365; 96366; 96375; 99285; 80320; 80329; 81003; 83735; 84100; 84443; 84484; 85025; 93010; 99222; 99233; 99239; J0780; J1885; J2060; J2405; J2470; J2560; J3411; J3475

== ENCOUNTER 2025-04-15 09:04 | Inpatient (IN) | payer MEDICAID, SELFPAY ==
[2025-04-15] VITALS (100 sets, daily range): BP systolic 113–217; BP diastolic 76–149; PULSE 81–158; RESP 11–26; TEMP 36.6–37.3; O2SAT 89–99
--- NOTE | 2025-04-15 09:32 | ED.GENADUL_ITS ---
Discharge Plan Disposition Patient Disposition: Admit to [facility] Condition: Serious Discharge Details Clinical Impression: Alcohol use disorder, Alcohol withdrawal syndrome Admit Date/Time: 04/15/25 11:57 Admit Provider: Samir Mcclelland Attending Provider: Samir Mcclelland Primary Care Provider: Tara Humphreys ED Provider: Lyndsey Paulson Discharge Data Discharge Date/Time-TO BE ENTERED AT DEPARTURE: 04/15/25 13:13 HPI General Mode of arrival: ambulatory . Date/Time Provider Initiated Documentation: 04/15/25 09:06 . Limitations to Documentation: no limitations and altered mental status (Patient very anxious and crying) . Information obtained by: patient, RN notes reviewed and old records reviewed . HPI Narrative: 34-year-old male presents to the ER with acute alcohol intoxication and withdrawal symptoms. Patient states he has been binge drinking since Saturday and did drink this morning prior to arrival. He also endorses vomiting with red stuff in it. Reports some generalized abdominal pain. He is crying and very anxious upon arrival. He states that he has been going to and had been doing well until recently. He reports a recent loss of a friend that sent him over the edge. He has been admitted as recent as February for alcohol withdrawal symptoms. Other past medical history include hypertension, alcohol use disorder, depression and anxiety. He denies any suicidal ideation or homicidal ideation at this time. He is a current every day smoker. He denies having a seizure from his withdrawal in the past. He has not taken his daily medications since before Saturday. Related Data Home Medications ?Medication ?Instructions ?Recorded ?Confirmed disulfiram 500 mg tablet 500 mg PO DAILY #30 tabs 06/1204/15/25 amlodipine 10 mg tablet 10 mg PO DAILY #90 tabs 11/1704/15/25 buspirone 15 mg tablet 15 mg PO BID 12/17/24 Held on 04/15/25. Instructions: Changed by Provider sertraline 100 mg tablet 200 mg PO DAILY 02/01/25 hydroxyzine HCl 25 mg tablet 25 mg PO BID PRN 02/09/25 04/15/25 multivitamin (Multiple Vitamins 1 tab PO DAILY #0 tabs 02/19/25 04/15/25 tablet) trazodone 50 mg tablet See Rx Instructions PO QHS P RN 02/19/25 04/15/25 sleep #40 tabs thiamine mononitrate (vit B1) 100 100 mg PO QAM #90 ta bs 03/10/25 04/15/25 mg tablet (Vitamin B-1 (mononitrate)) buspirone 30 mg tablet 30 mg PO BID 04/15/25 venlafaxine 37.5 mg 37.5 mg PO DAILY 04/15/25 capsule,extended release 24 hr Previous Rx's ?Medication ?Instructions ?Recorded disulfiram 500 mg tablet 500 mg PO DAILY #30 tabs 06/12 amlodipine 10 mg tablet 10 mg PO DAILY #90 tabs 11/17 03/12 multivitamin (Multiple Vitamins 1 tab PO DAILY #0 tabs 02/19/25 tablet) trazodone 50 mg tablet See Rx Instructions PO QHS P RN 02/19/25 sleep #40 tabs thiamine mononitrate (vit B1) 100 100 mg PO QAM #90 ta bs 03/10/25 mg tablet (Vitamin B-1 (mononitrate)) Allergies Allergy/AdvReac Type Severity Reaction Status Date / Time No Known Allergies Allergy Verified 04/15/25 10:11 General Stated Complaint: ETOHWithdr MOISES: 2 Review of Systems All systems reviewed & are unremarkable except as noted in HPI and below Constitutional Constitutional: Reports as per HPI, Reports difficulty sleeping and Reports headache(s) ENT Ears, Nose, Mouth, and Throat: Reports headache(s) Cardiovascular Cardiovascular: Denies chest pain, Reports rapid heart rate and Denies dyspnea Respiratory Respiratory: Denies cough, Denies hemoptysis, Denies dyspnea, Denies stridor and Denies wheezing Gastrointestinal Gastrointestinal: Reports abdominal pain, Reports nausea and Reports vomiting Neurologic Neurologic: Reports as per HPI, Reports headache(s), Reports other visual disturbances, Denies convulsions, Denies seizure-like activity and Reports tremor(s) Psychiatric Psychiatric: Reports as per HPI, Reports anxiety, Reports depression, Reports visual hallucinations, Denies homicidal ideation and Denies suicidal ideation Allergic/Immunologic Allergic/Immunologic: Denies wheezing Course Vital Signs Vital signs: Vital Signs Temperature 36.6 C 04/15/25 09:09 Pulse 150 H 04/15/25 09:09 Respiratory Rate 20 04/15/25 09:09 Blood Pressure 192/141 H 04/15/25 09:09 Pulse Oximetry 99 04/15/25 09:09 Temperature 36.6 C 04/15/25 09:09 Temperature Source Tympanic 04/15/25 09:09 Pulse 150 H 04/15/25 09:09 Respiratory Rate 20 04/15/25 09:09 Respiratory Pattern Tachypnea 04/15/25 09:19 Blood Pressure 192/141 H 04/15/25 09:09 Blood Pressure Position Sitting 04/15/25 09:09 Pulse Oximetry 99 04/15/25 09:09 Oxygen Delivery Method Room Air 04/15/25 09:09 Oxygen Flow Rate 0 04/15/25 09:09 Medical Decision Making Patient presents tachycardic and hypertensive heart rate 120-150, blood pressure 157/112. Patient placed on cardiac continuous monitoring. He is crying and anxious. He does have visualized tremors noted to his upper extremities, none on his lower extremities, endorses headache and seeing floaty's. However patient also endorses drinking just prior to arrival. Workup ordered including ethyl alcohol level, lipase CBC CMP urinalysis, UDS, phenobarbital alcohol withdrawal protocol ordered. Intermittent withdrawal. CIWA score Moderate approx 16. However this is difficult to assess due to patient's noncompliance with his blood pressure medication, anxiety and crying upon initial presentation. CBC within normal limits, anion gap 12.3 BUN 5 creatinine 0.9 GFR 115, glucose slightly elevated at 204. Phosphorus 2.9 magnesium 1.8 lipase 37 ethyl alcohol level is 310.6 patient remains slightly tachycardic however it is slightly improved heart rate is 110 blood pressure 135/110. Patient has received saline and Zofran. Patient is getting 140mg Phenobarbital IVPB continues to be hypertensive, however, has not taken his Amlodipine, Amlodipine PO 10mg Ordered. Patient has reported emesis but none here thus far. [facility] recovery consult requested. 1129: Will consult Hospitalist Dr. Mcclelland for admission. 1200: Spoke with Dr. Mcclelland who agrees to accept patient for admission. Discussed plan of care with patient who verbalized understanding. He does appear very anxious and is crying in recovery consult at bedside to speak with patient. Increased anxiety, will order 2 mg of diazepam p.o. Reported up to room in hemodynamically stable condition. This text was generated using Bamateaation system, please disregard any oddities of phrase or misspellings. Medical Records Medical records reviewed: Yes I reviewed the patient's medical records. Lab Data Lab results reviewed: Yes I reviewed the patient's lab results. Labs: Laboratory Tests Range/Units 04/15/25 09:35 WBC (4.4-10.8) 10^3/uL 8.40 RBC (4.36-5.78) 10^6/uL 5.62 Hgb (13.5-17.5) g/dL 17.4 Hct (40.0-50.0) % 48.7 MCV (80-95) fL 87 MCH (27.0-33.0) pg 31.0 MCHC (32.0-36.0) % 35.7 RDW (11.8-14.1) % 13.3 Plt Count (130-400) 10^3/uL 230 MPV (8.0-11.0) fL 8.3 Immature Gran % % 0.4 Neutrophils % % 73.9 Lymphocytes % % 18.5 Monocytes % % 6.8 Eosinophils % % 0.2 Basophils % % 0.2 Nucleated RBC % (0.0-0.3) % 0.0 Absolute Neutrophils (1.2-6.7) 10^3/uL 6.21 Absolute Lymphocytes (1.2-3.4) 10^3/uL 1.55 Absolute Monocytes (0.1-0.8) 10^3/uL 0.57 Absolute Eosinophils (0.0-0.7) 10^3/uL 0.02 Absolute Basophils (0.0-0.2) 10^3/uL 0.02 Sodium (136-145) mmol/L 140 Potassium (3.5-5.1) mmol/L 3.5 Chloride (98-107) mmol/L 102 Carbon Dioxide (21.0-32.0) mmol/L 25.7 Anion Gap (3-11) mmol/L 12.3 H BUN (7-18) mg/dL 5 L Creatinine (0.70-1.30) mg/dL 0.9 Est GFR (CKD-EPI 2020) (mL/min/1.73m2) 115.65 Glucose (74-106) mg/dL 204 H Calcium (8.5-10.1) mg/dL 8.9 Phosphorus (2.6-4.7) mg/dL 2.9 Magnesium (1.8-2.4) mg/dL 1.8 Total Bilirubin (0.2-1.0) mg/dL 0.4 AST (15-37) U/L 19 ALT (16-63) U/L 21 Alkaline Phosphatase (46-116) U/L 83 Total Protein (6.4-8.2) g/dL 7.4 Albumin (3.4-5.0) g/dL 4.1 Lipase (<78) U/L 37 Ethyl Alcohol (<10) mg/dL 310.6 H Quality:SDOH Health Related Social Needs: Health related social needs risk of homeless food inse curity material hardship lonely/isolated education Health related social needs details living with his mo ther currently, concerned about loosing his job at [employer] Critical Care Time Critical Care Time Critical Care Time: Yes Total Critical Care Time: 45 Attestation: I spent greater than 35 minutes addressing this patient's acute life threatening illness. This time was spent engaged in actions directly related to the patient's care. Failure to initiate these interventions would have likely resulted in clinically significant or life threatening deterioration in the patients condition. PFSH All Active Problems (Updated 04/15/25 @ 12:02 by Lyndsey Paulson NP) Alcohol withdrawal syndrome (Acute) Alcohol use disorder (Chronic) Primary hypertension (Chronic ~2023) Elevated bilirubin (Acute) Hepatic steatosis (Acute ~12/2023) [place] Bilateral ocular hypertension (Chronic) Sleeping difficulty (Acute) RX Trazodone Depression (Chronic) Venlafaxine; counselor Anxiety (Chronic) did not respond to low dose sertraline 01/11/11, failed Mirtazepine Medical History Hypomagnesemia Alcohol use disorder, moderate, in early remission Alcohol withdrawal Hypertension Nicotine use disorder 16yo started 0.5-1PPD Stressful life event affecting family Sister's illness/diagnosis Excessive drinking alcohol Reviewed norms Family History Mother Breast cancer Pre-menopausal; has occurred x2 Asthma Heart disease [place] Father , COV, Winter 2019 Cancer lung Diabetes Sister Scleroderma Breast cancer Dx'ed mid 30s Paternal Uncle Scleroderma Social History Smoking/Tobacco Use Status: Current every day Tobacco Type: cigarettes Years smoked: 20 Tobacco: How many years used: 8 Quit status: considering quitting Smoking risk assessment performed?: Yes Alcohol Intake: current Alcohol Intake frequency: 0-2 drinks per day Alcohol type: wine and hard liquor Drug use: Never Substance use type: does not use and marijuana Adopted: No Caregiver/Support person: No Foster care: No Household members: family Housing: house Number of Children: 0 number of grandchildren: 0 Communication Needs: None Education Level: high school Do you need help understanding health information?: Rarely 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: Working for [employer] on [employer] Pets and animals: No Sexually active: Yes Do you think of yourself as: straight/heterosexual Current gender identity: male What is your relationship status?: refused to answer How often do you talk on the phone with friends or family?: three or more times per week How often do you get together with friends or relatives?: three or more times per week Do you belong to any clubs or organized social groups?: no Panel score (0-1 are the most socially isolated patients): 1 What type of physical activity do you participate in: walking Duration: > 90 minutes/day Frequency: 5-6 times per week Laina/Oriental Orthodox: None Special laina needs: No Seatbelt use: always Helmet use: Yes Helmet use: always Drive intox or ride w/intox yard driver: No Do you feel safe at home: Yes Do you feel safe in your relationship?: Yes PAWSS Have you Been Recently Intoxicated or Drunk Within the Last 30 days?: Yes Have you Ever Experienced Previous Episodes of Alcohol Withdrawal?: Yes Have you ever Experienced Withdrawal Seizures?: No Have you ever Experienced Delirium Tremens(DT)s?: No Have you ever undergone Alcohol Rehabilitation Treatment (i.e, inpt ot outpatient treatment programs)?: Yes Have you ever Experienced Blackouts?: Yes Have you ever Combined Alcohol with other Downers within the last 90 days?: No Have you ever Combined Alcohol with any other Substance of Abuse during the last 90 days?: No Positive Blood Alcohol level on Presentation? [PCS.BAL]: Yes Evidence of Increased Autonomic Activity (i.e. HR>120, tremor, sweating, agitation, nausea)?: Yes Result: 6
[2025-04-15 09:53] LABS: Abs Immature Grans 0.03 10^3/uL (0.0-0.06); HCT 48.7 % (40.0-50.0); HGB 17.4 g/dL (13.5-17.5); Immature Grans % 0.4 %; MCH 31.0 pg (27.0-33.0); MCHC 35.7 % (32.0-36.0); MCV 87 fL (80-95); MPV 8.3 fL (8.0-11.0); Platelet Count 230 10^3/uL (130-400); RBC 5.62 10^6/uL (4.36-5.78); RDW 13.3 % (11.8-14.1); RDW-SD 41.6 fL; WBC 8.40 10^3/uL (4.4-10.8)
[2025-04-15] MEDS: Ondansetron 4 MG/2 ML VIAL IVP (10:08)
[2025-04-15] MEDS: Normal Saline 1,000 ML 500 ML IV (10:09)
[2025-04-15 10:16] LABS: ALT 21 U/L (16-63); AST 19 U/L (15-37); Albumin 4.1 g/dL (3.4-5.0); Alkaline Phosphatase 83 U/L (46-116); Anion Gap 12.3 mmol/L (3-11); BUN 5 mg/dL (7-18); Bilirubin, Total 0.4 mg/dL (0.2-1.0); CO2 25.7 mmol/L (21.0-32.0); Calcium 8.9 mg/dL (8.5-10.1); Chloride 102 mmol/L (98-107); Estimated GFR 115.65 (mL/min/1.73m2); Glucose 204 mg/dL (74-106); Lipase 37 U/L (<78); Magnesium 1.8 mg/dL (1.8-2.4); Potassium 3.5 mmol/L (3.5-5.1); Sodium 140 mmol/L (136-145); Total Protein 7.4 g/dL (6.4-8.2)
[2025-04-15] MEDS: MAGNESIUM SULFATE 8.12 MEQ, MULTIVITAMIN 10 ML, THIAMINE 100 MG, FOLIC ACID 1 MG in Nor... 150 MG IV (10:48)
[2025-04-15] MEDS: PHENobarbital 140 MG in Normal Saline 50 ML 98.805 MG IVPB (10:56)
[2025-04-15] MEDS: Pantoprazole 40 MG VIAL IVP (10:59)
[2025-04-15] MEDS: amLODIPine 5 MG TAB 10 MG PO (12:22)
[2025-04-15] MEDS: diazePAM 2 MG TAB PO (12:22)
[2025-04-15 13:10] LABS: Glucose Negative (Negative)
[2025-04-15] MEDS: PHENobarbital 130 MG/ML VIAL IVP ×4 (13:44→23:03)
[2025-04-15 14:20] LABS: Cannabinoids THC Negative (Negative); METHADONE URINE SCREEN Negative (Negative)
[2025-04-15] MEDS: PHENobarbital 110 MG in Normal Saline 50 ML 98.359 MG IVPB ×2 (14:34→16:21)
--- NOTE | 2025-04-15 15:03 | W.PM.HP.N ---
Date of service: 04/15/25 Time of Service: 15:03 Assessment and Plan Assessment and plan (1) Alcohol withdrawal: Status: Resolved Assessment and plan: On phenobarbital protocol. In ICU for h/o severe withdrawal, as he has needed addition of precedex in the past, he is at high risk for worsening sympotms given he is early in withdrawal. Add Precedex prn if maxing out phenobarbital continue ondansatron and pantoprazole for supportive care/vomiting. (2) Depression: Status: Chronic Assessment and plan: With chronic anxiety. Resume home meds (3) Alcohol use disorder: Status: Chronic Assessment and plan: He has struggled this year with recurrent relapses I still think he needs more intensive treatement, preferably inpatient rehab and/or supportive living when ready for discharge. holding outpatient naltrexone and disulfuram. (4) Nicotine use disorder: Assessment and plan: NicoDerm patch. (5) DVT prophylaxis: Status: Deleted Assessment and plan: ambulatory (6) Discharge planning issues: Status: Deleted Assessment and plan: Last admission we had discussed supportive living, but when feeling better did not follow through. Continue this discussion when feeling better and no longer intoxicated. History of Present Illness Narrative: 34 yo M with alcohol use disorder, HTN, smoking, anxiety disorder, and 6 admissions this year for severe alcohol withdrawal presenting this morning to the ED after 5 days of heavy binge drinking with last drink prior to presentation around 9am. He has a history of severe withdrawal requiring precedex drip but no known seizure history. He has been vomiting red liquid, but not clearly blood or coffee grounds. He stopped his medications including disulfuram last week before his binge. He states he was doing well until he heard of the of his childhood GF from cancer, which was a trigger. While in the emergency room he started having withdrawal symptoms and scored 16 on CIWA, started on 6mg/kg phenobarbital protocol, which helped his symptoms. Review of Systems All systems reviewed & are unremarkable except as noted in HPI and below PFSH All Active Problems (Updated 04/15/25 @ 12:02 by Lyndsey Paulson NP) Alcohol withdrawal syndrome (Acute) Primary hypertension (Chronic ~2023) Elevated bilirubin (Acute) Hepatic steatosis (Acute ~12/2023) [place] Alcohol use disorder (Chronic) Bilateral ocular hypertension (Chronic) Sleeping difficulty (Acute) RX Trazodone Depression (Chronic) Venlafaxine; counselor Anxiety (Chronic) did not respond to low dose sertraline 01/11/11, failed Mirtazepine Medical History Hypomagnesemia Alcohol use disorder, moderate, in early remission Alcohol withdrawal Hypertension Nicotine use disorder 16yo started 0.5-1PPD Stressful life event affecting family Sister's illness/diagnosis Excessive drinking alcohol Reviewed norms Family History Mother Breast cancer Pre-menopausal; has occurred x2 Asthma Heart disease [place] Father , COV, Winter 2019 Cancer lung Diabetes Sister Scleroderma Breast cancer Dx'ed mid 30s Paternal Uncle Scleroderma Social History Smoking/Tobacco Use Status: Current every day Tobacco Type: cigarettes Years smoked: 20 Tobacco: How many years used: 8 Quit status: considering quitting Smoking risk assessment performed?: Yes Alcohol Intake: current Alcohol Intake frequency: 0-2 drinks per day Alcohol type: wine and hard liquor Drug use: Never Substance use type: does not use and marijuana Adopted: No Caregiver/Support person: No Foster care: No Household members: family Housing: house Number of Children: 0 number of grandchildren: 0 Communication Needs: None Education Level: high school Do you need help understanding health information?: Rarely 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: Working for [employer] [employer] Pets and animals: No Sexually active: Yes Do you think of yourself as: straight/heterosexual Current gender identity: male What is your relationship status?: refused to answer How often do you talk on the phone with friends or family?: three or more times per week How often do you get together with friends or relatives?: three or more times per week Do you belong to any clubs or organized social groups?: no Panel score (0-1 are the most socially isolated patients): 1 What type of physical activity do you participate in: walking Duration: > 90 minutes/day Frequency: 5-6 times per week Laina/Worship: None Special laina needs: No Seatbelt use: always Helmet use: Yes Helmet use: always Drive intox or ride w/intox sprinkler truck driver: No Do you feel safe at home: Yes Do you feel safe in your relationship?: Yes Meds Allergies and Home Medications Allergies Allergy/AdvReac Type Severity Reaction Status Date / Time No Known Allergies Allergy Verified 04/15/25 10:11 Home Medications ?Medication ?Instructions ?Recorded ?Confirmed ?Type disulfiram 500 mg tablet 500 mg PO DAILY #30 tabs 10/26/24 04/15/25 Rx amlodipine 10 mg tablet 10 mg PO DAILY #90 tabs 12/03/24 04/15/25 Rx buspirone 15 mg tablet 15 mg PO BID 12/17/24 04/15/25 History Held on 04/15/25. Instructions: Changed by Provider sertraline 100 mg tablet 200 mg PO DAILY 02/01/25 04/15/25 History hydroxyzine HCl 25 mg tablet 25 mg PO BID PRN 02/09/25 04/15/25 History multivitamin (Multiple Vitamins 1 tab PO DAILY #0 tabs 02/19/25 04/15/25 Rx tablet) trazodone 50 mg tablet See Rx Instructions PO QHS PRN 02/19/25 04/15/25 Rx sleep #40 tabs thiamine mononitrate (vit B1) 100 100 mg PO QAM #90 tabs 03/10/25 04/15/25 Rx mg tablet (Vitamin B-1 (mononitrate)) buspirone 30 mg tablet 30 mg PO BID 04/15/25 04/15/25 History venlafaxine 37.5 mg 37.5 mg PO DAILY 04/15/25 04/15/25 History capsule,extended release 24 hr Exam Narrative Exam Narrative: GEN: Alert and oriented x 4, anxious and uncomfortable, tearful, slightly diaphoretic, but still pleasant and cooperative, gives linear history. HEENT: Head atraumatic. Conjunctiva clear, no icterus. PEERL, EOMI. no rhinorrhea. MMM, OP benign. Neck is supple with no masses or lymphadenopathy, nl ROM, trachea midline LUNGS: CTAB with normal effort CV: tachycardic in 140s, regular with no murmurs, gallops, or rubs. ABD: active bowel sounds, soft, nontender and nondistended. No masses. no HSM EXT: no cyanosis, clubbing, or edema MSK: No joint redness or swelling NEURO: CN 2-12 grossly intact. Normal movement of 4 extremities. Normal speech and coordination. slight tremor. SKIN: No rashes or open wounds. warm. PSYCH: normal mood and affect, normal thought process, no AH/VH Results Labs 04/15/25 09:35 04/15/25 09:35 Labs: Laboratory Results - last 24 hr 04/15/25 04/15/25 09:35 12:44 WBC 8.40 RBC 5.62 Hgb 17.4 Hct 48.7 MCV 87 MCH 31.0 MCHC 35.7 RDW 13.3 Plt Count 230 MPV 8.3 Immature Gran % 0.4 Neutrophils % 73.9 Lymphocytes % 18.5 Monocytes % 6.8 Eosinophils % 0.2 Basophils % 0.2 Nucleated RBC % 0.0 Absolute Neutrophils 6.21 Absolute Lymphocytes 1.55 Absolute Monocytes 0.57 Absolute Eosinophils 0.02 Absolute Basophils 0.02 Sodium 140 Potassium 3.5 Chloride 102 Carbon Dioxide 25.7 Anion Gap 12.3 H BUN 5 L Creatinine 0.9 Est GFR (CKD-EPI 2020) 115.65 Glucose 204 H Calcium 8.9 Phosphorus 2.9 Magnesium 1.8 Total Bilirubin 0.4 AST 19 ALT 21 Alkaline Phosphatase 83 Total Protein 7.4 Albumin 4.1 Lipase 37 Urine Color Yellow Urine Clarity Clear Urine pH 7.0 Ur Specific [place] 1.015 Urine Protein Negative Urine Ketones Negative Urine Blood Negative Urine Nitrite Negative Urine Bilirubin Negative Urine Urobilinogen 0.2 Ur Leukocyte Esterase Negative Urine Glucose Negative Urine Opiates Screen Negative Urine Methadone Screen Negative Ur Barbiturates Screen Negative Ur Tricyclics Screen Negative Ur Amphetamines Screen Negative U Benzodiazepines Scrn Negative Urine Cocaine Screen Negative Ur THC Screen Negative Ethyl Alcohol 310.6 H Last Vital Signs Temp 37.1 C 04/15/25 14:01 Pulse 113 H 04/15/25 14:50 Resp 17 04/15/25 14:50 BP 152/98 H 04/15/25 14:46 Pulse Ox 93 04/15/25 14:50 PAWSS Have you Been Recently Intoxicated or Drunk Within the Last 30 days?: Yes Have you Ever Experienced Previous Episodes of Alcohol Withdrawal?: Yes Have you ever Experienced Withdrawal Seizures?: No Have you ever Experienced Delirium Tremens(DT)s?: No Have you ever undergone Alcohol Rehabilitation Treatment (i.e, inpt ot outpatient treatment programs)?: Yes Have you ever Experienced Blackouts?: Yes Have you ever Combined Alcohol with other Downers within the last 90 days?: No Have you ever Combined Alcohol with any other Substance of Abuse during the last 90 days?: No Positive Blood Alcohol level on Presentation? [PCS.BAL]: Yes Evidence of Increased Autonomic Activity (i.e. HR>120, tremor, sweating, agitation, nausea)?: Yes Result: 6 Time Spent Time spent with Patient: 55-74 minutes Time was spent: preparing to see the patient(eg.review tests), obtaining and/or reviewing separately otained hiistory, ordering medications,tests, procedures, referring, communicating with other health intensive care medicine specialist, indepentently interpreting results, counseling the patient and care coordination
[2025-04-15] MEDS: busPIRone 15 MG TAB 30 MG PO (22:15)
[2025-04-15] MEDS: Normal Saline Flush 10 ML SYR IVP ×2 (22:15→23:04)
[2025-04-16] VITALS (57 sets, daily range): BP systolic 100–150; BP diastolic 58–112; PULSE 74–128; RESP 10–29; TEMP 36.5–37.2; O2SAT 1–98
[2025-04-16] MEDS: PHENobarbital 130 MG/ML VIAL IVP ×3 (06:05→12:40)
[2025-04-16] MEDS: Normal Saline Flush 10 ML SYR IVP ×3 (06:06→21:11)
[2025-04-16 06:53] LABS: Anion Gap 9.6 mmol/L (3-11); BUN 3 mg/dL (7-18); CO2 26.4 mmol/L (21.0-32.0); Calcium 9.2 mg/dL (8.5-10.1); Chloride 101 mmol/L (98-107); Estimated GFR 124.77 (mL/min/1.73m2); Glucose 99 mg/dL (74-106); Magnesium 1.8 mg/dL (1.8-2.4); Potassium 3.8 mmol/L (3.5-5.1); Sodium 137 mmol/L (136-145)
[2025-04-16] MEDS: Sertraline 100 MG TAB 200 MG PO (08:57)
[2025-04-16] MEDS: amLODIPine 10 MG TAB PO (08:57)
[2025-04-16] MEDS: busPIRone 15 MG TAB 30 MG PO ×2 (08:57→21:10)
--- NOTE | 2025-04-16 08:57 | INITIAL_ITS ---
Date of service: 04/16/25 Time of Service: 08:57 Care Management Initial Assmt Initial Assessment Reason for Hospitalization: alcohol withdrawal Functional Status/Living Situation Patient Presentation: Andrey presented to the ED yesterday morning. He stated that he had been drinking for 6 straight days, after a period of doing pretty well. He has been seeing his PCP about every 6 weeks and has an appointment on 04/26. He is scheduled for these 6 week appointments at least through August. Andrey's mom, Genny, was visiting this morning. CM met with them this morning. Mom stated full support of Andrey. As above, Andrey had been doing very well - he was sober for 7 weeks. Andrey lost a friend, suddenly, and this was too much and he was pushed over the edge. Andrey met with [facility] yesterday, and Jevon from met with Andrey again today. Jevon updated CM after their visit today. Andrey and Jevon will be checking in daily for the next 10 days. Andrey does not want to go to an inpatient facilit y, and Jevon is on board with this. If Andrey were to go inpatient, he would not be able to keep his job. The job is very important to Andrey, it provides him with a purpose , a distraction, and also with friends. Andrey will continue with his therapist and his med provider at [facility]. CM went to check in on Andrey again later in the day, after he had met with [facility], but he was sleeping, and CM chose not to wake him. Town of Residence: [facility] Resides with: Parent (living with Mom and step-dad. 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) Instrumental Activities of Daily Living (ADLs): Independent Activities/Hobbies/SocialSupport: Attends AA, has a counselor and a psychiatrist Medications Medication Management: No Issues/Barriers identified Advance Directives Advance Directives: Do you have an Advance Directive: N , 16:50 AD On File at [facility]: N 10/27/12, 21:17 Date Asked 04/15/25 04/15/25, 09:07 AD Date Reviewed COLST On File at [facility] No 09/28/24, 21:15 COLST Date Scanned Insurance Coverage/Financial Issues Insurance: Medicaid of [place] Care Team Visit Care Team Role Provider Type Tara Humphreys, PETROS Primary Care Provider NURSE PRACTITIONER Lyndsey Paulson, PETROS Emergency Provider NURSE PRACTITIONER Samir Mcclelland Admit Provider [facility] STAFF PHYSICIAN Attending Provider Discharge Potential Discharge Needs: PCP F/U Appt (appt scheduled for 04/26) and Other (continue with AA meetings, counselor and psychiatrist, continued f/u with [facility]) Anticipated Barriers to Discharge: None Identified Patient/Family Education Needs: Review discharge instructions, discuss Ask Me Three Transportation: Private vehicle Plan: Anticipate that Andrey will discharge home with no new home services. He will f/u with [facility] for the next 10 days. He will hopefully restart his daily AA meetings and increase his [facility]. He will f/u with his PCP on 04/26 and his counselor and psychiatrist. CM will continue to follow closely. Social Determinants of Health Screening Social Determinants of health last assessed in clinic: 04/16/25 Will the Patient Participate in the Screening?: Yes Do you worry about having a steady place to live?: yes What is your living situation today?: I have housing today, but am worried about losing it Problems where you live: no known problems In the past 12 months, have you had to go without electric, gas, oil or water in your home?: yes 1. Within the past 12 months, we worried whether our food would run out before we got money to buy more.: Don't know/refused 2. Within the past 12 months, the food we bought just didn't last and we didn't have money to get more.: Don't know/refused Has lack of transportation kept you from medical appointments or from doing things needed for daily living?: no Has anyone in your life made you feel unsafe or unsupported?: no How hard is it for you to pay for the very basics like food, housing, medical care, and heating? 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 [employer] and housing is no longer a problem Health Related Social Needs Health related social needs: housing instability, housed, with risk of homelessness (Z59.811), material hardship(utilities) (Z59.12), feeling lonely/isolated (Z60.8) and education (Z55.6) Health related social needs details: living with his mother currently, concerned about loosing his job at [employer] All Active Problems (Updated 04/15/25 @ 12:02 by Lyndsey Paulson NP) Alcohol withdrawal syndrome (Acute) Alcohol use disorder (Chronic) Primary hypertension (Chronic ~2023) Elevated bilirubin (Acute) Hepatic steatosis (Acute ~12/2023) [place] Bilateral ocular hypertension (Chronic) Sleeping difficulty (Acute) RX Trazodone Depression (Chronic) Venlafaxine; counselor Anxiety (Chronic) did not respond to low dose sertraline 01/11/11, failed Mirtazepine Medical History Hypomagnesemia Alcohol use disorder, moderate, in early remission Alcohol withdrawal Hypertension Nicotine use disorder 16yo started 0.5-1PPD Stressful life event affecting family Sister's illness/diagnosis Excessive drinking alcohol Reviewed norms Family History Mother Breast cancer Pre-menopausal; has occurred x2 Asthma Heart disease [place] Father , COV, Winter 2019 Cancer lung Diabetes Sister Scleroderma Breast cancer Dx'ed mid 30s Paternal Uncle Scleroderma Social History Smoking/Tobacco Use Status: Current every day Tobacco Type: cigarettes Years smoked: 20 Tobacco: How many years used: 8 Quit status: considering quitting Smoking risk assessment performed?: Yes Alcohol Intake: current Alcohol Intake frequency: 0-2 drinks per day Alcohol type: wine and hard liquor Drug use: Never Substance use type: does not use and marijuana Adopted: No Caregiver/Support person: No Foster care: No Household members: family Housing: house Number of Children: 0 number of grandchildren: 0 Communication Needs: None Education Level: high school Do you need help understanding health information?: Rarely 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: Working for [employer] on [employer] Pets and animals: No Sexually active: Yes Do you think of yourself as: straight/heterosexual Current gender identity: male What is your relationship status?: refused to answer How often do you talk on the phone with friends or family?: three or more times per week How often do you get together with friends or relatives?: three or more times per week Do you belong to any clubs or organized social groups?: no Panel score (0-1 are the most socially isolated patients): 1 What type of physical activity do you participate in: walking Duration: > 90 minutes/day Frequency: 5-6 times per week Laina/Scientologist: None Special laina needs: No Seatbelt use: always Helmet use: Yes Helmet use: always Drive intox or ride w/intox line haul driver: No Do you feel safe at home: Yes Do you feel safe in your relationship?: Yes
[2025-04-16] MEDS: Multivitamin TAB 1 TAB PO (08:58)
[2025-04-16] MEDS: Thiamine 100 MG TAB PO (08:58)
[2025-04-16] MEDS: Pantoprazole 40 MG TABCR PO (08:58)
--- NOTE | 2025-04-16 09:26 | NUR.NOTE ---
Nursing Note: Patient's mother is in room visiting at this time.
--- NOTE | 2025-04-16 12:55 | W.PM.PROGNOT ---
Date of Service Date of service: 04/16/25 Time of Service: 12:56 Assessment and Plan Assessment and plan (1) Alcohol withdrawal: Status: Resolved Assessment and plan: On phenobarbital protocol. In ICU for h/o severe withdrawal, as he has needed addition of precedex in the past, he is still at high risk for worsening sympotms given he is early in withdrawal about 27 hours after last Add Precedex prn if maxing out phenobarbital continue ondansatron and pantoprazole for supportive care/vomiting. (2) Depression: Status: Chronic Assessment and plan: With chronic anxiety. Resume home meds (3) Alcohol use disorder: Status: Chronic Assessment and plan: He has struggled this year with recurrent relapses, though states he was doing well before recent stressor. Again review options for inpatient care prior to discharge holding outpatient naltrexone and disulfuram. (4) Nicotine use disorder: Assessment and plan: NicoDerm patch prn (5) DVT prophylaxis: Status: Deleted Assessment and plan: ambulatory (6) Discharge planning issues: Status: Deleted Assessment and plan: Last admission we had discussed supportive living, but when feeling better did not follow through. Continue this discussion when feeling better. Subjective Subjective Patient reports: tolerating a regular diet and voiding w/o difficulty; denies diarrhea, vomiting, shortness of breath or fever Interval history since last seen: Events: Received additional phenobarbital per protocol overnight. He did sleep some. Not in pain now, just anxious. no chest pain, but heart fast at times. Exam Narrative Exam Narrative: GEN: Alert and oriented x 4, anxious, but still pleasant and cooperative, gives linear history. LUNGS: CTAB with normal effort CV: tachycardic in 140s, regular with no murmurs, gallops, or rubs. ABD: active bowel sounds, soft, nontender and nondistended. EXT: no cyanosis, clubbing, or edema NEURO: CN 2-12 grossly intact. Normal movement of 4 extremities. Normal speech and coordination. slight tremor. PSYCH: normal mood and affect, normal thought process, no AH/VH Objective Last Vital Signs Temp 37.0 C 04/16/25 11:53 Pulse 97 H 04/16/25 09:00 Resp 20 04/16/25 09:00 BP 139/87 04/16/25 08:01 Pulse Ox 98 04/16/25 09:00 Laboratory Results - last 24 hr 04/15/25 04/16/25 12:44 05:40 Sodium 137 Potassium 3.8 Chloride 101 Carbon Dioxide 26.4 Anion Gap 9.6 BUN 3 L Creatinine 0.7 Est GFR (CKD-EPI 2020) 124.77 Glucose 99 Calcium 9.2 Phosphorus 3.0 Magnesium 1.8 Urine Color Yellow Urine Clarity Clear Urine pH 7.0 Ur Specific [place] 1.015 Urine Protein Negative Urine Ketones Negative Urine Blood Negative Urine Nitrite Negative Urine Bilirubin Negative Urine Urobilinogen 0.2 Ur Leukocyte Esterase Negative Urine Glucose Negative Urine Opiates Screen Negative Urine Methadone Screen Negative Ur Barbiturates Screen Negative Ur Tricyclics Screen Negative Ur Amphetamines Screen Negative U Benzodiazepines Scrn Negative Urine Cocaine Screen Negative Ur THC Screen Negative PAWSS Have you Been Recently Intoxicated or Drunk Within the Last 30 days?: Yes Have you Ever Experienced Previous Episodes of Alcohol Withdrawal?: Yes Have you ever Experienced Withdrawal Seizures?: No Have you ever Experienced Delirium Tremens(DT)s?: No Have you ever undergone Alcohol Rehabilitation Treatment (i.e, inpt ot outpatient treatment programs)?: Yes Have you ever Experienced Blackouts?: Yes Have you ever Combined Alcohol with other Downers within the last 90 days?: No Have you ever Combined Alcohol with any other Substance of Abuse during the last 90 days?: No Positive Blood Alcohol level on Presentation? [PCS.BAL]: Yes Evidence of Increased Autonomic Activity (i.e. HR>120, tremor, sweating, agitation, nausea)?: Yes Result: 6 Time Spent with Patient Time Spent with Patient: 35-49 minutes Time was spent: preparing to see the patient(eg.review tests), obtaining and/or reviewing separately otained hiistory, ordering medications,tests, procedures, referring, communicating with other health wild animal caretaker, indepentently interpreting results, counseling the patient and care coordination
--- NOTE | 2025-04-16 13:01 | W.NUTRFU ---
Date of service: 04/16/25 Time of Service: 13:02 Nutrition Note NOTE: Sanjiv with repeat admission for etoh w/drawal from chronic use. Weight stable and congruent with ~65kg as current usualy weight. BMI currently 20.1. Receiving appropriate nutrient supplmentation with banana bag, B1 and FA. ordered for regular diet. will offer boost ONS at meals for added protein/energy/nutrition. will monitor and follow as necessary Time Spent in Nutritional Counseling and Treatment: 0
--- NOTE | 2025-04-16 18:20 | W.PC.ACHO ---
Registration Status: ADM IN Primary Language: Preferred Language: Kiswahili ED Information & Data Chief Complaint ETOHWithdr 04/15/25 09:38 Triage Note Pt states he has been 04/15/25 09:09 struggling with etoh use. Pt had been sober for several months and recently lost a loved one and has been binge drinking. Pt states he has been drinking since Sat morning. Last drink was 30 min ago. Pt seeking help. Pt denies SI/HI. Pt also reports abd pain with N/V. Pt states he noticed some red in vomit. Medical / Surgical History Hypomagnesemia Alcohol use disorder, moderate, in early remission Alcohol withdrawal Hypertension Nicotine use disorder Stressful life event affecting family Excessive drinking alcohol Most Recent Vital Signs Temperature 36.5 C 04/16/25 18:18 Temperature Source Temporal Artery Scan 04/16/25 18:18 Pulse 111 H 04/16/25 18:18 Pulse 92 H 04/16/25 15:30 Respiratory Rate 16 04/16/25 18:18 Respiratory Effort Normal, Non-Labored 04/15/25 13:48 Respiratory Depth Normal 04/15/25 13:48 Respiratory Pattern Normal 04/15/25 13:48 Blood Pressure 147/111 H 04/16/25 18:18 Blood Pressure Mean 123 04/16/25 18:18 Blood Pressure Position Supine 04/15/25 13:48 Pulse Oximetry 98 04/16/25 18:18 Oxygen Delivery Method Room Air 04/16/25 18:18 Oxygen Flow Rate 0 04/16/25 18:18 Pain Level 0 04/16/25 15:50 Allergies No Known Allergies Allergy (Verified 04/15/25 10:11) Active Medications Generic Name Dose Route Start Last Admin Trade Name Rcq PRN Reason Stop Dose Admin Amlodipine Besylate 10 mg 04/16/25 08:30 04/16/25 08:57 Amlodipine 10 Mg Tab PO 10 mg DAILY MELODY Administration Buspirone HCl 30 mg 04/15/25 20:00 04/16/25 08:57 Buspirone 15 Mg Tab PO 30 mg BID MELODY Administration Multivitamins 1 tab 04/16/25 08:30 04/16/25 08:58 Multivitamin Tab PO 1 tab DAILY MELODY Administration Pantoprazole Sodium 40 mg 04/16/25 07:30 04/16/25 08:58 Pantoprazole 40 Mg Tabcr PO 40 mg DAILY@0730 MELODY Administration Sertraline HCl 200 mg 04/16/25 08:30 04/16/25 08:57 Sertraline 100 Mg Tab PO 200 mg DAILY MELODY Administration Sodium Chloride 0 ml 04/15/25 09:16 04/16/25 06:06 Normal Saline Flush 10 Ml Syr IVP 10 ml PRN PRN Administration Sodium Chloride 0 ml 04/15/25 20:00 04/16/25 08:59 Normal Saline Flush 10 Ml Syr IVP 30 ml BID MELODY Administration Thiamine HCl 100 mg 04/16/25 08:30 04/16/25 08:58 Thiamine 100 Mg Tab PO 100 mg QAM MELODY Administration Venlafaxine HCl 37.5 mg 04/16/25 08:30 04/16/25 09:00 Venlafaxine 37.5 Mg Capcr PO Not Given DAILY MELODY IV IV Catheter Type [Left Forearm Saline Lock ] IV Catheter Type [Right Saline Lock Forearm] IV Catheter Gauge [Left 20 Forearm] IV Catheter Gauge [Right 18 Forearm] Diet Orders Category Date Time Status DIET [Regular/Normal] [DIET] Nutrition 04/16/25 Lunch Active Diagnostics 04/16/25 Range/Units 05:40 Sodium 137 (136-145) mmol/L Potassium 3.8 (3.5-5.1) mmol/L Chloride 101 (98-107) mmol/L Carbon Dioxide 26.4 (21.0-32.0) mmol/L Anion Gap 9.6 (3-11) mmol/L BUN 3 L (7-18) mg/dL Creatinine 0.7 (0.70-1.30) mg/dL Est GFR (CKD-EPI 2020) 124.77 (mL/min/1.73m2) Glucose 99 (74-106) mg/dL Calcium 9.2 (8.5-10.1) mg/dL Phosphorus 3.0 (2.6-4.7) mg/dL Magnesium 1.8 (1.8-2.4) mg/dL Intake and Output - 24 Hour Total 04/15/25 09:04 thru 04/16/25 14:39 Intake Total 2965.9693 Output Total 1200 Balance 1765.9693 Weight 63.5 kg Intake: IV 2165.9693 Oral 800 Output: Urine 1200 Other: Urine Color Yellow Urine Appearance Clear Comment unknown amount pt used toilet Falls Risk Assessment History of Falls No History 04/15/25 13:48 Contributing Factors No Factors 04/15/25 09:19 Ambulatory Aids Independent 04/15/25 09:19 Tubes/Lines None 04/15/25 09:19 Gait Evaluation No gait disturbance 04/15/25 09:19 Cognition No cognitive impairment 04/15/25 09:19 Fall Total Score 0 04/15/25 13:48 Level of Risk Standard/Low Risk 04/15/25 13:48 Problems (Last Reviewed 04/15/25 @ 09:36 by Lyndsey Paulson NP) Alcohol use disorder (Chronic) Depression (Chronic) Notes 04/16/25 09:26 Nursing Notes by Janet Torrez Nursing Note: Patient's mother is in room visiting at this time. Initialized on 04/16/25 09:26 - END OF NOTE v v v v v v v v v Sending and/or Receiving Nurses: Please use comment section below to note any information pertinent to the patient hand-off not included above. Information / Comments: Pt was transferred from ICU to med/surg. Pt walked to room independently with steady gait. Pt oriented to room and call peacock within reach Report received from: Janet SANON ICU
[2025-04-17 03:00] VITALS: BP 132/104; PULSE 92; RESP 16; TEMP 36.8; O2SAT 98
[2025-04-17 07:59] VITALS: BP 152/100; PULSE 107; RESP 18; TEMP 36.9; O2SAT 99
[2025-04-17] MEDS: busPIRone 15 MG TAB 30 MG PO (08:06)
[2025-04-17] MEDS: Pantoprazole 40 MG TABCR PO (08:06)
[2025-04-17] MEDS: Sertraline 100 MG TAB 200 MG PO (08:06)
[2025-04-17] MEDS: Multivitamin TAB 1 TAB PO (08:06)
[2025-04-17] MEDS: amLODIPine 10 MG TAB PO (08:06)
[2025-04-17] MEDS: Thiamine 100 MG TAB PO (08:06)
[2025-04-17] MEDS: Normal Saline Flush 10 ML SYR IVP (08:06)
--- NOTE | 2025-04-17 10:13 | W.PM.DS.N ---
Date of service: 04/17/25 Time of Service: 10:13 DS: Diagnosis Discharge Diagnosis (1) Alcohol withdrawal: Status: Resolved (2) Depression: Status: Chronic (3) Alcohol use disorder: Status: Chronic (4) Nicotine use disorder: Discharge Plan Disposition Patient Disposition: Home Condition: Stable Discharge Details Reason For Visit: Alcohol Withdrawal Admit Date/Time: 04/15/25 11:57 Admit Provider: Samir Mcclelland Attending Provider: Samir Mcclelland Primary Care Provider: Tara Humphreys Hospital Course Hospital Course: 34 yo M with alcohol use disorder, HTN, smoking, anxiety disorder, and 6 admissions this year for severe alcohol withdrawal presenting this morning to the ED after 5 days of heavy binge drinking. He was admitted and placed on phenobarbital withdrawal protocol. He required additional PRN dosing over the first 24 hours but did not require additional medication after reaching his maximum dose. He was feeling better on the morning of discharge and not scoring above 5 on CIWA overnight. He had stopped his disulfuram and plans to resume this with his mom observing. He had stopped naltrexone IM due to discomfort, but will resume oral dosing. Home Meds and New Rx's Prescriptions: New naltrexone 50 mg tablet 50 mg PO DAILY Qty: 90 0RF Continued amlodipine 10 mg tablet 10 mg PO DAILY Qty: 90 3RF Rx Instructions: For BP with goal <140/90 thiamine mononitrate (vit B1) [Vitamin B-1 (mononitrate)] 100 mg tablet 100 mg PO QAM Qty: 90 3RF disulfiram 500 mg tablet 500 mg PO DAILY Qty: 30 0RF sertraline 100 mg tablet 200 mg PO DAILY Patient Comments: TAKE ONE TABLET BY MOUTH EVERY DAY hydroxyzine HCl 25 mg tablet 25 mg PO BID PRN Patient Comments: TAKE 1 TABLET TWICE DAILY NEEDED FOR ANXIETY multivitamin [Multiple Vitamins] Tablet 1 tab PO DAILY Qty: 0 0RF trazodone 50 mg tablet See Rx Instructions PO QHS PRN (Reason: sleep) Qty: 40 0RF Rx Instructions: 25-50mg bedtime for sleep difficulty, may repeat 50mg x1 if first dose ineffective for max nightly dose 100mg PO every day at bedtime PRN; venlafaxine 37.5 mg capsule,extended release 24hr 37.5 mg PO DAILY Patient Comments: TAKE 1 CAPSULE BY MOUTH DAILY buspirone 30 mg tablet 30 mg PO BID Patient Comments: TAKE ONE TABLET BY MOUTH TWICE A DAY Discharge Instructions Additional Instructions: Resume disulfuram. This works best if a family member, such as your mom, watches you take it every day. Resume oral naltrexone. This was sent to your pharmacy. Resume therapy and AA groups Stand Alone Forms: Nursing Discharge Form Referrals: Tara Humphreys [facility] [Primary Care Provider, Medicine] Referral Note: Office will call you to make follow up appointment. Activity:: Activity as Tolerated Equipment/Supplies:: No Equipment Needed Diet:: As Tolerated Discharge Orders Discharge Orders: Discharge Order (Routine); Ordered 04/17/25 Ordered By: Samir Mcclelland Discharge Data Discharge Date/Time-TO BE ENTERED AT DEPARTURE: 04/17/25 11:49 DS: Summary Time Spent with Patient providing and/or coordinating discharge services: Greater than 30 minutes Status at Discharge Functional status at discharge: independent ambulation Overall status at discharge: patient is back to baseline Mental Status: mental status grossly normal Speech and Movement: speech and movement normal Mood: congruent mood Affect: normal affect Quality:SDOH Health Related Social Needs: Health related social needs risk of homeless material hardship lonely/isolated education Health related social needs details living with his mother currently, concerned about loosing his job at [employer] [place] Health related social needs details: living with his mother currently, concerned about loosing his job at [employer] [place] Exam Narrative Exam Narrative: GEN: Alert and oriented x 4, NAD LUNGS: CTAB with normal effort CV: regular with no murmurs, gallops, or rubs. ABD: active bowel sounds, soft, nontender and nondistended. EXT: no cyanosis, clubbing, or edema NEURO: no tremor PSYCH: normal mood and affect, normal thought process, no AH/VH Psych Mental Status: mental status grossly normal Speech and Movement: speech and movement normal Mood: congruent mood Affect: normal affect DS: Data Vitals/I&O Vitals and I&O: Vital Signs Temperature 36.9 C 04/17/25 07:59 Temperature Source Temporal Artery Scan 04/17/25 07:59 Pulse 107 H 04/17/25 07:59 Pulse 98 H 04/16/25 18:00 Respiratory Rate 18 04/17/25 07:59 Respiratory Effort Normal, Non-Labored 04/15/25 13:48 Respiratory Depth Normal 04/15/25 13:48 Respiratory Pattern Normal 04/15/25 13:48 Blood Pressure 152/100 H 04/17/25 07:59 Blood Pressure Mean 117 04/17/25 07:59 Blood Pressure Position Supine 04/15/25 13:48 Pulse Oximetry 99 04/17/25 07:59 Oxygen Delivery Method Room Air 04/17/25 07:59 Oxygen Flow Rate 0 04/17/25 07:59 Pain Level 0 04/17/25 07:59 Intake & Output 04/16/25 04/16/25 04/17/25 11:59 23:59 11:59 Intake Total 240 / 1280 1040 / 1280 Output Total 800 / 800 Balance -560 / 480 1040 / 480 Weight 63.5 kg Intake: IV 40 / 40 Oral 240 / 1240 1000 / 1240 Output: Urine 800 / 800 Other: Urine Color Yellow Urine Appearance Clear Comment pt stated he had around 800 out unknown amount pt used toilet PFSH All Active Problems (Updated 04/15/25 @ 12:02 by Lyndsey Paulson NP) Alcohol withdrawal syndrome (Acute) Primary hypertension (Chronic ~2023) Elevated bilirubin (Acute) Hepatic steatosis (Acute ~12/2023) Alcohol use disorder (Chronic) Bilateral ocular hypertension (Chronic) Sleeping difficulty (Acute) RX Trazodone Depression (Chronic) Venlafaxine; counselor Anxiety (Chronic) did not respond to low dose sertraline 01/11/11, failed Mirtazepine Medical History Hypomagnesemia Alcohol use disorder, moderate, in early remission Alcohol withdrawal Hypertension Nicotine use disorder 16yo started 0.5-1PPD Stressful life event affecting family Sister's illness/diagnosis Excessive drinking alcohol Reviewed norms Family History Mother Breast cancer Pre-menopausal; has occurred x2 Asthma Heart disease NE Father , winter Cancer lung Diabetes Sister Scleroderma Breast cancer Dx'ed mid 30s Paternal Uncle Scleroderma Social History Smoking/Tobacco Use Status: Current every day Tobacco Type: cigarettes Years smoked: 20 Tobacco: How many years used: 8 Quit status: considering quitting Smoking risk assessment performed?: Yes Alcohol Intake: current Alcohol Intake frequency: 0-2 drinks per day Alcohol type: wine and hard liquor Drug use: Never Substance use type: does not use and marijuana Adopted: No Caregiver/Support person: No Foster care: No Household members: family Housing: house Number of Children: 0 number of grandchildren: 0 Communication Needs: None Education Level: high school Do you need help understanding health information?: Rarely 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: Working for [employer] Pets and animals: No Sexually active: Yes Do you think of yourself as: straight/heterosexual Current gender identity: male What is your relationship status?: refused to answer How often do you talk on the phone with friends or family?: three or more times per week How often do you get together with friends or relatives?: three or more times per week Do you belong to any clubs or organized social groups?: no Panel score (0-1 are the most socially isolated patients): 1 What type of physical activity do you participate in: walking Duration: > 90 minutes/day Frequency: 5-6 times per week Laina/Anabaptist: None Special laina needs: No Seatbelt use: always Helmet use: Yes Helmet use: always Drive intox or ride w/intox 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
--- NOTE | 2025-04-17 10:14 | CMDISCH_ITS ---
Date of service: 04/17/25 Time of Service: 12:38 LACE Index Scoring Tool Questions: Length of Stay (in days): 2 Was the patient admitted via the E.D.?: Yes E.D. Visits: 6 Answers: Total Score: 9 Risk of Readmission: Low Risk Care Management Discharge Plan Reason for Hospitalization: ETOH withdrawal Discharge Plan: Andrey will discharge home with no new home services. He will f/u with [facility] for the next 10 days. He will hopefully restart his daily AA meetings and [facility]. He will f/u with his PCP on 04/26 and his counselor and psychiatrist. He will be transported via private vehicle. Patient/Family Education Needs: review of discharge instructions, activity, limitations, and discharge plan of care. Discuss ask me three SDOH Health Related Social Needs: Health related social needs risk of homeless material hardship lonely/isolated education Health related social needs details living with his mo ther currently, concerned about loosing his job at [employer] [place] Health related social needs details: living with his mother currently, concerned about loosing his job at [employer] [place]
[2025-04-17 11:14] VITALS: BP 138/107; PULSE 97; RESP 16; TEMP 36.9; O2SAT 98
== END 2025-04-17 11:49 | disposition home or self-care (01) | DRG 897 ==
LOC: ER 12:02 → ICU 13:14 → MS 04-16 18:16
PROVIDERS: Admitting Provider Family Medicine; Emergency Provider Registered Nurse Emergency; PCP Nurse Practitioner Adult Health; Responsible Provider Family Medicine; Visit Provider Family Medicine
DX: F10.139 Alcohol abuse with withdrawal, unspecified (principal); Z59.811 Housing instability, housed, with risk of homelessness; F10.129 Alcohol abuse with intoxication, unspecified; F17.210 Nicotine dependence, cigarettes, uncomplicated; Y90.8 Blood alcohol level of 240 mg/100 ml or more; I10 Essential (primary) hypertension; F41.9 Anxiety disorder, unspecified; F32.A Depression, unspecified; Z79.899 Other long term (current) drug therapy; R45.89 Other symptoms and signs involving emotional state; Z59.87 Material hardship due to limited financial resources, not elsewhere classified; H40.053 Ocular hypertension, bilateral; E83.42 Hypomagnesemia; K76.0 Fatty (change of) liver, not elsewhere classified; G47.9 Sleep disorder, unspecified
CPT/HCPCS: 00123; 36415; 80048; 80053; 80307; 83690; 96365; 96366; 96375; 99291; 80320; 81003; 83735; 84100; 85025; 99222; 99232; 99238; J2405; J2470; J2560; J3411; J3475

== ENCOUNTER 2025-05-04 17:13 | Emergency (ER) | payer MEDICAID, SELFPAY ==
[2025-05-04 17:18] VITALS: BP 146/116; PULSE 149; RESP 20; TEMP 36.8; O2SAT 93
--- NOTE | 2025-05-04 18:03 | W.ED.GENAD ---
Discharge Plan Disposition Patient Disposition: Home Condition: Stable Discharge Details Clinical Impression: Alcohol use disorder, Alcohol withdrawal syndrome Primary Care Provider: Tara Humphreys ED Provider: Julita Olivares Home Meds and New Rx's Prescriptions: New chlordiazepoxide HCl 25 mg capsule See Rx Instructions .ROUTE .COMPLEX PRNQty: 7 0RF Rx Instructions: 25 mg orally every 6 hours tomorrow, then every 12 hours on 05/06, then once of 05/07 for alcohol withdrawal No Action amlodipine 10 mg tablet 10 mg PO DAILY Qty: 90 3RF Rx Instructions: For BP with goal <140/90 thiamine mononitrate (vit B1) [Vitamin B-1 (mononitrate)] 100 mg tablet 100 mg PO QAM Qty: 90 3RF disulfiram 500 mg tablet 500 mg PO DAILY Qty: 30 0RF sertraline 100 mg tablet 200 mg PO DAILY Patient Comments: TAKE ONE TABLET BY MOUTH EVERY DAY hydroxyzine HCl 25 mg tablet 25 mg PO BID PRN Patient Comments: TAKE 1 TABLET TWICE DAILY NEEDED FOR ANXIETY multivitamin [Multiple Vitamins] Tablet 1 tab PO DAILY Qty: 0 0RF trazodone 50 mg tablet See Rx Instructions PO QHS PRN (Reason: sleep) Qty: 40 0RF Rx Instructions: 25-50mg bedtime for sleep difficulty, may repeat 50mg x1 if first dose ineffective for max nightly dose 100mg PO every day at bedtime PRN; buspirone 30 mg tablet 30 mg PO BID Patient Comments: TAKE ONE TABLET BY MOUTH TWICE A DAY naltrexone 50 mg tablet 50 mg PO DAILY Qty: 90 0RF Discharge Instructions Instructions: Alcohol Use Disorder ED Additional Instructions: You were seen in the emergency department today for evaluation of alcohol use disorder and alcohol withdrawal symptoms. In our department a full physical examination performed, had reassuring laboratory studies and met with the recovery coaches. You received some fluids and electrolytes, and at this time we discussed using a Librium taper to manage your symptoms. As we discussed, this medication should cannot be mixed with alcohol without dangerous effects, and you have a family member and friend available to help you maintain your sobriety while taking this medication. Please follow-up with the assistant baseball coach at your scheduled meeting and reach out to your primary care provider to discuss next steps. Thank you for allowing us to be part of your care. Stand Alone Forms: Work Release Discharge Data Discharge Date/Time-TO BE ENTERED AT DEPARTURE: 05/04/25 22:29 HPI General Mode of arrival: ambulatory. Date/Time Provider Initiated Documentation: 05/04/25 17:22. Limitations to Documentation: no limitations. Information obtained by: patient and old records reviewed. HPI Narrative: This is a 34-year-old male patient presenting for evaluation of alcohol use disorder and alcohol withdrawal syndromes. The patient reports that he had a recent admission to this hospital for phenobarbital, has a history of auditory hallucinations during withdrawals but has never had an alcohol withdrawal seizure. States that last Saturday he relapsed, has been drinking an unknown number of alcoholic beverages per day, states that he has been feeling really unwell. He has had some nausea and vomiting, has not been taking his disulfiram, states that he had his last drink at 5 PM, just about an hour prior to arrival. He states that he is feeling quite anxious and ashamed, and has a significant number of negative feelings associated with his recent relapse. He is well-connected with the recovery coaches, and states that he feels very motivated to stop drinking but needs help to do so. He has a safe place to reside, does not endorse suicidal ideation. No comorbid substance use other than nicotine. States that he has not been able to eat and drink typically for him, has not been taking his home medications including his vitamins. Related Data Home Medications ?Medication ?Instructions ?Recorded ?Confirmed disulfiram 500 mg tablet 500 mg PO DAILY #30 tabs 10/26/24 04/26/25 amlodipine 10 mg tablet 10 mg PO DAILY #90 tabs 12/03/24 04/26/25 sertraline 100 mg tablet 200 mg PO DAILY 02/01/25 04/26/25 hydroxyzine HCl 25 mg tablet 25 mg PO BID PRN 02/09/25 04/26/25 multivitamin (Multiple Vitamins 1 tab PO DAILY #0 tabs 02/19/25 04/26/25 tablet) trazodone 50 mg tablet See Rx Instructions PO QHS PRN 02/19/25 04/26/25 sleep #40 tabs buspirone 30 mg tablet 30 mg PO BID 04/15/25 04/26/25 naltrexone 50 mg tablet 50 mg PO DAILY #90 tabs 04/17/25 04/26/25 thiamine mononitrate (vit B1) 100 100 mg PO QAM #90 tabs 04/26/25 04/26/25 mg tablet (Vitamin B-1 (mononitrate)) chlordiazepoxide HCl 25 mg capsule See Rx Instructions .Route 05/04/25 .COMPLEX PRN #7 caps Previous Rx's ?Medication ?Instructions ?Recorded disulfiram 500 mg tablet 500 mg PO DAILY #30 tabs 10/26/24 amlodipine 10 mg tablet 10 mg PO DAILY #90 tabs 12/03/24 multivitamin (Multiple Vitamins 1 tab PO DAILY #0 tabs 02/19/25 tablet) trazodone 50 mg tablet See Rx Instructions PO QHS PRN 02/19/25 sleep #40 tabs naltrexone 50 mg tablet 50 mg PO DAILY #90 tabs 04/17/25 thiamine mononitrate (vit B1) 100 100 mg PO QAM #90 tabs 04/26/25 mg tablet (Vitamin B-1 (mononitrate)) chlordiazepoxide HCl 25 mg capsule See Rx Instructions .Route 05/04/25 .COMPLEX PRN #7 caps Allergies Allergy/AdvReac Type Severity Reaction Status Date / Time No Known Allergies Allergy Verified 04/26/25 09:10 General Stated Complaint: ETOHWithdr MOISES: 3 Exam Narrative Exam Narrative: Gen: Awake and alert, appears in acute distress HEENT: Non-icteric sclera, PERRL, extinguishable bilateral horizontal nystagmus Neck: Supple Lungs: No apparent respiratory distress, normal respiratory effort. CV: Appears well perfused, heart with regular rhythm but tachycardic rate, strong distal pulses Abdomen: Non-distended, soft MSK: Moves 4 extremities without apparent limitation in ROM Skin: Visualized skin without rashes, cyanosis. Neuro: Normal Gait, no obvious focal deficits or facial asymmetry. Speaks in full, clear sentences. Mildly tremulous Psych: Appears significantly anxious Course Vital Signs Vital signs: Vital Signs Temperature 36.8 C 05/04/25 17:18 Pulse 149 H 05/04/25 17:18 Respiratory Rate 05/04/25 17:18 Blood Pressure 146/116 H 05/04/25 17:18 Pulse Oximetry 93 05/04/25 17:18 Temperature 36.8 C 05/04/25 17:18 Pulse 149 H 05/04/25 17:18 Respiratory Rate 20 05/04/25 17:18 Blood Pressure 146/116 H 05/04/25 17:18 Blood Pressure Position Sitting 05/04/25 17:18 Pulse Oximetry 93 05/04/25 17:18 Oxygen Delivery Method Room Air 05/04/25 17:18 Oxygen Flow Rate 0 05/04/25 17:18 Medical Decision Making This is a 34-year-old male patient presenting for evaluation of alcohol use disorder with recent relapse and a history of alcohol withdrawal syndromes. Differential includes but is not limited to acute intoxication given the recent timeframe since last drink, certainly considered early withdrawal, metabolic and electrolyte derangement, dehydration, kidney injury, liver pathology. No trauma, no comorbid substance use. No comorbid psychiatric complaints today. Given the brief duration since last drink we will hold on empiric treatment, will obtain labs to include CBC, CMP, magnesium, ethyl alcohol, urinalysis and UDS. I will provide the patient with a banana bag for rehydration and electrolytes/vitamins given that he has not been eating or taking his home thiamine. Initial CIWA score 11. - I reviewed the patient's laboratory studies, which show no leukocytosis, anemia or thrombocytopenia. Chemistry panel without electrolyte derangements, evidence of kidney dysfunction or severe liver disease. Ethyl alcohol was 259. The recovery coaches were contacted and met with the patient in the hospital. I had an extended conversation with him regarding next [facility] management. The patient states that he is desiring of going to treatment and achieving sobriety, and has a very robust outpatient support system. He is hopeful to manage his symptoms at home, rather than need to be taken into the hospital, which I do not think is unreasonable as he has a number of folks who can support him on a Librium taper, and has been successful on this medication in the past. Repeat CIWA score without intervention was 5, in part likely due to a reported slight decrease in his anxiety with time in therapeutic conversation as well as an improvement in his heart rate. I provided him with his first dose of Librium, which he tolerated well. 2 doses were provided to his friends/responsible libertarian for administration overnight, and a prescription for the remainder of the taper was sent to his pharmacy. He understands that he can return at any time if his symptoms worsen, he develops hallucinations, or has any other concerns. At this time, the patient has had a full medical evaluation and is safe for discharge to home. They are hemodynamically stable, ambulatory, and tolerating PO. They are understanding of the follow-up plan and return precautions. They left our facility without incident. Julita Olivares MD Quality:SDOH Health Related Social Needs: Health related social needs risk of homeless material hardship lonely/isolated education Health related social needs details living with his mother currently, concerned about loosing his job at [employer] All Active Problems (Updated 05/04/25 @ 22:16 by Julita Olivares MD) Alcohol withdrawal syndrome (Acute) Alcohol use disorder (Chronic) Primary hypertension (Chronic ~2023) Elevated bilirubin (Acute) Hepatic steatosis (Acute ~12/2023) [place] Bilateral ocular hypertension (Chronic) Sleeping difficulty (Acute) RX Trazodone Depression (Chronic) Venlafaxine; counselor Anxiety (Chronic) did not respond to low dose sertraline 01/11/11, failed Mirtazepine Medical History Hypomagnesemia Alcohol use disorder, moderate, in early remission Alcohol withdrawal Hypertension Nicotine use disorder 16yo started 0.5-1PPD Stressful life event affecting family Sister's illness/diagnosis Excessive drinking alcohol Reviewed norms Family History Mother Breast cancer Pre-menopausal; has occurred x2 Asthma Heart disease [place] Father , winter Cancer lung Diabetes Sister Scleroderma Breast cancer Dx'ed mid 30s Paternal Uncle Scleroderma Social History Smoking/Tobacco Use Status: Current every day Tobacco Type: cigarettes Years smoked: 20 Tobacco: How many years used: 8 Quit status: considering quitting Smoking risk assessment performed?: Yes Alcohol Intake: current Alcohol Intake frequency: 0-2 drinks per day Alcohol type: wine and hard liquor Drug use: Never Substance use type: does not use and marijuana Adopted: No Caregiver/Support person: No Foster care: No Household members: family Housing: house Number of Children: 0 number of grandchildren: 0 Communication Needs: None Education Level: high school Do you need help understanding health information?: Rarely 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: Working for [employer] on [employer] Pets and animals: No Sexually active: Yes Do you think of yourself as: straight/heterosexual Current gender identity: male What is your relationship status?: refused to answer How often do you talk on the phone with friends or family?: three or more times per week How often do you get together with friends or relatives?: three or more times per week Do you belong to any clubs or organized social groups?: no Panel score (0-1 are the most socially isolated patients): 1 What type of physical activity do you participate in: walking Duration: > 90 minutes/day Frequency: 5-6 times per week Laina/Uatsdin: None Special laina needs: No Seatbelt use: always Helmet use: Yes Helmet use: always Drive intox or ride w/intox emergency medical technician/driver: No Do you feel safe at home: Yes Do you feel safe in your relationship?: Yes PAWSS Have you Been Recently Intoxicated or Drunk Within the Last 30 days?: Yes Have you Ever Experienced Previous Episodes of Alcohol Withdrawal?: Yes Have you ever Experienced Withdrawal Seizures?: No Have you ever Experienced Delirium Tremens(DT)s?: Yes Have you ever undergone Alcohol Rehabilitation Treatment (i.e, inpt ot outpatient treatment programs)?: Yes Have you ever Experienced Blackouts?: Yes Have you ever Combined Alcohol with other Downers within the last 90 days?: No Have you ever Combined Alcohol with any other Substance of Abuse during the last 90 days?: No Evidence of Increased Autonomic Activity (i.e. HR>120, tremor, sweating, agitation, nausea)?: Yes Result: 6
[2025-05-04] MEDS: MAGNESIUM SULFATE 8.12 MEQ, MULTIVITAMIN 10 ML, THIAMINE 100 MG, FOLIC ACID 1 MG in Nor... 168.867 MG IV (18:46)
[2025-05-04 18:49] LABS: Abs Immature Grans 0.01 10^3/uL (0.0-0.06); HCT 47.4 % (40.0-50.0); HGB 16.7 g/dL (13.5-17.5); Immature Grans % 0.2 %; MCH 30.8 pg (27.0-33.0); MCHC 35.2 % (32.0-36.0); MCV 88 fL (80-95); MPV 8.6 fL (8.0-11.0); Platelet Count 331 10^3/uL (130-400); RBC 5.42 10^6/uL (4.36-5.78); RDW 13.9 % (11.8-14.1); RDW-SD 45.0 fL; WBC 6.50 10^3/uL (4.4-10.8)
[2025-05-04 19:10] LABS: ALT 18 U/L (16-63); AST 15 U/L (15-37); Albumin 4.0 g/dL (3.4-5.0); Alkaline Phosphatase 81 U/L (46-116); Anion Gap 13.0 mmol/L (3-11); BUN 10 mg/dL (7-18); Bilirubin, Total 0.2 mg/dL (0.2-1.0); CO2 25.0 mmol/L (21.0-32.0); Calcium 9.1 mg/dL (8.5-10.1); Chloride 104 mmol/L (98-107); Estimated GFR 119.84 (mL/min/1.73m2); Glucose 114 mg/dL (74-106); Magnesium 1.8 mg/dL (1.8-2.4); Potassium 3.9 mmol/L (3.5-5.1); Sodium 142 mmol/L (136-145); Total Protein 7.4 g/dL (6.4-8.2)
[2025-05-04] MEDS: chlordiazePOXIDE 25 MG CAP 50 MG PO (20:59)
[2025-05-04] MEDS: chlordiazePOXIDE 25 MG CAP 100 MG PO (22:30)
== END 2025-05-04 22:29 | disposition home or self-care (01) ==
PROVIDERS: Emergency Provider Emergency Medicine; PCP Nurse Practitioner Adult Health
DX: F10.939 Alcohol use, unspecified with withdrawal, unspecified (principal); Z59.01 Sheltered homelessness; Z60.8 Other problems related to social environment; Z59.87 Material hardship due to limited financial resources, not elsewhere classified; I10 Essential (primary) hypertension
CPT/HCPCS: 99283; 99285; 96374; 80053; 80320; 83735; 85025; J3411; J3475

== ENCOUNTER 2025-05-07 13:55 | Inpatient (IN) | payer MEDICAID, SELFPAY ==
[2025-05-07] VITALS (56 sets, daily range): BP systolic 118–170; BP diastolic 87–140; PULSE 84–147; RESP 8–27; TEMP 36.1–37.1; O2SAT 93–99
--- NOTE | 2025-05-07 14:00 | RT.EKG_ITS ---
APPROVED REPORT Exam: Resting ECG Reason for Exam: tachycardia Patient Location: E HR:134 bpm ECG Measurements Heart Rate 134 AXIS RI 144 P 53 QRSd 71 QRS 57 QT 289 T 48 QTc 434 Conclusion Sinus tachycardia, rate 134 No interval abnormalities PVC No STEMI No significant changes from priors
--- NOTE | 2025-05-07 14:31 | W.ED.GENAD ---
Discharge Plan Disposition Patient Disposition: Admit to [facility] Condition: Improving Discharge Details Clinical Impression: Alcohol withdrawal syndrome, Alcohol use disorder, Anxiety, Hepatic steatosis, Melena, Acute alcoholic gastritis Primary Care Provider: Tara Humphreys ED Provider: Julita Olivares Home Meds and New Rx's Prescriptions: No Action amlodipine 10 mg tablet 10 mg PO DAILY Qty: 90 3RF Rx Instructions: For BP with goal <140/90 thiamine mononitrate (vit B1) [Vitamin B-1 (mononitrate)] 100 mg tablet 100 mg PO QAM Qty: 90 3RF chlordiazepoxide HCl 25 mg capsule See Rx Instructions .ROUTE .COMPLEX PRNQty: 7 0RF Rx Instructions: 25 mg orally every 6 hours tomorrow, then every 12 hours on 05/06, then once of 05/07 for alcohol withdrawal disulfiram 500 mg tablet 500 mg PO DAILY Qty: 30 0RF sertraline 100 mg tablet 200 mg PO DAILY Patient Comments: TAKE ONE TABLET BY MOUTH EVERY DAY hydroxyzine HCl 25 mg tablet 25 mg PO BID PRN Patient Comments: TAKE 1 TABLET TWICE DAILY NEEDED FOR ANXIETY multivitamin [Multiple Vitamins] Tablet 1 tab PO DAILY Qty: 0 0RF trazodone 50 mg tablet See Rx Instructions PO QHS PRN (Reason: sleep) Qty: 40 0RF Rx Instructions: 25-50mg bedtime for sleep difficulty, may repeat 50mg x1 if first dose ineffective for max nightly dose 100mg PO every day at bedtime PRN; buspirone 30 mg tablet 30 mg PO BID Patient Comments: TAKE ONE TABLET BY MOUTH TWICE A DAY naltrexone 50 mg tablet 50 mg PO DAILY Qty: 90 0RF HPI General Mode of arrival: ambulatory. Date/Time Provider Initiated Documentation: 05/07/25 13:56. Limitations to Documentation: no limitations. Information obtained by: patient and old records reviewed. HPI Narrative: This is a 34-year-old male patient with a past medical history significant for alcohol use disorder, alcohol withdrawal with a history of delirium tremens, hepatic steatosis, and anxiety who is presenting for evaluation of alcohol withdrawal symptoms. The patient was seen in our emergency department approximately 3 days ago, and was discharged on a Librium taper in the care of a trustworthy family friend. The patient reports that he felt pretty good when he was discharged at that time, had received a dose of Librium at the hospital but did not fill the prescription as he was feeling all right. He states that the next day he began to drink quite heavily again, states that he was so drunk he fell asleep with a cigarette in his fingers, and thought that today was Saturday rather than Saturday. He states that his last drink was around 10 AM and he is experiencing withdrawal symptoms including anxiety and shakiness, nausea and vomiting. He Мария presented desiring of care for his alcohol withdrawal symptoms, has required admission and phenobarbital administration in the past. The patient reports no blood in his vomit but he has had diarrhea for the last few days that was black in color. He has no known history of gastritis or ulcers, has never had a colonoscopy or endoscopy. Uses nicotine/tobacco but no other illicit substance use reported. Has a safe place to reside, does not report any active suicidal ideation. Related Data Home Medications ?Medication ?Instructions ?Recorded ?Confirmed disulfiram 500 mg tablet 500 mg PO DAILY #30 tabs 10/26/24 05/07/25 amlodipine 10 mg tablet 10 mg PO DAILY #90 tabs 12/03/24 05/07/25 sertraline 100 mg tablet 200 mg PO DAILY 02/01/25 05/07/25 hydroxyzine HCl 25 mg tablet 25 mg PO BID PRN 02/09/25 05/07/25 multivitamin (Multiple Vitamins 1 tab PO DAILY #0 tabs 02/19/25 05/07/25 tablet) trazodone 50 mg tablet See Rx Instructions PO QHS PRN 02/19/25 05/07/25 sleep #40 tabs buspirone 30 mg tablet 30 mg PO BID 04/15/25 05/07/25 naltrexone 50 mg tablet 50 mg PO DAILY #90 tabs 04/17/25 05/07/25 thiamine mononitrate (vit B1) 100 100 mg PO QAM #90 tabs 04/26/25 05/07/25 mg tablet (Vitamin B-1 (mononitrate)) chlordiazepoxide HCl 25 mg capsule See Rx Instructions .Route 05/04/25 05/07/25 .COMPLEX PRN #7 caps Previous Rx's ?Medication ?Instructions ?Recorded disulfiram 500 mg tablet 500 mg PO DAILY #30 tabs 10/26/24 amlodipine 10 mg tablet 10 mg PO DAILY #90 tabs 12/03/24 multivitamin (Multiple Vitamins 1 tab PO DAILY #0 tabs 02/19/25 tablet) trazodone 50 mg tablet See Rx Instructions PO QHS PRN 02/19/25 sleep #40 tabs naltrexone 50 mg tablet 50 mg PO DAILY #90 tabs 04/17/25 thiamine mononitrate (vit B1) 100 100 mg PO QAM #90 tabs 04/26/25 mg tablet (Vitamin B-1 (mononitrate)) chlordiazepoxide HCl 25 mg capsule See Rx Instructions .Route 05/04/25 .COMPLEX PRN #7 caps Allergies Allergy/AdvReac Type Severity Reaction Status Date / Time No Known Allergies Allergy Verified 05/07/25 14:04 General Stated Complaint: ETOHWithdr MOISES: 2 Exam Narrative Exam Narrative: Gen: Awake and alert, in no apparent distress HEENT: Non-icteric sclera Neck: Supple Lungs: No apparent respiratory distress, normal respiratory effort though mildly tachypneic. Lung sounds clear and equal bilaterally CV: Appears well perfused, heart with tachycardic rate but regular rhythm, strong distal pulses Abdomen: Non-distended, soft MSK: Moves 4 extremities without apparent limitation in ROM Skin: Visualized skin without rashes, cyanosis. The patient's left digits 2 and 3 demonstrate some nicotine staining and a small area of healing erythema consistent with his reported burn, no blistering or charring. Neuro: Normal Gait, no obvious focal deficits or facial asymmetry. Speaks in full, clear sentences. Mildly tremulous Psych: Endorses anxiety Course Vital Signs Vital signs: Vital Signs Temperature 36.1 C L 05/07/25 14:01 Pulse 147 H 05/07/25 14:01 Respiratory Rate 18 05/07/25 14:01 Blood Pressure 152/106 H 05/07/25 14:01 Pulse Oximetry 98 05/07/25 14:01 Temperature 36.1 C L 05/07/25 14:01 Pulse 147 H 05/07/25 14:01 Respiratory Rate 18 05/07/25 14:01 Blood Pressure 152/106 H 05/07/25 14:01 Pulse Oximetry 98 05/07/25 14:01 Medical Decision Making This is a 34-year-old male patient presenting for evaluation of alcohol withdrawal symptoms, nausea with vomiting and dark stool. Differential includes but is not limited to alcohol withdrawal, certainly considered acute intoxication. No reported comorbid psychiatric disturbances such as suicidal ideation. Considered metabolic and electrolyte derangement, anemia, kidney injury, liver disease. Considered alcoholic gastritis, no blood in the vomit to suggest esophagitis, Windy-Robbins or Boerhaave's. Did consider peptic ulcer disease, upper GI bleed, no bright red blood per rectum concerning for lower GI bleed. We will obtain labs to include CBC, CMP, magnesium, ethanol, UDS, and urinalysis. An EKG was obtained, which shows a sinus tachycardia without evidence of ischemia, interval abnormality, occasional PVCs are appreciated. No significant changes when compared to priors. Given the normal QTc we will provide the patient with a dose of Zofran, as well as Protonix for his presumed upper GI bleed due to alcoholic gastritis/PUD. We will obtain a CIWA score and I anticipate initiating this patient on phenobarbital. I will provide the patient with a liter of lactated Ringer's for initial rehydration. - I independently interpreted the laboratory studies, which show no significant leukocytosis, anemia, or thrombocytopenia. The chemistry panel is without evidence of electrolyte abnormality, kidney dysfunction, or liver injury. Ethanol level elevated to 249. Initial CIWA score after nausea and vomiting were manage is 29, quite elevated even given the recent ethanol ingestion. Given this finding and the patient's history of complicated withdrawals I did initiate a phenobarbital protocol. He received 40% of his 10 mg/kg dose, and the remaining 2 doses were scheduled for 3 and 6 hours from now. The patient did endorse some chest discomfort, and given his recent history of vomiting I ordered a chest x-ray to evaluate for aspiration, mediastinal air suggestive of Boerhaave's, etc. He has not had any blood in his vomit, and given his young age and lack of cardiac risk factors I have a lower concern that this represents acute ischemia especially given his reassuring EKG on arrival. X-ray reviewed by myself, showing no abnormalities to account for his chest pain. His chest pain improved after completion of his phenobarbital drip. A banana bag was ordered given his lack of p.o. intake, and I reach out to the hospitalist team who is graciously accepted him for admission to their service for ongoing workup and management of his alcohol withdrawal symptoms. The patient remained hemodynamically improved while under my care. Julita Olivares MD Quality:SDOH Health Related Social Needs: Health related social needs risk of homeless material hardship lonely/isolated education Health related social needs details living with his mother currently, concerned about loosing his job at [employer] All Active Problems (Updated 05/07/25 @ 16:26 by Julita Olivares MD) Acute alcoholic gastritis (Acute) Melena (Acute) Alcohol withdrawal syndrome (Acute) Alcohol use disorder (Chronic) Primary hypertension (Chronic ~2023) Elevated bilirubin (Acute) Hepatic steatosis (Acute ~12/2023) [place] Bilateral ocular hypertension (Chronic) Sleeping difficulty (Acute) RX Trazodone Depression (Chronic) Venlafaxine; counselor Anxiety (Chronic) did not respond to low dose sertraline 01/11/11, failed Mirtazepine Medical History Hypomagnesemia Alcohol use disorder, moderate, in early remission Alcohol withdrawal Hypertension Nicotine use disorder 16yo started 0.5-1PPD Stressful life event affecting family Sister's illness/diagnosis Excessive drinking alcohol Reviewed norms Family History Mother Breast cancer Pre-menopausal; has occurred x2 Asthma Heart disease [place] Father , , Winter 2019 Cancer lung Diabetes Sister Scleroderma Breast cancer Dx'ed mid 30s Paternal Uncle Scleroderma Social History Smoking/Tobacco Use Status: Current every day Tobacco Type: cigarettes Years smoked: 20 Tobacco: How many years used: 8 Quit status: considering quitting Smoking risk assessment performed?: Yes Alcohol Intake: former Drug use: Rarely Substance use type: does not use and marijuana Adopted: No Caregiver/Support person: No Foster care: No Household members: family Housing: house Number of Children: 0 number of grandchildren: 0 Communication Needs: None Education Level: high school Do you need help understanding health information?: Rarely 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: Working for [employer] on [employer] Pets and animals: No Sexually active: Yes Do you think of yourself as: straight/heterosexual Current gender identity: male What is your relationship status?: refused to answer How often do you talk on the phone with friends or family?: three or more times per week How often do you get together with friends or relatives?: three or more times per week Do you belong to any clubs or organized social groups?: no Panel score (0-1 are the most socially isolated patients): 1 What type of physical activity do you participate in: walking Duration: > 90 minutes/day Frequency: 5-6 times per week Liana/Judaism: None Special laina needs: No Seatbelt use: always Helmet use: Yes Helmet use: always Drive intox or ride w/intox driver trainee: No Do you feel safe at home: Yes Do you feel safe in your relationship?: Yes
[2025-05-07] MEDS: Ondansetron 4 MG/2 ML VIAL IVP (14:41)
[2025-05-07] MEDS: Pantoprazole 40 MG VIAL 80 MG IVP (14:41)
[2025-05-07 14:42] LABS: Abs Immature Grans 0.02 10^3/uL (0.0-0.06); HCT 50.1 % (40.0-50.0); HGB 18.0 g/dL (13.5-17.5); Immature Grans % 0.3 %; MCH 31.0 pg (27.0-33.0); MCHC 35.9 % (32.0-36.0); MCV 86 fL (80-95); MPV 8.6 fL (8.0-11.0); Platelet Count 262 10^3/uL (130-400); RBC 5.81 10^6/uL (4.36-5.78); RDW 13.5 % (11.8-14.1); RDW-SD 42.3 fL; WBC 7.01 10^3/uL (4.4-10.8)
[2025-05-07] MEDS: Lactated Ringers 1,000 ML 1000 ML IV (14:42)
[2025-05-07 15:24] LABS: ALT 21 U/L (16-63); AST 16 U/L (15-37); Albumin 4.1 g/dL (3.4-5.0); Alkaline Phosphatase 86 U/L (46-116); Anion Gap 12.8 mmol/L (3-11); BUN 10 mg/dL (7-18); Bilirubin, Total 0.6 mg/dL (0.2-1.0); CO2 27.2 mmol/L (21.0-32.0); Calcium 9.3 mg/dL (8.5-10.1); Chloride 103 mmol/L (98-107); Estimated GFR 115.65 (mL/min/1.73m2); Glucose 127 mg/dL (74-106); Magnesium 1.8 mg/dL (1.8-2.4); Potassium 4.0 mmol/L (3.5-5.1); Sodium 143 mmol/L (136-145); Total Protein 7.2 g/dL (6.4-8.2)
--- NOTE | 2025-05-07 15:30 | DI.RAD_ITS ---
Exam(s) XR CHEST 2V PA LATERAL EXAM: XR CHEST 2V PA LATERAL CLINICAL HISTORY: CP, eval aspiration, borhaaves TECHNIQUE: 2D digital imaging was performed of the chest. Two images were obtained. PA and lateral views were obtained. COMPARISON: No exams were available for comparison FINDINGS: MEDIASTINUM: Normal. HEART: Normal. PULMONARY VASCULATURE: Normal. LUNGS: Clear. PLEURAL SPACE: No pleural effusion or pneumothorax. BONE:Within normal limits for the patient's age. OTHER FINDINGS:Normal. IMPRESSION: No acute pulmonary findings. DATA REPOSITORY: RADIATION DOSE DELIVERED:
--- NOTE | 2025-05-07 15:54 | HPE_ITS ---
Date of service: 05/07/25 Time of Service: 16:13 Assessment and Plan Assessment and plan (1) Alcohol withdrawal syndrome: Status: Acute Assessment and plan: As per HPI - CIWA 29 in the ED - Initial admission M/S but upgraded to ICU status On phenobarbital protocol and nsursing orders as per protocol in ICU Pharmacy consult coach driver in the community - not called to ED - Seizure precautions Fall precaution PRN compazine and zofran IVF and MVI while unable to tolerate enteral intake UDS pending Labs in AM (2) Acute alcoholic gastritis: Status: Acute Assessment and plan: Melena reported and epigastric pain On PPI and PRN antiemetics Trend CBC Lipase pending (3) Melena: Status: Acute Assessment and plan: As above (4) Alcohol use disorder: Status: Chronic Assessment and plan: Ongoing Anticipate ongoing management in community VS rehabilitation at d/c As per HPI and point 1 (5) Primary hypertension: Status: Chronic Assessment and plan: Continue home dose CCB Monitor and treat HTN urgency/ emergency PRN (6) On deep vein thrombosis (DVT) prophylaxis: Status: Acute Assessment and plan: LMWH considered Now on TEDs re: melena Discussed with Dr. Mcclelland History of Present Illness History of Present Illness Chief Complaint: Alcohol withdrawal Narrative: This 34 years old male woth a past medical history of nicotine and alcohol dependence, recurrent alcohol withdrawal episodes with severe symptoms including auditory hallucination and lost of time presented to the ED today for alcohol withdrwal symptoms , nausea, vomitng , malenic diarrhea without hematochezia or hematemesis. The patient was seen in the ED on 05/04/25 for ETOH w/d concerns and discharged home on a librium regimen, feeling good and family support. The reporting taking the dose in the ED and not continuing and resume drinking the next day. Work-up in the ED was unremarkable except for an ethyl; level at 249. Last drink was at 10AM today. CIWA in the ED at 29, EKG with ST w/o signs of coronary occlusion. Chest XR completed for c/o chest pain showed no acute findings. The patient requested assistance to control his symptoms as per Dr. Olivares notes. The patient was treated with protonix IV, IVF w MVI, pheobartbiatal IV initiated with 10 mg/kg protocol. The patient was admitted foto the medical surgical floor with telemetry level of care initially by the hospitalist team, but later upgraded to ICU level of care. When seen in the ED , the patient was tearful and stating that he was sorry for coming back. Patient reassured that as long that he is willing to try, we will continue to assist him. Patient denies chills, fevers, chest pain but reports epigastric pain, denies hematemesis, dysuria and hematochezia. Mention seldom use of TCH and no other illicit substances. Full code status confirm. Review of Systems All systems reviewed & are unremarkable except as noted in HPI and below PFSH All Active Problems (Updated 05/07/25 @ 17:49 by Maddison Han APRN) On deep vein thrombosis (DVT) prophylaxis (Acute) Acute alcoholic gastritis (Acute) Melena (Acute) Alcohol withdrawal syndrome (Acute) Alcohol use disorder (Chronic) Primary hypertension (Chronic ~2023) Elevated bilirubin (Acute) Hepatic steatosis (Acute ~12/2023) US Bilateral ocular hypertension (Chronic) Sleeping difficulty (Acute) RX Trazodone Depression (Chronic) Venlafaxine; counselor Anxiety (Chronic) did not respond to low dose sertraline 01/11/11, failed Mirtazepine Medical History Hypomagnesemia Alcohol use disorder, moderate, in early remission Alcohol withdrawal Hypertension Nicotine use disorder 16yo started 0.5-1PPD Stressful life event affecting family Sister's illness/diagnosis Excessive drinking alcohol Reviewed norms Family History Mother Breast cancer Pre-menopausal; has occurred x2 Asthma Heart disease [place] Father , winter Cancer lung Diabetes Sister Scleroderma Breast cancer Dx'ed mid 30s Paternal Uncle Scleroderma Social History Smoking/Tobacco Use Status: Current every day Tobacco Type: cigarettes Years smoked: 20 Tobacco: How many years used: 8 Quit status: considering quitting Smoking risk assessment performed?: Yes Alcohol Intake: former Drug use: Rarely Substance use type: does not use and marijuana Adopted: No Caregiver/Support person: No Foster care: No Household members: family Housing: house Number of Children: 0 number of grandchildren: 0 Communication Needs: None Education Level: high school Do you need help understanding health information?: Rarely 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: Working for [employer] on [employer] Pets and animals: No Sexually active: Yes Do you think of yourself as: straight/heterosexual Current gender identity: male What is your relationship status?: refused to answer How often do you talk on the phone with friends or family?: three or more times per week How often do you get together with friends or relatives?: three or more times per week Do you belong to any clubs or organized social groups?: no Panel score (0-1 are the most socially isolated patients): 1 What type of physical activity do you participate in: walking Duration: > 90 minutes/day Frequency: 5-6 times per week Laina/Gnosticist: None Special laina needs: No Seatbelt use: always Helmet use: Yes Helmet use: always Drive intox or ride w/intox courier driver: No Do you feel safe at home: Yes Do you feel safe in your relationship?: Yes Meds Allergies and Home Medications Allergies Allergy/AdvReac Type Severity Reaction Status Date / Time No Known Allergies Allergy Verified 05/07/25 14:04 Home Medications ?Medication ?Instructions ?Recorded ?Confirmed ?Type disulfiram 500 mg tablet 500 mg PO DAILY #30 tabs 06/1205/07/25 Rx amlodipine 10 mg tablet 10 mg PO DAILY #90 tabs 11/1705/07/25 Rx sertraline 100 mg tablet 200 mg PO DAILY 02/01/25 History hydroxyzine HCl 25 mg tablet 25 mg PO BID PRN 02/09/25 05/07/25 History multivitamin (Multiple Vitamins 1 tab PO DAILY #0 tabs 02/19/25 05/07/25 Rx tablet) trazodone 50 mg tablet See Rx Instructions PO QHS P RN 02/19/25 05/07/25 Rx sleep #40 tabs buspirone 30 mg tablet 30 mg PO BID 04/15/25 History naltrexone 50 mg tablet 50 mg PO DAILY #90 tabs 03/2105/07/25 Rx thiamine mononitrate (vit B1) 100 100 mg PO QAM #90 ta bs 04/26/25 05/07/25 Rx mg tablet (Vitamin B-1 (mononitrate)) chlordiazepoxide HCl 25 mg capsule See Rx Instructions .Route 05/04/25 05/07/25 Rx .COMPLEX PRN #7 caps Exam Narrative Exam Narrative: Tearful and emotionally distressed, no acute pain ,non-diaphoireetic, tremor to upper ext on extension w/o acute neurological deficits, off by one in date but knows it is Saturday, Alert and oriented X3, non-icteric sclera, intact facial features, no JVD, clear lungs, S1, S2, ST HR 110-133 on cardiac cath lab radiology technologist, regular, abdomen in non-distended, soft, epigastric tenderness to palpation, ; no CVA tenderness Results Labs 05/07/25 14:35 05/07/25 14:35 Labs: Laboratory Results - last 24 hr 05/07/25 14:35 WBC 7.01 RBC 5.81 H Hgb 18.0 H Hct 50.1 H MCV 86 MCH 31.0 MCHC 35.9 RDW 13.5 Plt Count 262 MPV 8.6 Immature Gran % 0.3 Neutrophils % 41.2 Lymphocytes % 48.6 Monocytes % 6.7 Eosinophils % 2.6 Basophils % 0.6 Nucleated RBC % 0.0 Absolute Neutrophils 2.89 Absolute Lymphocytes 3.41 H Absolute Monocytes 0.47 Absolute Eosinophils 0.18 Absolute Basophils 0.04 Sodium 143 Potassium 4.0 Chloride 103 Carbon Dioxide 27.2 Anion Gap 12.8 H BUN 10 Creatinine 0.9 Est GFR (CKD-EPI 2020) 115.65 Glucose 127 H Calcium 9.3 Magnesium 1.8 Total Bilirubin 0.6 AST 16 ALT 21 Alkaline Phosphatase 86 Total Protein 7.2 Albumin 4.1 Ethyl Alcohol 249.3 H Last Vital Signs Temp 36.1 C L 05/07/25 14:01 Pulse 103 H 05/07/25 15:20 Resp 16 05/07/25 15:20 BP 157/117 H 05/07/25 15:15 Pulse Ox 98 05/07/25 15:20 PAWSS Have you Been Recently Intoxicated or Drunk Within the Last 30 days?: Yes Have you Ever Experienced Previous Episodes of Alcohol Withdrawal?: Yes Have you ever Experienced Withdrawal Seizures?: No Have you ever Experienced Delirium Tremens(DT)s?: Yes Have you ever undergone Alcohol Rehabilitation Treatment (i.e, inpt ot outpatient treatment programs)?: Yes Have you ever Experienced Blackouts?: Yes Have you ever Combined Alcohol with other Downers within the last 90 days?: Yes Have you ever Combined Alcohol with any other Substance of Abuse during the last 90 days?: No Positive Blood Alcohol level on Presentation? [PCS.BAL]: Yes Evidence of Increased Autonomic Activity (i.e. HR>120, tremor, sweating, agitation, nausea)?: Yes Result: 7 Time Spent Time spent with Patient: >75 minutes Time was spent: preparing to see the patient(eg.review tests), obtaining and/or reviewing separately otained hiistory, ordering medications,tests, procedures, referring, communicating with other health acute care clinical nurse specialist, indepentently interpreting results, counseling the patient, care coordination and other
[2025-05-07] MEDS: MULTIVITAMIN 10 ML, THIAMINE 100 MG, FOLIC ACID 1 MG in DEXTROSE 5%-0.45% SALINE 1,000 ML 42 ML IV (16:22)
[2025-05-07 17:54] LABS: Lipase 62 U/L (<78)
--- NOTE | 2025-05-07 17:56 | W.PCEDHO ---
Registration Status: REG ER Primary Language: Preferred Language: Indonesian ED Information & Data Chief Complaint ETOHWithdr 05/07/25 14:46 Chief Complaint ETOHWithdr 05/07/25 14:36 Triage Note Patient complaining of 05/07/25 14:01 alcohol withdrawal. Patient has been trying on his own to stop. Last drink was around 10 am today Medical / Surgical History Alcohol use disorder, moderate, in early remission Alcohol withdrawal Excessive drinking alcohol Hypertension Hypomagnesemia Nicotine use disorder Stressful life event affecting family Most Recent Vital Signs Temperature 36.1 C L 05/07/25 14:01 Pulse 107 H 05/07/25 17:31 Pulse 107 H 05/07/25 17:31 Respiratory Rate 25 H 05/07/25 17:31 Respiratory Pattern Normal 05/07/25 14:49 Blood Pressure 154/103 H 05/07/25 17:30 Blood Pressure Mean 120 05/07/25 17:30 Pulse Oximetry 98 05/07/25 17:31 Allergies No Known Allergies Allergy (Verified 05/07/25 14:04) Active Medications Generic Name Dose Route Start Last Admin Trade Name Hailey PRN Reason Stop Dose Admin Multivitamins 10 ml/ Thiamine 1,011.2 mls @ 42 mls/hr 05/07/25 15:23 05/07/25 16:22 HCl 100 mg/ Folic Acid 1 mg/ IV 05/08/25 15:26 42 mls/hr Dextrose/Sodium Chloride DAILY STA Administration IV IV Catheter Type [Right Peripheral IV Forearm] IV Catheter Gauge [Right 18 Forearm] Diagnostics 05/07/25 Range/Units 14:35 WBC 7.01 (4.4-10.8) 10^3/uL RBC 5.81 H (4.36-5.78) 10^6/uL Hgb 18.0 H (13.5-17.5) g/dL Hct 50.1 H (40.0-50.0) % MCV 86 (80-95) fL MCH 31.0 (27.0-33.0) pg MCHC 35.9 (32.0-36.0) % RDW 13.5 (11.8-14.1) % Plt Count 262 (130-400) 10^3/uL MPV 8.6 (8.0-11.0) fL Immature Gran % 0.3 % Neutrophils % 41.2 % Lymphocytes % 48.6 % Monocytes % 6.7 % Eosinophils % 2.6 % Basophils % 0.6 % Nucleated RBC % 0.0 (0.0-0.3) % Absolute Neutrophils 2.89 (1.2-6.7) 10^3/uL Absolute Lymphocytes 3.41 H (1.2-3.4) 10^3/uL Absolute Monocytes 0.47 (0.1-0.8) 10^3/uL Absolute Eosinophils 0.18 (0.0-0.7) 10^3/uL Absolute Basophils 0.04 (0.0-0.2) 10^3/uL Sodium 143 (136-145) mmol/L Potassium 4.0 (3.5-5.1) mmol/L Chloride 103 (98-107) mmol/L Carbon Dioxide 27.2 (21.0-32.0) mmol/L Anion Gap 12.8 H (3-11) mmol/L BUN 10 (7-18) mg/dL Creatinine 0.9 (0.70-1.30) mg/dL Est GFR (CKD-EPI 2020) 115.65 (mL/min/1.73m2) Glucose 127 H (74-106) mg/dL Calcium 9.3 (8.5-10.1) mg/dL Magnesium 1.8 (1.8-2.4) mg/dL Total Bilirubin 0.6 (0.2-1.0) mg/dL AST 16 (15-37) U/L ALT 21 (16-63) U/L Alkaline Phosphatase 86 (46-116) U/L Total Protein 7.2 (6.4-8.2) g/dL Albumin 4.1 (3.4-5.0) g/dL Lipase Pending Ethyl Alcohol 249.3 H (<10) mg/dL Intake and Output - 24 Hour Total 05/07/25 13:55 thru 05/07/25 16:21 Intake Total 1052.2308 Balance 1052.2308 Weight 65.771 kg Intake: IV 1052.2308 Falls Risk Assessment History of Falls No History 05/07/25 14:55 Contributing Factors No Factors,Confusion, 05/07/25 14:55 Unstable Ambulatory Aids Independent 05/07/25 14:55 Tubes/Lines W/no contributing factors 09/19/25 14:55 Gait Evaluation W/any additional score 05/07/25 14:55 Fall Total Score 36 05/07/25 14:55 Level of Risk Moderate Risk 05/07/25 14:55 v v v v v v v v v Sending and/or Receiving Nurses: Please use comment section below to note any information pertinent to the patient hand-off not included above. Information / Comments: Called for report [id number]. Pt presented to ED with tremors and c/o ETOH w/d. Reported he has tried to quit on his own but has been unsuccessful. Last drink 10AM, 24 oz spiked cider. 4mg Zofran and 18mg Protonix administered 14:41 for n/v. 290mg phenobarbital provided 14:56. BP high in ED, down to 154/103 after meds. HR 107. CIWA decreased 29 to 13 while in ED. Banana bag running. Pt arrived on floor 17:55. Report received from: ED RN
[2025-05-07] MEDS: Pantoprazole 40 MG VIAL IVP (20:40)
[2025-05-07] MEDS: Normal Saline Flush 10 ML SYR IVP (20:40)
[2025-05-07] MEDS: busPIRone 15 MG TAB 30 MG PO (20:41)
[2025-05-08] VITALS (101 sets, daily range): BP systolic 114–152; BP diastolic 68–120; PULSE 77–121; RESP 2–26; O2SAT 90–99
[2025-05-08] MEDS: Lactated Ringers 1,000 ML 80 ML IV ×2 (00:15→13:21)
[2025-05-08] MEDS: PHENobarbital 130 MG/ML VIAL IVP ×4 (00:16→15:57)
[2025-05-08 06:59] LABS: Abs Immature Grans 0.01 10^3/uL (0.0-0.06); HCT 41.2 % (40.0-50.0); HGB 15.0 g/dL (13.5-17.5); Immature Grans % 0.2 %; MCH 32.0 pg (27.0-33.0); MCHC 36.4 % (32.0-36.0); MCV 88 fL (80-95); MPV 9.3 fL (8.0-11.0); Platelet Count 176 10^3/uL (130-400); RBC 4.69 10^6/uL (4.36-5.78); RDW 13.2 % (11.8-14.1); RDW-SD 42.3 fL; WBC 4.20 10^3/uL (4.4-10.8)
[2025-05-08 07:07] LABS: Anion Gap 8.6 mmol/L (3-11); BUN 10 mg/dL (7-18); CO2 27.4 mmol/L (21.0-32.0); Calcium 8.5 mg/dL (8.5-10.1); Chloride 102 mmol/L (98-107); Estimated GFR 115.65 (mL/min/1.73m2); Glucose 99 mg/dL (74-106); Magnesium 1.1 mg/dL (1.8-2.4); Potassium 3.7 mmol/L (3.5-5.1); Sodium 138 mmol/L (136-145)
[2025-05-08] MEDS: Sertraline 100 MG TAB 200 MG PO (08:36)
[2025-05-08] MEDS: busPIRone 15 MG TAB 30 MG PO ×2 (08:36→22:42)
[2025-05-08] MEDS: Multivitamin TAB 1 TAB PO (08:36)
[2025-05-08] MEDS: Thiamine 100 MG TAB PO (08:36)
[2025-05-08] MEDS: amLODIPine 10 MG TAB PO (08:37)
[2025-05-08] MEDS: Pantoprazole 40 MG VIAL IVP ×2 (08:37→22:42)
[2025-05-08] MEDS: Normal Saline Flush 10 ML SYR IVP ×3 (08:37→22:41)
[2025-05-08] MEDS: MAGNESIUM SULFATE 2 GM/50 ML BAG IV_INF (09:03)
--- NOTE | 2025-05-08 11:59 | W.PM.PROGNOT ---
Date of Service Date of service: 05/08/25 Time of Service: 11:59 Assessment and Plan Assessment and plan (1) Alcohol withdrawal syndrome: Status: Acute Assessment and plan: -CIWA 29 in the ED, started on phenobarb -last RASS +1 at 10:30am 05/08, received PRN pheno, required additional dose at around 4 PM -PRN compazine and zofran -IVF and MVI while unable to tolerate enteral intake (2) Acute alcoholic gastritis: Status: Acute Assessment and plan: -Melena reported and epigastric pain -On PPI and PRN antiemetics (3) Melena: Status: Acute Assessment and plan: -As above (4) Alcohol use disorder: Status: Chronic Assessment and plan: -Anticipate ongoing management in community VS rehabilitation at d/c (5) Primary hypertension: Status: Chronic Assessment and plan: -Continue home dose CCB Exam Narrative Exam Narrative: Well-appearing mildly anxious young gentleman sitting up on the edge of the bed no acute distress, ANO x 4, heart regular rhythm, lungs good auscultation bilaterally, abdomen soft, nontender, nondistended Objective Last Vital Signs Temp 98.4 F 05/07/25 21:30 Pulse 85 05/08/25 10:10 Resp 13 05/08/25 10:10 BP 138/101 H 05/08/25 10:01 Pulse Ox 97 05/08/25 10:10 Laboratory Results - last 24 hr 05/07/25 05/08/25 14:35 05:58 WBC 7.01 4.20 L RBC 5.81 H 4.69 Hgb 18.0 H 15.0 D Hct 50.1 H 41.2 MCV 86 88 MCH 31.0 32.0 MCHC 35.9 36.4 H RDW 13.5 13.2 Plt Count 262 176 MPV 8.6 9.3 Immature Gran % 0.3 0.2 Neutrophils % 41.2 50.1 Lymphocytes % 48.6 36.9 Monocytes % 6.7 8.8 Eosinophils % 2.6 3.3 Basophils % 0.6 0.7 Nucleated RBC % 0.0 0.0 Absolute Neutrophils 2.89 2.10 Absolute Lymphocytes 3.41 H 1.55 Absolute Monocytes 0.47 0.37 Absolute Eosinophils 0.18 0.14 Absolute Basophils 0.04 0.03 Sodium 143 138 Potassium 4.0 3.7 Chloride 103 102 Carbon Dioxide 27.2 27.4 Anion Gap 12.8 H 8.6 BUN 10 10 Creatinine 0.9 0.9 Est GFR (CKD-EPI 2020) 115.65 115.65 Glucose 127 H 99 Calcium 9.3 8.5 Magnesium 1.8 1.1 L Total Bilirubin 0.6 AST 16 ALT 21 Alkaline Phosphatase 86 Total Protein 7.2 Albumin 4.1 Lipase 62 Ethyl Alcohol 249.3 H PAWSS Have you Been Recently Intoxicated or Drunk Within the Last 30 days?: Yes Have you Ever Experienced Previous Episodes of Alcohol Withdrawal?: Yes Have you ever Experienced Withdrawal Seizures?: No Have you ever Experienced Delirium Tremens(DT)s?: No Have you ever undergone Alcohol Rehabilitation Treatment (i.e, inpt ot outpatient treatment programs)?: Yes Have you ever Experienced Blackouts?: Yes Have you ever Combined Alcohol with other Downers within the last 90 days?: No Have you ever Combined Alcohol with any other Substance of Abuse during the last 90 days?: No Positive Blood Alcohol level on Presentation? [PCS.BAL]: Yes Evidence of Increased Autonomic Activity (i.e. HR>120, tremor, sweating, agitation, nausea)?: Yes Result: 6 Time Spent with Patient Time Spent with Patient: >50 minutes Time was spent: preparing to see the patient(eg.review tests), obtaining and/or reviewing separately otained hiistory, ordering medications,tests, procedures, referring, communicating with other health customer care assistant, indepentently interpreting results, counseling the patient and care coordination
[2025-05-08 14:01] LABS: Cannabinoids THC Negative (Negative); METHADONE URINE SCREEN Negative (Negative)
[2025-05-08 14:13] LABS: Glucose Negative (Negative)
--- NOTE | 2025-05-08 15:15 | INITIAL_ITS ---
Date of service: 05/08/25 Time of Service: 12:10 Care Management Initial Assmt Initial Assessment Reason for Hospitalization: ETOH withdrawal Functional Status/Living Situation Patient Presentation: Andrey presented to the ED yesterday afternoon looking for help with his alcohol withdrawal. He had been in the ER on 05/04 for same issue, and was prescribed a Librium taper. He felt pretty good when discharged, but did not fill his prescription as he was feeling well. Next day he began drinking heavily, and when he woke of Saturday, he thought it was still Saturday. He was admitted to ICU. Andrey is known to CM from previous admissions. He was sitting up, cross-legged, on his bed when CM met with him today. He was visibly upset, he is disappointed in himself and feels that he has let his mother down, as well as himself. Andrey is still seeing his psychiatrist and therapist at [facility], and is connected with a [facility] Lining Smoother at [facility]. Andrey is also closely followed by his PCP office, he sees his PCP every 6 weeks and is followed by their healthcare administrator. Andrey declined the offer for CM to call his gymnastic coach. He was not up for talking as he was too upset. He assured CM that he has his coaches number, and will call her when he is ready. Andrey stated that his mom has been supportive, but is running out of patience. He fears that she will not let him back in the home. Andrey's mom and stepdad came to visit. Mom, Genny, asked to speak with CM. She was noted to be teary at times talking about Andrey. She feels at a loss to help him and she is struggling. She attends al-anon meetings. Genny stated that Andrey will not be allowed to live in the house with her upon discharge. He had been drinking in the house, and that was a rule he had broken. Genny feels that perhaps she has been too enabling with Andrey, but how does a mom not help her child? She will allow him to stay at a cabin on their property, so he will not be homeless. Genny asked if CM would be present tomorrow when she lets Andrey know that he can not return to the house, and help him make a real plan for discharge. Andrey is still hesitant to attend inpatient rehab. He is very worried about losing his job. CM encouraged Andrey to speak to his boss, they have been very supportive. They may support this decision as well. Town of Residence: [place] Resides with: Parent (mom, Genny and step-dad- will likely be staying in the cabin, not the main house.) Significant Other/Family: Local (sister, Lotus) Natural Supports: colleagues, mom Employment Status: Employed (works at [employer] in [employer]) Instrumental Activities of Daily Living (ADLs): Independent Medications Medication Management: No Issues/Barriers identified (although did not fill and take Librium) Advance Directives Advance Directives: Do you have an Advance Directive: N , 16:50 AD On File at [facility]: N 10/27/12, 21:17 Date Asked 05/07/25 05/07/25, 16:44 AD Date Reviewed COLST On File at [facility] No 09/28/24, 21:15 COLST Date Scanned Code Status Resuscitation Status Full Code Insurance Coverage/Financial Issues Insurance: Medicaid of [place] Care Team Visit Care Team Role Provider Type Piero Celis MD MD [facility] STAFF PHYSICIAN Tara Humphreys, PETROS Primary Care Provider NURSE PRACTITIONER Julita Olivares MD Emergency Provider [facility] STAFF PHYSICIAN Samir Mcclelland Admit Provider [facility] STAFF PHYSICIAN Attending Provider Discharge Potential Discharge Needs: PCP F/U Appt and Other (psychiatrist, therapist, gymnastic coach) Anticipated Barriers to Discharge: None Identified Patient/Family Education Needs: Review discharge instructions, discuss Ask Me Three Transportation: Private vehicle Plan: Anticipate that Andrey will discharge home with no new services once he is medically cleared. If discharged tomorrow, he will f/u with his PCP on 05/10 at a previously arranged appointment. He will f/u with his psychiatrist, his therapist and his gymnastic coach. He will transport home in a private vehicle. CM will continue to follow. Social Determinants of Health Screening Will the Patient Participate in the Screening?: Unable to obtain PFSH All Active Problems (Updated 05/07/25 @ 17:49 by Maddison Han APRN) On deep vein thrombosis (DVT) prophylaxis (Acute) Acute alcoholic gastritis (Acute) Melena (Acute) Alcohol withdrawal syndrome (Acute) Alcohol use disorder (Chronic) Primary hypertension (Chronic ~2023) Elevated bilirubin (Acute) Hepatic steatosis (Acute ~12/2023) US Bilateral ocular hypertension (Chronic) Sleeping difficulty (Acute) RX Trazodone Depression (Chronic) Venlafaxine; counselor Anxiety (Chronic) did not respond to low dose sertraline 01/11/11, failed Mirtazepine Medical History Hypomagnesemia Alcohol use disorder, moderate, in early remission Alcohol withdrawal Hypertension Nicotine use disorder 16yo started 0.5-1PPD Stressful life event affecting family Sister's illness/diagnosis Excessive drinking alcohol Reviewed norms Family History Mother Breast cancer Pre-menopausal; has occurred x2 Asthma Heart disease [place] Father , COV, Winter 2019 Cancer lung Diabetes Sister Scleroderma Breast cancer Dx'ed mid 30s Paternal Uncle Scleroderma Social History Smoking/Tobacco Use Status: Current every day Tobacco Type: cigarettes Years smoked: 20 Tobacco: How many years used: 8 Quit status: considering quitting Smoking risk assessment performed?: Yes Alcohol Intake: former Drug use: Rarely Substance use type: does not use and marijuana Adopted: No Caregiver/Support person: No Foster care: No Household members: family Housing: house Number of Children: 0 number of grandchildren: 0 Communication Needs: None Education Level: high school Do you need help understanding health information?: Rarely 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: Working for [employer] on [employer] Pets and animals: No Sexually active: Yes Do you think of yourself as: straight/heterosexual Current gender identity: male What is your relationship status?: refused to answer How often do you talk on the phone with friends or family?: three or more times per week How often do you get together with friends or relatives?: three or more times per week Do you belong to any clubs or organized social groups?: no Panel score (0-1 are the most socially isolated patients): 1 What type of physical activity do you participate in: walking Duration: > 90 minutes/day Frequency: 5-6 times per week Laina/Amish: None Special laina needs: No Seatbelt use: always Helmet use: Yes Helmet use: always Drive intox or ride w/intox transporter driver: No Do you feel safe at home: Yes Do you feel safe in your relationship?: Yes Readmission Within the Past 30 Days Yes or No: Yes Date of First Admission Date of 1st Admission: 04/15/25 Date of this Admission Date of Admission: 05/07/25 This admission was: Through ED Office Visit Since 1st Admission Have you seen your PCP in the office since discharge?: Yes Date of PCP Appointment: 04/26/25 ED visits How many ED visits in the past 12 months: 13 Assessment for Readmission Summary of readmission circumstances, based upon interviews: unfortunate young man with alcoholism
[2025-05-09] VITALS (8 sets, daily range): BP systolic 142–152; BP diastolic 95–137; PULSE 74–116; RESP 10–19; O2SAT 95–98
[2025-05-09] MEDS: Sertraline 100 MG TAB 200 MG PO (08:14)
[2025-05-09] MEDS: busPIRone 15 MG TAB 30 MG PO (08:14)
[2025-05-09] MEDS: Pantoprazole 40 MG VIAL IVP (08:15)
[2025-05-09] MEDS: Thiamine 100 MG TAB PO (08:15)
[2025-05-09] MEDS: amLODIPine 10 MG TAB PO (08:15)
[2025-05-09] MEDS: Multivitamin TAB 1 TAB PO (08:15)
[2025-05-09] MEDS: Normal Saline Flush 10 ML SYR IVP (08:16)
--- NOTE | 2025-05-09 10:02 | W.PM.DS.N ---
Date of service: 05/09/25 Time of Service: 10:02 DS: Diagnosis Discharge Diagnosis (1) Alcohol withdrawal syndrome: Status: Acute (2) Acute alcoholic gastritis: Status: Acute (3) Melena: Status: Acute (4) Alcohol use disorder: Status: Chronic (5) Primary hypertension: Status: Chronic Discharge Plan Disposition Patient Disposition: Home Condition: Good Discharge Details Reason For Visit: alcohol withdrawal Admit Date/Time: 05/07/25 16:12 Admit Provider: Samir Mcclelland Attending Provider: Samir Mcclelland Primary Care Provider: Tara Humphreys Hospital Course Hospital Course: Patient initially presented with signs and symptoms consistent with severe alcohol withdrawal. He was placed on phenobarb protocol and had significant improvement of his withdrawal symptoms, with last as needed phenobarb dose almost 24 hours prior to discharge. On the morning of discharge patient stated that he felt his symptoms have completely resolved and that he was ready for discharge. Ultimately determined that the patient was stable for discharge home. Home Meds and New Rx's Prescriptions: Continued amlodipine 10 mg tablet 10 mg PO DAILY Qty: 90 3RF Rx Instructions: For BP with goal <140/90 thiamine mononitrate (vit B1) [Vitamin B-1 (mononitrate)] 100 mg tablet 100 mg PO QAM Qty: 90 3RF chlordiazepoxide HCl 25 mg capsule See Rx Instructions .ROUTE .COMPLEX PRNQty: 7 0RF Rx Instructions: 25 mg orally every 6 hours tomorrow, then every 12 hours on 05/06, then once of 05/07 for alcohol withdrawal disulfiram 500 mg tablet 500 mg PO DAILY Qty: 30 0RF sertraline 100 mg tablet 200 mg PO DAILY Patient Comments: TAKE ONE TABLET BY MOUTH EVERY DAY hydroxyzine HCl 25 mg tablet 25 mg PO BID PRN Patient Comments: TAKE 1 TABLET TWICE DAILY NEEDED FOR ANXIETY multivitamin [Multiple Vitamins] Tablet 1 tab PO DAILY Qty: 0 0RF trazodone 50 mg tablet See Rx Instructions PO QHS PRN (Reason: sleep) Qty: 40 0RF Rx Instructions: 25-50mg bedtime for sleep difficulty, may repeat 50mg x1 if first dose ineffective for max nightly dose 100mg PO every day at bedtime PRN; buspirone 30 mg tablet 30 mg PO BID Patient Comments: TAKE ONE TABLET BY MOUTH TWICE A DAY naltrexone 50 mg tablet 50 mg PO DAILY Qty: 90 0RF Discharge Instructions Activity:: Activity as Tolerated Equipment/Supplies:: No Equipment Needed Diet:: As Tolerated Discharge Orders Discharge Orders: Discharge Order (Routine); Ordered 05/09/25 Ordered By: Piero Celis DS: Summary Time Spent with Patient providing and/or coordinating discharge services: Greater than 30 minutes Status at Discharge Functional status at discharge: independent ambulation Overall status at discharge: patient is back to baseline Mental Status: mental status grossly normal Speech and Movement: speech and movement normal Mood: congruent mood Affect: normal affect Quality:SDOH Health Related Social Needs: Health related social needs risk of homeless material hardship lonely/isolated education Health related social needs details living with his mother currently, concerned about loosing his job at [employer] [place] Exam Narrative Exam Narrative: Well-appearing mildly anxious young gentleman sitting up on the edge of the bed no acute distress, ANO x 4, heart regular rhythm, lungs good auscultation bilaterally, abdomen soft, nontender, nondistended Psych Mental Status: mental status grossly normal Speech and Movement: speech and movement normal Mood: congruent mood Affect: normal affect DS: Data Vitals/I&O Vitals and I&O: Vital Signs Temperature 98.4 F 05/07/25 21:30 Temperature Source Temporal Artery Scan 05/07/25 18:07 Pulse 102 H 05/09/25 09:02 Pulse 103 H 05/09/25 09:02 Respiratory Rate 15 05/09/25 09:02 Respiratory Effort Normal 05/07/25 18:07 Respiratory Depth Normal 05/07/25 18:07 Respiratory Pattern Irregular 05/07/25 18:07 Blood Pressure 142/95 H 05/09/25 09:02 Blood Pressure Mean 109 05/09/25 09:02 Pulse Oximetry 98 05/09/25 09:02 Pain Level 8 05/07/25 18:07 Intake & Output 05/08/25 05/09/25 05/09/25 17:59 05:59 17:59 Intake Total 1000 / 1000 1360 / 1360 Balance 1000 / 1000 1360 / 1360 Weight 144 lb 2.917 oz Intake: IV 1000 / 1000 1000 / 1000 Oral 360 / 360 Other: Comment [facility] Data Completed and Pending Labs on day of discharge: Labs from last 24 hours 05/08/25 13:20 Urine Color Yellow Urine Clarity Clear Urine pH 7.5 Ur Specific [place] 1.015 Urine Protein Negative Urine Ketones Negative Urine Blood Negative Urine Nitrite Negative Urine Bilirubin Negative Urine Urobilinogen 0.2 Ur Leukocyte Esterase Negative Urine Glucose Negative Urine Opiates Screen Negative Urine Methadone Screen Negative Ur Barbiturates Screen Positive A Ur Tricyclics Screen Negative Ur Amphetamines Screen Negative U Benzodiazepines Scrn Positive A Urine Cocaine Screen Negative Ur THC Screen Negative PFSH All Active Problems (Updated 05/07/25 @ 17:49 by Maddison Han APRN) On deep vein thrombosis (DVT) prophylaxis (Acute) Acute alcoholic gastritis (Acute) Melena (Acute) Alcohol withdrawal syndrome (Acute) Alcohol use disorder (Chronic) Primary hypertension (Chronic ~2023) Elevated bilirubin (Acute) Hepatic steatosis (Acute ~12/2023) US Bilateral ocular hypertension (Chronic) Sleeping difficulty (Acute) RX Trazodone Depression (Chronic) Venlafaxine; counselor Anxiety (Chronic) did not respond to low dose sertraline 01/11/11, failed Mirtazepine Medical History Hypomagnesemia Alcohol use disorder, moderate, in early remission Alcohol withdrawal Hypertension Nicotine use disorder 16yo started 0.5-1PPD Stressful life event affecting family Sister's illness/diagnosis Excessive drinking alcohol Reviewed norms Family History Mother Breast cancer Pre-menopausal; has occurred x2 Asthma Heart disease [place] Father , , Winter 2019 Cancer lung Diabetes Sister Scleroderma Breast cancer Dx'ed mid 30s Paternal Uncle Scleroderma Social History Smoking/Tobacco Use Status: Current every day Tobacco Type: cigarettes Years smoked: 20 Tobacco: How many years used: 8 Quit status: considering quitting Smoking risk assessment performed?: Yes Alcohol Intake: former Drug use: Rarely Substance use type: does not use and marijuana Adopted: No Caregiver/Support person: No Foster care: No Household members: family Housing: house Number of Children: 0 number of grandchildren: 0 Communication Needs: None Education Level: high school Do you need help understanding health information?: Rarely 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 Pets and animals: No Sexually active: Yes Do you think of yourself as: straight/heterosexual Current gender identity: male What is your relationship status?: refused to answer How often do you talk on the phone with friends or family?: three or more times per week How often do you get together with friends or relatives?: three or more times per week Do you belong to any clubs or organized social groups?: no Panel score (0-1 are the most socially isolated patients): 1 What type of physical activity do you participate in: walking Duration: > 90 minutes/day Frequency: 5-6 times per week Laina/Sabianist: None Special laina needs: No Seatbelt use: always Helmet use: Yes Helmet use: always Drive intox or ride w/intox 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
--- NOTE | 2025-05-09 14:30 | CMDISCH_ITS ---
Date of service: 05/09/25 Time of Service: 11:00 LACE Index Scoring Tool Questions: Length of Stay (in days): 2 Was the patient admitted via the E.D.?: Yes E.D. Visits: 7 Answers: Total Score: 9 Risk of Readmission: Low Risk Care Management Discharge Plan Reason for Hospitalization: ETOH withdrawal Discharge Plan: Andrey was discharged home earlier today with no new home care services. 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 Andrey's mom has set some new boundaries that Andrey is willing to follow. Andrey is hopeful to finally make that step toward true recovery. Andrey was transported home by his mom. Patient/Family Education Needs: Review of discharge instructions, activity, limitations and discuss Ask me 3. SDOH Health Related Social Needs: Health related social needs risk of homeless material hardship lonely/isolated education Health related social needs details living with his mo ther currently, concerned about loosing his job at [employer] – [place]
== END 2025-05-09 10:50 | disposition home or self-care (01) | DRG 897 ==
LOC: ER 16:44 → ICU 17:58
PROVIDERS: Nurse Practitioner Acute Care; Admitting Provider Family Medicine; Emergency Provider Emergency Medicine; PCP Nurse Practitioner Adult Health; Responsible Provider Family Medicine; Visit Provider Family Medicine
DX: F10.239 Alcohol dependence with withdrawal, unspecified (principal); Z59.811 Housing instability, housed, with risk of homelessness; K92.1 Melena; Y90.8 Blood alcohol level of 240 mg/100 ml or more; I10 Essential (primary) hypertension; R07.89 Other chest pain; K76.0 Fatty (change of) liver, not elsewhere classified; G47.9 Sleep disorder, unspecified; F41.9 Anxiety disorder, unspecified; F32.A Depression, unspecified; H40.053 Ocular hypertension, bilateral; F17.210 Nicotine dependence, cigarettes, uncomplicated; Z79.899 Other long term (current) drug therapy; Z59.87 Material hardship due to limited financial resources, not elsewhere classified; K29.20 Alcoholic gastritis without bleeding
CPT/HCPCS: 00123; 36415; 80048; 80053; 80307; 83690; 93005; 96361; 96365; 96366; 96367; 96375; 99285; 71046; 80320; 81003; 83735; 85025; 93010; 99223; 99233; 99238; J2405; J2470; J2560; J3411; J3475

== ENCOUNTER 2025-07-21 08:42 | Emergency (ER) | payer MEDICAID, SELFPAY ==
[2025-07-21] VITALS (38 sets, daily range): BP systolic 138–172; BP diastolic 87–143; PULSE 101–145; RESP 16–35; TEMP 36.8; O2SAT 94–99
--- NOTE | 2025-07-21 08:54 | W.ED.GENAD ---
Discharge Plan Disposition Patient Disposition: Home Discharge Details Clinical Impression: Alcohol use disorder, Alcohol withdrawal Primary Care Provider: Tara Humphreys ED Provider: Hay Brantley Home Meds and New Rx's Prescriptions: New chlordiazepoxide HCl 25 mg capsule 25 mg PO Q1H PRNQty: 20 0RF Rx Instructions: Day 1: Oral: 50 mg every 6 hours. Day 2: Oral: 50 mg every 8 hours. Day 3: Oral: 50 mg every 12 hours. Day 4: Oral: 50 mg once at bedtime. No Action amlodipine 10 mg tablet 10 mg PO DAILY Qty: 90 3RF Rx Instructions: For BP with goal <140/90 thiamine mononitrate (vit B1) [Vitamin B-1 (mononitrate)] 100 mg tablet 100 mg PO QAM Qty: 90 3RF sertraline 100 mg tablet 200 mg PO DAILY Patient Comments: TAKE ONE TABLET BY MOUTH EVERY DAY hydroxyzine HCl 25 mg tablet 25 mg PO BID PRN Patient Comments: TAKE 1 TABLET TWICE DAILY NEEDED FOR ANXIETY multivitamin [Multiple Vitamins] Tablet 1 tab PO DAILY Qty: 0 0RF trazodone 50 mg tablet See Rx Instructions PO QHS PRN (Reason: sleep) Qty: 40 0RF Rx Instructions: 25-50mg bedtime for sleep difficulty, may repeat 50mg x1 if first dose ineffective for max nightly dose 100mg PO every day at bedtime PRN; buspirone 30 mg tablet 30 mg PO BID Patient Comments: TAKE ONE TABLET BY MOUTH TWICE A DAY naltrexone 50 mg tablet 50 mg PO DAILY Qty: 90 0RF Discharge Instructions Instructions: Alcohol withdrawal, Alcohol Use Disorder (DC) Additional Instructions: As discussed, please use the prescribed Librium taper to help mitigate your alcohol withdrawal symptoms. If you have any difficulty following up with your psychiatrist or experiencing worsening withdrawal symptoms please return to the emergency department. Please follow-up with your primary care provider regarding your visit to the emergency department today. Be sure to discuss results of all test performed here today to include radiology, and laboratory testing as well as results for any pending cultures. Should your symptoms worsen, or if you develop new concerning symptoms, please return immediately emergency department for further evaluation. Stand Alone Forms: Portal Information HPI General Date/Time Provider Initiated Documentation: 07/21/25 08:44. HPI Narrative: MDM/Narrative: 34-year-old male presents for acute alcohol withdrawal. Vital signs notable for tachycardia and hypertension. Although patient has well-established history of alcohol withdrawal suspicious there may be another underlying cause for patient's vital signs abnormalities given degree of derangement as well as short clinical history that he reports he has been drinking again which has only been 4 days. Will assess for other significant underlying pathology such as ACS, pneumonia, dehydration or other acute organ failure. ED course: Nursing staff unable to obtain IV access, I placed a peripheral IV under ultrasound guidance in the right basilic vein without complication. Initial labs reported show a lactate of 4.3 and a elevated pH likely consistent with contraction alkalosis and dehydration. 2 L of IV fluid ordered, will continue to monitor. 1248 On reassessment, patient is clinically much more improved, only a trace tremor appreciable when holding his hands, anxiety improved and is no longer diaphoretic. He would like to be discharged to follow-up with his outpatient psychiatrist, and is in agreement with plan for discharge with Librium taper. He was instructed should they have any difficulty obtaining outpatient psychiatric follow-up, or is having worsening withdrawal symptoms to return to the emergency department for further management. Clinical impression: Acute alcohol withdrawal Hypomagnesemia Lactic acidosis Disposition: Discharge HPI: 34-year-old male past med history of anxiety, alcohol use disorder, presents for evaluation of acute alcohol withdrawal. Patient states that he been sober for several months, however relapsed 4 days ago notes he has only been drinking alcohol for the past 4 days. Notes episodes of nausea and vomiting beginning last night and that last drink was approximately 12 hours prior to arrival in the emergency department. He notes severe anxiety, tremulousness and generalized discomfort denies any chest pain, abdominal pain or fever. Patient notes that he has never had a seizure from alcohol withdrawal but has required admission for management of acute alcohol withdrawal in the past. ROS: Negative besides as mentioned above Exam: Gen: A&O NAD, anxious, diaphoretic and tremulous HEENT: NCAT, EOMI, not icteric. External ears normal. No rhinorrhea. Moist mucous membranes. Neck: Supple, full range of motion, no observable masses, No meningeal sign. Lungs: No Respiratory distress. CV: RRR, no edema. Abdomen: Soft, nondistended, No rebound tenderness. MSK: No joint swelling, no redness. Skin: No rashes, petechiae, lesions. Normal color per patient. Neuro: Normal Gait, Grossly intact. Psych: Appropriate for situation. Rhythm: NSR Rate: [place]: Normal axis Intervals: Normal intervals Other findings: No acute ST segment or T wave changes to suggest acute ischemia. Labs: Laboratory Tests Range/Units 07/21/25 09:52 WBC (4.4-10.8) 10^3/uL 16.94 H RBC (4.36-5.78) 10^6/uL 5.18 Hgb (13.5-17.5) g/dL 16.3 Hct (40.0-50.0) % 43.8 MCV (80-95) fL 85 MCH (27.0-33.0) pg 31.5 MCHC (32.0-36.0) % 37.2 H RDW (11.8-14.1) % 12.4 Plt Count (130-400) 10^3/uL 226 MPV (8.0-11.0) fL 8.4 Immature Gran % % 0.4 Neutrophils % % 82.2 Lymphocytes % % 11.6 Monocytes % % 5.5 Eosinophils % % 0.1 Basophils % % 0.2 Nucleated RBC % (0.0-0.3) % 0.0 Absolute Neutrophils (1.2-6.7) 10^3/uL 13.92 H Absolute Lymphocytes (1.2-3.4) 10^3/uL 1.97 Absolute Monocytes (0.1-0.8) 10^3/uL 0.93 H Absolute Eosinophils (0.0-0.7) 10^3/uL 0.02 Absolute Basophils (0.0-0.2) 10^3/uL 0.03 VBG pH (7.31-7.41) 7.66 H* VBG pCO2 (41-51) mmHg 23 L VBG pO2 mmHg 94 VBG HCO3 (23-28) mmol/L 26 VBG Total CO2 (24-29) mmol/L 21 L VBG O2 Saturation % > 99 VBG Base Excess (-2-3) mmol/L 5 H VBG Lactate (<or=2.0) mmol/L 4.4 H* Sodium (136-145) mmol/L 139 Potassium (3.5-5.1) mmol/L 3.9 Chloride (98-107) mmol/L 104 Carbon Dioxide (20.0-31.0) mmol/L 21.2 Anion Gap (3-11) mmol/L 13.8 H BUN (9-23) mg/dL 12 Creatinine (0.73-1.18) mg/dL 0.83 Est GFR (CKD-EPI 2020) (mL/min/1.73m2) 106.08 Glucose (74-106) mg/dL 105 Calcium (8.3-10.6) mg/dL 9.3 Magnesium (1.6-2.6) mg/dL 1.3 L Total Bilirubin (0.2-1.2) mg/dL 0.60 AST (<34) U/L 25 ALT (10-49) U/L 17 Alkaline Phosphatase (46-116) U/L 72 Total Protein (5.7-8.2) g/dL 6.7 Albumin (3.2-5.0) g/dL 4.4 Lipase (<53) U/L 25 Radiology: Accession No. : [id number] Creator : AMERICA CAMPO Dictator : AMERICA CAMPO Management Instructor : Nurses Educator : AMERICA CAMPO Approver2 : Report Date : 07/21/2025 10:57:24 Exam(s) XR PORTABLE CHEST AP EXAM: XR PORTABLE CHEST AP CLINICAL HISTORY: Tachycardia TECHNIQUE: 2D digital imaging was performed of the chest. One image was obtained. An AP view was obtained. COMPARISON: CR XR CHEST 2V PA LATERAL from 05/07/2025 FINDINGS: MEDIASTINUM: Normal. HEART: Normal. PULMONARY VASCULATURE: Normal. LUNGS: Clear. PLEURAL SPACE: No pleural effusion or pneumothorax. BONE:Within normal limits for the patient's age. OTHER FINDINGS:Normal. IMPRESSION: No acute pulmonary findings. DATA REPOSITORY: RADIATION DOSE DELIVERED: Related Data Home Medications ?Medication ?Instructions ?Recorded ?Confirmed amlodipine 10 mg tablet 10 mg PO DAILY #90 tabs 12/03/24 07/21/25 sertraline 100 mg tablet 200 mg PO DAILY 02/01/25 07/21/25 hydroxyzine HCl 25 mg tablet 25 mg PO BID PRN 02/09/25 07/21/25 multivitamin (Multiple Vitamins 1 tab PO DAILY #0 tabs 02/19/25 07/21/25 tablet) trazodone 50 mg tablet See Rx Instructions PO QHS PRN 02/19/25 07/21/25 sleep #40 tabs buspirone 30 mg tablet 30 mg PO BID 04/15/25 07/21/25 naltrexone 50 mg tablet 50 mg PO DAILY #90 tabs 04/17/25 07/21/25 thiamine mononitrate (vit B1) 100 100 mg PO QAM #90 tabs 04/26/25 07/21/25 mg tablet (Vitamin B-1 (mononitrate)) chlordiazepoxide HCl 25 mg capsule 25 mg PO Q1H PRN 20 doses #20 caps 07/21/25 Previous Rx's ?Medication ?Instructions ?Recorded amlodipine 10 mg tablet 10 mg PO DAILY #90 tabs 12/03/24 multivitamin (Multiple Vitamins 1 tab PO DAILY #0 tabs 02/19/25 tablet) trazodone 50 mg tablet See Rx Instructions PO QHS PRN 02/19/25 sleep #40 tabs naltrexone 50 mg tablet 50 mg PO DAILY #90 tabs 04/17/25 thiamine mononitrate (vit B1) 100 100 mg PO QAM #90 tabs 04/26/25 mg tablet (Vitamin B-1 (mononitrate)) chlordiazepoxide HCl 25 mg capsule 25 mg PO Q1H PRN 20 doses #20 caps 07/21/25 Allergies Allergy/AdvReac Type Severity Reaction Status Date / Time No Known Allergies Allergy Verified 07/21/25 09:03 General MOISES: 2 Medical Decision Making Quality:SDOH Health Related Social Needs: Health related social needs lonely/isolated Health related social needs details Patient here with hx of etoh abuse. PFSH All Active Problems (Updated 07/21/25 @ 12:54 by Hay Brantley MD) Alcohol withdrawal (Acute) Nicotine use disorder (Acute) 16yo started 0.5-1PPD Alcohol use disorder (Chronic) Primary hypertension (Chronic ~2023) Elevated bilirubin (Acute) Hepatic steatosis (Acute ~12/2023) [place] Bilateral ocular hypertension (Chronic) Sleeping difficulty (Acute) RX Trazodone Depression (Chronic) Venlafaxine; counselor Anxiety (Chronic) did not respond to low dose sertraline 01/11/11, failed Mirtazepine Medical History Hypomagnesemia Alcohol use disorder, moderate, in early remission Alcohol withdrawal Hypertension Nicotine use disorder 16yo started 0.5-1PPD Stressful life event affecting family Sister's illness/diagnosis Excessive drinking alcohol Reviewed norms Family History Mother Breast cancer Pre-menopausal; has occurred x2 Asthma Heart disease [place] Father , COV, Winter 2019 Cancer lung Diabetes Sister Scleroderma Breast cancer Dx'ed mid 30s Paternal Uncle Scleroderma Social History Smoking/Tobacco Use Status: Current every day Tobacco Type: cigarettes Years smoked: 20 Tobacco: How many years used: 8 Quit status: considering quitting Smoking risk assessment performed?: Yes Alcohol Intake: former Drug use: Occasionally Substance use type: does not use and marijuana Adopted: No Caregiver/Support person: No Foster care: No Household members: family Housing: house Number of Children: 0 number of grandchildren: 0 Communication Needs: None Education Level: high school Do you need help understanding health information?: Rarely 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: Working for [employer] on [employer] Pets and animals: No Sexually active: Yes Do you think of yourself as: straight/heterosexual Current gender identity: male What is your relationship status?: refused to answer How often do you talk on the phone with friends or family?: three or more times per week How often do you get together with friends or relatives?: three or more times per week Do you belong to any clubs or organized social groups?: no Panel score (0-1 are the most socially isolated patients): 1 What type of physical activity do you participate in: walking Duration: > 90 minutes/day Frequency: 5-6 times per week Laina/Zoroastrian: None Special laina needs: No Seatbelt use: always Helmet use: Yes Helmet use: always Drive intox or ride w/intox spotter driver: No Do you feel safe at home: Yes Do you feel safe in your relationship?: Yes
--- NOTE | 2025-07-21 09:00 | DI.RAD_ITS ---
Exam(s) XR PORTABLE CHEST AP EXAM: XR PORTABLE CHEST AP CLINICAL HISTORY: Tachycardia TECHNIQUE: 2D digital imaging was performed of the chest. One image was obtained. An AP view was obtained. COMPARISON: CR XR CHEST 2V PA LATERAL from 05/07/2025 FINDINGS: MEDIASTINUM: Normal. HEART: Normal. PULMONARY VASCULATURE: Normal. LUNGS: Clear. PLEURAL SPACE: No pleural effusion or pneumothorax. BONE:Within normal limits for the patient's age. OTHER FINDINGS:Normal. IMPRESSION: No acute pulmonary findings. DATA REPOSITORY: RADIATION DOSE DELIVERED:
--- NOTE | 2025-07-21 09:00 | RT.EKG_ITS ---
APPROVED REPORT Exam: Resting ECG Reason for Exam: tachycardia Patient Location: E HR:109 bpm ECG Measurements Heart Rate 109 AXIS [place] 120 P 49 QRSd 79 QRS 45 QT 327 T 29 QTc 440 Conclusion Sinus tachycardia...rate> 99 No STEMI
[2025-07-21 09:59] LABS: BE (Venous) 5 mmol/L (-2-3); HCO3 (Venous) 26 mmol/L (23-28); TCO2 (Venous) 21 mmol/L (24-29); pCO2 (Venous) 23 mmHg (41-51); pO2 (Venous) 94 mmHg
[2025-07-21 10:02] LABS: Abs Immature Grans 0.06 10^3/uL (0.0-0.06); HCT 43.8 % (40.0-50.0); HGB 16.3 g/dL (13.5-17.5); Immature Grans % 0.4 %; MCH 31.5 pg (27.0-33.0); MCHC 37.2 % (32.0-36.0); MCV 85 fL (80-95); MPV 8.4 fL (8.0-11.0); Platelet Count 226 10^3/uL (130-400); RBC 5.18 10^6/uL (4.36-5.78); RDW 12.4 % (11.8-14.1); RDW-SD 38.0 fL; WBC 16.94 10^3/uL (4.4-10.8)
[2025-07-21 10:06] LABS: O2 Sat (Venous) > 99 %
[2025-07-21] MEDS: LORazepam 2 MG/ML VIAL IVP (10:08)
[2025-07-21] MEDS: Ondansetron 4 MG/2 ML VIAL IVP (10:08)
[2025-07-21] MEDS: Normal Saline 1,000 ML 1000 ML IV ×2 (10:08→11:10)
[2025-07-21 10:35] LABS: Lipase 25 U/L (<53)
[2025-07-21 10:36] LABS: Magnesium 1.3 mg/dL (1.6-2.6)
[2025-07-21 10:37] LABS: ALT 17 U/L (10-49); AST 25 U/L (<34); Albumin 4.4 g/dL (3.2-5.0); Alkaline Phosphatase 72 U/L (46-116); Anion Gap 13.8 mmol/L (3-11); BUN 12 mg/dL (9-23); Bilirubin, Total 0.60 mg/dL (0.2-1.2); CO2 21.2 mmol/L (20.0-31.0); Calcium 9.3 mg/dL (8.3-10.6); Chloride 104 mmol/L (98-107); Glucose 105 mg/dL (74-106); Potassium 3.9 mmol/L (3.5-5.1); Sodium 139 mmol/L (136-145); Total Protein 6.7 g/dL (5.7-8.2)
[2025-07-21] MEDS: MAGNESIUM SULFATE 2 GM/50 ML BAG IV_INF (11:10)
[2025-07-21] MEDS: LORazepam 1 MG TAB 2 MG PO (13:05)
--- NOTE | 2025-07-24 09:01 | NUR.NOTE ---
Access chart to reconcile EKG orders with EKG's in [facility]. Nursing Note:
== END 2025-07-21 13:31 | disposition home or self-care (01) ==
PROVIDERS: Emergency Provider General Practice; PCP Nurse Practitioner Adult Health
DX: F10.139 Alcohol abuse with withdrawal, unspecified (principal); R00.0 Tachycardia, unspecified; I10 Essential (primary) hypertension; F17.210 Nicotine dependence, cigarettes, uncomplicated
CPT/HCPCS: 36415; 80053; 82805; 83690; 93005; 96361; 96365; 96366; 96375; 99284; 71045; 83605; 83735; 85025; 93010; J2060; J2405; J3475